=== PATIENT | female | born 1965 | race Caucasian/White ===

== ENCOUNTER 2016-08-28 09:59 | Day surgery (SDC) | payer OTHER ==
[2016-08-26 10:28] VITALS: BMI 22.0
[~2016-08-28] VITALS: Ht 172.7 cm; Wt 67.3 kg
[~2016-08-28 09:59] MED LIST: ATEN50TA8 PO; CIPROFLOXACIN 400MG / 200ML D5W IV SCH; INSDGI SC; LACTATED RINGER'S 1000ML 1,000 ML IV SCH; LACTATED RINGER'S 1000ML 500 ML IV ONE; METF1000 PO; MULT-506 PO; PANT40TA PO; SERT50TA PO; SIMV40TA2 PO; SUCR1TAB29 PO; VNTHFA/IN INH
[2016-08-28] MEDS ORDERED: LACTATED RINGER'S 1000ML 1,000 ML IV ONE (10:02)
[2016-08-28] MEDS ORDERED: LARYING-O-JET KIT (LTA) EXT ONE ×2 (10:50)
[2016-08-28] MEDS ORDERED: PROPOFOL IV EMULSION 10 MG/ML 20 ML VIAL IV ONE (10:50)
[2016-08-28] MEDS ORDERED: ROCURONIUM BROMIDE 10 MG/ML 5 ML VIAL ONE (10:50)
[2016-08-28] MEDS ORDERED: FENTANYL CITRATE INJ 50 MCG/1 ML 2 ML VIAL ONE ×2 (10:50→12:30)
[2016-08-28] MEDS ORDERED: SUCCINYLCHOLINE CHLORIDE 20 MG/ML 10 ML VIAL IV ONE (10:50)
[2016-08-28] MEDS ORDERED: LIDOCAINE HCL 2% 2 ML VIAL (20MG/ML) ONE (10:50)
[2016-08-28] MEDS ORDERED: MIDAZOLAM HCL 1 MG/ML 2ML VIAL ONE (10:50)
[2016-08-28 10:51] VITALS: BP 127/66; PULSE 69; TEMP 36.8; O2SAT 98; Ht 172.7 cm; Wt 67.3 kg
--- NOTE | 2016-08-28 11:08 | Endo History and Physical ---
History & Physical Date of Service: August 28, 2016. Chief Complaint: Abdominal pain Referring Physician: History of Present Illness Patient with a history of chronic pancreatits secondary to a history of heavy alcohol use presenting for a stent revision. She has a history of a chronic biiary stricture first treated at [facility] over 3 years ago. she is s/p placemen of a covered metal stent presents today for stent removal. Past Medical History Diabetes, Hypertension Past Surgical History Hx Cardiac Surgery: Yes (LEFT CAROTID ENDARECTOMY) Hx Internal Defibrillator: No Hx Pacemaker: No Hx Abdominal Surgery: Yes (COMMON BILE DUCT STENTS WITH REPLACEMENTS SEVERAL, bilateral tubal ligation) Hx Post-Op Nausea and Vomiting: No Hx Cancer Surgery: No Hx Thoracic Surgery: No Hx Orthopedic: No Hx Urinary Tract Surgery: No Social History Smoking Status: Current Every Day Smoker Hx Substance Use: No Hx Alcohol Use: Yes (QUIT 4.5 YEARS AGO, DAILY ALCOHOL USE IN THE PAST) Allergies Coded Allergies: BEE STING (Verified Allergy, Severe, anaphylaxis, 08/28/16) Celecoxib (Verified Allergy, Severe, anaphylaxis, 08/28/16) Ibuprofen (Verified Adverse Reaction, Unknown, DROPS BP, PASSES OUT, ) Morphine (Verified Adverse Reaction, Unknown, intensifies pain. flu like symptoms,HAD DILAUDID W/O PROB, 08/28/16) Current Medications Reported Home Medications Medications Dose Route/Sig Max Daily Dose Days Date Category Dose Instructions Ventolin Hfa (Albuterol) 200 Puffs/07996 Mcg Aers 2 Puffs INH Q4H PRN 08/26/16 Reported Carafate (Sucralfate) 1 Gm Tab 1 Gm PO QID 08/26/16 Reported Zoloft (Sertraline HCl) 50 Mg Tab 75 Mg PO HS 03/20/16 Reported Multivitamin (Multivitamins) Tab 1 Tab PO QAM 12/17/15 Reported Zocor (Simvastatin) 40 Mg Tab 40 Mg PO HS 12/17/15 Reported Protonix (Pantoprazole Sodium) 40 Mg Tab 40 Mg PO QAM 10/16/15 Reported Glucophage (Metformin Hcl) 1,000 Mg Tab 1,000 Mg PO BID 02/16/15 Reported Lantus (Insulin Glargine) Vial 12 Unit SC AMPM 02/16/15 Reported PT STOPPED HERSELF, STATES HER SUGARS HAVE BEEN GOOD AND NOT NEEDED 95-128 SUGAR RANGE RECENTLY Tenormin (Atenolol) 50 Mg Tab 50 Mg PO QAM 08/21/14 Reported Vital Signs Weight (Kilograms): 67.27 Height (Feet): 5 Height (Inches): 8 Physical Exam General Appearance: no apparent distress Respiratory/Chest: Auscultation: deminished air movement Cardiovascular: Heart Auscultation: RRR Abdomen: Inspection & Palpation: soft Assessment and Plan ERCP today for biliary stent revision. We have discussed the risks to include bleeding, infection, perforation, pain, pancreatitis and failed cannulation. Plan ERCP today
[2016-08-28 11:22] LABS: HEMATOCRIT 36.6 % (37-47); MEAN CELL VOLUME 75.9 fL (80-100); RED BLOOD COUNT 4.82 M/uL (4.2-5.4); WHITE BLOOD COUNT 9.09 K/uL (4.8-10.8)
[2016-08-28 11:25] LABS: MEAN CORPUSCULAR HGB CONC 30.3 g/dl (32-36)
[2016-08-28 11:33] LABS: PLATELET COUNT 117 K/uL (130-400)
[2016-08-28 11:34] LABS: PLT ESTIMATE DECREASED
[2016-08-28 11:39] LABS: BUN/CREATININE RATIO 15.1 (10-20); CALCIUM 9.5 mg/dl (8.5-10.1); CREATININE 0.65 mg/dl (0.60-1.20); POTASSIUM 3.8 mmol/L (3.5-5.1)
--- NOTE | 2016-08-28 12:29 | GI REPORT ---
Procedure Date: 08/28/2016 11:05 AM Procedure: ERCP Indications: Stent removal, biliary stricture from chronic pancreattiis Medicines: General Anesthesia Complications: No immediate complications. Estimated blood loss: Minimal. Estimated Blood Loss: Estimated blood loss was minimal. Procedure: Pre-Anesthesia Assessment: - Prior to the procedure, a History and Physical was performed, and patient medications, allergies and sensitivities were reviewed. The patient's tolerance of previous anesthesia was reviewed. - The risks and benefits of the procedure and the sedation options and risks were discussed with the patient. All questions were answered and informed consent was obtained. - Patient identification and proposed procedure were verified prior to the procedure by the physician, the nurse and the resource paraprofessional. The procedure was verified in the procedure room. - Pre-procedure physical examination revealed no contraindications to sedation. - ASA Grade Assessment: III - A patient with severe systemic disease. - After reviewing the risks and benefits, the patient was deemed in satisfactory condition to undergo the procedure. - The anesthesia plan was to use general anesthesia. - Immediately prior to administration of medications, the patient was re-assessed for adequacy to receive sedatives. - The heart rate, respiratory rate, oxygen saturations, blood pressure, adequacy of pulmonary ventilation, and response to care were monitored throughout the procedure. - The physical status of the patient was re-assessed after the procedure. After obtaining informed consent, the scope was passed under direct vision. Throughout the procedure, the patient's blood pressure, pulse, and oxygen saturations were monitored continuously. The SCOPE was introduced through the mouth, and advanced to the duodenum and used to inject contrast into the bile duct. The ERCP was accomplished without difficulty. The patient tolerated the procedure well. Findings: A senior supply chain analyst film of the abdomen was obtained. One stent ending in the main bile duct was seen. The esophagus was successfully intubated under direct vision without detailed examination of the pharynx, larynx, and associated structures, and upper GI tract. The upper GI tract was grossly normal. One biliary stent originating in the biliary tree was emerging from the major papilla. The stent was visibly patent. A biliary sphincterotomy had been performed. The sphincterotomy appeared open and the surrounding mucosa was nodular appearing (inflammatory on prior biopsy). One stent was removed from the biliary tree using a rat-toothed forceps. The bile duct was deeply cannulated with the short-nosed traction sphincterotome (Omni 30) and 0.035 in Acrobat guidewire. Contrast was injected. I personally interpreted the bile duct images. Contrast extended to the hepatic ducts. The middle third of the main bile duct and upper third of the main bile duct were mildly dilated and diffusely dilated with a narrowing in the proximal duct consistent with her prior stricture. The stricture was smooth appearing and much improved comared to her prior cholangiograms. The largest diameter was 9 mm. The biliary sphincterotomy was extended with a monofilament short-tip traction sphincterotome using ERBE electrocautery. There was no post-sphincterotomy bleeding. To discover objects, the biliary tree was swept with a 15 mm balloon starting at the bifurcation. One stone was removed. An occlusion cholangiogram was done showing no retained stones, the biliary tree appeared to be draining well, therefore no new stent was placed.. The endoscope was withdrawn from the patient. Impression: - One visibly patent stent from the biliary tree was seen in the major papilla. - Prior biliary endoscopic sphincterotomy appeared open. - One stent was removed from the biliary tree. - The biliary tree was swept (1 stone removed) and sphincterotmy extended. - Her biliary stricture appeared well dilated from prior "remodeling" with a covered metal stent. Recommendation: - Avoid aspirin and nonsteroidal anti-inflammatory medicines for 1 week. - Clear liquid diet today. - Cipro (ciprofloxacin) 500 mg PO BID for 3 days. - Observe patient's clinical course following today's ERCP with therapeutic intervention. Sintia Langford D.O. Sintia Langford, 08/28/2016 12:28:31 PM This report has been signed electronically. Note Initiated On: 08/28/2016 11:05 AM I attest to the content of the Intraoperative Record and orders documented therein, exceptions below
--- NOTE | 2016-08-28 12:29 | [facility] Post Operative Brief Note ---
Immediate Operative Summary Operative Date August 28, 2016. Pre-Operative Diagnosis Chronic Biliary Stricture, Chronic pancreatitis Post-Operative Diagnosis Chronic Biliary Stricture, Chronic Pancreatitis Procedure(s) Performed Endoscopic Retrograde Cholangiopancreatogram with Stent Removal, Gall Stone Extraction Surgeon Dr. Langford Associate Engineer Surgeon(s) none Estimated Blood Loss 0 cc Findings Improved biliary stricture 1 small gallstone Specimens none per surgeon Anesthesia General Complication(s) None Disposition Recovery Room / PACU
[2016-08-28] MEDS ORDERED: ATROPINE SULFATE 0.1 MG/ML 5ML SYR IV PRN (12:30)
[2016-08-28] MEDS ORDERED: HYDROmorphone INJ 1 MG/ML SYR IV PRN (12:30)
[2016-08-28] MEDS ORDERED: ONDANSETRON INJ 2 MG/ML 2 ML VIAL IV PRN ×2 (12:30→12:45)
[2016-08-28] MEDS ORDERED: MEPERIDINE HCL 25 MG/ML CARP IV PRN (12:30)
[2016-08-28] MEDS ORDERED: EpHEDrine SULFATE INJ 50 MG/ML AMP IV PRN (12:30)
[2016-08-28] MEDS ORDERED: FENTANYL CITRATE INJ 50 MCG/1 ML 2 ML VIAL IV PRN (12:30)
[2016-08-28] MEDS ORDERED: LABETALOL HCL IV 5 MG/ML 20ML IV PRN (12:30)
--- NOTE | 2016-08-28 12:31 | Discharge Instructions ---
Endoscopy Patient Instructions Date / Procedure(s) Performed August 28, 2016. ERCP Allergy Information Coded Allergies: BEE STING (Verified Allergy, Severe, anaphylaxis, 08/28/16) Celecoxib (Verified Allergy, Severe, anaphylaxis, 08/28/16) Ibuprofen (Verified Adverse Reaction, Unknown, DROPS BP, PASSES OUT, ) Morphine (Verified Adverse Reaction, Unknown, intensifies pain. flu like symptoms,HAD DILAUDID W/O PROB, 08/28/16) Discharge Date / Findings August 28, 2016. 1 gallstone removed Biliary stent removed Improved stricture of the bile duct Medication Instructions Reported Home Medications Medications Dose Route/Sig Max Daily Dose Days Date Category Dose Instructions Ventolin Hfa (Albuterol) 200 Puffs/40536 Mcg Aers 2 Puffs INH Q4H PRN 08/26/16 Reported Carafate (Sucralfate) 1 Gm Tab 1 Gm PO QID 08/26/16 Reported Zoloft (Sertraline HCl) 50 Mg Tab 75 Mg PO HS 03/20/16 Reported Multivitamin (Multivitamins) Tab 1 Tab PO QAM 12/17/15 Reported Zocor (Simvastatin) 40 Mg Tab 40 Mg PO HS 12/17/15 Reported Protonix (Pantoprazole Sodium) 40 Mg Tab 40 Mg PO QAM 10/16/15 Reported Glucophage (Metformin Hcl) 1,000 Mg Tab 1,000 Mg PO BID 02/16/15 Reported Lantus (Insulin Glargine) Vial 12 Unit SC AMPM 02/16/15 Reported PT STOPPED HERSELF, STATES HER SUGARS HAVE BEEN GOOD AND NOT NEEDED 95-128 SUGAR RANGE RECENTLY Tenormin (Atenolol) 50 Mg Tab 50 Mg PO QAM 08/21/14 Reported Provider Instructions Activity Restrictions - No exercising or heavy lifting for 24 hours. - Do not drink alcohol the day of the procedure. - Do not drive a car or operate machinery until the day after the procedure. - Do not make any important decisions or sign important papers in 24 hours after the procedure. Following Day: - Return to full activity which may include returning to work/school. Diet Clear liquid diet today Treatment For Common After Affects For mild abdominal pain, bloating, or excessive gas: - Rest - Eat lightly - Lie on right side Follow-Up Information Follow-up with Layne WELLS in 6 months Cipro 500 mg twice daily for 3 days Anesthesia Information What You Should Know You have had a procedure that required some medicine to reduce anxiety and discomfort. This treatment is called moderate sedation. After receiving the treatment, you may be sleepy, but you will be able to breathe on your own. The effects of the treatment may last for several hours. Follow these instructions along with Activity/Diet recommendations noted above: * Do NOT do anything where dizziness or clumsiness would be dangerous. * Rest quietly at home today, then you can be up and about tomorrow. * Have a responsible person stay with you the rest of today. * You may have had an I.V. today. If so, you may take the dressing off later today. Recommendations Call your doctor if: * Trouble breathing * Continuous vomiting for more than 24 hours * Temperature above 101 degrees * Severe abdominal pain or bloating * Pain not relieved by pain medicine ordered * There is increased drainage or redness from any incision * A large amount of rectal bleeding greater than 2-3 tablespoons. (If you had a polyp/s removed or have hemorrhoids, a small amount of blood - from the rectum is to be expected.) * You have any unanswered questions or concerns. IN THE EVENT OF A SERIOUS EMERGENCY, GO TO THE NEAREST EMERGENCY ROOM Your discharge instructions were prepared by provider Sintia Langford. Patient Instructions Signature Page Shara Rodriguez Patient (or Guardian) Signature/Date: I have read and understand the instructions given to me by my caregivers. Caregiver/RN/Doctor Signature/Date: The above-named patient and/or guardian has received patient instructions on this date. + Original Patient Signature Page (only) stays with chart. Please make copy for patient.
[2016-08-28 13:05] VITALS: BP 124/66; PULSE 66; TEMP 36.7; O2SAT 100
--- NOTE | 2016-08-28 13:08 | Anesthesiology Progress Note ---
Anesthesia Post Op Note Date & Time August 28, 2016 at 13:08 Vital Signs Pain Intensity: 3 Vital Signs Past 12 Hours Date Time Temp Pulse Resp B/P Pulse Ox O2 Delivery O2 Flow Rate FiO2 08/28/16 13:00 66 17 128/65 100 Nasal Cannula 2 08/28/16 12:50 63 17 132/69 100 Nasal Cannula 2 08/28/16 12:40 36.6 63 15 137/71 100 Nasal Cannula 2 08/28/16 12:30 68 16 148/71 100 Nasal Cannula 2 08/28/16 12:20 69 16 146/74 100 Nasal Cannula 2 08/28/16 12:13 36.1 75 16 140/90 100 Mask 10 08/28/16 10:51 36.8 69 20 127/66 98 Room Air Notes Mental Status: alert / awake / arousable, participated in evaluation Pt Amnestic to Procedure: Yes Nausea / Vomiting: adequately controlled Pain: adequately controlled Airway Patency, RR, SpO2: stable & adequate BP & HR: stable & adequate Hydration State: stable & adequate Anesthetic Complications: no major complications apparent
--- NOTE | 2016-08-28 13:09 | DIAGNOSTIC IMAGING REPORT ---
ERCP BILIARY DUCTAL CLINICAL HISTORY: ERCP WITH STENT REMOVAL IN OR COMPARISON STUDY: 03/21/2016 FLUOROSCOPY TIME: 1 minute 33 seconds. FINDINGS: Interval stent removal. Retrograde cannulation of the common bile duct with balloon sweeping of the common duct. IMPRESSION: ERCP as noted Electronically signed by: Kush Jung M.D. 08/28/2016 1:07 PM Dictated Date/Time: 08/28/2016 1:07 PM
[2016-08-28 13:35] VITALS: BP 122/66; PULSE 65; TEMP 36.7; O2SAT 100
[2016-08-28 14:05] VITALS: BP 127/66; PULSE 66; TEMP 36.7; O2SAT 100
== END 2016-08-28 14:05 | disposition home or self-care (01) ==
LOC: C.ACU 09:59
PROVIDERS: ATTEND Internal Medicine Gastroenterology
DX: K83.1 Obstruction of bile duct (principal); K86.1 Other chronic pancreatitis; I10 Essential (primary) hypertension; E11.9 Type 2 diabetes mellitus without complications; F17.210 Nicotine dependence, cigarettes, uncomplicated; Z79.4 Long term (current) use of insulin; Z79.899 Other long term (current) drug therapy; Z72.89 Other problems related to lifestyle; K80.50 Calculus of bile duct without cholangitis or cholecystitis without obstruction

== ENCOUNTER 2023-03-10 09:31 | Inpatient (IN) ==
[2023-03-10] MEDS ORDERED: SODIUM CHLORIDE 0.9% 1,000 ML IV ONE (09:53)
[2023-03-10] MEDS ORDERED: ONDANSETRON INJ 2 MG/ML 2 ML VIAL IV STA (09:53)
[2023-03-10] MEDS ORDERED: HYDROmorphone INJ 1 MG/ML SYRINGE IV STA (09:53)
--- NOTE | 2023-03-10 09:59 | Emergency Department Note ---
Impression & Plan Acute pancreatitis ED Provider Note Name: JOSE CHÁVEZ Age: 58 Sex: Female Arrives Via: Walk-In Informant: Patient. Patient's sister ED Provider: Bobby Miller MD Chief Complaint: Epigastric pain Impression: As per impression above Medical Decision Making: Pleasant 58-year-old female with history of alcoholism, varices, diabetes, hypertension, pancreatitis arrives for evaluation of several days worsening epigastric pain radiating to back. She does not have peritonitis on exam but is uncomfortable. Laboratory work-up consistent with acute pancreatitis. Abdominal exam is not consistent with surgical abdomen thus will defer imaging to hospitalist service. Patient was given IV pain medications, fluids, Zofran with significant improvement in her discomfort. There is no evidence of infectious etiology at this time. Patient is comfortable with plan for hospitalization. Triage/Nursing Notes reviewed by Me Differential:Pancreatitis, ACS, aortic pathology, biliary pathology, mesenteric ischemia, many other pathologies considered Vital Signs: reviewed and remarkable for no significant abnormalities Interventions: Normal saline bolus 1 L IV, Dilaudid 1 mg IV, 4 mg Zofran IV Labs:ED labs Reviewed by me and remarkable for elevated lipase EKG:As per my interpretation. Indication epigastric pain. Normal sinus rhythm at 66 bpm with a prolonged QTc of 503. There is no ectopy nor ischemia. When compared to EKG March 20, 2016 there is no significant change. Consults:Dr. Robertson of the [facility] hospitalist service Plan: Disposition:Hospitalization. Condition: Good History of Present Illness: 58-year-old female arrives for evaluation of epigastric pain. Patient notes 2 to 3 days of gradually worsening epigastric pain. Notes pain radiates to the back. Stabbing in nature. Associated with nausea. Worse with any eating or movement. Denies any abdominal distention. Denies any falls, trauma, injuries. She denies any specific chest pain, shortness of breath, fevers though has had some chills. She has not had any urinary or bowel issues. Has not noted any black or bloody stools. No swelling in legs rashes or bruising. Patient has been using Motrin and Excedrin with mild improvement. Patient does have history of pancreatitis with previous hospitalization about a decade ago. Admits to history of alcoholism though has not been drinking any alcohol recently. She also has a history of hypertension, diabetes, varices, tobacco abuse, atherosclerosis amongst others. Denies other concerning symptoms. Past Medical History:See Below Home Medications:See Below Allergies:Morphine, ibuprofen, celecoxib, bee venom Vitals:Blood Pressure: 137/93, Pulse 78, RR 16, T 36.5C, O2 99% on RA Physical Exam: GENERAL: Patient is very uncomfortable appearing and in moderate distress. Dehydrated appearing moderately cachectic appearing RESPIRATORY: No dyspnea. Clear to auscultation and equal bilaterally. CARDIOVASCULAR: Regular rate and rhythm.No murmur appreciated. GASTROINTESTINAL: Moderate epigastric tenderness palpation otherwise soft nontender abdomen without peritonitis or effusion appreciated BACK: No midline tenderness, no CVA tenderness EXTREMITIES: Normal motion all extremities, no cyanosis, no edema. NEUROLOGIC: Alert and oriented. No focal neurologic deficits appreciated SKIN: No rash, no jaundice, no diaphoresis. PSYCH: Appropriate GCS: 15 ED Course: Times/Reassessments: Patient is feeling significantly better after IV medications and fluids. She is comfortable plan for hospitalization. Bobby Miller MD Past Med/Surg History Medical History (Updated 03/10/23 @ 13:10 by Laura Hernandez PA-C) Stenosis of left subclavian artery Dyslipidemia GERD without esophagitis Chronic pancreatitis Asymptomatic stenosis of left carotid artery History of TIAs Biliary colic History of pancreatitis Portal hypertensive gastropathy DM2 (diabetes mellitus, type 2) Esophageal varices in alcoholic cirrhosis Hypertension Surgical History (Updated 03/10/23 @ 11:52 by Laura Hernandez PA-C) History of biliary stent insertion S/P carotid endarterectomy H/O esophagogastroduodenoscopy Family History (Updated 03/10/23 @ 12:09 by Laura Hernandez PA-C) Father Disorder of pancreas ?due to EtOH Social History (Updated 03/10/23 @ 12:08 by Laura Hernandez PA-C) Tobacco Type: Cigarettes and E-cigarettes / Vaping Cigarettes Per Day: ~20 cig/day; Hx Alcohol Use: Yes (last drink was 12 years ago) Feels Safe at Home: Yes Allergies Allergies Allergy/AdvReac Type Severity Reaction Status Date / Time bee venom protein (honey bee) Allergy Severe anaphylaxis Verified 03/10/23 10:39 celecoxib Allergy Severe anaphylaxis Verified 03/10/23 10:39 morphine AdvReac Unknown intensifies Verified 03/10/23 10:39 pain. flu like symptoms,HAD DILAUDID W/O PROB Home Meds Home Medications Medication Instructions Recorded Confirmed albuterol sulfate 90 mcg/actuation 2 puff inhalation Q4H PRN Wheezing 08/26/16 03/10/23 aerosol inhaler ##0 ibuprofen 200 mg tablet 400 mg PO UD PRN PAIN/FEVER #0 tabs 10/29/17 03/10/23 atenolol 25 mg tablet 25 mg PO QAM 03/10/23 03/10/23 empagliflozin 10 mg tablet 10 mg PO QAM 03/10/23 03/10/23 (Jardiance) epinephrine 0.3 mg/0.3 mL 0.3 mg IM UD PRN SEVERE REACTION 03/10/23 03/10/23 injection, auto-injector insulin glargine 100 unit/mL (3 16 unit subcut BID 03/10/23 03/10/23 mL) subcutaneous pen (Lantus Solostar U-100 Insulin) lisinopril 20 mg tablet 20 mg PO QAM 03/10/23 03/10/23 pantoprazole 20 mg tablet,delayed 20 mg PO QAM 03/10/23 03/10/23 release rosuvastatin 20 mg tablet 20 mg PO HS 03/10/23 03/10/23 Results & Data (ED) Vital Signs Vital Signs - 24 hr 03/10/23 09:35 03/10/23 10:30 Temperature 36.5 C Temperature Source Oral Pulse Rate 78 63 Respiratory Rate 16 Respiratory Effort / Characteristics Non-Labored Respiratory Depth Normal Blood Pressure 137/93 Blood Pressure Mean 107 Pulse Oximetry 99 Oxygen Delivery Method Room Air Sepsis Recent Fever Within 48 Hours No Sepsis New/Unexplained Change in Mental Status N/A Sepsis Action Taken by Nursing No Action Required Laboratory Data 03/10/23 10:00 03/10/23 10:00 Lab Results 03/10/23 Range/Units 10:00 WBC 13.69 H (4.8-10.8) K/ul RBC 5.79 H (4.20-5.40) M/uL Hgb 15.1 (12.0-16.0) g/dl Hct 47.9 H (37.0-47.0) % MCV 82.7 (80.0-100.0) fL MCH 26.1 (25.0-34.0) pg MCHC 31.5 L (32.0-36.0) g/dL RDW Std Deviation 46.6 H (36.4-46.3) fL RDW Coeff of Soraya 15.6 H (11.5-14.5) % Plt Count 164 (130-400) K/uL MPV 11.4 (9.4-12.4) fL Immature Gran % (Auto) 0.4 % Neut % (Auto) 85.5 % Lymph % (Auto) 8.8 % Delta % (Auto) 4.1 % Eos % (Auto) 0.8 % Baso % (Auto) 0.4 % Neut # (Auto) 11.71 H (1.40-6.50) K/uL Lymph # (Auto) 1.20 (1.20-3.40) K/uL Delta # (Auto) 0.56 (0.11-0.59) K/uL Eos # (Auto) 0.11 (0.00-0.50) K/uL Baso # (Auto) 0.05 (0.00-0.20) K/uL Immature Gran # (Auto) 0.06 (0.01-0.20) K/uL Sodium 136 (136-145) mmol/L Potassium 3.3 L (3.5-5.1) mmol/L Chloride 100 (98-107) mmol/L Carbon Dioxide 24 (21-32) mmol/L Anion Gap 12 H (3-11) BUN 18 (6-23) mg/dl Creatinine 1.06 (0.6-1.2) mg/dl Est Cr Clr Drug Dosing 46.4 ml/min Est GFR ( Amer) 66.6 ml/min Est GFR (Non-Af Amer) 57.4 ml/min BUN/Creatinine Ratio 17.0 (10-20) Glucose 170 H (70-99(Fasting)) mg/dl Calcium 10.6 H (8.6-10.3) mg/dl Magnesium 1.9 (1.7-2.4) mg/dl Total Bilirubin 0.8 (0.2-1.0) mg/dl Direct Bilirubin 0.3 H (0-0.2) mg/dl AST 22 (13-39) U/L ALT 22 (7-52) U/L Alkaline Phosphatase 132 H (34-104) U/L Troponin I High Sens 16.8 H (0-14) pg/ml Total Protein 9.4 H (6.0-8.3) gm/dl Albumin 5.0 (3.4-5.0) gm/dl Lipase 968 H (11-82) U/L Urine Color Yellow Urine Appearance Clear (Clear) Urine pH 5.5 (4.5-7.5) Ur Specific [place] 1.035 H (1.000-1.030) Urine Protein 2+ H (Negative) Urine Glucose (UA) 3+ H (Negative) Urine Ketones Negative (Negative) Urine Blood 2+ H (Negative) Urine Nitrite Negative (Negative) Urine Bilirubin Negative (Negative) Urine Urobilinogen Negative (Negative) Ur Leukocyte Esterase Negative (Negative) Urine WBC (Auto) 1-5 (0-5) /hpf Urine RBC (Auto) 5-10 H (0-4) /hpf U Hyaline Cast (Auto) 0 (0-5) /lpf U Epithel Cells (Auto) >30 H (0-5) /lpf Urine Bacteria (Auto) Negative (Negative) Administered Medications Lactated Ringer's (Lr) 1,000 mls @ 150 mls/hr IV .Q6H40M VIKA Stop: 04/09/23 12:44 Last Admin: 03/10/23 12:57 Dose: 150 mls/hr Documented By: ANDREEA Oxycodone HCl (Oxycodone Hcl Ir 5 Mg Tab (Immediate Release)) 5 mg PO Q8H PRN PRN Reason: Pain Stop: 03/24/23 12:56 Last Admin: 03/10/23 14:14 Dose: 5 mg Documented By: ANDREEA Discontinued Medications Hydromorphone HCl (Hydromorphone Inj 1 Mg/Ml Syringe) 1 mg IV NOW STA Stop: 03/10/23 09:54 Last Admin: 03/10/23 10:10 Dose: 1 mg Documented By: FELIZ Sodium Chloride (Nss) 1,000 mls @ 999 mls/hr IV .Q1H1M ONE Stop: 03/10/23 10:53 Last Infusion: 03/10/23 11:55 Dose: Infused Documented By: Admin: 03/10/23 10:04 Dose: 999 mls/hr Documented By: FELIZ Ondansetron HCl (Ondansetron Inj 2 Mg/Ml 2 Ml Vial) 4 mg IV NOW STA Stop: 03/10/23 09:54 Last Admin: 03/10/23 10:10 Dose: 4 mg Documented By: FELIZ Potassium Chloride (Potassium Chloride Crtab 20 Meq Tabcr) 40 meq PO NOW STA Stop: 03/10/23 12:33 Last Admin: 03/10/23 12:58 Dose: 40 meq Documented By: ANDREEA Discharge Plan Visit Data Chief Complaint: Abdominal Pain Stated Complaint: Pancreatitis ED Provider: Bobby Miller Discharge Problem: Acute pancreatitis Patient Disposition: Being Evaluated by Hospitalist Discharge Instructions Interventions: ED Discharge Assessment Last Done: 03/10/23 14:05 Discharge Problem: Acute pancreatitis Qualifiers: Pancreatitis type: other Acute pancreatitis complication: no infection or necrosis Qualified Code(s): K85.80 - Other acute pancreatitis without necrosis or infection
[2023-03-10 10:18] LABS: Basophils # (auto) 0.05 K/uL (0.00-0.20); Basophils % (auto) 0.4 %; Eosinophils # (auto) 0.11 K/uL (0.00-0.50); Eosinophils % (auto) 0.8 %; Hematocrit (blood only) 47.9 % (37.0-47.0); Hemoglobin 15.1 g/dl (12.0-16.0); Immature Granulocytes # (auto) 0.06 K/uL (0.01-0.20); Immature Granulocytes % (auto) 0.4 %; Lymphocytes % (auto) 8.8 %; Mean Corpuscular Hemoglobin 26.1 pg (25.0-34.0); Mean Corpuscular Hgb Conc 31.5 g/dL (32.0-36.0); Mean Corpuscular Volume 82.7 fL (80.0-100.0); Mean Platelet Volume 11.4 fL (9.4-12.4); Monocytes # (auto) 0.56 K/uL (0.11-0.59); Monocytes % (auto) 4.1 %; Neutrophils # (auto) 11.71 K/uL (1.40-6.50); Neutrophils % (auto) 85.5 %; Platelet Count 164 K/uL (130-400); RDW Coefficient of Variation 15.6 % (11.5-14.5); RDW Standard Deviation 46.6 fL (36.4-46.3); Red Blood Count 5.79 M/uL (4.20-5.40); White Blood Count 13.69 K/ul (4.8-10.8)
[2023-03-10 10:19] LABS: Appearance Urine Clear (Clear); Bacteria Urine Automated Negative (Negative); Bilirubin Urine Negative (Negative); Blood Urine 2+ (Negative); Cast Urine Automated 0 /lpf (0-5); Color Urine Yellow; Epithelial Cell Urine Auto >30 /lpf (0-5); Glucose Urine UA 3+ (Negative); Ketones Urine Negative (Negative); Leukocyte Esterase Urine Negative (Negative); Nitrite Urine Negative (Negative); Protein Urine 2+ (Negative); Specific Gravity Urine 1.035 (1.000-1.030); Urobilinogen Urine Negative (Negative); pH Urine 5.5 (4.5-7.5)
[2023-03-10 10:34] LABS: Calcium 10.6 mg/dl (8.6-10.3); Creatinine Clr Calc Pharmacy 46.4 ml/min; Est GFR (African American) 66.6 ml/min; Est GFR (Non-African American) 57.4 ml/min; Potassium 3.3 mmol/L (3.5-5.1)
[2023-03-10 10:38] LABS: Troponin I High Sensitivity 16.8 pg/ml (0-14)
[2023-03-10 10:52] LABS: Bilirubin Direct 0.3 mg/dl (0-0.2); Bilirubin,Total 0.8 mg/dl (0.2-1.0); Magnesium 1.9 mg/dl (1.7-2.4); Total Protein 9.4 gm/dl (6.0-8.3)
--- OUTSIDE RECORDS SUMMARY | 2023-03-10 11:43 | External Medical Summary | Summary of Care ---
Author Name Unknown Organization [facility] Address [address] [place] [address] Phone [phone] Care Team Providers Care Densitometer Reader Name Role Phone Zachary Mcfarlane DO Primary Care Provider Encounter Details Date Type Department Care Team Description 10/20/2018 Hospital Encounter Radiology Film File [address] [place] [address] Allergies Active Allergy Reactions Severity Noted Date Comments Bee Venom Anaphylaxis High 09/19/2014 Other reaction(s): Angioedema Celecoxib Anaphylaxis High 12/05/2014 Morphine Other (Please comment) 12/05/2014 Exacerbation of pain documented as of this encounter (statuses as of 02/04/2023) Medications Medication Sig Dispensed Refills Start Date End Date Status BD PEN NEEDLE FREDDIE U/F 32G X 4 MM 0 02/09/2015 Active PROAIR HFA 108 (90 BASE) MCG/ACT inhaler Inhale by mouth 2 Puffs as needed . 0 02/05/2015 Active Aspirin-Acetaminophen- Caffeine 250-250-65 MG Oral Tablet Take 2 Tablets by mouth every 8 hours as needed. 0 Active documented as of this encounter (statuses as of 02/04/2023) Active Problems Problem Noted Date Carotid occlusion, right 01/13/2023 Subclavian artery stenosis, left 023 Type 2 diabetes mellitus with hemoglobin A1c goal of less than 7.0% 12/19/2022 Gastroesophageal reflux disease 12/20/19 23 Dyslipidemia 12/19/2022 Tobacco use disorder 12/19/2022 S/P carotid endarterectomy 12/19/2022 History of TIA (transient ischemic attac k) 12/19/2022 Carotid stenosis, asymptomatic, left 04/2022 HTN, goal below 140/90 12/19/2022 Chronic pancreatitis 12/19/2022 Hepatic cirrhosis 12/19/2022 documented as of this encounter (statuses as of 02/04/2023) Immunizations Name Administration Dates Next Due Pneumococcal Polysaccharide PPV23 (Pneumovax) 09/17/2015 Seasonal Influenza, Quadriva lent, No Preserve, IM 01/10/2014,03/02/2008,03/25/2007 Seasonal Influenza, Split, I IV3, With Preserve, Inj 02/16/2016,03/02/2008,03/25/2007 documented as of this encounter Social History Tobacco Use Types Packs/Day Years Used Date Smoking Tobacco: Every Day Cigarettes 1 Smokeless Tobacco: Never Alcohol Use Standard Drinks/Week Comments No 0 (1 standard drink = 0.6 oz pur e alcohol) quit 3 years ago Sex Assigned at Date Recorded Not on file Job Start Date Occupation Industry Not on file Not on file Not on file documented as of this encounter Plan of Treatment Upcoming Encounters Date Type Specialty Care Team Description 03/20/2023 Office Visit Family Medicine Holland Dominique MD [address] [place] [address] 04/01/2023 Office Visit Pharmacy [facility] [address] [place] [address] 05/15/2023 Office Visit Gastroenterology Dede Olmedo MD [address] [place] [address] [place] [address] Scheduled Procedures Name Priority Associated Diagnoses Date/Ti me ESOPHAGOGASTRODUODENOSCOPY ( EGD), FLEXIBLE, TRANSORAL, DIAGNOSTIC Recall Esophageal varices (HCC) COLONOSCOPY FLEXIBLE PROXIMAL DIAGNOSTIC Recall Encounter for screening colonoscopy Health Maintenance Due Date Last Done Comments DISCUSS TOBACCO CESSATION (REFER TO SMARTSET #8255) 1965 Hepatitis B (1 of 3 - 3-dose series) 1965 COVID-19 Vaccine (#1) 1965 Depression Screening 1976 HIV Screening 01/04/1979 DIABETES-EYE EXAM 01/04/1982 Diabetic Foot Exam 01/04/1982 DTaP,Tdap,and Td Vaccines (1 - Tdap) 01/04/1983 Pap Smear 01/04/1985 Cervical Cancer Screening 01/04/1994 HPV/Co-Test 01/04/1994 Cologuard 01/04/2009 Fecal Occult Blood Test 01/04/2009 Sigmoidoscopy 01/04/2009 LUNG CANCER SCREENING - USE SMARTSET [id number] 01/04/2014 Zoster Vaccines (1 of 2) 01/04/2014 Pneumococcal Vaccine: Pediatrics (0 to 5 Years) and At-Risk Patients (6 to 64 Years) (2 - PCV) 09/16/2016 09/17/2015 Mammogram 10/21/2019 10/20/2018, 10/20/2018 Influenza Vaccine (FLU shot) (#1) 2022 02/16/2016, 01/10/2014, 03/02/2008, Additional history exists HbA1c 06/19/2023 12/19/2022, 04/1 10/2022, 04/29/2021, Additional history exists Albumin/Creatinine Ratio 12/20/2023 12/19/2022 GFR 01/07/2024 01/06/2023, 09/0 04/2022, 08/04/2022, Additional history exists Colonoscopy 04/10/2026 04/10/2016, 04/10/2016 Colorectal Cancer Screening 04/10/2026 Hepatitis C Screening Completed 08/31/2018 GARDASIL-HPV IMMUNIZATION SERIES Aged Out No longer eligible based on patient's age to complete this topic MENINGOCOCCAL (MENACTRA/MENVEO) Aged Out No longer eligible based on patient's age to complete this topic documented as of this encounter Medical Devices Not on filedocumented as of this encounter Procedures Procedure Name Priority Date/Time Associated Diagnosis Comments RADIOLOGY EXAM - US (IMAGES ONLY, NO REPORT) Routine 10/20/2018 12:15 PM EDT documented in this encounter Results * RADIOLOGY EXAM - US (IMAGES ONLY, NO REPORT) (10/20/2018 12:15 PM EDT) 10/20/2018 12:1 1 PM EDT Narrative Scheduling, Silent - 02/03/2023 12:06 PM EDT This is an imaging study not interpreted or resulted by a [facility] or [employer] contracted radiologist. Holland Dominique MD RAD ULTRASOUND documented in this encounter Care Teams Densitometer Reader Relationship Specialty Start Date End Date Zachary Mcfarlane, [address] [address] PCP - General Family Medicine 10/29/17 12/25/22 documented as of this encounter
--- OUTSIDE RECORDS SUMMARY | 2023-03-10 11:43 | External Medical Summary | Summary of Care ---
Author Name Unknown Organization [facility] Address [address] [place] [address] Phone [phone] Care Team Providers Care Brush Holder Inspector Name Role Phone Holland Dominique MD Primary Care Provider [phone] Reason for Visit * Reason Onset Date Comments Medication Refill 02/12/2023 Encounter Details Date Type Department Care Team (Late st Contact Info) Description 02/12/2023 Refill Nephrology, [facility] [address] [place] [address] Gio Perez MD [address] [place] [address] Allergies Active Allergy Reactions Criticality Noted Date Comments Bee Venom Anaphylaxis High 09/19/2014 Other reaction(s): Angioedema Celecoxib Anaphylaxis High 12/05/2014 Morphine Other (Please comment) 12/05/2014 Exacerbation of pain documented as of this encounter (statuses as of 02/17/2023) Medications Medication Sig Dispensed Refills Start Date End Date Status Aspirin-Acetaminop hen-Caffeine 250-250-65 MG Oral Tablet Take 2 Tablets by mouth every 8 hours as needed. 0 Active Empagliflozin 10 MG Oral Tablet (Jardiance) Take 1 Tablet by mouth in the morning. 90 Tablet 1 02/17/2023 Active Atenolol 25 MG Oral Tablet (Tenormin)Indicati ons:HTN, goal below 140/90 Take 1 Tablet by mouth in the morning. 90 Tablet 3 02/13/2023 Active Rosuvastatin Calcium 20 MG Oral Tablet (Crestor)Indicatio ns:Dyslipidemia Take 1 Tablet by mouth in the morning. 90 Tablet 3 02/13/2023 Active Pantoprazole Sodium 20 MG Oral Tablet Delayed Release (Protonix)Indicati ons:Gastroesophage al reflux disease, unspecified whether esophagitis present,H/O esophageal varices Take 1 Tablet by mouth in the morning. 90 Tablet 3 02/13/2023 Active OneTouch Ultra In Vitro Strip (Glucose Blood)Indications: Type 2 diabetes mellitus with hemoglobin A1c goal of less than 7.0% ([facility]) Use to test blood sugars twice a day 200 Strip 11 02/13/2023 Active Lantus SoloStar 100 UNIT/ML Subcutaneous Solution Pen-injectorIndica tions:Type 2 diabetes mellitus with hemoglobin A1c goal of less than 7.0% ([facility]) Inject 16 Units under the skin in the morning and 16 Units before bedtime. 15 mL 5 02/13/2023 Active EpiPen 2-Rahul 0.3 MG/0.3ML Injection Solution Auto-injectorIndic ations:Allergy to honey bee venom For a severe reaction: Inject in outer thigh following instructions on package and go to the Emergency room. 2 Each 3 02/13/2023 Active Lisinopril 20 MG Oral Tablet (Prinivil)Indicati ons:HTN, goal below 140/90 Take 1 Tablet by mouth in the morning. 30 Tablet 9 02/13/2023 Active BD Pen Needle Rose U/F 32G X 4 MM (Insulin Pen Needle)Indications :Type 2 diabetes mellitus with stage 3b chronic kidney disease, without long-term current use of insulin (HCC) Use with lantus solostar pen- injector 180 Each 0 02/12/2023 Active ProAir HFA 108 (90 Base) MCG/ACT Inhalation Aerosol SolutionIndication s:Tobacco use disorder Inhale 2 Puffs by mouth as needed for Cough. 8.5 g 0 02/12/2023 Active Empagliflozin 10 MG Oral Tablet (Jardiance) Take 1 Tablet by mouth in the morning. 90 Tablet 3 01/09/2023 Discontinue d(Refill) documented as of this encounter (statuses as of 02/17/2023) Active Problems Problem Noted Date Diagnosed Date Carotid occlusion, right 01/13/2023 Subclavian artery stenosis, left 01/13/2023 Type 2 diabetes mellitus wit h hemoglobin A1c goal of less than 7.0% 12/19/2022 Gastroesophageal reflux disease 12/19/2022 Dyslipidemia 12/19/2022 Tobacco use disorder 12/19/2022 S/P carotid endarterectomy 12/19/2022 History of TIA (transient ischemic attack) 12/19 Carotid stenosis, asymptomatic, left 12/19/2022 HTN, goal below 140/90 12/19/2022 Chronic pancreatitis 12/19/2022 Hepatic cirrhosis 12/19/2022 documented as of this encounter (statuses as of 02/17/2023) Immunizations Name Administration Dates Next Due Pneumococcal Polysaccharide PPV23 (Pneumovax) 09/17/2015 Seasonal Influenza, Quadriva lent, No Preserve, IM 01/10/2014,03/02/2008,03/25/2007 Seasonal Influenza, Split, I IV3, With Preserve, Inj 02/16/2016,03/02/2008,03/25/2007 documented as of this encounter Social History Tobacco Use Types Packs/Day Years Used Date Smoking Tobacco: Every Day Cigarettes 1 35 Smokeless Tobacco: Never Alcohol Use Standard Drinks/Week Comments No 0 (1 standard drink = 0.6 oz pur e alcohol) quit 3 years ago Sex and Gender Information Value Date Recorded Sex Assigned at Not on file Gender Identity Not on file Sexual Orientation Not on file Job Start Date Occupation Industry Not on file Not on file Not on file documented as of this encounter Miscellaneous Notes * Telephone Encounter - Gio Perez MD - 02/17/2023 2:06 PM EDTSigned Prescriptions: Disp Refills Empagliflozin 10 MG Oral Tablet (Jardiance)90 Tab*1 Sig: Take 1 Tablet by mouth in the morning. Authorizing Provider: GIO PEREZ * Telephone Encounter - Mikki Sherman LPN - 02/13/2023 8:24 AM EDTPending Prescriptions: Disp Refills Empagliflozin 10 MG Oral Tablet (Jardiance)90 Tab*1 Sig: Take 1 Tablet by mouth in the morning. * Telephone Encounter - Mikki Sherman LPN - 02/13/2023 8:21 AM EDT Prescription refill request received from pharmacy. Pending as requested. Please authorize. documented in this encounter Plan of Treatment Upcoming Encounters Date Type Department Care Team (Late st Contact Info) Description 03/20/2023 4:00 PM EST Office Visit Family Practice [facility] [address] [place] [phone] Holland Dominique MD [address] [place] [phone] 04/01/2023 2:00 PM EST Office Visit Pharmacy, [facility] [address] [place] [address] [facility] [address] [facility] [place] [address] 05/15/2023 2:00 PM EST Office Visit Hepatology, [facility] [address] [place] [address] Dede Olmedo MD [address] [place] [address] Scheduled Procedures Name Priority Associated Diagnoses Date/Ti me ESOPHAGOGASTRODUODENOSCOPY ( EGD), FLEXIBLE, TRANSORAL, DIAGNOSTIC Recall Esophageal varices (HCC) COLONOSCOPY FLEXIBLE PROXIMAL DIAGNOSTIC Recall Encounter for screening colonoscopy Health Maintenance Due Date Last Done Comments DISCUSS TOBACCO CESSATION (REFER TO SMARTSET #9057) 1965 Hepatitis B (1 of 3 - 3-dose series) 1965 COVID-19 Vaccine (#1) 1965 Depression Screening 1976 HIV Screening 01/04/1979 Diabetic Eye Exam 01/04/1982 Diabetic Foot Exam 01/04/1982 DTaP,Tdap,and Td Vaccines (1 - Tdap) 01/04/1983 Pap Smear 01/04/1985 Cervical Cancer Screening 01/04/1994 HPV/Co-Test 01/04/1994 Cologuard 01/04/2009 Fecal Occult Blood Test 01/04/2009 Sigmoidoscopy 01/04/2009 LUNG CANCER SCREENING - USE SMARTSET [id number] 01/04/2014 Zoster Vaccines (1 of 2) 01/04/2014 Pneumococcal Vaccine: Pediatrics (0 to 5 Years) and At-Risk Patients (6 to 64 Years) (2 - PCV) 09/16/2016 09/17/2015 Influenza Vaccine (FLU shot) (#1) 2022 02/16/2016, 01/10/2014, 03/02/2008, Additional history exists HbA1c 06/19/2023 12/19/2022, 07/19, 04/29/2021, Additional history exists Albumin/Creatinine Ratio 12/20/2023 12/19/2022 GFR 01/07/2024 01/06/2023, 09/0 04/2022, 08/04/2022, Additional history exists Mammogram 02/18/2024 02/17/2023, 01/18, 10/20/2018, Additional history exists Colonoscopy 04/10/2026 04/10/2016, 04/10/2016 Colorectal Cancer Screening 04/10/2026 Hepatitis C Screening Completed 08/31/2018 GARDASIL-HPV IMMUNIZATION SERIES Aged Out No longer eligible based on patient's age to complete this topic MENINGOCOCCAL (MENACTRA/MENVEO) Aged Out No longer eligible based on patient's age to complete this topic documented as of this encounter Medical Devices Not on filedocumented as of this encounter Care Teams Brush Holder Inspector Relationship Specialty Start Date End Date Holland Dominique MD [address] [place] [address] PCP - General Family Medicine 12/26/22 documented as of this encounter
--- OUTSIDE RECORDS SUMMARY | 2023-03-10 11:43 | External Medical Summary | Summary of Care ---
Author Name Unknown Organization [facility] Address [address] [place] [address] Phone [phone] Care Team Providers Care Laboratory Chemist Name Role Phone Holland oDminique MD Primary Care Provider [phone] Reason for Visit * Reason Onset Date Comments Medication Question 02/12/2023 Encounter Details Date Type Department Care Team (Late st Contact Info) Description 02/12/2023 Telephone Family Practice [facility] [address] [place] [address] Holland Dominique MD [address] [facility] [place] [phone] Medication Question (/) Allergies Active Allergy Reactions Criticality Noted Date Comments Bee Venom Anaphylaxis High 09/19/2014 Other reaction(s): Angioedema Celecoxib Anaphylaxis High 12/05/2014 Morphine Other (Please comment) 12/05/2014 Exacerbation of pain documented as of this encounter (statuses as of 02/13/2023) Medications Medication Sig Dispensed Refills Start Date End Date Status Aspirin-Acetaminophe n-Caffeine 250-250-65 MG Oral Tablet Take 2 Tablets by mouth every 8 hours as needed. 0 Active Empagliflozin 10 MG Oral Tablet (Jardiance) Take 1 Tablet by mouth in the morning. 90 Tablet 3 01/09/2023 Active BD Pen Needle Rose U/F 32G X 4 MM (Insulin Pen Needle)Indications:T ype 2 diabetes mellitus with stage 3b chronic kidney disease, without long-term current use of insulin (HCC) Use with lantus solostar pen- injector 180 Each 0 02/12/2023 Active ProAir HFA 108 (90 Base) MCG/ACT Inhalation Aerosol SolutionIndications: Tobacco use disorder Inhale 2 Puffs by mouth as needed for Cough. 8.5 g 0 02/12/2023 Active documented as of this encounter (statuses as of 02/13/2023) Active Problems Problem Noted Date Diagnosed Date [...] as of this encounter (statuses as of 02/13/2023) Immunizations Name Administration Dates Next Due Pneumococcal [...] encounter Miscellaneous Notes * Telephone Encounter - Nata Taylor LPN - 02/12/2023 4:09 PM EDT 2 puffs up to 4 times a day as needed? Need direction of how many times per day pt can use inhaler. * Telephone Encounter - Pat Galan CPhT - 02/12/2023 1:28 PM EDT Pharmacy is calling because pt's prescription for Proair was sent with unclear directions stating "needs qty per day". Please clarify the directions for this medication [facility] Thank you, Pat Galan CPhT Pack Worker Supervisor [facility] ([facility])(formerly telepharmacy) 02/12/2023,1:28 PM documented in this encounter Plan of Treatment Upcoming Encounters Date Type Department Care Team (Late st Contact Info) Description 02/17/2023 12:30 PM EDT Imaging Radiology [facility] 1st Floor, [address] [place] [address] 02/17/2023 1:00 PM EDT Imaging Radiology [address] [place] [address] 03/20/2023 4:00 PM EST Office Visit Family Practice [facility] [address] [facility] [place] [address] Holland [facility] [address] [facility] [place] [address] 04/01/2023 2:00 PM EST Office Visit [facility], [facility] [address] [facility] [address] [facility] [address] 05/15/2023 2:00 PM EST Office Visit Hepatology, [address] [place] [address] Dede Olmedo MD [address] [place] [address] Scheduled Procedures Name Priority Associated Diagnoses Date/Ti me ESOPHAGOGASTRODUODENOSCOPY ( EGD), FLEXIBLE, TRANSORAL, DIAGNOSTIC Recall Esophageal varices (HCC) COLONOSCOPY FLEXIBLE PROXIMAL DIAGNOSTIC Recall Encounter for screening colonoscopy Health Maintenance Due Date Last Done Comments DISCUSS TOBACCO CESSATION (REFER TO SMARTSET #5243) 1965 Hepatitis B (1 of 3 - 3-dose series) 1965 COVID-19 Vaccine (#1) 1965 Depression Screening 1976 HIV Screening 01/04/1979 DIABETES-EYE EXAM 01/04/1982 Diabetic Foot Exam 01/04/1982 DTaP,Tdap,and Td Vaccines (1 - Tdap) 01/04/1983 Pap Smear 01/04/1985 Cervical Cancer Screening 01/04/1994 HPV/Co-Test 01/04/1994 Cologuard 01/04/2009 Fecal Occult Blood Test 01/04/2009 Sigmoidoscopy 01/04/2009 LUNG CANCER SCREENING - USE SMARTSET [id number] 01/04/2014 Zoster Vaccines (1 of 2) 01/04/2014 Pneumococcal Vaccine: Pediatrics (0 to 5 Years) and At-Risk Patients (6 to 64 Years) (2 - PCV) 09/16/2016 09/17/2015 Influenza Vaccine (FLU shot) (#1) 2022 02/16/2016, 01/10/2014, 03/02/2008, Additional history exists HbA1c 06/19/2023 12/19/2022, 07/19, 04/29/2021, Additional history exists Albumin/Creatinine Ratio 12/20/2023 12/19/2022 GFR 01/07/2024 01/06/2023, 09/0 04/2022, 08/04/2022, Additional history exists Mammogram 01/30/2024 01/29/2023, 07/0 06/2018, 10/20/2018 Colonoscopy 04/10/2026 04/10/2016, 04/10/2016 Colorectal Cancer Screening 04/10/2026 Hepatitis C Screening Completed 08/31/2018 GARDASIL-HPV IMMUNIZATION SERIES Aged Out No longer eligible based on patient's age to complete this topic MENINGOCOCCAL (MENACTRA/MENVEO) Aged Out No longer eligible based on patient's age to complete this topic documented as of this encounter Medical Devices Not on filedocumented as of this encounter Care Teams Laboratory Chemist Relationship Specialty Start Date End Date Holland Dominique MD [address] [place] [address] PCP - General Family Medicine 12/26/22 documented as of this encounter
--- OUTSIDE RECORDS SUMMARY | 2023-03-10 11:43 | External Medical Summary | Summary of Care ---
Author Name Unknown Organization [facility] Address [address] [place] [address] Phone [phone] Care Team Providers Care Seaming Machine Operator Name Role Phone Holland Dominique MD Primary Care Provider [phone] Reason for Referral * Precert (Within 10 days (routine)) - Pending Review Specialty Diagnoses / Procedures Referred By Jessica t Referred To Contact Radiology Diagnoses Abnormal mammogram Inconclusive mammogram due to dense breasts Procedures MRI BREAST BILATERAL W WO CONTRAST Alyssa Rader CRNP [address] [place] [address] Referral ID Status Reason Start Date Expiration Date V isits Requested Visits Authorized [id number] Pending Review 03/02/[phone] Encounter Details Date Type Department Care Team (Late st Contact Info) Description 02/17/2023 Telephone Family Practice [facility] [address] [place] [address] Alyssa Raedr CRNP [address] [place] [address] Allergies Active Allergy Reactions Criticality Noted Date Comments Bee Venom Anaphylaxis High 09/19/2014 Other reaction(s): Angioedema Celecoxib Anaphylaxis High 12/05/2014 Morphine Other (Please comment) 12/05/2014 Exacerbation of pain documented as of this encounter (statuses as of 02/24/2023) Medications Medication Sig Dispensed Refills Start Date End Date Status Aspirin-Acetaminoph en-Caffeine 250-250-65 MG Oral Tablet Take 2 Tablets by mouth every 8 hours as needed. 0 Active Empagliflozin 10 MG Oral Tablet (Jardiance) Take 1 Tablet by mouth in the morning. 90 Tablet 1 02/17/2023 Active Atenolol 25 MG Oral Tablet (Tenormin)Indicatio ns:HTN, goal below 140/90 Take 1 Tablet by mouth in the morning. 90 Tablet 3 02/13/2023 Active Rosuvastatin Calcium 20 MG Oral Tablet (Crestor)Indication s:Dyslipidemia Take 1 Tablet by mouth in the morning. 90 Tablet 3 02/13/2023 Active Pantoprazole Sodium 20 MG Oral Tablet Delayed Release (Protonix)Indicatio ns:Gastroesophageal reflux disease, unspecified whether esophagitis present,H/O esophageal varices Take 1 Tablet by mouth in the morning. 90 Tablet 3 02/13/2023 Active OneTouch Ultra In Vitro Strip (Glucose Blood)Indications:T ype 2 diabetes mellitus with hemoglobin A1c goal of less than 7.0% (HCC) Use to test blood sugars twice a day 200 Strip 11 02/13/2023 Active Lantus SoloStar 100 UNIT/ML Subcutaneous Solution Pen-injectorIndicat ions:Type 2 diabetes mellitus with hemoglobin A1c goal of less than 7.0% (HCC) Inject 16 Units under the skin in the morning and 16 Units before bedtime. 15 mL 5 02/13/2023 Active EpiPen 2-Rahul 0.3 MG/0.3ML Injection Solution Auto-injectorIndica tions:Allergy to honey bee venom For a severe reaction: Inject in outer thigh following instructions on package and go to the Emergency room. 2 Each 3 02/13/2023 Active Lisinopril 20 MG Oral Tablet (Prinivil)Indicatio ns:HTN, goal below 140/90 Take 1 Tablet by mouth in the morning. 30 Tablet 9 02/13/2023 Active BD Pen Needle Rose U/F 32G X 4 MM (Insulin Pen Needle)Indications: Type 2 diabetes mellitus with stage 3b chronic kidney disease, without long-term current use of insulin (HCC) Use with lantus solostar pen- injector 180 Each 0 02/12/2023 Active ProAir HFA 108 (90 Base) MCG/ACT Inhalation Aerosol SolutionIndications :Tobacco use disorder Inhale 2 Puffs by mouth as needed for Cough. 8.5 g 0 02/12/2023 Active documented as of this encounter (statuses as of 02/24/2023) Active Problems Problem Noted Date Diagnosed Date [...] as of this encounter (statuses as of 02/24/2023) Immunizations Name Administration Dates Next Due Pneumococcal [...] encounter Miscellaneous Notes * Telephone Encounter - Judy Ramirez RDMS - 02/24/2023 7:16 AM EST Scheduling can you please assist? Thank you! * Telephone Encounter - Alyssa Rader CRNP - 02/23/2023 8:47 PM EST Diagnostic MRI breast ordered per mammo recommendation * Telephone Encounter - Jenniffer Garcia LPN - 02/17/2023 5:59 PM EDT Yes this will need ordered to my understanding. * Telephone Encounter - Alyssa Rader CRNP - 02/17/2023 3:45 PM EDT Radiologist recommended breast MRI -- do I order this or will radiology place order? documented in this encounter Plan of Treatment Upcoming Encounters Date Type Department Care Team (Late st Contact Info) Description 03/16/2023 8:00 AM EST Imaging Radiology [facility], [address] [place] [address] 03/20/2023 4:00 PM EST Office Visit Family Practice [facility] [address] [facility] [place] [address] Holland Dominique MD 132 [facility] [place] [address] 04/01/2023 2:00 PM EST Office Visit Pharmacy, [facility] [address] [facility] [place] [address] [facility] 132 [facility] [place] [address] 05/15/2023 2:00 PM EST Office Visit Hepatology, [facility] [address] [facility] [place] [address] Dede Olmedo MD [address] [place] [address] 06/08/2023 12:00 PM EST Office Visit Gastroenterology, [facility] [address] [place] [address] Sintia Langford DO [address] [place] [address] Scheduled Orders Name Type Priority Associated Diagnoses Orde r Schedule MRI BREAST BILATERAL W WO CONTRAST Medical Imaging Routine Abnormal mammogram Inconclusive mammogram due to dense breasts Expected: 03/02/2023 (Approximate), Expires: 03/25/2024 Scheduled Procedures Name Priority Associated Diagnoses Date/Ti me ESOPHAGOGASTRODUODENOSCOPY ( EGD), FLEXIBLE, TRANSORAL, DIAGNOSTIC Recall Esophageal varices (HCC) COLONOSCOPY FLEXIBLE PROXIMAL DIAGNOSTIC Recall Encounter for screening colonoscopy Health Maintenance Due Date Last Done Comments DISCUSS TOBACCO CESSATION (REFER TO SMARTSET #4813) 1965 Hepatitis B (1 of 3 - 3-dose series) 1965 COVID-19 Vaccine (#1) 1965 Depression Screening 1976 HIV Screening 01/04/1979 Diabetic Eye Exam 01/04/1982 Diabetic Foot Exam 01/04/1982 DTaP,Tdap,and Td Vaccines (1 - Tdap) 01/04/1983 Pap Smear 01/04/1985 Cervical Cancer Screening 01/04/1994 HPV/Co-Test 01/04/1994 Cologuard 01/04/2009 Fecal Occult Blood Test 01/04/2009 Sigmoidoscopy 01/04/2009 LUNG CANCER SCREENING - USE SMARTSET 32123 01/04/2014 Zoster Vaccines (1 of 2) 01/04/2014 Pneumococcal Vaccine: Pediatrics (0 to 5 Years) and At-Risk Patients (6 to 64 Years) (2 - PCV) 09/16/2016 09/17/2015 Influenza Vaccine (FLU shot) (#1) 2022 02/16/2016, 01/10/2014, 03/02/2008, Additional history exists HbA1c 06/19/2023 12/19/2022, 07/19, 04/29/2021, Additional history exists Albumin/Creatinine Ratio 12/20/2023 12/19/2022 GFR 01/07/2024 01/06/2023, 093, 08/04/2022, Additional history exists Mammogram 02/18/2024 02/17/2023, [...] Not on filedocumented as of this encounter Visit Diagnoses Diagnosis Abnormal mammogram- Primary Abnormal mammogram, unspecified Inconclusive mammogram due to dense breasts Inconclusive mammogram documented in this encounter Care Teams Seaming Machine Operator Relationship Specialty Start Date End Date Holland Dominique MD 132 [facility] [place] [address] PCP - General Family Medicine 12/26/22 documented as of this encounter
--- OUTSIDE RECORDS SUMMARY | 2023-03-10 11:43 | External Medical Summary | Summary of Care ---
Author Name Unknown Organization [facility] Address [address] [place] [address] Phone [phone] Care Team Providers Care Director Web Name Role Phone Ld Hernandez MD Primary Care Provider [phone] Reason for Visit * Reason Onset Date Comments Medication Refill 02/12/2023 Encounter Details Date Type Department Care Team (Late st Contact Info) Description 02/12/2023 Refill Family Practice [facility] [address] [facility] [place] [address] Alyssa Rader CRNP [address] [facility] [place] [address] HTN, goal below 140/90; Dyslipidemia; Gastroesophageal reflux disease, unspecified whether esophagitis present; H/O esophageal varices; Type 2 diabetes mellitus with hemoglobin A1c goal of less than 7.0% ([facility]); Allergy to honey bee venom Allergies Active Allergy Reactions Criticality Noted Date [...] the morning. 90 Tablet 3 01/09/2023 Active Atenolol 25 MG Oral Tablet (Tenormin)Indicati [...] hemoglobin A1c goal of less than 7.0% ([facility]) Use to test blood sugars twice a day 200 Strip 11 02/13/2023 Active Lantus SoloStar 100 UNIT/ML Subcutaneous Solution Pen-injectorIndica tions:Type 2 diabetes mellitus with hemoglobin A1c goal of less than 7.0% ([facility]) Inject 16 Units under the skin in [...] for Cough. 8.5 g 0 02/12/2023 Active Atenolol 25 MG Oral Tablet (Tenormin)Indicati ons:HTN, goal below 140/90 Take 1 Tablet by mouth in the morning. 90 Tablet 3 12/19/2022 3 Discontinue d(Refill) Rosuvastatin Calcium 20 MG Oral Tablet (Crestor)Indicatio ns:Dyslipidemia Take 1 Tablet by mouth in the morning. 90 Tablet 3 12/19/2022 3 Discontinue d(Refill) Pantoprazole Sodium 20 MG Oral Tablet Delayed Release (Protonix)Indicati ons:Gastroesophage al reflux disease, unspecified whether esophagitis present,H/O esophageal varices Take 1 Tablet by mouth in the morning. 90 Tablet 3 12/19/2022 3 Discontinue d(Refill) OneToClient24 Ultra In Vitro Strip (Glucose Blood)Indications: Type 2 diabetes mellitus with hemoglobin A1c goal of less than 7.0% (HCC) Use to test blood sugars twice a day 200 Strip 11 12/19/2022 3 Discontinue d(Refill) Lantus SoloStar 100 UNIT/ML Subcutaneous Solution Pen-injectorIndica tions:Type 2 diabetes mellitus with hemoglobin A1c goal of less than 7.0% (HCC) Inject 16 Units under the skin in the morning and 16 Units before bedtime. 15 mL 5 12/19/2022 3 Discontinue d(Refill) EpiPen 2-Rahul 0.3 MG/0.3ML Injection Solution Auto-injectorIndic ations:Allergy to honey bee venom For a severe reaction: Inject in outer thigh following instructions on package and go to the Emergency room. 2 Each 3 12/19/2022 3 Discontinue d(Refill) Lisinopril 20 MG Oral Tablet (Prinivil)Indicati ons:HTN, goal below 140/90 Take 1 Tablet by mouth in the morning. 30 Tablet 11 01/01/2023 3 Discontinue d(Refill) documented as of this encounter [...] encounter Miscellaneous Notes * Telephone Encounter - Santos Freeman, [facility] - 02/13/2023 7:27 AM EDTSigned Prescriptions: Disp Refills Atenolol 25 MG Oral Tablet (Tenormin) 90 Tab*3 Sig: Take 1 Tablet by mouth in the morning.Authorizing Provider: LD HERNANDEZ User: SANTOS FREEMAN Rosuvastatin Calcium 20 MG Oral Tablet (Cr*90 Tab*3 Sig: Take 1 Tablet by mouth in the morning.Authorizing Provider: LD HERNANDEZ User: SANTOS FREEMAN Pantoprazole Sodium 20 MGOral Tablet Dinah*90 Tab*3 Sig: Take 1 Tablet by mouth in the morning.Authorizing Provider: LD HERNANDEZ User: SANTOS FREEMAN OneTouch Ultra In Vitro Strip (Glucose Blo*200 St*11 Sig: Use to test blood sugars twice a dayAuthorizing Provider: LD HERNANDEZ User: SANTOS FREEMAN Lantus SoloStar 100 UNIT/ML Subcutaneous S*15 mL 5 Sig: Inject 16 Units under the skin in the morning and 16 Units before bedtime.Authorizing Provider: LD HERNANDEZ User: SANTOS FREEMAN EpiPen 2-Rahul 0.3 MG/0.3ML Injection Soluti*2 Each 3 Sig: For a severe reaction: Inject in outer thigh following instructions on package and go to the Emergency room.Authorizing Provider: LD HERNANDEZ User: SANTOS FREEMAN Lisinopril 20 MG Oral Tablet (Prinivil) 30 Tab*9 Sig: Take 1Tablet by mouth in the morning.Authorizing Provider: LD HERNANDEZ User: SANTOS FREEMAN * Telephone Encounter - Santos Freeman RPh - 02/13/2023 7:22 AM EDT Receipt never confirmed by pharmacy for all refills sent on 12/19/22. Resent/rerouted all refills tonew pharmacy. Rerouted remaining refills of lisinopril to new pharmacy as requested. Thank you, Santos Freeman, PharmD Clinical Pharmacist [facility] ([facility]) (formerly Telepharm[facility]) [phone] 02/13/2023, 7:25 AM documented in this encounter Plan of Treatment Upcoming Encounters Date Type Department Care Team (Late st Contact Info) Description 02/17/2023 12:30 PM EDT Imaging Radiology [facility] [address] [place] [address] 02/17/2023 1:00 PM EDT Imaging Radiology [address] [place] [address] 03/20/2023 4:00 PM EST Office Visit Family Practice [facility] 132 [facility] [place] [address] Ld Hernandez MD [facility] [place] [address] 04/01/2023 2:00 PM EST Office Visit Pharmacy, [address] [place] [address] [facility] [address] [place] [address] 05/15/2023 2:00 PM EST Office Visit Hepatology, [facility] 132 [place] [address] Dede Olmedo MD [address] [place] [address] Scheduled Procedures Name Priority Associated Diagnoses Date/Ti me ESOPHAGOGASTRODUODENOSCOPY ( EGD), FLEXIBLE, TRANSORAL, DIAGNOSTIC Recall Esophageal varices (HCC) COLONOSCOPY FLEXIBLE PROXIMAL DIAGNOSTIC Recall Encounter for screening colonoscopy Health Maintenance Due Date Last Done Comments DISCUSS TOBACCO CESSATION (REFER TO SMARTSET #6804) 1965 Hepatitis B (1 of 3 - 3-dose series) 1965 COVID-19 Vaccine (#1) 1965 Depression Screening 1976 HIV Screening 01/04/1979 DIABETES-EYE EXAM 01/04/1982 Diabetic Foot Exam 01/04/1982 DTaP,Tdap,and Td Vaccines (1 - Tdap) 01/04/1983 Pap Smear 01/04/1985 Cervical Cancer Screening 01/04/1994 HPV/Co-Test 01/04/1994 Cologuard 01/04/2009 Fecal Occult Blood Test 01/04/2009 Sigmoidoscopy 01/04/2009 LUNG CANCER SCREENING - USE SMARTSET 46485 01/04/2014 Zoster Vaccines (1 of 2) 01/04/2014 Pneumococcal Vaccine: Pediatrics (0 to 5 Years) and At-Risk Patients (6 to 64 Years) (2 - PCV) 09/16/2016 09/17/2015 Influenza Vaccine (FLU shot) (#1) 2022 02/16/2016, 01/10/2014, 03/02/2008, Additional history exists HbA1c 06/19/2023 12/19/2022, 07/19, 04/29/2021, Additional history exists Albumin/Creatinine Ratio 12/20/2023 12/19/2022 GFR 01/07/2024 01/06/2023, 090 04/2022, 08/04/2022, Additional history exists Mammogram 01/30/2024 01/29/2023, 070 06/2018, 10/20/2018 Colonoscopy 04/10/2026 04/10/2016, 04/10/2016 Colorectal Cancer Screening 04/10/2026 Hepatitis C Screening Completed 08/31/2018 GARDASIL-HPV IMMUNIZATION SERIES Aged Out No longer eligible based on patient's age to complete this topic MENINGOCOCCAL (MENACTRA/MENVEO) Aged Out No longer eligible based on patient's age to complete this topic documented as of this encounter Medical Devices Not on filedocumented as of this encounter Visit Diagnoses Diagnosis HTN, goal below 140/90 Unspecified essential hypertension Dyslipidemia Other and unspecified hyperlipidemia Gastroesophageal reflux disease, unspecified whether esophagitis present H/O esophageal varices Personal history of other diseases of digestive system Type 2 diabetes mellitus with hemoglobin A1c goal of less than 7.0% (HCC) Allergy to honey bee venom documented in this encounter Care Teams Director Web Relationship Specialty Start Date End Date Ld Hernandez MD [address] [place] [address] PCP - General Family Medicine 12/26/22 documented as of this encounter
--- OUTSIDE RECORDS SUMMARY | 2023-03-10 11:43 | External Medical Summary | Summary of Care ---
Author Name Unknown Organization [facility] Address [address] [place] [address] Phone [phone] Care Team Providers Care Mechanic Foreman Name Role Phone Zachary Mcfarlane DO Primary Care Provider Encounter Details Date Type Department Care Team Description 12/13/2019 Hospital Encounter Radiology [facility] [address] [place] [address] Allergies Active Allergy Reactions Severity [...] Holland Dominique MD [address] [place] [address] 04/01/2023 Office Visit Pharmacy [facility] [address] [place] [address] 05/15/2023 Office Visit Gastroenterology Dede Olmedo MD [address] [place] [address] [place] [address] Scheduled Procedures Name Priority Associated Diagnoses Date/Ti me ESOPHAGOGASTRODUODENOSCOPY ( EGD), FLEXIBLE, TRANSORAL, DIAGNOSTIC Recall Esophageal varices (HCC) COLONOSCOPY FLEXIBLE PROXIMAL DIAGNOSTIC Recall Encounter for screening colonoscopy Health Maintenance Due Date Last Done Comments DISCUSS TOBACCO CESSATION (REFER TO SMARTSET #7592) 1965 Hepatitis B (1 of 3 - 3-dose series) 1965 COVID-19 Vaccine (#1) 1964 Depression Screening 1976 HIV Screening 01/04/1979 DIABETES-EYE EXAM 01/04/1982 Diabetic Foot Exam 01/04/1982 DTaP,Tdap,and Td Vaccines (1 - Tdap) 01/04/1983 Pap Smear 01/04/1985 Cervical Cancer Screening 01/04/1994 HPV/Co-Test 01/04/1994 Cologuard 01/04/2009 Fecal Occult Blood Test 01/04/2009 Sigmoidoscopy 01/04/2009 LUNG CANCER SCREENING - USE SMARTSET 89711 01/04/2014 Zoster Vaccines (1 of 2) 01/04/2014 [...] - US (IMAGES ONLY, NO REPORT) Routine 12/13/2019 1:25 PM EDT documented in this encounter Results * RADIOLOGY EXAM - US (IMAGES ONLY, NO REPORT) (12/13/2019 1:25 PM EDT) 12/13/2019 1:23 PM EDT Narrative Scheduling, Silent - 02/03/2023 12:14 PM EDT This is an imaging study not interpreted or resulted by a [facility] or [employer] contracted radiologist. Holland Dominique MD RAD ULTRASOUND documented in this encounter Care Teams Mechanic Foreman Relationship Specialty Start Date End Date Zachary Mcfarlane, [address] [address] PCP - General Family Medicine 10/29/17 12/25/22 documented as of this encounter
--- OUTSIDE RECORDS SUMMARY | 2023-03-10 11:43 | External Medical Summary | Summary of Care ---
Author Name Unknown Organization [facility] Address [address] [place] [address] Phone [phone] Care Team Providers Care Bagel Maker Name Role Phone Holland Dominique MD Primary Care Provider [phone] Reason for Visit * Reason Onset Date Comments Medication Refill 03/02/2023 Encounter Details Date Type Department Care Team (Late st Contact Info) Description 03/02/2023 Refill Family Practice [facility] [address] [place] [address] Holland Dominique MD [address] [place] [id number] Type 2 diabetes mellitus with hemoglobin A1c goal of less than 7.0% ([facility]) Allergies Active Allergy Reactions Criticality Noted Date Comments Bee Venom Anaphylaxis High 09/19/2014 Other reaction(s): Angioedema Celecoxib Anaphylaxis High 12/05/2014 Morphine Other (Please comment) 12/05/2014 Exacerbation of pain documented as of this encounter (statuses as of 03/03/2023) Medications Medication Sig Dispensed Refills Start Date [...] hemoglobin A1c goal of less than 7.0% ([facility]) Use to test blood sugars twice a day 200 Strip 11 02/13/2023 Active Lantus SoloStar 100 UNIT/ML Subcutaneous Solution Pen-injectorIndicat ions:Type 2 diabetes mellitus with hemoglobin A1c goal of less than 7.0% ([facility]) Inject 16 Units under the skin in [...] disease, without long-term current use of insulin ([facility]) Use with lantus solostar pen- injector 180 Each 0 02/12/2023 Active ProAir HFA 108 (90 Base) MCG/ACT Inhalation Aerosol SolutionIndications :Tobacco use disorder Inhale 2 Puffs by mouth as needed for Cough. 8.5 g 0 02/12/2023 Active documented as of this encounter (statuses as of 03/03/2023) Active Problems Problem Noted Date Diagnosed Date [...] as of this encounter (statuses as of 03/03/2023) Immunizations Name Administration Dates Next Due Pneumococcal [...] Description 03/16/2023 8:00 AM EST Imaging Radiology [facility]st [facility] [address] [place] [address] 03/20/2023 4:00 PM EST Office Visit Family Practice [facility] [address] [place] [address] Holland Dominique MD [address] [place] [address] 04/01/2023 2:00 PM EST Office Visit Pharmacy, [facility] [address] [place] [address] [facility] [place] [address] 05/15/2023 2:00 PM EST Office Visit Hepatology, [facility] [address] [facility] [place] [address] Dede Olmedo MD [address] [place] [address] 06/08/2023 12:00 PM EST Office Visit Gastroenterology, [facility] [address] [place] [address] Sintia Langford DO [address] [place] [address] Scheduled Procedures Name Priority Associated Diagnoses Date/Ti me ESOPHAGOGASTRODUODENOSCOPY ( EGD), FLEXIBLE, TRANSORAL, DIAGNOSTIC Recall Esophageal varices (HCC) COLONOSCOPY FLEXIBLE PROXIMAL DIAGNOSTIC Recall Encounter for screening colonoscopy Health Maintenance Due Date Last Done Comments DISCUSS TOBACCO CESSATION (REFER TO SMARTSET #5628) 1965 Hepatitis B (1 of 3 - 3-dose series) 1965 COVID-19 Vaccine (#1) 1965 Depression Screening 1976 HIV Screening 01/04/1979 Diabetic Foot Exam 01/04/1982 DTaP,Tdap,and Td Vaccines (1 - Tdap) 01/04/1983 Pap Smear 01/04/1985 Cervical Cancer Screening 01/04/1994 HPV/Co-Test 01/04/1994 Cologuard 01/04/2009 Fecal Occult Blood Test 01/04/2009 Sigmoidoscopy 01/04/2009 LUNG CANCER SCREENING - USE SMARTSET 90532 01/04/2014 Zoster Vaccines (1 of 2) 01/04/2014 Pneumococcal Vaccine: Pediatrics (0 to 5 Years) and At-Risk Patients (6 to 64 Years) (2 - PCV) 09/16/2016 09/17/2015 Influenza Vaccine (FLU shot) (#1) 2022 02/16/2016, 01/10/2014, 03/02/2008, Additional history exists HbA1c 06/19/2023 12/19/2022, 0410/2022, 04/29/2021, Additional history exists Albumin/Creatinine Ratio 12/20/2023 12/19/2022 GFR 01/07/2024 01/06/2023, 09/0 04/2022, 08/04/2022, Additional history exists Mammogram 02/18/2024 02/17/2023, 01/18, 10/20/2018, Additional history exists Diabetic Eye Exam 02/19/2024 02/18/2023 Colonoscopy 04/10/2026 04/10/2016, 04/10/2016 Colorectal Cancer Screening 04/10/2026 Hepatitis C Screening Completed 08/31/2018 GARDASIL-HPV IMMUNIZATION SERIES Aged Out No longer eligible based on patient's age to complete this topic MENINGOCOCCAL (MENACTRA/MENVEO) Aged Out No longer eligible based on patient's age to complete this topic documented as of this encounter Medical Devices Not on filedocumented as of this encounter Visit Diagnoses Diagnosis Type 2 diabetes mellitus with hemoglobin A1c goal of less than 7.0% (HCC) documented in this encounter Care Teams Bagel Maker Relationship Specialty Start Date End Date Holland Dominique MD [address] [place] [address] PCP - General Family Medicine 12/26/22 documented as of this encounter
--- OUTSIDE RECORDS SUMMARY | 2023-03-10 11:44 | External Medical Summary | Summary of Care ---
Author Name Unknown Organization [facility] Address [address] [place] [address] Phone [phone] Care Team Providers Care Safety Tech Name Role Phone Holland Dominique MD Primary Care Provider [phone] Encounter Details Date Type Department Care Team Description 01/13/2023 Telemedicine Vascular Surg [facility] [address] [place] [address] Jama Taylor CRNP [address] [place] [address] Carotid stenosis, asymptomatic, left*; Carotid occlusion, right; Subclavian artery stenosis, left (HCC) Allergies Active Allergy Reactions Severity Noted Date Comments Bee Venom Anaphylaxis High 09/19/2014 Other reaction(s): Angioedema Celecoxib Anaphylaxis High 12/05/2014 Morphine Other (Please comment) 12/05/2014 Exacerbation of pain documented as of this encounter (statuses as of 01/13/2023) Medications Medication Sig Dispensed Refills Start Date End Date Status BD PEN NEEDLE FREDDIE U/F 32G X 4 MM 0 02/09/2015 Active PROAIR HFA 108 (90 BASE) MCG/ACT inhaler Inhale by mouth 2 Puffs as needed . 0 02/05/2015 Active Aspirin-Acetaminoph en-Caffeine 250-250-65 MG Oral Tablet Take 2 Tablets by mouth every 8 hours as needed. 0 Active Atenolol 25 MG Oral Tablet (Tenormin)Indicatio ns:HTN, goal below 140/90 Take 1 Tablet by mouth in the morning. 90 Tablet 3 12/19/2022 Active Rosuvastatin Calcium 20 MG Oral Tablet (Crestor)Indication s:Dyslipidemia Take 1 Tablet by mouth in the morning. 90 Tablet 3 12/19/2022 Active Pantoprazole Sodium 20 MG Oral Tablet Delayed Release (Protonix)Indicatio ns:Gastroesophageal reflux disease, unspecified whether esophagitis present,H/O esophageal varices Take 1 Tablet by mouth in the morning. 90 Tablet 3 12/19/2022 Active OneTouch Ultra In Vitro Strip (Glucose Blood)Indications:T ype 2 diabetes mellitus with hemoglobin A1c goal of less than 7.0% (HCC) Use to test blood sugars twice a day 200 Strip 11 12/19/2022 Active Lantus SoloStar 100 UNIT/ML Subcutaneous Solution Pen-injectorIndicat ions:Type 2 diabetes mellitus with hemoglobin A1c goal of less than 7.0% (HCC) Inject 16 Units under the skin in the morning and 16 Units before bedtime. 15 mL 5 12/19/2022 Active EpiPen 2-Rahul 0.3 MG/0.3ML Injection Solution Auto-injectorIndica tions:Allergy to honey bee venom For a severe reaction: Inject in outer thigh following instructions on package and go to the Emergency room. 2 Each 3 12/19/2022 Active Lisinopril 20 MG Oral Tablet (Prinivil)Indicatio ns:HTN, goal below 140/90 Take 1 Tablet by mouth in the morning. 30 Tablet 11 01/01/2023 Active Empagliflozin 10 MG Oral Tablet (Jardiance) Take 1 Tablet by mouth in the morning. 90 Tablet 3 01/09/2023 Active documented as of this encounter (statuses as of 01/13/2023) Active Problems Problem Noted Date Carotid occlusion, [...] as of this encounter (statuses as of 01/13/2023) Immunizations Name Administration Dates Next Due Pneumococcal [...] on file documented as of this encounter Progress Notes * STEFANIE Mendoza - 01/13/2023 12:07 PM EDT Patient location: HOME. I was in a hospital or clinic location. After connecting through phone, patient was verified with two unique identifiers. 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 Methods to assure confidentiality were taken. Patient acknowledged consent and understanding of privacy and security of the Telemedicine visit. The patient agreed to participate. After connecting to the patient via telephone, the patient was identified by name and date of . Patient was then informed that this was a telephone call only visit. The patient agreed to participate. Visit Disposition: NEW patient. [facility] She personally requested this visit be conducted by phone. Total call duration was 9 minutes. The focus of [facility] telephonic appointment was due a chief complaint of: New referred for carotid and subclavian artery disease, previously followed at [facility] Per chart review: -Prior L CEA r/t symptomatic disease (TIA, no residual) -Known R carotid stenosis (though she had been unaware of) -Known L subclavian artery stenosis (she had been unaware of) 01/12/23: Carotid Duplex at [facility]: DIMITRI occluded, LICA 127/30, L-subclavian stenosis, abnormalL vert. This is unchanged compared to 01/08/22 carotid duplex at [facility]. Patient denies any new CVA/TIA symptoms. She is R-handed. I personally reviewed diagnostic images of the 01/12/23 /vascular lab done at [facility]. My clinical assessment and determination is that: Widely patent L CEA Chronic R carotid occlusion Asymptomatic L subclavian artery stenosis (12/2021 UE doppler at [facility] reports a R brachial of 160 mmHg and a L brachial of 80 mm Hg). Plan: Advise ongoing medical management, surveillance imaging, and that BPs be obtained in R arm for accuracy. Advise daily antiplatelet therapy (reports she takes her headache-pill, which contains aspirin, on a daily basis) Advise daily 20 mg Crestor for dyslipidemia. RTC in 1 year at [facility] with Dr. Rogers and a carotid duplex. STEFANIE Mcgraw Vascular and Endovascular Surgery [facility] documented in this encounter Plan of Treatment Upcoming Encounters Date Type Specialty Care Team Description 01/29/2023 Imaging Radiology 03/20/2023 Office Visit Family Medicine Holland Dominique MD [address] [place] [address] 05/15/2023 Office Visit Gastroenterology Dede Olmedo MD [address] [place] [address] Scheduled Orders Name Type Priority Associated Diagnoses Orde r Schedule VASC DUPLEX CAROTID BILAT Medical Imaging Routine Carotid stenosis, asymptomatic, left Carotid occlusion, right Subclavian artery stenosis, left (HCC) Ordered: 01/13/2023 Scheduled Procedures Name Priority Associated Diagnoses Date/Ti me ESOPHAGOGASTRODUODENOSCOPY ( EGD), FLEXIBLE, TRANSORAL, DIAGNOSTIC Recall Esophageal varices (HCC) COLONOSCOPY FLEXIBLE PROXIMAL DIAGNOSTIC Recall Encounter for screening colonoscopy Health Maintenance Due Date Last Done Comments DISCUSS TOBACCO CESSATION (REFER TO SMARTSET #9968) 1965 Hepatitis B (1 of 3 - 3-dose series) 1965 COVID-19 Vaccine (#1) 1965 Depression Screening 1976 HIV Screening 01/04/1979 DIABETES-EYE EXAM 01/04/1982 Diabetic Foot Exam 01/04/1982 DTaP,Tdap,and Td Vaccines (1 - Tdap) 01/04/1983 Pap Smear 01/04/1985 Cervical Cancer Screening 01/04/1994 HPV/Co-Test 01/04/1994 Cologuard 01/04/2009 Fecal Occult Blood Test 01/04/2009 Sigmoidoscopy 01/04/2009 LUNG CANCER SCREENING - USE SMARTSET 74719 01/04/2014 Zoster Vaccines (1 of 2) 01/04/2014 Pneumococcal Vaccine: Pediatrics (0 to 5 Years) and At-Risk Patients (6 to 64 Years) (2 - PCV) 09/16/2016 09/17/2015 Mammogram 10/21/2019 10/20/2018, 10/20/2018 Influenza Vaccine (FLU shot) (#1) 2022 02/16/2016, 01/10/2014, 03/02/2008, Additional history exists HbA1c 06/19/2023 12/19/2022, 07/19, 04/29/2021, Additional history exists Albumin/Creatinine Ratio 12/20/2023 12/19/2022 GFR 01/07/2024 01/06/2023, 0904/2022, 08/04/2022, Additional history exists Colonoscopy 04/10/2026 04/10/2016, 04/10/2016 Colorectal Cancer Screening 04/10/2026 GARDASIL-HPV IMMUNIZATION SERIES Aged Out No longer eligible based on patient's age to complete this topic MENINGOCOCCAL (MENACTRA/MENVEO) Aged Out No longer eligible based on patient's age to complete this topic documented as of this encounter Medical Devices Not on filedocumented as of this encounter Visit Diagnoses Diagnosis Carotid stenosis, asymptomatic, left- Primary Carotid occlusion, right Occlusion and stenosis of carotid artery without mention of cerebral infarction Subclavian artery stenosis, left (HCC) Atherosclerosis of other specified arteries documented in this encounter Care Teams Safety Tech Relationship Specialty Start Date End Date Holland Dominique MD [address] [place] [address] PCP - General Family Medicine 12/26/22 documented as of this encounter
--- OUTSIDE RECORDS SUMMARY | 2023-03-10 11:44 | External Medical Summary | Summary of Care ---
Author Name Unknown Organization [facility] Address [address] [place] [address] Phone [phone] Care Team Providers Care Supervisor Die Casting Name Role Phone Zachary Mcfarlane DO Primary Care Provider Encounter Details Date Type Department Care Team Description 12/13/2019 Hospital Encounter Radiology Film File [address] [place] [address] Allergies Active Allergy Reactions Severity [...] Holland Dominique MD [address] [place] [address] 04/01/2023 Office Visit Pharmacy [facility] [address] [place] [address] 05/15/2023 Office Visit Gastroenterology Dede Olmedo MD [address] [place] [address] [place] [address] Scheduled Procedures Name Priority Associated Diagnoses Date/Ti me ESOPHAGOGASTRODUODENOSCOPY ( EGD), FLEXIBLE, TRANSORAL, DIAGNOSTIC Recall Esophageal varices (HCC) COLONOSCOPY FLEXIBLE PROXIMAL DIAGNOSTIC Recall Encounter for screening colonoscopy Health Maintenance Due Date Last Done Comments DISCUSS TOBACCO CESSATION (REFER TO SMARTSET #9039) 1965 Hepatitis B (1 of 3 - 3-dose series) 1965 COVID-19 Vaccine (#1) 1965 Depression Screening 1976 HIV Screening 01/04/1979 DIABETES-EYE EXAM 01/04/1982 Diabetic Foot Exam 01/04/1982 DTaP,Tdap,and Td Vaccines (1 - Tdap) 01/04/1983 Pap Smear 01/04/1985 Cervical Cancer Screening 01/04/1994 HPV/Co-Test 01/04/1994 Cologuard 01/04/2009 Fecal Occult Blood Test 01/04/2009 Sigmoidoscopy 01/04/2009 LUNG CANCER SCREENING - USE SMARTSET [id number] 01/04/2014 Zoster Vaccines (1 of 2) 01/04/2014 [...] Date/Time Associated Diagnosis Comments RADIOLOGY EXAM - MAMMOGRAPHY (IMAGES ONLY, NO REPORT) Routine 12/13/2019 1:20 PM EDT documented in this encounter Results * RADIOLOGY EXAM - MAMMOGRAPHY (IMAGES ONLY, NO REPORT) (12/13/2019 1:20 PM EDT) 12/13/2019 1:18 PM EDT Narrative Scheduling, Silent - 02/03/2023 12:12 PM EDT This is an imaging study not interpreted or resulted by a [email or web address] or [email or web address] contracted radiologist. Holland Dominique MD RAD MAMMOGRAPHY documented in this encounter Care Teams Supervisor Die Casting Relationship Specialty Start Date End Date Zachary Mcfarlane, [address] [address] PCP - General Family Medicine 10/29/17 12/25/22 documented as of this encounter
--- OUTSIDE RECORDS SUMMARY | 2023-03-10 11:44 | External Medical Summary | Summary of Care ---
Author Name Unknown Organization [facility] Address [address] [place] [address] Phone [phone] Care Team Providers Care Automobile Repair Service Estimator Name Role Phone Holland Dominique MD Primary Care Provider [phone] Reason for Visit * Reason Onset Date Comments Appointment 01/15/2023 Encounter Details Date Type Department Care Team Description 01/15/2023 Telephone Nephrology, [address] [address] Cecil Perez MD [address] [place] [address] Appointment Allergies Active Allergy Reactions Severity Noted Date Comments Bee Venom Anaphylaxis High 09/19/2014 Other reaction(s): Angioedema Celecoxib Anaphylaxis High 12/05/2014 Morphine Other (Please comment) 12/05/2014 Exacerbation of pain documented as of this encounter (statuses as of 01/29/2023) Medications Medication Sig Dispensed Refills Start Date [...] as of this encounter (statuses as of 01/29/2023) Active Problems Problem Noted Date Carotid occlusion, [...] as of this encounter (statuses as of 01/29/2023) Immunizations Name Administration Dates Next Due Pneumococcal [...] encounter Miscellaneous Notes * Telephone Encounter - JUANA Daniels - 01/29/2023 8:27 AM EDT 01/29 called patient, left message. Trying to get patient scheduled for a video visit with dr. Perez in June 2023. Pt is on the recall list. Letter and My G being sent out. Patient being removed from list. * Telephone Encounter - JUANA Daniels - 01/15/2023 9:52 AM EDT 01/15 called patient, left message. Trying to get patient scheduled for a video visit with dr. Perez in June 2023. Pt is on the recall list. documented in this encounter Plan of Treatment Upcoming Encounters Date Type Specialty Care Team Description 01/29/2023 Imaging Radiology 03/20/2023 Office Visit Family Medicine Holland Dominique MD [address] [place] [address] 04/01/2023 Office Visit Pharmacy Rodriguez, [facility] [address] [place] [address] 05/15/2023 Office Visit Gastroenterology Dede Olmedo MD [address] [place] [address] Scheduled Procedures Name Priority Associated Diagnoses Date/Ti me ESOPHAGOGASTRODUODENOSCOPY ( EGD), FLEXIBLE, TRANSORAL, DIAGNOSTIC Recall Esophageal varices (HCC) COLONOSCOPY FLEXIBLE PROXIMAL DIAGNOSTIC Recall Encounter for screening colonoscopy Health Maintenance Due Date Last Done Comments DISCUSS TOBACCO CESSATION (REFER TO SMARTSET #9159) 1965 Hepatitis B (1 of 3 - 3-dose series) 1964 COVID-19 Vaccine (#1) 1965 Depression Screening 1976 HIV Screening 01/04/1979 DIABETES-EYE EXAM 01/04/1982 Diabetic Foot Exam 01/04/1982 DTaP,Tdap,and Td Vaccines (1 - Tdap) 01/04/1983 Pap Smear 01/04/1985 Cervical Cancer Screening 01/04/1994 HPV/Co-Test 01/04/1994 Cologuard 01/04/2009 Fecal Occult Blood Test 01/04/2009 Sigmoidoscopy 01/04/2009 LUNG CANCER SCREENING - USE SMARTSET 19405 01/04/2014 Zoster Vaccines (1 of 2) 01/04/2014 [...] filedocumented as of this encounter Care Teams Automobile Repair Service Estimator Relationship Specialty Start Date End Date Holland Dominique MD [address] [place] [address] PCP - General Family Medicine 12/26/22 documented as of this encounter
--- OUTSIDE RECORDS SUMMARY | 2023-03-10 11:44 | External Medical Summary | Summary of Care ---
Author Name Unknown Organization [facility] Address [address] [place] [address] Phone [phone] Care Team Providers Care Operations Logistics Analyst Name Role Phone Holland Dominique MD Primary Care Provider [phone] [phone] Reason for Visit * Reason Onset Date Comments TRIAGE 12/24/2022 Encounter Details Date Type Department Care Team Description 12/24/2022 Telephone Vascular Surg [facility] [address] [place] [address] Dixon Rogers MD [address] [place] [address] TRIAGE Allergies Active Allergy Reactions Severity Noted Date [...] Puffs as needed . 0 02/05/2015 Active Aspirin-Acetamino phen-Caffeine 250-250-65 MG Oral Tablet Take 2 Tablets by mouth every 8 hours as needed. 0 Active Atenolol 25 MG Oral Tablet (Tenormin)Indicat ions:HTN, goal below 140/90 Take 1 Tablet by mouth in the morning. 90 Tablet 3 12/19/2022 Active Rosuvastatin Calcium 20 MG Oral Tablet (Crestor)Indicati ons:Dyslipidemia Take 1 Tablet by mouth in the morning. 90 Tablet 3 12/19/2022 Active Pantoprazole Sodium 20 MG Oral Tablet Delayed Release (Protonix)Indicat ions:Gastroesopha geal reflux disease, unspecified whether esophagitis present,H/O esophageal varices Take 1 Tablet by mouth in the morning. 90 Tablet 3 12/19/2022 Active OneTouch Ultra In Vitro Strip (Glucose Blood)Indications :Type 2 diabetes mellitus with hemoglobin A1c goal of less than 7.0% ([facility]) Use to test blood sugars twice a day 200 Strip 11 12/19/2022 Active Lantus SoloStar 100 UNIT/ML Subcutaneous Solution Pen-injectorIndic ations:Type 2 diabetes mellitus with hemoglobin A1c goal of less than 7.0% ([facility]) Inject 16 Units under the skin in the morning and 16 Units before bedtime. 15 mL 5 12/19/2022 Active EpiPen 2-Rahul 0.3 MG/0.3ML Injection Solution Auto-injectorIndi cations:Allergy to honey bee venom For a severe reaction: Inject in outer thigh following instructions on package and go to the Emergency room. 2 Each 3 12/19/2022 Active Lisinopril 10 MG Oral Tablet (Prinivil)Indicat ions:HTN, goal below 140/90 Take 1 Tablet by mouth in the morning. 90 Tablet 3 12/19/2022 01/02/20 23 Discontinued documented as of this encounter (statuses as of 01/13/2023) Active Problems Problem Noted Date Type 2 diabetes mellitus with hemoglobin A1c goal of less than 7.0% 12/19/2022 Gastroesophageal reflux disease 12/20/19 23 Dyslipidemia 12/19/2022 Tobacco use disorder 12/19/2022 S/P carotid endarterectomy 12/19/2022 History of TIA (transient ischemic attac k) 12/19/2022 Bilateral carotid artery stenosis 2022 HTN, goal below 140/90 12/19/2022 Chronic pancreatitis [...] encounter Miscellaneous Notes * Telephone Encounter - STEFANIE Mendoza - 01/13/2023 8:03 AM EDT Called again. STEFANIE Jenkins 01/13/2023 8:04 AM * Telephone Encounter - STEFANIE Mendoza - 01/12/2023 3:50 PM EDT 01/12/23: Carotid Duplex: DIMITRI occluded, LICA 127/30, L-subclavian stenosis, abnormal L vert. This is unchanged compared to 01/08/22 carotid duplex at [facility]. Per chart review: -Prior L CEA r/t symptomatic disease -Known R carotid stenosis -Known L subclavian artery stenosis I called and left a . Currently scheduled for [facility] Rodriguez. I could complete a telemed, should this be her request. STEFANIE Jenkins 01/12/2023 3:51 PM * Telephone Encounter - JUANA Ingram - 01/12/2023 3:41 PM EDT Pt calling in regarding her 01/21 appt. She is requesting to have a tele med visit instead of comingin person that day. Please contact pt Thank you JUANA Ingram * Telephone Encounter - JUANA Short - 12/24/2022 10:37 AM EDT Study scheduled, confirmed dtl w/ pt * Telephone Encounter - JUANA Short - 12/24/2022 9:23 AM EDT Lvm for pt * Telephone Encounter - STEFANIE Mendoza - 12/24/2022 9:09 AM EDT Associated Diagnoses S/P carotid endarterectomy [Z98.890] Bilateral carotid artery stenosis [I65.23] Previously followed by [facility] for carotid and subclavian disease Now referred to [facility]. Princess, Needs carotid duplex at [facility] prior to clinic visit. STEFANIE Jenkins 12/24/2022 9:10 AM * Telephone Encounter - JUANA Short - 12/24/2022 9:05 AM EDT 01/21 elbert new pt documented in this encounter Plan of Treatment Upcoming Encounters Date Type Specialty Care Team Description 01/21/2023 Office Visit Vascular Surgery Dixon Rogesr MD [address] [facility] [place] [address] 01/29/2023 Imaging Radiology 03/20/2023 Office Visit Family Medicine Holland Dominique MD [address] [place] [address] 05/15/2023 Office Visit [facility] [address] [facility] [address] Pending Results Name Type Priority Associated Diagnoses Date /Time VASC DUPLEX CAROTID BILAT Medical Imaging Routine S/P carotid endarterectomy Asymptomatic bilateral carotid artery stenosis Subclavian artery stenosis (HCC) 01/12/2023 3:59 PM EDT Scheduled Procedures Name Priority Associated Diagnoses Date/Ti me ESOPHAGOGASTRODUODENOSCOPY ( EGD), FLEXIBLE, TRANSORAL, DIAGNOSTIC Recall Esophageal varices (HCC) COLONOSCOPY FLEXIBLE PROXIMAL DIAGNOSTIC Recall Encounter for screening colonoscopy Health Maintenance Due Date Last Done Comments DISCUSS TOBACCO CESSATION (REFER TO SMARTSET #1282) 1965 Hepatitis B (1 of 3 - 3-dose series) 1965 COVID-19 Vaccine (#1) 1965 Depression Screening 1976 HIV Screening 01/04/1979 DIABETES-EYE EXAM 01/04/1982 Diabetic Foot Exam 01/04/1982 DTaP,Tdap,and Td Vaccines (1 - Tdap) 01/04/1983 Pap Smear 01/04/1985 Cervical Cancer Screening 01/04/1994 HPV/Co-Test 01/04/1994 Cologuard 01/04/2009 Fecal Occult Blood Test 01/04/2009 Sigmoidoscopy 01/04/2009 LUNG CANCER SCREENING - USE SMARTSET 24489 01/04/2014 Zoster Vaccines (1 of 2) 01/04/2014 [...] as of this encounter Visit Diagnoses Diagnosis Asymptomatic bilateral carotid artery stenosis- Primary Occlusion and stenosis of multiple and bilateral precerebral arteries without mention of cerebral infarction S/P carotid endarterectomy Other postprocedural status Subclavian artery stenosis (HCC) Stricture of artery documented in this encounter Care Teams Operations Logistics Analyst Relationship Specialty Start Date End Date Holland Dominique MD [address] [place] [address] PCP - General Family Medicine 12/26/22 documented as of this encounter
--- OUTSIDE RECORDS SUMMARY | 2023-03-10 11:44 | External Medical Summary | Summary of Care ---
Author Name Unknown Organization [facility] Address [address] [place] [address] Phone [phone] Care Team Providers Care Life Sciences Teacher Name Role Phone Holland Dominique MD Primary Care Provider [phone] Reason for Visit * Reason Onset Date Comments TRIAGE 12/24/2022 Encounter Details Date Type Department Care Team Description 12/24/2022 Telephone Vascular Surg [facility] [address] [place] [address] Dixon Rogers MD [address] [place] [address] TRIAGE Allergies Active Allergy Reactions [...] hemoglobin A1c goal of less than 7.0% ([facility]) Use to test blood sugars twice a day 200 Strip 11 12/19/2022 Active Lantus SoloStar 100 UNIT/ML Subcutaneous Solution Pen-injectorIndic ations:Type 2 diabetes mellitus with hemoglobin A1c goal of less than 7.0% ([facility]) Inject 16 Units under the [...] unchanged compared to 01/08/22 carotid duplex at [facility]. Per chart review: -Prior L CEA r/t symptomatic disease -Known R carotid stenosis -Known L subclavian artery stenosis I called and left a . Currently scheduled for [facility]. I could complete a telemed, should this be her request. STEFANIE Jenkins 01/12/2023 3:51 PM * Telephone Encounter - JUANA Inrgam - 01/12/2023 3:41 PM EDT Pt calling [...] Lvm for pt * Telephone Encounter - SETFANIE Mendoza - 12/24/2022 9:09 AM EDT Associated Diagnoses S/P carotid endarterectomy [Z98.890] Bilateral carotid artery stenosis [I65.23] Previously followed by [facility] for carotid and subclavian disease Now referred to [facility] [place]. Princess, Needs carotid duplex at [facility] prior to clinic visit. STEFANIE Jenkins 12/24/2022 9:10 AM * Telephone Encounter - JUANA Short - 12/24/2022 9:05 AM EDT 01/21 elbert new pt documented in this encounter Plan of Treatment Upcoming Encounters Date Type Specialty Care Team Description 01/13/2023 Telemedicine Vascular Surgery Jama Taylor CRNP [address] [facility] [address] 01/29/2023 Imaging Radiology 03/20/2023 Office Visit Family Medicine Holland Dominique MD [address] [place] [address] 05/15/2023 Office Visit [facility] [address] [facility] [place] [address] Pending Results Name Type Priority [...] Comments DISCUSS TOBACCO CESSATION (REFER TO SMARTSET #3594) 1965 Hepatitis B (1 of 3 - 3-dose series) 1965 COVID-19 Vaccine (#1) 1965 Depression Screening 1976 HIV Screening 01/04/1979 DIABETES-EYE EXAM 01/04/1982 Diabetic Foot Exam 01/04/1982 DTaP,Tdap,and Td Vaccines (1 - Tdap) 01/04/1983 Pap Smear 01/04/1985 Cervical Cancer Screening 01/04/1994 HPV/Co-Test 01/04/1994 Cologuard 01/04/2009 Fecal Occult Blood Test 01/04/2009 Sigmoidoscopy 01/04/2009 LUNG CANCER SCREENING - USE SMARTSET 36685 01/04/2014 Zoster Vaccines (1 of 2) 01/04/2014 [...] artery documented in this encounter Care Teams Life Sciences Teacher Relationship Specialty Start Date End Date Holland Dominique MD [address] [place] [address] PCP - General Family Medicine 12/26/22 documented as of this encounter
--- OUTSIDE RECORDS SUMMARY | 2023-03-10 11:44 | External Medical Summary | Summary of Care ---
Author Name Unknown Organization [facility] Address [address] [place] [address] Phone [phone] Care Team Providers Care Adobe Layer Name Role Phone Holland Dominique MD Primary Care Provider [phone] Reason for Visit * Reason Onset Date Comments TRIAGE 12/24/2022 Encounter Details Date Type Department Care Team Description 12/24/2022 Telephone Vascular Surg [facility] [address] [place] [address] Dixon Rogers MD [address] [place] [address] TRIAGE Allergies Active Allergy Reactions Severity Noted Date Comments Bee Venom Anaphylaxis High 09/19/2014 Other reaction(s): Angioedema Celecoxib Anaphylaxis High 12/05/2014 Morphine Other (Please comment) 12/05/2014 Exacerbation of pain documented as of this encounter (statuses as of 01/12/2023) Medications Medication Sig Dispensed Refills Start Date [...] hemoglobin A1c goal of less than 7.0% ([facility]) Use to test blood sugars twice a day 200 Strip 11 12/19/2022 Active Lantus SoloStar 100 UNIT/ML Subcutaneous Solution Pen-injectorIndic ations:Type 2 diabetes mellitus with hemoglobin A1c goal of less than 7.0% ([facility]) Inject 16 Units under the [...] as of this encounter (statuses as of 01/12/2023) Active Problems Problem Noted Date Type 2 [...] as of this encounter (statuses as of 01/12/2023) Immunizations Name Administration Dates Next Due Pneumococcal [...] unchanged compared to 01/08/22 carotid duplex at [facility]. Per chart review: -Prior L CEA [...] carotid artery stenosis [I65.23] Previously followed by [facility] for carotid and subclavian disease Now referred to [facility]. Princess, Needs carotid duplex at [facility] prior to clinic visit. STEFANIE Jenkins 12/24/2022 9:10 AM * Telephone Encounter - JUANA Short - 12/24/2022 9:05 AM EDT 01/21 elbert new pt documented in this encounter Plan of Treatment Upcoming Encounters Date Type Specialty Care Team Description 01/21/2023 Office Visit Vascular Surgery Dixon Rogers MD [address] [facility] [place] [id number] 01/29/2023 Imaging Radiology 03/20/2023 Office Visit Family Medicine Holland Dominique MD [address] [facility] [place] [address] 05/15/2023 Office [facility] [address] [facility] [address] Pending Results Name Type Priority Associated Diagnoses Date /Time VASC DUPLEX CAROTID BILAT Medical Imaging Routine S/P carotid endarterectomy Asymptomatic bilateral carotid artery stenosis Subclavian artery stenosis (HCC) 01/12/2023 3:12 PM EDT Scheduled Procedures Name Priority Associated Diagnoses Date/Ti oh ESOPHAGOGASTRODUODENOSCOPY ( EGD), FLEXIBLE, TRANSORAL, DIAGNOSTIC Recall Esophageal varices (HCC) COLONOSCOPY FLEXIBLE PROXIMAL DIAGNOSTIC Recall Encounter for screening colonoscopy Health Maintenance Due Date Last Done Comments DISCUSS TOBACCO CESSATION (REFER TO SMARTSET #2879) 1965 Hepatitis B (1 of 3 - 3-dose series) 1965 COVID-19 Vaccine (#1) 1965 Depression Screening 1976 HIV Screening 01/04/1979 DIABETES-EYE EXAM 01/04/1982 Diabetic Foot Exam 01/04/1982 DTaP,Tdap,and Td Vaccines (1 - Tdap) 01/04/1983 Pap Smear 01/04/1985 Cervical Cancer Screening 01/04/1994 HPV/Co-Test 01/04/1994 Cologuard 01/04/2009 Fecal Occult Blood Test 01/04/2009 Sigmoidoscopy 01/04/2009 LUNG CANCER SCREENING - USE SMARTSET [id number] 01/04/2014 Zoster Vaccines (1 of 2) 01/04/2014 [...] artery documented in this encounter Care Teams Adobe Layer Relationship Specialty Start Date End Date Holland Dominique MD [address] [place] [address] PCP - General Family Medicine 12/26/22 documented as of this encounter
--- OUTSIDE RECORDS SUMMARY | 2023-03-10 11:44 | External Medical Summary | Summary of Care ---
Author Name Unknown Organization [facility] Address [address] [place] [address] Phone [phone] Care Team Providers Care Ferryboat Captain Name Role Phone Holland Dominique MD Primary Care Provider [phone] Reason for Visit * Reason Comments Outpatient Testing Encounter Details Date Type Department Care Team Description 01/06/2023 [facility] [id number] [facility] [address] [facility] [address] Chronic pancreatitis, unspecified pancreatitis type (HCC); Cirrhosis of liver without ascites, unspecified hepatic cirrhosis type (HCC) Allergies Active Allergy Reactions Severity Noted Date Comments Bee Venom Anaphylaxis High 09/19/2014 Other reaction(s): Angioedema Celecoxib Anaphylaxis High 12/05/2014 Morphine Other (Please comment) 12/05/2014 Exacerbation of pain documented as of this encounter (statuses as of 01/06/2023) Medications Medication Sig Dispensed Refills Start Date [...] the morning. 30 Tablet 11 01/01/2023 Active documented as of this encounter (statuses as of 01/06/2023) Active Problems Problem Noted Date Type 2 [...] as of this encounter (statuses as of 01/06/2023) Immunizations Name Administration Dates Next Due Pneumococcal [...] Encounters Date Type Specialty Care Team Description 01/09/2023 Telemedicine Nephrology Cecil Perez MD [address] [place] [address] 01/12/2023 Imaging Radiology 01/21/2023 Office Visit Vascular Surgery Dixon Rogers MD [address] [place] [address] 01/29/2023 Imaging Radiology 03/20/2023 Office Visit Family Medicine Holland Dominique MD [address] [facility] [place] [address] 05/15/2023 Office Visit Gastroenterology Dede Olmedo MD [address] [facility] [place] [address] Pending Results Name Type Priority Associated Diagnoses Date /Time LIPASE Lab Routine Chronic pancreatitis, unspecified pancreatitis type (HCC) 01/06/2023 2:38 PM EDT COMPREHENSIVE METABOLIC PANEL Lab Routine Chronic pancreatitis, unspecified pancreatitis type (HCC) Cirrhosis of liver without ascites, unspecified hepatic cirrhosis type (HCC) 01/06/2023 2:38 PM EDT Scheduled Procedures Name Priority Associated Diagnoses Date/Ti me ESOPHAGOGASTRODUODENOSCOPY ( EGD), FLEXIBLE, TRANSORAL, DIAGNOSTIC Recall Esophageal varices (HCC) COLONOSCOPY FLEXIBLE PROXIMAL DIAGNOSTIC Recall Encounter for screening colonoscopy Health Maintenance Due Date Last Done Comments DISCUSS TOBACCO CESSATION (REFER TO SMARTSET #1477) 1965 Hepatitis B (1 of 3 - 3-dose series) 1965 COVID-19 Vaccine (#1) 1965 Depression Screening 1976 HIV Screening 01/04/1979 DIABETES-EYE EXAM 01/04/1982 Diabetic Foot Exam 01/04/1982 DTaP,Tdap,and Td Vaccines (1 - Tdap) 01/04/1983 Pap Smear 01/04/1985 Cervical Cancer Screening 01/04/1994 HPV/Co-Test 01/04/1994 Cologuard 01/04/2009 Fecal Occult Blood Test 01/04/2009 Sigmoidoscopy 01/04/2009 LUNG CANCER SCREENING - USE SMARTSET [id number] 01/04/2014 Zoster Vaccines (1 of 2) 01/04/2014 Pneumococcal Vaccine: Pediatrics (0 to 5 Years) and At-Risk Patients (6 to 64 Years) (2 - PCV) 09/16/2016 09/17/2015 Mammogram 10/21/2019 10/20/2018, 10/20/2018 Influenza Vaccine (FLU shot) (#1) 2022 02/16/2016, 01/10/2014, 03/02/2008, Additional history exists HbA1c 06/19/2023 12/19/2022, 07/19, 04/29/2021, Additional history exists Albumin/Creatinine Ratio 12/20/2023 12/19/2022 GFR 12/20/2023 12/19/2022, 07/19, 08/04/2022, Additional history exists Colonoscopy 04/10/2026 04/10/2016, 04/10/2016 Colorectal Cancer Screening 04/10/2026 GARDASIL-HPV IMMUNIZATION SERIES Aged Out No longer eligible based on patient's age to complete this topic MENINGOCOCCAL (MENACTRA/MENVEO) Aged Out No longer eligible based on patient's age to complete this topic documented as of this encounter Medical Devices Not on filedocumented as of this encounter Visit Diagnoses Diagnosis Chronic pancreatitis, unspecified pancreatitis type (HCC) Cirrhosis of liver without ascites, unspecified hepatic cirrhosis type (HCC) documented in this encounter Care Teams Ferryboat Captain Relationship Specialty Start Date End Date Holland Dominique MD [address] [place] [address] PCP - General Family Medicine 12/26/22 documented as of this encounter
--- OUTSIDE RECORDS SUMMARY | 2023-03-10 11:44 | External Medical Summary | Summary of Care ---
Author Name Unknown Organization [facility] Address [address] [place] [address] Phone [phone] Care Team Providers Care Wastewater Manager Name Role Phone Holland Dominique MD Primary Care Provider [phone] Reason for Referral * Evaluate & Treat - Unlimited Visits (Within 10 days (routine)) - Pending Review Specialty Diagnoses / Procedures Referred By Contac t Referred To Contact Pharmacist / Pharmacy Diagnoses Diabetic nephropathy associated with type 2 diabetes mellitus (HCC) Cecil Perez MD [address] [place] [address] Referral ID Status Reason Start Date Expiration Date Visits Requested Visits Authorized [id number] Pending Review Specialty Services Required 01/09/2023 99 99 Question Answer Referral Priority Within 10 days (routine) Department: Specialist Specialty: Nephro Reason for Referral: Other - DM, needs short insulin Comments Pharmacist Medication Therapy Management: Minimum frequency patient should be seen in person for medication management: as appropriate per clinical condition and patient status By my signature, I understand that my patient Shara Rodriguez will have her medication therapy managed by the [facility] ([facility]) per established policies, procedures, and protocols. I also certify that this referral may serve as an initiation of service for the management of drug therapy in the above noted patient. [facility] providers will be responsible for scheduling patient visits, obtaining appropriate laboratory studies, and adjusting medication management therapy per patient's need, in addition to those roles spelled out in the clinic policy, procedures, and drug management protocols. I understand that the service provided by the [facility] Clinic is voluntary and have informed patient that they can refuse the service at their discretion. I am aware that the [facility] Clinic will provide me with a copy of the patient encounter via my [employer]. I authorize the [facility] Clinic to carry out these activities on my behalf. I consider this program to be a necessary part of the patient's medical care. Cecil Perez MD Reason for Visit * Evaluate & Treat - Unlimited Visits (Within 10 days (routine)) - Pending Review Specialty Diagnoses / Procedures Referred By Jessica pink Referred To Contact Nephrology Diagnoses Type 2 diabetes mellitus with stage 3b chronic kidney disease, without long-term current use of insulin (HCC) Alyssa Rader CRNP [address] [place] [address] Referral ID Status Reason Start Date Expiration Date Visits Requested Visits Authorized [id number] Pending Review Specialty Services Required 12/25/[phone] Encounter Details Date Type Department Care Team Description 01/09/2023 Telemedicine Nephrology, [address] [address] Cecil Perez MD [address] [place] [address] Diabetic nephropathy associated with type 2 diabetes mellitus (HCC)*; Nephrocalcinosis; Renal osteodystrophy; HTN, goal below 140/90 Allergies Active Allergy Reactions Severity Noted Date Comments Bee Venom Anaphylaxis High 09/19/2014 Other reaction(s): Angioedema Celecoxib Anaphylaxis High 12/05/2014 Morphine Other (Please comment) 12/05/2014 Exacerbation of pain documented as of this encounter (statuses as of 01/09/2023) Medications Medication Sig Dispensed Refills Start Date [...] hemoglobin A1c goal of less than 7.0% ([facility]) Use to test blood sugars twice a day 200 Strip 11 12/19/2022 Active Lantus SoloStar 100 UNIT/ML Subcutaneous Solution Pen-injectorIndicat ions:Type 2 diabetes mellitus with hemoglobin A1c goal of less than 7.0% ([facility]) Inject 16 Units under the skin in [...] as of this encounter (statuses as of 01/09/2023) Active Problems Problem Noted Date Type 2 [...] as of this encounter (statuses as of 01/09/2023) Immunizations Name Administration Dates Next Due Pneumococcal [...] as of this encounter Progress Notes * Cecil Perez MD - 01/09/2023 2:26 PM EDT Nephrology Telemedicine Note 01/09/2023, 2:26 PM After connecting through [employer], patient was identified by name and date of . Patient was then informed that this was a Telemedicine visit and that the exam was being conducted confidentially, over secure lines, that my office door was closed, and there was no one else in the room. Patient acknowledged consent and understanding of privacy and security of the Telemedicine visit, and gave us permission to proceed. I informed the patient that I have reviewed their record in [facility] and presented the opportunity for them to ask any questions regarding the visit today. The patient agreed to participate. HPI: Shara Rodriguez is a 58 year old female seen in follow-up. PMH of type 2 DM for 11yrs poorly controlled with A1c range between 8 and 10 on lantus 16 units bid. She was on metformin but stopped a month ago due to GI side effects. She has nephropathy. Not seen by opthal. She has ETOH liver cirrhosis butquit 11yrs, ETOH pancreatitis Eleven years ago, carotid stenosis s/p carotid endarterectomy 5yrs ago. She smokes a PPD since age 24. Recent labs show cr 1.2 down from 1.4 3 weeks earlier. She uses Ibuprofen prn for stomach pain. She take MVT. Renal U/S on 01/01/2023 showed RIGHT KIDNEY: 10.5 cm x 3.9 cm x 5.1 cm. Normal size. 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 No hydronephrosis, discrete calculi, or mass. LEFT KIDNEY: 9.1 cm x 4.6 cm x 4.5 cm. Normal size. 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 No hydronephrosis or discrete calculi. Simple cyst measuring 1.0 x 0.7 x 0.6 cm. She apparently had low blood pressure on 12/30/2022 add lisinopril was reduced 10 mg daily. On follow-up visit her blood pressure was high and it was again increased to 20 mg daily. She is unable to get blood pressure using her wrist cuff due to vascular insufficiency. No history of kidney stones. Review of Systems: General ROS: negative for - chills or fever Psychological ROS: negative for - mood swings ENT ROS: negative for - nasal congestion or nasal discharge Endocrine ROS: DM Respiratory ROS: no cough, shortness of breath, or wheezing Cardiovascular ROS: no chest pain or dyspnea on exertion Gastrointestinal ROS: no abdominal pain, change in bowel habits, or black or bloody stools Genito-Urinary ROS: no dysuria, trouble voiding, or hematuria Musculoskeletal ROS: negative for - muscle pain Neurological ROS: no TIA or stroke symptoms Dermatological ROS: negative for rash Past Medical History: Diagnosis Date Diabetes (HCC) Past Surgical History: Procedure Laterality Date COLONOSCOPY, DIAGNOSTIC (RECTUM) 04/10/2016 normal, repeat 10 yrs/COLONOSCOPY FLEXIBLE PROXIMAL DIAGNOSTIC performed by Toshia Burrell DO at ENDOSCOPY [facility] EGD, FLEXIBLE, DIAGNOSTIC 08/22/2014 varices, portal gastropathy, biliary stent placed/[facility] EGD, FLEXIBLE, DIAGNOSTIC 12/08/2014 eso varices, portal hypertensive gastropathy/[facility] EGD, FLEXIBLE, DIAGNOSTIC 01/03/2015 eso varices, portal hypertensive gastropathy, repeat 2 mo/[facility] EGD, FLEXIBLE, DIAGNOSTIC 10/25/2015 eso varices, portal hypertensive gastropathy, repat 1 mo/[facility] EGD, FLEXIBLE, DIAGNOSTIC 12/18/2015 eso varices, portal hypertensive gastropathy, repeat 6 mo/[facility] EGD, FLEXIBLE, DIAGNOSTIC 02/15/2016 eso varices, portal hypertensive gastropathy, biliary stents/[facility] EGD, FLEXIBLE, DIAGNOSTIC 08/19/2016 eso varices, portal hypertensive gastropathy, biliary stent, repeat 1 yr/ESOPHAGOGASTRODUODENOSCOPY(EGD), FLEXIBLE, TRANSORAL, DIAGNOSTIC performed by Sintia Langford DO at ENDOSCOPY [facility] EGD, FLEXIBLE, DIAGNOSTIC 11/10/2017 eso varices, retained food in stomach, repeat/ESOPHAGOGASTRODUODENOSCOPY (EGD), FLEXIBLE, TRANSORAL, DIAGNOSTIC performed by Sintia Langford DO at [facility] EGD, FLEXIBLE, DIAGNOSTIC 12/28/2017 portal hypertensive gastropathy, esophageal varices, mild gastritis, repeat 1 yr/ESOPHAGOGASTRODUODENOSCOPY (EGD), FLEXIBLE, TRANSORAL, DIAGNOSTIC performed by Sintia Langford DO at [facility] EGD, FLEXIBLE, DIAGNOSTIC 01/22/2022 esophageal varices, repeat 1 yr / ESOPHAGOGASTRODUODENOSCOPY (EGD), FLEXIBLE, TRANSORAL, DIAGNOSTICperformed by Sintia Langford DO at [facility] EGD, W/ENDOSCOPIC US 11/10/2017 ESOPHAGOGASTRODUODENOSCOPY (EGD), FLEXIBLE, TRANSORAL, ENDOSCOPIC ULTRASOUND performed by Sintia Langford DO at [facility] EGD, W/ENDOSCOPIC US 12/28/2017 GB sludge/ESOPHAGOGASTRODUODENOSCOPY (EGD), FLEXIBLE, TRANSORAL, ENDOSCOPIC ULTRASOUND performed bySintia Langford DO at [facility] ERCP 10/25/2015 biliary stricture, stent removed, 2 stents placed, repeat 3 mo/[facility] ERCP 03/21/2016 reactive cells on bx, stents removed, new stents placed, repeat 6 mo/[facility] ERCP 08/28/2016 biliary stricture, stent removed/[facility] ERCP, DIAGNOSTIC, SPECIMEN COLLECTION 12/08/2014 biliary stricture, stent removed, new stent placed, repeat 8-12 wks/[facility] ERCP, DIAGNOSTIC, SPECIMEN COLLECTION 02/16/2015 biliary stricture, metal stent placed, inflammation on bx, repeat 4 mo/[facility] Review of patient's allergies indicates: Allergen Reactions Bee Venom Anaphylaxis Other reaction(s): Angioedema Celebrex [Celecoxib] Anaphylaxis Morphine Other (Please comment) Exacerbation of pain Current Outpatient Medications Medication Sig Dispense Refill Empagliflozin 10 MG Oral Tablet (Jardiance) Take 1 Tablet by mouth in the morning. 90 Tablet 3 BD PEN NEEDLE FREDDIE U/F 32G X 4 MM 0 PROAIR HFA 108 (90 BASE) MCG/ACT inhaler Inhale by mouth 2 Puffs as needed . 0 Wmegpkv-Uecynaumgerda-Tlqcbznj 250-250-65 MG Oral Tablet Take 2 Tablets by mouth every 8 hours as needed. Atenolol 25 MG Oral Tablet (Tenormin) Take 1 Tablet by mouth in the morning. 90 Tablet 3 Rosuvastatin Calcium 20 MG Oral Tablet (Crestor) Take 1 Tablet by mouth in the morning. 90 Tablet 3 Pantoprazole Sodium 20 MG Oral Tablet Delayed Release (Protonix) Take 1 Tablet by mouth in the morning. 90 Tablet 3 OneTouch Ultra In Vitro Strip (Glucose Blood) Use to test blood sugars twice a day 200 Strip 11 Lantus SoloStar 100 UNIT/ML Subcutaneous Solution Pen-injector Inject 16 Units under the skin in the morning and 16 Units before bedtime. 15 mL 5 EpiPen 2-Rahul 0.3 MG/0.3ML Injection Solution Auto-injector For a severe reaction: Inject in outer thigh following instructions on package and go to the Emergency room. 2 Each 3 Lisinopril 20 MG Oral Tablet (Prinivil) Take 1 Tablet by mouth in the morning. 30 Tablet 11 No current facility-administered medications for this visit. No family history on file. Social History Socioeconomic History Marital status: Spouse name: Not on file Number of children: Not on file Years of education: Not on file Highest education level: Not on file Occupational History Not on file Tobacco Use Smoking status: Every Day Packs/day: 1.00 Years: 35.00 Pack years: 35.00 Types: Cigarettes Smokeless tobacco: Never Vaping Use Vaping Use: Never used Substance and Sexual Activity Alcohol use: No Comment: quit 3 years ago Drug use: No Sexual activity: Not on file Other Topics Concern Service Not Asked Blood Transfusions Yes Caffeine Concern Not Asked Occupational Exposure Not Asked Hobby Hazards Not Asked Sleep Concern Not Asked Stress Concern Not Asked Weight Concern Not Asked Special Diet Not Asked Back Care Not Asked Exercise Not Asked Bike Helmet Not Asked Seat Belt Not Asked Self-Exams Not Asked Social History Narrative Not on file Social Determinants of Health Financial Resource Strain: Not on file Food Insecurity: Not on file Transportation Needs: Not on file Physical Activity: Not on file Stress: Not on file Social Connections: Not on file Intimate Partner Violence: Not on file Housing Stability: Not on file OBJECTIVE: Vital signs given by patient from home records: BP 160/90 mmHg, Physical exam through videocamera; General: Pleasant, no distress; Eyes: moist anicteric mucosae, anicteric sclerae. neck without visible adenopathy; face symmetrical ; chest expansion symmetrical, Respiratory: breathing unlabored; MSK: back symmetrical, Abdomen No obvious distension. Legs without obvious joint deformities, no edema. Skin clear and no obvious rashes noted. Neurologically AAOx3, speech fluent. Psychiatric - mood pleasant. Labs and data reviewed and significant for: Recent Labs Units 01/06/23 1438 12/19/22 1446 05/01/21 1151 SODIUM - [facility] mmol/L 142 135 140 POTASSIUM - [facility] mmol/L 4.9 3.5 4.6 CHLORIDE - [facility] mmol/L 104 98 103 CO2 - [facility] mmol/L 26 22 25 BUN - [facility] mg/dL 14 16 7 CREATININE - [facility] mg/dL 1.2* 1.4* 0.7 Recent Labs Units 12/19/22 1446 05/01/21 1151 WBC AUTO - [facility] K/uL 16.59* 6.40 HGB - [facility] g/dL 11.3* 12.1 PLATELET AUTO - [facility] K/uL 137* 131* Recent Labs Units 01/06/23 1438 12/19/22 1446 05/01/21 1151 CALCIUM - [facility] mg/dL 9.6 9.1 10.1 Recent Labs Units 12/19/22 1446 08/04/22 0000 04/29/21 1628 HEMOGLOBIN A1C - [facility] % 8.8* -- -- HEMOGLOBIN, [id number] % -- 10.3* 9.5* No results for input(s): MICROALBUMIN, PROCRRATIO in the last 57423 hours. ASSESSMENT/PLAN: Diagnoses and all orders for this visit: Diabetic nephropathy associated with type 2 diabetes mellitus (HCC) Patient with diabetic nephropathy due to poorly controlled diabetes. Recent A1c of 8.8. She has hadA1c range between 8 and 10. She now has albuminuria of 538 mg. She is on lisinopril 20 mg. I was bloody to increase it to 40 mg but patient said she had an episode of hypotension few weeks ago. Discussed importance of optimal glycemic control with target A1c of 7. Will refer her to [facility]TM clinic. She needs short-acting insulin. I am also starting Jardiance 10 mg daily. Side effects were discussed Including increased risk of UTIs. She needs to increase water intake aiming for at least 64 oz of water daily. Discussed need to completely avoid NSAIDs. 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 I have told her to stop calcium and vitamin-D supplements including multivitamins. Will check PTH and vitamin-D levels. She has no history of kidney stones. Renal osteodystrophy - 25-HYDROXY VITAMIN D - PTH Will check PTH and vitamin-D levels as above. HTN, goal below 140/90 - DURABLE MEDICAL EQUIPMENT Blood pressure is high recently but patient also reported episode of hypotension. I am ordering herblood pressure machine. She will monitor blood pressure twice daily for 2 weeks and send me a list of blood pressure readings. If systolic is above 130, I will increase lisinopril to 40 mg daily. Tobacco use - Empagliflozin 10 MG Oral Tablet (Jardiance); Take 1 Tablet by mouth in the morning. Discussed extensively need to quit smoking. Patient has extensive vascular disease due to smoking. I advised her to do a gradual taper reducing by 2 cigarettes every couple of weeks. Once patient reaches 10 cigarettes, she will request for nicotine replacement either patches, gum or Chantix. Cecil Perez MD Nephrology, [address] [address] This note was generated with the help of voice recognition software. Please excuse for errors. documented in this encounter Plan of Treatment Upcoming Encounters Date Type Specialty Care Team Description 01/12/2023 Imaging Radiology 01/21/2023 Office Visit Vascular Surgery Dixon Rogers MD [address] [place] [address] 01/29/2023 Imaging Radiology 03/20/2023 Office Visit Family Medicine Holland Dominique MD [address] [place] [address] 05/15/2023 Office Visit Gastroenterology Dede Olmedo MD [address] [place] [address] Scheduled Orders Name Type Priority Associated Diagnoses Orde r Schedule 25-HYDROXY VITAMIN D Lab Routine Renal osteodystrophy Ordered: 01/09/2023 PTH Lab Routine Renal osteodystrophy Ordered: 01/09/2023 Scheduled Procedures Name Priority Associated Diagnoses Date/Ti me ESOPHAGOGASTRODUODENOSCOPY ( EGD), FLEXIBLE, TRANSORAL, DIAGNOSTIC Recall Esophageal varices (HCC) COLONOSCOPY FLEXIBLE PROXIMAL DIAGNOSTIC Recall Encounter for screening colonoscopy Scheduled Referrals Name Type Priority Associated Diagnoses Orde r Schedule PHARMACIST MEDS THERAPY MGMT REFERRAL OP Referral Within 10 days (routine) Diabetic nephropathy associated with type 2 diabetes mellitus (HCC) Ordered: 01/09/2023 Health Maintenance Due Date Last Done Comments DISCUSS TOBACCO CESSATION (REFER TO SMARTSET #4888) 1965 Hepatitis B (1 of 3 - 3-dose series) 1965 COVID-19 Vaccine (#1) 1965 Depression Screening 1976 HIV Screening 01/04/1979 DIABETES-EYE EXAM 01/04/1982 Diabetic Foot Exam 01/04/1982 DTaP,Tdap,and Td Vaccines (1 - Tdap) 01/04/1983 Pap Smear 01/04/1985 Cervical Cancer Screening 01/04/1994 HPV/Co-Test 01/04/1994 Cologuard 01/04/2009 Fecal Occult Blood Test 01/04/2009 Sigmoidoscopy 01/04/2009 LUNG CANCER SCREENING - USE SMARTSET 32919 01/04/2014 Zoster Vaccines (1 of 2) 01/04/2014 Pneumococcal Vaccine: Pediatrics (0 to 5 Years) and At-Risk Patients (6 to 64 Years) (2 - PCV) 09/16/2016 09/17/2015 Mammogram 10/21/2019 10/20/2018, 10/20/2018 Influenza Vaccine (FLU shot) (#1) 2022 02/16/2016, 01/10/2014, 03/02/2008, Additional history exists HbA1c 06/19/2023 12/19/2022, 07/19, 04/29/2021, Additional history exists Albumin/Creatinine Ratio 12/20/2023 12/19/2022 GFR 01/07/2024 01/06/2023, 04/2022, 08/04/2022, Additional history exists Colonoscopy 04/10/2026 04/10/2016, 04/10/2016 Colorectal Cancer Screening 04/10/2026 GARDASIL-HPV IMMUNIZATION SERIES Aged Out No longer eligible based on patient's age to complete this topic MENINGOCOCCAL (MENACTRA/MENVEO) Aged Out No longer eligible based on patient's age to complete this topic documented as of this encounter Medical Devices Not on filedocumented as of this encounter Visit Diagnoses Diagnosis Diabetic nephropathy associated with type 2 diabetes mellitus (HCC)- Primary Nephrocalcinosis Other disorder of calcium metabolism Renal osteodystrophy HTN, goal below 140/90 Unspecified essential hypertension documented in this encounter Care Teams Wastewater Manager Relationship Specialty Start Date End Date Holland Dominique MD [address] [place] [address] PCP - General Family Medicine 12/26/22 documented as of this encounter
--- OUTSIDE RECORDS SUMMARY | 2023-03-10 11:44 | External Medical Summary | Summary of Care ---
Author Name Unknown Organization [facility] Address [address] [place] [address] Phone [phone] Care Team Providers Care Gift Manager Name Role Phone Holland Dominique MD Primary Care Provider [phone] Reason for Referral * Evaluate & Treat - Unlimited Visits (Within 10 days (routine)) - Pending Review Specialty Diagnoses / Procedures Referred By Jessica pink Referred To Contact Gastroenterology Diagnoses Chronic pancreatitis, unspecified pancreatitis type (HCC) Cirrhosis of liver without ascites, unspecified hepatic cirrhosis type (HCC) Alyssa Rader CRNP [address] [place] [address] Referral ID Status Reason Start Date Expiration Date Visits Requested Visits Authorized [id number] Pending Review Specialty Services Required 12/25/2022 999 999 Question Answer Referral Priority Within 10 days (routine) For what condition is the patient being referred? All Gastro Conditions * Evaluate & Treat - Unlimited Visits (Within 10 days (routine)) - Pending Review Specialty Diagnoses / Procedures Referred By Contever pink Referred To Contact Nephrology Diagnoses Type 2 diabetes mellitus with stage 3b chronic kidney disease, without long-term current use of insulin (HCC) Alyssa Rader CRNP [address] [place] [address] Referral ID Status Reason Start Date Expiration Date Visits Requested Visits Authorized [id number] Pending Review Specialty Services Required 12/25/2022 999 999 Question Answer Referral Priority Within 10 days (routine) What condition is this patient being seen for? Chronic kidney disease Reason for Visit * Reason Onset Date Comments Test Results 12/25/2022 Encounter Details Date Type Department Care Team Description 12/25/[address] [facility] [address] [place] [address] Alyssa Rader CRNP [address] [place] [address] Test Results Allergies Active Allergy Reactions Severity Noted Date [...] hemoglobin A1c goal of less than 7.0% ([facility]) Use to test blood sugars twice a [...] encounter Miscellaneous Notes * Telephone Encounter - Rafy Long - 01/06/2023 8:47 AM EDT Pt returned call to nurse call center and informed of message, per 01/01/23 tele encounter. Pt scheduled appointments via portal. * Telephone Encounter - Bobby Dodge RN - 2023 8:09 AM EDT Called, left message for patient to return call to nurse call center. Please see Alyssa's previous message and also phone encounter from 01/01/2023 re: blood pressurecheck and inform patient of information in both messages. * Telephone Encounter - Alcira Dhillon LPN - 12/29/2022 4:13 PM EDT Called pt, let message for a return call * Telephone Encounter - Jenniffer Garcia LPN - 12/26/2022 3:16 PM EDT Tried calling pt-- line busy * Telephone Encounter - Jenniffer Garcia LPN - 12/25/2022 3:10 PM EDT Called pt-- No answer, LM to return call to clinic to explain message below and send to scheduling to get appts set up. * Telephone Encounter - STEFANIE Stinson - 12/25/2022 2:48 PM EDT Labs show poor renal function -- referral for nephrology and renal US order placed Labs also show ongoing uncontrolled DM and elevated liver and pancreatic enzymes so she needs to schedule GI follow up -- she is patient of Dr Langford but I did place new referral Her white count is elevated suggesting infection somewhere If her abdominal pain is worse it is possibly from pancreatitis and she should go to ER If symptoms are about her usual level then I instead want her to get another set of liver/pancreas labs in 1 week (order placed) to see if they are stable How has her blood pressure been since reducing her medications? documented in this encounter Plan of Treatment Upcoming Encounters Date Type Specialty Care Team Description 01/09/2023 Telemedicine Nephrology Cecil Perez MD [address] [place] [address] 01/12/2023 Imaging Radiology 01/21/2023 Office Visit Vascular Surgery Dixon Rogers MD [address] [place] [address] 01/29/2023 Imaging Radiology 03/20/2023 Office Visit Family Medicine Holland Dominique MD [address] [place] [address] 05/15/2023 Office Visit Gastroenterology Dede Olmedo MD [address] [facility] [place] [address] Scheduled Orders Name Type Priority Associated Diagnoses Orde r Schedule LIPASE Lab Routine Chronic pancreatitis, unspecified pancreatitis type (HCC) Expected: 12/25/2022 (Approximate), Expires: 12/25/2023 COMPREHENSIVE METABOLIC PANEL Lab Routine Chronic pancreatitis, unspecified pancreatitis type (HCC) Cirrhosis of liver without ascites, unspecified hepatic cirrhosis type (HCC) Expected: 12/25/2022 (Approximate), Expires: 12/25/2023 Scheduled Procedures Name Priority Associated Diagnoses Date/Ti me ESOPHAGOGASTRODUODENOSCOPY ( EGD), FLEXIBLE, TRANSORAL, DIAGNOSTIC Recall Esophageal varices (HCC) COLONOSCOPY FLEXIBLE PROXIMAL DIAGNOSTIC Recall Encounter for screening colonoscopy Scheduled Referrals Name Type Priority Associated Diagnoses Orde r Schedule NEPHROLOGY REFERRAL OP Referral Within 10 days (routine) Type 2 diabetes mellitus with stage 3b chronic kidney disease, without long-term current use of insulin (HCC) Ordered: 12/25/2022 GASTROENTEROLOGY REFERRAL OP Referral Within 10 days (routine) Chronic pancreatitis, unspecified pancreatitis type (HCC) Cirrhosis of liver without ascites, unspecified hepatic cirrhosis type (HCC) Ordered: 12/25/2022 Health Maintenance Due Date Last Done Comments DISCUSS TOBACCO CESSATION (REFER TO SMARTSET #3291) 1965 Hepatitis B (1 of 3 - 3-dose series) 1965 COVID-19 Vaccine (#1) 1965 Depression Screening 1976 HIV Screening 01/04/1979 DIABETES-EYE EXAM 01/04/1982 Diabetic Foot Exam 01/04/1982 DTaP,Tdap,and Td Vaccines (1 - Tdap) 01/04/1983 Pap Smear 01/04/1985 Cervical Cancer Screening 01/04/1994 HPV/Co-Test 01/04/1994 Cologuard 01/04/2009 Fecal Occult Blood Test 01/04/2009 Sigmoidoscopy 01/04/2009 LUNG CANCER SCREENING - USE SMARTSET 18073 01/04/2014 Zoster Vaccines (1 of 2) 01/04/2014 [...] Not on filedocumented as of this encounter Results * US RENAL (01/01/2023 3:23 PM EDT) Anatomical Region Laterality Modality Abdomen, Body Ultrasound 01/01/2023 3:41 PM EDT Impressions 01/01/2023 3:46 PM EDT IMPRESSION 1. Bilateral medullary nephrocalcinosis. 2. Small amount of ascites. I have personally reviewed this examination and agree with the resident/fellow physician's interpretation. Narrative 01/01/2023 3:46 PM EDT EXAM US RENAL-01/01/2023 3:23 pm HISTORY proteinuria TECHNIQUE Real time sonographic imaging. COMPARISON Abdominal ultrasound 05/13/2021. FINDINGS RIGHT KIDNEY: 10.5 cm x 3.9 cm x 5.1 cm. Normal size. 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 No hydronephrosis, discrete calculi, or mass. LEFT KIDNEY: 9.1 cm x 4.6 cm x 4.5 cm. Normal size. 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 No hydronephrosis or discrete calculi. Simple cyst measuring 1.0 x 0.7 x 0.6 cm. BLADDER: Partially filled. AORTA: Visualized portions normal in caliber. OTHER: Small amount ascites. Procedure Note Bhavik Dennis MD - 01/01/2023 EXAM US RENAL-01/01/2023 3:23 pm HISTORY proteinuria TECHNIQUE Real time sonographic imaging. COMPARISON Abdominal ultrasound 05/13/2021. FINDINGS RIGHT KIDNEY: 10.5 cm x 3.9 cm x 5.1 cm. Normal size. There are findingsof medullary nephrocalcinosis. No hydronephrosis, discrete calculi, ormass. LEFT KIDNEY: 9.1 cm x 4.6 cm x 4.5 cm. Normal size. There are findings ofmedullary nephrocalcinosis. No hydronephrosis or discrete calculi.Simple cyst measuring 1.0 x 0.7 x 0.6 cm. BLADDER: Partially filled. AORTA: Visualized portions normal in caliber. OTHER: Small amount ascites. IMPRESSION IMPRESSION 1. Bilateral medullary nephrocalcinosis. 2. Small amount of ascites. I have personally reviewed this examination and agree with the resident/fellow physician's interpretation. Alyssa WATTS RAD ULTRASOUND documented in this encounter Visit Diagnoses Diagnosis Type 2 diabetes mellitus with stage 3b chronic kidney disease, without long-term current use of insulin (HCC)- Primary Chronic pancreatitis, unspecified pancreatitis type (HCC) Cirrhosis of liver without ascites, unspecified hepatic cirrhosis type (HCC) Proteinuria, unspecified type Type 2 diabetes mellitus with stage 3b chronic kidney disease, without long-term current use of insulin (HCC) Proteinuria, unspecified type documented in this encounter Care Teams Gift Manager Relationship Specialty Start Date End Date Holland Dominique MD [address] [place] [address] PCP - General Family Medicine 12/26/22 documented as of this encounter
--- OUTSIDE RECORDS SUMMARY | 2023-03-10 11:44 | External Medical Summary | Summary of Care ---
Author Name Unknown Organization [facility] Address [address] [place] [address] Phone [phone] Care Team Providers Care Field Services Analyst Name Role Phone Zachary Mcfarlane DO Primary Care Provider Encounter Details Date Type Department Care Team Description 09/20/2020 Hospital Encounter Radiology Film File [address] [place] [address] Allergies Active Allergy Reactions Severity [...] Holland Dominique MD [address] [place] [address] 04/01/2023 Office Visit Pharmacy [facility] [address] [place] [address] 05/15/2023 Office Visit Gastroenterology Dede Olmedo MD [facility] [place] [address] Scheduled Procedures Name Priority Associated Diagnoses Date/Ti me ESOPHAGOGASTRODUODENOSCOPY ( EGD), FLEXIBLE, TRANSORAL, DIAGNOSTIC Recall Esophageal varices (HCC) COLONOSCOPY FLEXIBLE PROXIMAL DIAGNOSTIC Recall Encounter for screening colonoscopy Health Maintenance Due Date Last Done Comments DISCUSS TOBACCO CESSATION (REFER TO SMARTSET #1787) 1965 Hepatitis B (1 of 3 - 3-dose series) 1964 COVID-19 Vaccine (#1) 1964 Depression Screening 1976 HIV Screening 01/04/1979 DIABETES-EYE EXAM 01/04/1982 Diabetic Foot Exam 01/04/1982 DTaP,Tdap,and Td Vaccines (1 - Tdap) 01/04/1983 Pap Smear 01/04/1985 Cervical Cancer Screening 01/04/1994 HPV/Co-Test 01/04/1994 Cologuard 01/04/2009 Fecal Occult Blood Test 01/04/2009 Sigmoidoscopy 01/04/2009 LUNG CANCER SCREENING - USE SMARTSET [id number] 01/04/2014 Zoster Vaccines (1 of 2) 01/04/2014 [...] - US (IMAGES ONLY, NO REPORT) Routine 09/20/2020 6:20 PM EDT documented in this encounter Results * RADIOLOGY EXAM - US (IMAGES ONLY, NO REPORT) (09/20/2020 6:20 PM EDT) 09/20/2020 6:17 PM EDT Narrative Scheduling, Silent - 02/03/2023 12:15 PM EDT This is an imaging study not interpreted or resulted by a [employer] or [employer] contracted radiologist. Holland Dominique MD RAD ULTRASOUND documented in this encounter Care Teams Field Services Analyst Relationship Specialty Start Date End Date Zachary Mcfarlane, [address] [address] PCP - General Family Medicine 10/29/17 12/25/22 documented as of this encounter
--- OUTSIDE RECORDS SUMMARY | 2023-03-10 11:44 | External Medical Summary | Summary of Care ---
Author Name Unknown Organization [facility] Address [address] [place] [address] Phone [phone] Care Team Providers Care Patient Care Director Name Role Phone Zachary Mcfarlane DO Primary Care Provider Encounter Details Date Type Department Care Team Description 10/20/2018 Hospital Encounter Radiology Film File [address] [place] [address] Allergies Active Allergy Reactions Severity [...] Holland Dominique MD [address] [place] [address] 04/01/2023 Office Visit Pharmacy [facility] [address] [place] [address] 05/15/2023 Office Visit Gastroenterology Dede Olmedo MD [address] [place] [address] [place] [address] Scheduled Procedures Name Priority Associated Diagnoses Date/Ti me ESOPHAGOGASTRODUODENOSCOPY ( EGD), FLEXIBLE, TRANSORAL, DIAGNOSTIC Recall Esophageal varices (HCC) COLONOSCOPY FLEXIBLE PROXIMAL DIAGNOSTIC Recall Encounter for screening colonoscopy Health Maintenance Due Date Last Done Comments DISCUSS TOBACCO CESSATION (REFER TO SMARTSET #8984) 1965 Hepatitis B (1 of 3 - 3-dose series) 1964 COVID-19 Vaccine (#1) 1964 Depression Screening 1976 HIV Screening 01/04/1979 DIABETES-EYE EXAM 01/04/1982 Diabetic Foot Exam 01/04/1982 DTaP,Tdap,and Td Vaccines (1 - Tdap) 01/04/1983 Pap Smear 01/04/1985 Cervical Cancer Screening 01/04/1994 HPV/Co-Test 01/04/1994 Cologuard 01/04/2009 Fecal Occult Blood Test 01/04/2009 Sigmoidoscopy 01/04/2009 LUNG CANCER SCREENING - USE SMARTSET [id number] 01/04/2014 Zoster Vaccines (1 of 2) 01/04/2014 [...] - MAMMOGRAPHY (IMAGES ONLY, NO REPORT) Routine 10/20/2018 12:25 PM EDT documented in this encounter Results * RADIOLOGY EXAM - MAMMOGRAPHY (IMAGES ONLY, NO REPORT) (10/20/2018 12:25 PM EDT) 10/20/2018 12:2 1 PM EDT Narrative Scheduling, Silent - 02/03/2023 12:11 PM EDT This is an imaging study not interpreted or resulted by a [facility] or [employer] contracted radiologist. Holland Dominique MD RAD MAMMOGRAPHY documented in this encounter Care Teams Patient Care Director Relationship Specialty Start Date End Date Zachary Mcfarlane, [address] [address] PCP - General Family Medicine 10/29/17 12/25/22 documented as of this encounter
--- OUTSIDE RECORDS SUMMARY | 2023-03-10 11:44 | External Medical Summary ---
Author Name Unknown Address Unknown Organization K01:[facility] - [address] [place] [address] Laboratory Report Ordering Provider Test Date Status NAUN SANCHEZ 01/06/2023 14:38:26 Final Observation Date Value Abnormality Reference (Units ) Status Lipase 01/06/2023 14:38:26 51 13-60 (U/L ) Final Performing Location [facility] - [address] [facility] [address]
--- OUTSIDE RECORDS SUMMARY | 2023-03-10 11:44 | External Medical Summary ---
Author Name Unknown Address Unknown Organization K0G:[facility] - [address] [place] [address] Laboratory Report Ordering Provider Test Date Status NAUN SANCHEZ 01/06/2023 14:38:26 Final Observation Date Value Abnormality Reference (Units ) Status BUN 01/06/2023 14:38:26 14 6-20 (mg/dL) Final Creatinine 01/06/2023 14:38:26 1.2 Above high normal 0.5-1.0 (mg/dL) Final Glomerular filtration rate/1.73 sq M.predicted [Volume Rate/Area] in Serum, Plasma or Blood by Creatinine-based formula (CKD-EPI) 01/06/2023 14:38:26 54 Below low normal >=60 (mL/min) Final eGFR is calculated based on the CKD-EPI 2020 equation SODIUM 01/06/2023 14:38:26 142 135-146 (m mol/L) Final Potassium 01/06/2023 14:38:26 4.9 3.5-5.1 (m mol/L) Final Cl 01/06/2023 14:38:26 104 98-107 (mm ol/L) Final CO2 01/06/2023 14:38:26 26 22-32 (mmo l/L) Final Anion gap 01/06/2023 14:38:26 12 7-15 (mmol /L) Final Glucose 01/06/2023 14:38:26 170 Above high normal 70 -120 (mg/dL) Final Albumin 01/06/2023 14:38:26 3.9 3.8-5.0 (g /dL) Final AST (Aspartate aminotransferase) 01/06/2023 14:38:26 21 10-35 (U/L) Fin al Alk Phos 01/06/2023 14:38:26 167 Above high normal 35 -130 (U/L) Final Bilirubin, Total 01/06/2023 14:38:26 0.6 <=1 .2 (mg/dL) Final Calcium 01/06/2023 14:38:26 9.6 8.4-10.2 ( mg/dL) Final Protein 01/06/2023 14:38:26 6.7 6.0-8.3 (g /dL) Final ALT (Alanine aminotransferase) 01/06/2023 14:38:26 19 10-35 (U/L) Luiz molina Performing Location [facility] - [address] [facility] [address]
--- OUTSIDE RECORDS SUMMARY | 2023-03-10 11:44 | External Medical Summary | Summary of Care ---
Author Name Unknown Organization [facility] Address [address] [place] [address] Phone [phone] Care Team Providers Care Engraving Operator Name Role Phone Holland Dominique MD Primary Care Provider [phone] Reason for Visit * Reason Comments Dosage Adjustment In Person (Anticoag Cl inic) Diabetes Education * Evaluate & Treat - Unlimited Visits (Within 10 days (routine)) - Pending Review Specialty Diagnoses / Procedures Referred By Jessica pink Referred To Contact Pharmacist / Pharmacy Diagnoses Diabetic nephropathy associated with type 2 diabetes mellitus (HCC) Cecil Perez MD [address] [place], [place] [address] [id number] Referral ID Status Reason Start Date Expiration Date Visits Requested Visits Authorized [id number] Pending Review Specialty Services Required 01/09/2023 99 99 Encounter Details Date Type Department Care Team Description 01/19/2023 Office Visit Pharmacy, [facility] [address] [facility] [place] [address] [facility] [address] [place] [address] Type 2 diabetes mellitus with hemoglobin A1c goal of less than 7.0% ([facility])* Allergies Active Allergy Reactions Severity Noted Date Comments Bee Venom Anaphylaxis High 09/19/2014 Other reaction(s): Angioedema Celecoxib Anaphylaxis High 12/05/2014 Morphine Other (Please comment) 12/05/2014 Exacerbation of pain documented as of this encounter (statuses as of 01/19/2023) Medications Medication Sig Dispensed Refills Start Date [...] the morning. 90 Tablet 3 12/19/2022 Active [employer] Ultra In Vitro Strip (Glucose Blood)Indications:T ype [...] as of this encounter (statuses as of 01/19/2023) Active Problems Problem Noted Date Carotid occlusion, right 01/13/2023 Subclavian artery stenosis, left 023 Type 2 diabetes mellitus with hemoglobin A1c goal of less than 7.0% 12/19/2022 Gastroesophageal reflux disease 12/20/19 Dyslipidemia 12/19/2022 Tobacco use disorder 12/19/2022 S/P carotid endarterectomy 12/19/2022 History of TIA (transient ischemic attac k) 12/19/2022 Carotid stenosis, asymptomatic, left 04/2022 HTN, goal below 140/90 12/19/2022 Chronic pancreatitis 12/19/2022 Hepatic cirrhosis 12/19/2022 documented as of this encounter (statuses as of 01/19/2023) Immunizations Name Administration Dates Next Due Pneumococcal [...] as of this encounter Progress Notes * Yoko Donis, [facility] - 01/19/2023 11:26 AM EDT Medication Therapy Disease Management Clinic - Diabetes Management Progress Note Shara Rodriguez, identified by name and date of , is a 58 year old female being seen for diabetesmanagement/education. Patient presents for initial diabetic visit. Past Medical History: Diagnosis Date Diabetes ([facility]) Diagnosis: Type 2 Age of diabetes diagnosis: Since 2012 Family history of diabetes: paternal and maternal grandfather Microvascular complications: neuropathy and nephropathy Macrovascular complications: hypertension dyslipidemia cerebrovascular disease History of Treatment Barriers: Lifestyle: None Therapy considerations: Renal Functions and GI upset Medication: None: Patient Preference DIABETES: Current diabetic medications: Jardiance 10 mg daily Lantus 16 units BID Medication Injection Site: Abdomen Lifestyle: Diet: unchanged Glucose Review/SMBG: Readings per patient memory/recall: Patient is currently testing 2 times a day Hypoglycemia: Does your blood sugar go below 70 mg/dL? No Hyperglycemia symptoms present: none Recent Labs Units 12/19/22 1446 08/04/22 0000 04/29/21 1628 HEMOGLOBIN A1C - [facility] % 8.8* -- -- HEMOGLOBIN, [id number] LAB % -- 10.3* 9.5* Recent Labs Units 01/06/23 1438 12/19/22 1446 05/01/21 1151 ESTIMATED GLOMERULAR FILTRATION RATE - [facility] mL/min 54* 46* >90 CREATININE - [facility] mg/dL 1.2* 1.4* 0.7 HYPERTENSION: Patient on ACEi/ARB: yes BP Readings from Last 3 Encounters: 01/01/23 166/92 12/19/22 88/60 01/22/22 99/84 Blood pressure at goal: yes HYPERLIPIDEMIA: Patient is taking moderate or high intensity statin: yes HEALTH MAINTENANCE REVIEW: Health Maintenance Due Topic Date Due Hepatitis B (1 of 3 - 3-dose series) Never done DISCUSS TOBACCO CESSATION (REFER TO SMARTSET #9361) Never done COVID-19 Vaccine (1) Never done Depression Screening Never done HIV Screening Never done DIABETES-EYE EXAM Never done Diabetic Foot Exam Never done DTaP,Tdap,and Td Vaccines (1 - Tdap) Never done Cervical Cancer Screening Never done LUNG CANCER SCREENING - USE SMARTSET [id number] Never done Zoster Vaccines (1 of 2) Never done Pneumococcal Vaccine: Pediatrics (0 to 5 Years) and At-Risk Patients (6 to 64 Years) (2 - PCV) 09/16/2016 Mammogram 10/21/2019 Influenza Vaccine (FLU shot) (1) 12/19/2022 ASSESSMENT & PLAN: BG Readings - Blood sugars uncontrolled. Patient notes BG values in AM around 100 or lower and around 200 in evening. Medications - Reviewed current regimen, patient is adherent to regimen. Patient started jardiance about a week ago, recommending continuing and then evaluation after several months of treatment. Diet, Exercise, Lifestyle - No significant lifestyle changes since last visit. Discussed with patient. Patient is agreeable to SMBG 2 time(s) daily. Patient aware to contact clinic if any hypoglycemia before next visit. MEDICATION CHANGES: no change Diabetic Medications: Jardiance 10 mg daily Lantus 16 units BID HEALTH MAINTENANCE INTERVENTIONS: Labs: Up to Date Immunizations: declines flu and pneumonia Foot Exam: declines Eye Exam: declines Annual Wellness Visit: N/A FOLLOW UP: Return to clinic in 8 weeks 04/01/2023 Yoko Donis RPh Clinical Pharmacist - [employer] Medication Therapy Management Clinic 01/19/2023, 11:26 AM documented in this encounter Plan of Treatment Upcoming Encounters Date Type Specialty Care Team Description 01/29/2023 Imaging Radiology 03/20/2023 Office Visit Family Medicine Holland Dominique MD [address] [place] [address] 04/01/2023 Office Visit Pharmacy [facility] [address] [place] [address] 05/15/2023 Office Visit Gastroenterology Dede Olmedo MD [address] [place] [id number] Scheduled Procedures Name Priority Associated Diagnoses Date/Ti [...] 01/04/2009 LUNG CANCER SCREENING - USE SMARTSET 72196 01/04/2014 Zoster Vaccines (1 of 2) 01/04/2014 [...] hemoglobin A1c goal of less than 7.0% (HCC)- Primary documented in this encounter Care Teams Engraving Operator Relationship Specialty Start Date End Date Holland Dominique MD [address] [place] [address] PCP - General Family Medicine 12/26/22 documented as of this encounter
--- OUTSIDE RECORDS SUMMARY | 2023-03-10 11:44 | External Medical Summary | Summary of Care ---
Author Name Unknown Organization [facility] Address [address] [place] [address] Phone [phone] Care Team Providers Care Petroleum Refining Firer Name Role Phone Holland Dominique MD Primary Care Provider [phone] Reason for Visit * Reason Onset Date Comments Appointment 01/15/2023 Encounter Details Date Type Department Care Team Description 01/15/2023 Telephone Nephrology, [address] [address] Cecil Perez MD [address] [place] [address] Appointment Allergies Active Allergy Reactions Severity Noted Date Comments Bee Venom Anaphylaxis High 09/19/2014 Other reaction(s): Angioedema Celecoxib Anaphylaxis High 12/05/2014 Morphine Other (Please comment) 12/05/2014 Exacerbation of pain documented as of this encounter (statuses as of 01/15/2023) Medications Medication Sig Dispensed Refills Start Date [...] as of this encounter (statuses as of 01/15/2023) Active Problems Problem Noted Date Carotid occlusion, [...] as of this encounter (statuses as of 01/15/2023) Immunizations Name Administration Dates Next Due Pneumococcal [...] Comments DISCUSS TOBACCO CESSATION (REFER TO SMARTSET #5631) 1965 Hepatitis B (1 of 3 - 3-dose series) 1965 COVID-19 Vaccine (#1) 1965 Depression Screening 1976 HIV Screening 01/04/1979 DIABETES-EYE EXAM 01/04/1982 Diabetic Foot Exam 01/04/1982 DTaP,Tdap,and Td Vaccines (1 - Tdap) 01/04/1983 Pap Smear 01/04/1985 Cervical Cancer Screening 01/04/1994 HPV/Co-Test 01/04/1994 Cologuard 01/04/2009 Fecal Occult Blood Test 01/04/2009 Sigmoidoscopy 01/04/2009 LUNG CANCER SCREENING - USE SMARTSET 56186 01/04/2014 Zoster Vaccines (1 of 2) 01/04/2014 [...] filedocumented as of this encounter Care Teams Petroleum Refining Firer Relationship Specialty Start Date End Date Holland Dominique MD [address] [place] [address] PCP - General Family Medicine 12/26/22 documented as of this encounter
--- OUTSIDE RECORDS SUMMARY | 2023-03-10 11:44 | External Medical Summary | Summary of Care ---
Author Name Unknown Organization [facility] Address [address] [place] [address] Phone [phone] Care Team Providers Care Armature Coil Winder Name Role Phone Holland Dominique MD Primary Care Provider [phone] Reason for Visit * Reason Onset Date Comments TRIAGE 12/24/2022 Encounter Details Date Type Department Care Team Description 12/24/2022 Telephone Vascular Surg [facility] [address] [place] [address] Dixon Rogers MD [address] [place] [address] TRIAGE Allergies Active Allergy Reactions [...] goal of less than 7.0% ([facility]) Use to test blood sugars twice a day 200 Strip 11 12/19/2022 Active Lantus SoloStar 100 UNIT/ML Subcutaneous Solution Pen-injectorIndic ations:Type 2 diabetes mellitus with hemoglobin A1c goal of less than 7.0% ([facility]) Inject 16 Units under the skin [...] Miscellaneous Notes * Telephone Encounter - JUANA Ingram - 01/12/2023 3:41 PM EDT Pt calling in regarding her 01/21 appt. She is requesting to have a tele med visit instead of comingin person that day. Please contact pt Thank you JUANA Ingram * Telephone Encounter - JUANA hSort - 12/24/2022 10:37 AM EDT Study scheduled, confirmed dtl w/ pt * Telephone Encounter - JUANA Short - 12/24/2022 9:23 AM EDT Lvm for pt * Telephone Encounter - STEFANIE Mendoza - 12/24/2022 9:09 AM EDT Associated Diagnoses S/P carotid endarterectomy [Z98.890] Bilateral carotid artery stenosis [I65.23] Previously followed by [facility] for carotid and subclavian disease [place] [facility] Needs carotid duplex at [facility] prior to clinic visit. STEFANIE Jenkins 12/24/2022 9:10 AM * Telephone Encounter - JUANA Short - 12/24/2022 9:05 AM EDT 01/21 elbert new pt documented in this encounter Plan of Treatment Upcoming Encounters Date Type Specialty Care Team Description 01/21/2023 Office Visit Vascular Surgery Dixon Rogers MD [address] [place] [address] 01/29/2023 Imaging Radiology 03/20/2023 Office Visit Family Medicine Holland Dominique MD [address] [facility] [place] [address] 05/15/2023 Office Visit Gastroenterology Dede Olmedo MD [address] [facility] [place] [address] Pending Results Name Type Priority Associated [...] Comments DISCUSS TOBACCO CESSATION (REFER TO SMARTSET #3490) 1965 Hepatitis B (1 of 3 - 3-dose series) 1965 COVID-19 Vaccine (#1) 1965 Depression Screening 1976 HIV Screening 01/04/1979 DIABETES-EYE EXAM 01/04/1982 Diabetic Foot Exam 01/04/1982 DTaP,Tdap,and Td Vaccines (1 - Tdap) 01/04/1983 Pap Smear 01/04/1985 Cervical Cancer Screening 01/04/1994 HPV/Co-Test 01/04/1994 Cologuard 01/04/2009 Fecal Occult Blood Test 01/04/2009 Sigmoidoscopy 01/04/2009 LUNG CANCER SCREENING - USE SMARTSET 50572 01/04/2014 Zoster Vaccines (1 of 2) 01/04/2014 [...] artery documented in this encounter Care Teams Armature Coil Winder Relationship Specialty Start Date End Date Holland Dominique MD [address] [place] [address] PCP - General Family Medicine 12/26/22 documented as of this encounter
--- OUTSIDE RECORDS SUMMARY | 2023-03-10 11:45 | External Medical Summary | Summary of Care ---
Author Name Unknown Organization [facility] Address [address] [place] [address] Phone [phone] Care Team Providers Care Edging Machine Operator Name Role Phone Holland Dominique MD Primary Care Provider [phone] Reason for Visit * Reason Onset Date Comments Blood Pressure Check 01/01/2023 Encounter Details Date Type Department Care Team Description 01/01/2023 Telephone Family Practice [facility] [address] [facility] [place] [address] Alyssa Rader CRNP [address] [place] [address] Blood Pressure Check Allergies Active Allergy Reactions Severity Noted Date Comments Bee Venom Anaphylaxis High 09/19/2014 Other reaction(s): Angioedema Celecoxib Anaphylaxis High 12/05/2014 Morphine Other (Please comment) 12/05/2014 Exacerbation of pain documented as of this encounter (statuses as of 2023) Medications Medication Sig Dispensed Refills Start Date [...] 12/19/2022 Active Lisinopril 20 MG Oral Tablet (Prinivil)Indicat ions:HTN, goal below 140/90 Take 1 Tablet by mouth in the morning. 30 Tablet 11 01/01/2023 Active Lisinopril 10 MG Oral Tablet (Prinivil)Indicat ions:HTN, goal below 140/90 Take 1 Tablet by mouth in the morning. 90 Tablet 3 12/19/2022 01/02/20 23 Discontinued documented as of this encounter (statuses as of 2023) Active Problems Problem Noted Date Type 2 [...] as of this encounter (statuses as of 2023) Immunizations Name Administration Dates Next Due Pneumococcal [...] Miscellaneous Notes * Telephone Encounter - Judy Stockton LPN - 2023 11:39 AM EDT Patient returned call. Informed of message. Verbalized understanding. * Telephone Encounter - Bobby Dodge RN - 2023 8:08 AM EDT Called, left message for patient to return call to nurse call center. Also sent MyG message for patient to call nurse call center. Please see Alyssa's previous message and also phone encounter from 12/25/2022 re: test results and inform patient of information in both messages. * Telephone Encounter - STEFANIE Stinson - 01/01/2023 4:02 PM EDT Please have her increase her lisinopril to 20mg. She can take 2 of her 10mg tablets if that is whatshe has at home now. She should keep her follow up with nephrology in a week as they will likely increase her medicationfurther or add another. Please get her labs done the day before her visit if possible. * Telephone Encounter - Bobby Dodge RN - 01/01/2023 3:57 PM EDT Shara Rodriguez presented for blood pressure check per provider orders. The blood pressure was obtained using the right arm in the sitting position using a adult cuff. The results were charted in Vital Signs. BP Readings from Last 3 Encounters: 01/01/23 166/92 12/19/22 88/60 01/22/22 99/84 BP 174/90 (BP Site: Right Arm, BP Position: Sitting, BP Cuff Size: Regular) | Pulse 60 Dynamap - BP 181/81 (BP Site: Right Arm, BP Position: Sitting, BP Cuff Size: Regular) | Pulse 61 Recheck after 15 minutes: BP 166/92 (BP Site: Right Arm, BP Position: Sitting, BP Cuff Size: Regular) | Pulse 60 Patient denies headache, pressure in head, dizziness, lightheadedness, chest discomfort, focal neurological symptoms, change in vision, nose bleeds. Did patient take medications today? Yes Patient informed ok to go and we will notify STEFANIE Stinson and will call her with any further instructions. Patient verbalized understanding and was agreeable. Patient instructed to go to the ER if she develops any of the above symptoms in the meantime. She verbalized understanding. Pharmacy confirmed. Please advise. documented in this encounter Plan of Treatment Upcoming Encounters Date Type Specialty Care Team Description 01/09/2023 Telemedicine Nephrology Cecil Perez MD [address] [facility] [place], [place] [id number] 01/12/2023 Imaging Radiology 01/21/2023 Office Visit [facility]ascular Surgery [facility] [address] [facility] [address] 01/29/2023 Imaging Radiology 03/20/2023 Office Visit Family Medicine Holland Dominique MD [address] [facility] [place] [address] 05/15/2023 Office Visit Gastroenterology Dede Olmedo MD [address] [place] [address] Scheduled Procedures Name Priority Associated Diagnoses Date/Ti me ESOPHAGOGASTRODUODENOSCOPY ( EGD), FLEXIBLE, TRANSORAL, DIAGNOSTIC Recall Esophageal varices (HCC) COLONOSCOPY FLEXIBLE PROXIMAL DIAGNOSTIC Recall Encounter for screening colonoscopy Health Maintenance Due Date Last Done Comments DISCUSS TOBACCO CESSATION (REFER TO SMARTSET #1422) 1965 Hepatitis B (1 of 3 - 3-dose series) 1964 COVID-19 Vaccine (#1) 1964 Depression Screening 1976 HIV Screening 01/04/1979 DIABETES-EYE EXAM 01/04/1982 Diabetic Foot Exam 01/04/1982 DTaP,Tdap,and Td Vaccines (1 - Tdap) 01/04/1983 Pap Smear 01/04/1985 Cervical Cancer Screening 01/04/1994 HPV/Co-Test 01/04/1994 Cologuard 01/04/2009 Fecal Occult Blood Test 01/04/2009 Sigmoidoscopy 01/04/2009 LUNG CANCER SCREENING - USE SMARTSET 66051 01/04/2014 Zoster Vaccines (1 of 2) 01/04/2014 [...] encounter Visit Diagnoses Diagnosis HTN, goal below 140/90- Primary Unspecified essential hypertension documented in this encounter Care Teams Edging Machine Operator Relationship Specialty Start Date End Date Holland Dominique MD [address] [place] [address] PCP - General Family Medicine 12/26/22 documented as of this encounter"
--- OUTSIDE RECORDS SUMMARY | 2023-03-10 11:45 | External Medical Summary | Summary of Care ---
Author Name Unknown Organization [facility] Address [address] [place] [address] Phone [phone] Care Team Providers Care Food Safety Manager Name Role Phone Holland Dominique MD Primary Care Provider [phone] Reason for Referral * Evaluate & Treat - Unlimited Visits (Within 10 days (routine)) - Pending Review Specialty Diagnoses / Procedures Referred By Jessica pink Referred To Contact Gastroenterology Diagnoses Chronic pancreatitis, unspecified pancreatitis type (HCC) Cirrhosis of liver without ascites, unspecified hepatic cirrhosis type (HCC) Alyssa Rader CRNP [address] [place] [address] Referral ID Status Reason Start Date Expiration Date Visits Requested Visits Authorized [id number] Pending Review Specialty Services Required 12/25/2022 999 [...] of insulin (HCC) Alyssa Rader CRNP [address] [place] [address] Referral ID Status Reason Start Date Expiration Date Visits Requested Visits Authorized [id number] Pending Review Specialty Services Required 12/25/2022 999 999 Question Answer Referral Priority Within 10 days (routine) What condition is this patient being seen for? Chronic kidney disease Reason for Visit * Reason Onset Date Comments Test Results 12/25/2022 Encounter Details Date Type Department Care Team Description 12/25/2022 Telephone Family Practice [facility] [address] [place] [address] Alyssa Rader CRNP [address] [place] [address] Test Results Allergies Active Allergy Reactions Severity [...] goal of less than 7.0% ([facility]) Use to test blood sugars twice a [...] encounter Miscellaneous Notes * Telephone Encounter - Bobby Dodge RN [...] 01/09/2023 Telemedicine Nephrology Cecil Perez MD [address] [facility] [place] [id number] 01/12/2023 Imaging Radiology 01/21/2023 Office Visit Vascular Surgery Dixon Rogers MD [address] [place] [address] 01/29/2023 Imaging Radiology 03/20/2023 Office Visit Family Medicine Holland Dominique MD [address] [facility] [place] [address] 05/15/2023 Office Visit Gastroenterology Dede Olmedo MD [address] [facility] [place] [address] Scheduled Orders Name Type Priority Associated [...] Comments DISCUSS TOBACCO CESSATION (REFER TO SMARTSET #5080) 1965 Hepatitis B (1 of 3 - 3-dose series) 1964 COVID-19 Vaccine (#1) 1965 Depression Screening 1976 HIV Screening 01/04/1979 DIABETES-EYE EXAM 01/04/1982 Diabetic Foot Exam 01/04/1982 DTaP,Tdap,and Td Vaccines (1 - Tdap) 01/04/1983 Pap Smear 01/04/1985 Cervical Cancer Screening 01/04/1994 HPV/Co-Test 01/04/1994 Cologuard 01/04/2009 Fecal Occult Blood Test 01/04/2009 Sigmoidoscopy 01/04/2009 LUNG CANCER SCREENING - USE SMARTSET 60992 01/04/2014 Zoster Vaccines (1 of 2) 01/04/2014 [...] type documented in this encounter Care Teams Food Safety Manager Relationship Specialty Start Date End Date Holland Dominique MD [address] [place] [address] PCP - General Family Medicine 12/26/22 documented as of this encounter
--- OUTSIDE RECORDS SUMMARY | 2023-03-10 11:45 | External Medical Summary | Summary of Care ---
Author Name Unknown Organization [facility] Address [address] [place] [address] Phone [phone] Care Team Providers Care Spray Gunner Name Role Phone Zachary Mcfarlane DO Primary Care Provider [phone] Reason for Referral * Evaluate & Treat - Unlimited Visits (Within 10 days (routine)) - Pending Review Specialty Diagnoses / Procedures Referred By Jessica pink Referred To Contact Gastroenterology Diagnoses Chronic pancreatitis, unspecified pancreatitis type (HCC) Cirrhosis of liver without ascites, unspecified hepatic cirrhosis type (HCC) Alyssa Rader CRNP [address] [place] [address] Referral ID Status Reason Start Date Expiration Date Visits Requested Visits Authorized [id number] Pending Review Specialty Services Required 12/25/2022 999 999 Question Answer Referral Priority Within 10 days (routine) For what condition is the patient being referred? All Gastro Conditions * Evaluate & Treat - Unlimited Visits (Within 10 days (routine)) - Pending Review Specialty Diagnoses / Procedures Referred By Contever t Referred To Contact Nephrology Diagnoses Type 2 diabetes mellitus with stage 3b chronic kidney disease, without long-term current use of insulin (HCC) Alyssa Rader CRNP [address] [place] [address] Referral ID Status Reason Start Date Expiration Date Visits Requested Visits Authorized [id number] Pending Review Specialty Services Required 12/25/2022 999 999 Question Answer Referral Priority Within 10 days (routine) What condition is this patient being seen for? Chronic kidney disease Encounter Details Date Type Department Care Team Description 12/25/2022 Telephone Family [facility] [address] [place] [address] Alyssa Rader CRNP [address] [place] [address] Allergies Active Allergy Reactions Severity Noted Date Comments Bee Venom Anaphylaxis High 09/19/2014 Other reaction(s): Angioedema Celecoxib Anaphylaxis High 12/05/2014 Morphine Other (Please comment) 12/05/2014 Exacerbation of pain documented as of this encounter (statuses as of 12/26/2022) Medications Medication Sig Dispensed Refills Start Date [...] the morning. 90 Tablet 3 12/19/2022 Active Lisinopril 10 MG Oral Tablet (Prinivil)Indicatio ns:HTN, goal below [...] Emergency room. 2 Each 3 12/19/2022 Active documented as of this encounter (statuses as of 12/26/2022) Active Problems Problem Noted Date Type 2 [...] as of this encounter (statuses as of 12/26/2022) Immunizations Name Administration Dates Next Due Pneumococcal [...] encounter Miscellaneous Notes * Telephone Encounter - Jenniffer Garcia LPN [...] Encounters Date Type Specialty Care Team Description 01/01/2023 Imaging Radiology 01/02/2023 Nurse Only Nurse Sukumar Acosta [address] [place] [address] 01/12/2023 Imaging Radiology 01/21/2023 Office Visit [facility] [address] [facility] [address] 01/29/2023 Imaging Radiology 03/20/2023 Office Visit Family Medicine Holland Dominique MD [address] [place] [address] Scheduled Orders Name Type Priority Associated Diagnoses Orde r Schedule LIPASE Lab Routine Chronic pancreatitis, unspecified pancreatitis type (HCC) Expected: 12/25/2022 (Approximate), Expires: 12/25/2023 RENAL Medical Imaging Routine Type 2 diabetes mellitus with stage 3b chronic kidney disease, without long-term current use of insulin (HCC) Proteinuria, unspecified type Expected: 12/25/2022, Expires: 01/25/2024 COMPREHENSIVE METABOLIC PANEL Lab Routine Chronic pancreatitis, [...] Comments DISCUSS TOBACCO CESSATION (REFER TO SMARTSET #6299) 1965 Hepatitis B (1 of 3 - 3-dose series) 1965 COVID-19 Vaccine (#1) 1965 Depression Screening 1976 HIV Screening 01/04/1979 DIABETES-EYE EXAM 01/04/1982 Diabetic Foot Exam 01/04/1982 DTaP,Tdap,and Td Vaccines (1 - Tdap) 01/04/1983 Pap Smear 01/04/1985 Cervical Cancer Screening 01/04/1994 HPV/Co-Test 01/04/1994 Cologuard 01/04/2009 Fecal Occult Blood Test 01/04/2009 Sigmoidoscopy 01/04/2009 LUNG CANCER SCREENING - USE SMARTSET [id number] 01/04/2014 Zoster Vaccines (1 of 2) 01/04/2014 [...] hepatic cirrhosis type (HCC) Proteinuria, unspecified type documented in this encounter Care Teams Spray Gunner Relationship Specialty Start Date End Date Zachary Mcfarlane, [address] [address] PCP - General Family Medicine 10/29/17 documented as of this encounter
--- OUTSIDE RECORDS SUMMARY | 2023-03-10 11:45 | External Medical Summary | Summary of Care ---
Author Name Unknown Organization [facility] Address [address] [place] [address] Phone [phone] Care Team Providers Care Octave Board Racker Name Role Phone Holland Dominique MD Primary Care Provider [phone] Reason for Visit * Reason Onset Date Comments Blood Pressure Check Blood Pressure Check 01/01/2023 Encounter Details Date Type Department Care Team Description 01/01/2023 Nurse Only Ancillary [facility] [address] [place] [address] [facility] Nurse [facility] [address] [place] [address] Blood Pressure Check; Blood Pressure Check Allergies Active Allergy Reactions Severity Noted Date Comments Bee Venom Anaphylaxis High 09/19/2014 Other reaction(s): Angioedema Celecoxib Anaphylaxis High 12/05/2014 Morphine Other (Please comment) 12/05/2014 Exacerbation of pain documented as of this encounter (statuses as of 01/01/2023) Medications Medication Sig Dispensed Refills Start Date [...] hemoglobin A1c goal of less than 7.0% ([facility]) Use to test blood sugars twice a day 200 Strip 11 12/19/2022 Active Lantus SoloStar 100 UNIT/ML Subcutaneous Solution Pen-injectorIndicat ions:Type 2 diabetes mellitus with hemoglobin A1c goal of less than 7.0% ([facility]) Inject 16 Units under the [...] as of this encounter (statuses as of 01/01/2023) Active Problems Problem Noted Date Type 2 [...] as of this encounter (statuses as of 01/01/2023) Immunizations Name Administration Dates Next Due Pneumococcal [...] on file documented as of this encounter Last Filed Vital Signs Vital Sign Reading Time Taken Comments Blood Pressure 166/92 01/01/2023 3:49 PM EDT Pulse 60 01/01/2023 3:49 PM EDT Temperature - - Respiratory Rate - - Oxygen Saturation - - Inhaled Oxygen Concentration - - Weight - - Height - - Body Mass Index - - documented in this encounter Progress Notes * Bobby Dodge RN - 01/01/2023 3:51 PM EDT Shara Rodriguez presented for blood [...] symptoms in the meantime. She verbalized understanding. documented in this encounter Plan of Treatment Upcoming Encounters Date Type Specialty Care Team Description 01/09/2023 Telemedicine Nephrology Cecil Perez MD [address] [place] [address] 01/12/2023 Imaging Radiology 01/21/2023 Office Visit Vascular Surgery Dixon Rogers MD [address] [place] [address] 01/29/2023 Imaging Radiology 03/20/2023 Office Visit Family Medicine Holland Dominique MD [address] [facility] [place] [address] 05/15/2023 Office Visit Gastroenterology Dede Olmedo MD [address] [facility] [address] [place] [address] Scheduled Procedures Name Priority Associated Diagnoses Date/Ti me ESOPHAGOGASTRODUODENOSCOPY ( EGD), FLEXIBLE, TRANSORAL, DIAGNOSTIC Recall Esophageal varices (HCC) COLONOSCOPY FLEXIBLE PROXIMAL DIAGNOSTIC Recall Encounter for screening colonoscopy Health Maintenance Due Date Last Done Comments DISCUSS TOBACCO CESSATION (REFER TO SMARTSET #8924) 1965 Hepatitis B (1 of 3 - 3-dose series) 1965 COVID-19 Vaccine (#1) 1965 Depression Screening 1976 HIV Screening 01/04/1979 DIABETES-EYE EXAM 01/04/1982 Diabetic Foot Exam 01/04/1982 DTaP,Tdap,and Td Vaccines (1 - Tdap) 01/04/1983 Pap Smear 01/04/1985 Cervical Cancer Screening 01/04/1994 HPV/Co-Test 01/04/1994 Cologuard 01/04/2009 Fecal Occult Blood Test 01/04/2009 Sigmoidoscopy 01/04/2009 LUNG CANCER SCREENING - USE SMARTSET [id number] 01/04/2014 Zoster Vaccines (1 of 2) 01/04/2014 [...] Procedure Name Priority Date/Time Associated Diagnosis Comments BLOOD PRESSURE Routine 01/01/2023 3:56 PM EDT HTN, goal below 140/90 documented in this encounter Results * BLOOD PRESSURE (01/01/2023 3:56 PM EDT) Narrative Bobby Dodge RN - 01/01/2023 3:56 PM EDT BP 174/90 (BP Site: Right Arm, BP Position: Sitting, BP Cuff Size: Regular) | Pulse 60 Dynamap - BP 181/81 (BP Site: Right Arm, BP Position: Sitting, BP Cuff Size: Regular) | Pulse 61 Recheck after 15 minutes: BP 166/92 (BP Site: Right Arm, BP Position: Sitting, BP Cuff Size: Regular) | Pulse 60 Alyssa [facility] documented in this encounter Visit Diagnoses Diagnosis HTN, goal below 140/90- Primary Unspecified essential hypertension documented in this encounter Care Teams Octave Board Racker Relationship Specialty Start Date End Date Holland Dominique MD [address] [facility] [place] [address] PCP - General Family Medicine 12/26/22 documented as of this encounter"
--- OUTSIDE RECORDS SUMMARY | 2023-03-10 11:45 | External Medical Summary | Summary of Care ---
Author Name Unknown Organization [facility] Address [address] [place] [address] Phone [phone] Care Team Providers Care Operations Management Professionals Name Role Phone [place] Dominique MD Primary Care Provider [phone] Reason for Referral * Evaluate & Treat - Unlimited Visits (Within 10 days (routine)) - Pending Review Specialty Diagnoses / Procedures Referred By Jessica pink Referred To Contact Gastroenterology Diagnoses Chronic pancreatitis, unspecified pancreatitis type (HCC) Cirrhosis of liver without ascites, unspecified hepatic cirrhosis type (HCC) Alyssa Rader CRNP [address] [place] [address] Referral ID Status Reason Start Date Expiration Date Visits Requested Visits Authorized [id number] Pending Review Specialty Services Required 12/25/2022 999 [...] of insulin (HCC) Alyssa Rader CRNP [address] [place] [address] Referral ID Status Reason Start Date Expiration Date Visits Requested Visits Authorized [id number] Pending Review Specialty Services Required 12/25/2022 999 999 Question Answer Referral Priority Within 10 days (routine) What condition is this patient being seen for? Chronic kidney disease Encounter Details Date Type Department Care Team Description 12/25/2022 Telephone Family Practice [facility] [address] [place] [address] Alyssa Rader CRNP [address] [place] [address] Allergies Active Allergy Reactions Severity Noted Date Comments Bee Venom Anaphylaxis High 09/19/2014 Other reaction(s): Angioedema Celecoxib Anaphylaxis High 12/05/2014 Morphine Other (Please comment) 12/05/2014 Exacerbation of pain documented as of this encounter (statuses as of 12/29/2022) Medications Medication Sig Dispensed Refills Start Date [...] as of this encounter (statuses as of 12/29/2022) Active Problems Problem Noted Date Type 2 [...] as of this encounter (statuses as of 12/29/2022) Immunizations Name Administration Dates Next Due Pneumococcal [...] encounter Miscellaneous Notes * Telephone Encounter - Alcira Dhillon LPN [...] 01/02/2023 Nurse Only Nurse Sukumar Acosta [address] [place] [address] 01/12/2023 Imaging Radiology 01/21/2023 Office Visit [facility] [address] [facility] [address] 01/29/2023 Imaging Radiology 03/20/2023 Office Visit Family Medicine [place] Dominique MD [address] [place] [address] 05/15/2023 Office Visit Gastroenterology Dede Olmedo MD [address] [place] [address] Scheduled Orders Name Type Priority Associated Diagnoses Orde r Schedule LIPASE Lab Routine Chronic pancreatitis, unspecified pancreatitis type (HCC) Expected: 12/25/2022 (Approximate), Expires: 12/25/2023 US RENAL Medical Imaging Routine Type 2 diabetes [...] Comments DISCUSS TOBACCO CESSATION (REFER TO SMARTSET #0596) 1965 Hepatitis B (1 of 3 - 3-dose series) 1965 COVID-19 Vaccine (#1) 1965 Depression Screening 1976 HIV Screening 01/04/1979 DIABETES-EYE EXAM 01/04/1982 Diabetic Foot Exam 01/04/1982 DTaP,Tdap,and Td Vaccines (1 - Tdap) 01/04/1983 Pap Smear 01/04/1985 Cervical Cancer Screening 01/04/1994 HPV/Co-Test 01/04/1994 Cologuard 01/04/2009 Fecal Occult Blood Test 01/04/2009 Sigmoidoscopy 01/04/2009 LUNG CANCER SCREENING - USE SMARTSET [id number] 01/04/2014 Zoster Vaccines (1 of 2) 01/04/2014 [...] type documented in this encounter Care Teams Operations Management Professionals Relationship Specialty Start Date End Date oHlland Dominique MD [address] [place] [address] PCP - General Family Medicine 12/26/22 documented as of this encounter
--- OUTSIDE RECORDS SUMMARY | 2023-03-10 11:45 | External Medical Summary | Summary of Care ---
Author Name Unknown Organization [facility] Address [address] [place] [address] Phone [phone] Care Team Providers Care Special Education Kindergarten Teacher Name Role Phone Zachary Mcfarlane DO Primary Care Provider [phone] Reason for Visit * Reason Onset Date Comments Appointment 12/26/2022 Encounter Details Date Type Department Care Team Description 12/26/2022 Telephone Nephrology, [address] [address] Abby Snyder MD [address] [place] [address] Appointment Allergies Active Allergy Reactions Severity [...] A1c goal of less than 7.0% ([facility]) Use to test blood sugars twice a [...] * Telephone Encounter - JUANA Daniels - 12/26/2022 12:37 PM EDT 12/26 called patient, left message. Trying to get patient scheduled for their new nephrology referral. Referral is under active request. documented in this encounter Plan of Treatment Upcoming Encounters Date Type Specialty Care Team Description 01/01/2023 Imaging Radiology 01/02/2023 Nurse Only Ancillary Michael, Nurse Sukumar Chavez [address] [place] [address] 01/12/2023 Imaging Radiology 01/21/2023 Office Visit Vascular Surgery Dixon Rogers MD [address] [place] [address] 01/29/2023 Imaging Radiology 03/20/2023 Office Visit Family Medicine Holland Dominique MD [address] [place] [address] Scheduled Procedures Name Priority Associated Diagnoses Date/Ti [...] 01/04/2009 LUNG CANCER SCREENING - USE SMARTSET [id number] 01/04/2014 Zoster Vaccines (1 of 2) 01/04/2014 [...] filedocumented as of this encounter Care Teams Special Education Kindergarten Teacher Relationship Specialty Start Date End Date Zachary Mcfarlane, DO [address] [place] [address] PCP - General Family Medicine 10/29/17 documented as of this encounter
--- OUTSIDE RECORDS SUMMARY | 2023-03-10 11:46 | External Medical Summary | Summary of Care ---
Author Name Unknown Organization [facility] Address [address] [place] [address] Phone [phone] Care Team Providers Care Sealer Sander Name Role Phone Zachary Mcfarlane DO Primary Care Provider [phone] Reason for Referral * Evaluate & Treat - Unlimited Visits (Within 10 days (routine)) - Pending Review Specialty Diagnoses / Procedures Referred By Jessica pink Referred To Contact Gastroenterology Diagnoses Chronic pancreatitis, unspecified pancreatitis type (HCC) Cirrhosis of liver without ascites, unspecified hepatic cirrhosis type (HCC) Alyssa Rader CRNP [address] [place] [address] Referral ID Status Reason Start Date Expiration Date Visits Requested Visits Authorized [id number] Pending Review Specialty Services Required 12/25/2022 999 [...] (HCC) Alyssa Rader CRNP [address] [place] [address] Referral ID Status Reason Start Date Expiration Date Visits Requested Visits Authorized [id number] Pending Review Specialty Services Required 12/25/2022 999 999 Question Answer Referral Priority Within 10 days (routine) What condition is this patient being seen for? Chronic kidney disease Encounter Details Date Type Department Care Team Description 12/25/2022 Telephone Family [facility] [address] [place] [address] Alyssa Rader CRNP [address] [place] [address] Allergies Active Allergy Reactions Severity Noted Date Comments Bee Venom Anaphylaxis High 09/19/2014 Other reaction(s): Angioedema Celecoxib Anaphylaxis High 12/05/2014 Morphine Other (Please comment) 12/05/2014 Exacerbation of pain documented as of this encounter (statuses as of 12/25/2022) Medications Medication Sig Dispensed Refills Start Date [...] as of this encounter (statuses as of 12/25/2022) Active Problems Problem Noted Date Type 2 [...] as of this encounter (statuses as of 12/25/2022) Immunizations Name Administration Dates Next Due Pneumococcal [...] Encounters Date Type Specialty Care Team Description 01/02/2023 Nurse Only Nurse Sukumar Acosta [address] [place] [address] 01/12/2023 Imaging Radiology 01/21/2023 Office Visit Vascular Surgery Dixon Rogers MD [address] [place] [address] 01/29/2023 Imaging Radiology 03/20/2023 Office Visit Family Medicine Holland Dominique MD [address] [place] [address] Scheduled Orders Name Type Priority Associated Diagnoses [...] Comments DISCUSS TOBACCO CESSATION (REFER TO SMARTSET #8023) 1965 Hepatitis B (1 of 3 - 3-dose series) 1964 COVID-19 Vaccine (#1) 1964 Depression Screening 1976 HIV Screening 01/04/1979 DIABETES-EYE EXAM 01/04/1982 Diabetic Foot Exam 01/04/1982 DTaP,Tdap,and Td Vaccines (1 - Tdap) 01/04/1983 Pap Smear 01/04/1985 Cervical Cancer Screening 01/04/1994 HPV/Co-Test 01/04/1994 Cologuard 01/04/2009 Fecal Occult Blood Test 01/04/2009 Sigmoidoscopy 01/04/2009 LUNG CANCER SCREENING - USE SMARTSET 59683 01/04/2014 Zoster Vaccines (1 of 2) 01/04/2014 [...] type documented in this encounter Care Teams Sealer Sander Relationship Specialty Start Date End Date Zachary Mcfarlane, [address] [address] PCP - General Family Medicine 10/29/17 documented as of this encounter
--- OUTSIDE RECORDS SUMMARY | 2023-03-10 11:46 | External Medical Summary | Summary of Care ---
Author Name Unknown Organization [facility] Address [address] [place] [address] Phone [phone] Care Team Providers Care Election Watcher Name Role Phone Zachary Mcfarlane DO Primary Care Provider [phone] Reason for Visit * Reason Onset Date Comments TRIAGE 12/24/2022 Encounter Details Date Type Department Care Team Description 12/24/2022 Telephone Vascular Surg [facility] [address] [place], [place] [id number] Dixon Rogers MD [address] [place] [address] TRIAGE Allergies Active Allergy Reactions Severity Noted Date Comments Bee Venom Anaphylaxis High 09/19/2014 Other reaction(s): Angioedema Celecoxib Anaphylaxis High 12/05/2014 Morphine Other (Please comment) 12/05/2014 Exacerbation of pain documented as of this encounter (statuses as of 12/24/2022) Medications Medication Sig Dispensed Refills Start Date [...] as of this encounter (statuses as of 12/24/2022) Active Problems Problem Noted Date Type 2 [...] as of this encounter (statuses as of 12/24/2022) Immunizations Name Administration Dates Next Due Pneumococcal [...] Miscellaneous Notes * Telephone Encounter - JUANA Short - 12/24/2022 10:37 AM EDT Study scheduled, confirmed dtl w/ pt * Telephone Encounter - JUANA Short - 12/24/2022 9:23 AM EDT Lvm for pt * Telephone Encounter - STEFANIE Mendoza - 12/24/2022 9:09 AM EDT Associated Diagnoses S/P carotid endarterectomy [Z98.890] Bilateral carotid artery stenosis [I65.23] Previously followed by [facility] for carotid and subclavian disease Now referred to [facility]. Princess, Needs carotid duplex at [facility] prior to clinic visit. STEFANIE Jenkins 12/24/2022 9:10 AM * Telephone Encounter - JUANA Short - 12/24/2022 9:05 AM EDT 01/21 elbert new pt documented in this encounter Plan of Treatment Upcoming Encounters Date Type Specialty Care Team Description 01/02/2023 Nurse Only Nurse Karla [facility] [address] [place] [address] 01/12/2023 Imaging Radiology 01/21/2023 Office Visit Vascular Surgery Dixon Rogers MD [address] [place] [address] 01/29/2023 Imaging Radiology 03/20/2023 Office Visit Family Medicine Holland Dominique MD [address] [place] [address] Scheduled Orders Name Type Priority Associated Diagnoses Orde r Schedule VASC DUPLEX CAROTID BILAT Medical Imaging Routine S/P carotid endarterectomy Asymptomatic bilateral carotid artery stenosis Subclavian artery stenosis (HCC) Ordered: 12/24/2022 Scheduled Procedures Name Priority Associated Diagnoses Date/Ti me ESOPHAGOGASTRODUODENOSCOPY ( EGD), FLEXIBLE, TRANSORAL, DIAGNOSTIC Recall Esophageal varices (HCC) COLONOSCOPY FLEXIBLE PROXIMAL DIAGNOSTIC Recall Encounter for screening colonoscopy Health Maintenance Due Date Last Done Comments DISCUSS TOBACCO CESSATION (REFER TO SMARTSET #6148) 1965 Hepatitis B (1 of 3 - 3-dose series) 1964 COVID-19 Vaccine (#1) 1965 Depression Screening, Annual for Pts 12 and Over 1976 HIV Screening 01/04/1979 DIABETES-EYE EXAM 01/04/1982 Diabetic Foot Exam 01/04/1982 DTaP,Tdap,and Td Vaccines (1 - Tdap) 01/04/1983 Pap Smear 01/04/1985 Cervical Cancer Screening 01/04/1994 HPV/Co-Test 01/04/1994 Cologuard 01/04/2009 Fecal Occult Blood Test 01/04/2009 Sigmoidoscopy 01/04/2009 LUNG CANCER SCREENING - USE SMARTSET 83996 01/04/2014 Zoster Vaccines (1 of 2) 01/04/2014 [...] artery documented in this encounter Care Teams Election Watcher Relationship Specialty Start Date End Date Zachary cMfarlane, [address] [address] PCP - General Family Medicine 10/29/17 documented as of this encounter
--- OUTSIDE RECORDS SUMMARY | 2023-03-10 11:46 | External Medical Summary ---
Author Name Unknown Address Unknown Organization [id number]:[facility] [place] [address] [place] [address] Laboratory Report Ordering Provider Test Date Status NAUN SANCHEZ 12/19/2022 14:46:09 Final Observation Date Value Abnormality Reference (Units ) Status TSH 12/19/2022 14:46:09 0.79 0.27-4.20 (uIU/mL) Final Performing Location LABORATORY C - [address] [place] [address]
--- OUTSIDE RECORDS SUMMARY | 2023-03-10 11:46 | External Medical Summary ---
Author Name Unknown Address Unknown Organization [id number]:[facility] [place] [facility] [address] [place] [address] Laboratory Report Ordering Provider Test Date Status NAUN SANCHEZ 12/19/2022 14:46:09 Final Observation Date Value Abnormality Reference (Units ) Status Lipase 12/19/2022 14:46:09 199 Above high normal 13 -60 (U/L) Final Performing Location LAB[facility] - [address] [place] [address]
--- OUTSIDE RECORDS SUMMARY | 2023-03-10 11:46 | External Medical Summary ---
Author Name Unknown Address Unknown Organization [id number]:[facility] [place] [address] [facility] [place] [address] Laboratory Report Ordering Provider Test Date Status NAUN SANCHEZ 12/19/2022 14:46:09 Final Observation Date Value Abnormality Reference (Units ) Status SYNC LEUKOCYTES IN BLOOD BY AUTOMATED COUNT 12/19/2022 14:46:09 16.59 Above high normal 4.00-10.80 (K/uL) Final Segs 12/19/2022 14:46:09 86.3 Above high normal 40.0-75.0 (%) Final Lymphs % 12/19/2022 14:46:09 5.6 Below low normal 18.0-42.0 (%) Final Monos 12/19/2022 14:46:09 5.5 1.0-11.0 (%) Final Eosinophils 12/19/2022 14:46:09 0.7 0.0-6.0 (%) Final Basos 12/19/2022 14:46:09 0.2 0.0-2.0 (%) Final Immature Granulocyte, Percent 12/19/2022 14:46:09 1.7 0.0-2.0 (%) Final Absolute Segs 12/19/2022 14:46:09 14.30 Above high normal 1.80-7.70 (K/uL) Final Lymphs, absolute 12/19/2022 14:46:09 0.93 Below low normal 1.00-4.80 (K/ul) Final Monos, Abs 12/19/2022 14:46:09 0.92 0.00-1.10 (K/uL) Final Eos, Abs 12/19/2022 14:46:09 0.12 0.00-0.70 (K/uL) Final Basos, Abs 12/19/2022 14:46:09 0.04 0.00-0.20 (K/uL) Final Immature Granulocytes, Number 12/19/2022 14:46:09 0.28 Above high normal 0.00-0.20 (K/uL) Final Performing Location [facility] [place] - [facility] [address] [facility] [address]
--- OUTSIDE RECORDS SUMMARY | 2023-03-10 11:46 | External Medical Summary | Summary of Care ---
Author Name Unknown Organization [facility] Address [address] [place] [address] Phone [phone] Care Team Providers Care Gwot Ia/Ilo Intelligence Support Name Role Phone Zachary Mcfarlane DO Primary Care Provider [phone] Reason for Visit * Reason Comments Outpatient Testing Encounter Details Date Type Department Care Team Description 12/19/2022 Laboratory Laboratory, [facility] [address] [facility] [place] [address] [facility] [address] [facility] [place] [address] Hypotension, unspecified hypotension type; Fatigue, unspecified type; Type 2 diabetes mellitus with hemoglobin A1c goal of less than 7.0% (HCC); Dyslipidemia; Hepatic cirrhosis, unspecified hepatic cirrhosis type, unspecified whether ascites present (HCC); Chronic pancreatitis, unspecified pancreatitis type (HCC) Allergies Active Allergy Reactions Severity Noted Date Comments Bee Venom Anaphylaxis High 09/19/2014 Other reaction(s): Angioedema Celecoxib Anaphylaxis High 12/05/2014 Morphine Other (Please comment) 12/05/2014 Exacerbation of pain documented as of this encounter (statuses as of 12/19/2022) Medications Medication Sig Dispensed Refills Start Date [...] as of this encounter (statuses as of 12/19/2022) Active Problems Problem Noted Date Type 2 [...] as of this encounter (statuses as of 12/19/2022) Immunizations Name Administration Dates Next Due Pneumococcal [...] Specialty Care Team Description 01/02/2023 Nurse Only Ancillary Nurse Sukumar Rodriguez [address] [place] [address] 01/29/2023 Imaging Radiology 03/20/2023 Office Visit Family Medicine [place] Dominique MD [address] [place] [address] Pending Results Name Type Priority Associated Diagnoses Date /Time CBC WITH WBC DIFFERENTIAL Lab Routine Hypotension, unspecified hypotension type Fatigue, unspecified type 12/19/2022 2:46 PM EDT HEMOGLOBIN A1C Lab Routine Type 2 diabetes mellitus with hemoglobin A1c goal of less than 7.0% (HCC) 12/19/2022 2:46 PM EDT LIPID PANEL WITH DIRECT LDL IF TG IS HIGH Lab Routine Dyslipidemia 12/19/2022 2:46 PM EDT TSH WITH FREE T4 IF INDICATED Lab Routine Fatigue, unspecified type 12/19/2022 2:46 PM EDT COMPREHENSIVE METABOLIC PANEL Lab Routine Hepatic cirrhosis, unspecified hepatic cirrhosis type, unspecified whether ascites present (HCC) Fatigue, unspecified type 12/19/2022 2:46 PM EDT ALBUMIN / CREATININE RATIO, URINE Lab Routine Type 2 diabetes mellitus with hemoglobin A1c goal of less than 7.0% (HCC) 12/19/2022 2:46 PM EDT LIPASE Lab Routine Chronic pancreatitis, unspecified pancreatitis type (HCC) 12/19/2022 2:46 PM EDT CBC Lab Routine Hypotension, unspecified hypotension type Fatigue, unspecified type 12/19/2022 2:46 PM EDT DIFFERENTIAL, AUTOMATED Lab Routine Hypotension, unspecified hypotension type Fatigue, unspecified type 12/19/2022 2:46 PM EDT Scheduled Procedures Name Priority Associated Diagnoses Date/Ti me ESOPHAGOGASTRODUODENOSCOPY ( EGD), FLEXIBLE, TRANSORAL, DIAGNOSTIC Recall Esophageal varices (HCC) COLONOSCOPY FLEXIBLE PROXIMAL DIAGNOSTIC Recall Encounter for screening colonoscopy Health Maintenance Due Date Last Done Comments DISCUSS TOBACCO CESSATION (REFER TO SMARTSET #8906) 1965 Hepatitis B (1 of 3 - 3-dose series) 1965 COVID-19 Vaccine (#1) 1965 Depression Screening, Annual for Pts 12 and Over 1976 HIV Screening 01/04/1979 Albumin/Creatinine Ratio 01/04/1982 DIABETES-EYE EXAM 01/04/1982 DIABETES-FOOT EXAM 01/04/1982 DTaP,Tdap,and Td Vaccines (1 - Tdap) 01/04/1983 Pap Smear 01/04/1985 Cervical Cancer Screening 01/04/1994 HPV/Co-Test 01/04/1994 Cologuard 01/04/2009 Fecal Occult Blood Test 01/04/2009 Sigmoidoscopy 01/04/2009 LUNG CANCER SCREENING - USE SMARTSET 66192 01/04/2014 Zoster Vaccines (1 of 2) 01/04/2014 Pneumococcal Vaccine: Pediatrics (0 to 5 Years) and At-Risk Patients (6 to 64 Years) (2 - PCV) 09/16/2016 09/17/2015 Mammogram 10/21/2019 10/20/2018, 10/20/2018 Influenza Vaccine (FLU shot) (#1) 2022 02/16/2016, 01/10/2014, 03/02/2008, Additional history exists HbA1c 02/03/2023 08/04/2022, 04/20, 09/10/2020, Additional history exists GFR 08/05/2023 08/04/2022, 07/19, 05/01/2021, Additional history exists Colonoscopy 04/10/2026 04/10/2016, 04/10/2016 Colorectal Cancer Screening 04/10/2026 GARDASIL-HPV IMMUNIZATION SERIES Aged Out No longer eligible based on patient's age to complete this topic MENINGOCOCCAL (MENACTRA/MENVEO) Aged Out No longer eligible based on patient's age to complete this topic documented as of this encounter Medical Devices Not on filedocumented as of this encounter Visit Diagnoses Diagnosis Hypotension, unspecified hypotension type Fatigue, unspecified type Type 2 diabetes mellitus with hemoglobin A1c goal of less than 7.0% (HCC) Dyslipidemia Other and unspecified hyperlipidemia Hepatic cirrhosis, unspecified hepatic cirrhosis type, unspecified whether ascites present (HCC) Chronic pancreatitis, unspecified pancreatitis type (HCC) documented in this encounter Care Teams Gwot Ia/Ilo Intelligence Support Relationship Specialty Start Date End Date Zachary Mcfarlane, [address] [address] PCP - General Family Medicine 10/29/17 documented as of this encounter
--- OUTSIDE RECORDS SUMMARY | 2023-03-10 11:46 | External Medical Summary ---
Author Name Unknown Address Unknown Organization K01[facility] [place] [facility] [address] [place] [address] Laboratory Report Ordering Provider Test Date Status NAUN SANCHEZ 12/19/2022 14:46:09 Final Normal: <30 mg/g creatinine< br/>High: 30-300 mg/g creatinine
Very High: >300 mg/g creatinine
Nephrotic: >2200 mg/g creatinine Observation Date Value Abnormality Reference (Units ) Status Albumin, Urine 12/19/2022 14:46:09 38.20 (mg/dL) Final Creatinine, Urine 12/19/2022 14:46:09 71 (mg/dL) Final Albumin/Creatinine [Mass Ratio] in Urine 12/19/2022 14:46:09 538 Above high normal <30 (mg/g Creat) Final Performing Location [facility] [place] [facility] [address]
--- OUTSIDE RECORDS SUMMARY | 2023-03-10 11:46 | External Medical Summary | Summary of Care ---
Author Name Unknown Organization [facility] Address [address] [place] [address] Phone [phone] Care Team Providers Care Marketing Operations Intern Name Role Phone Zachary Mcfarlane DO Primary Care Provider [phone] Reason for Visit * Reason Onset Date Comments TRIAGE 12/24/2022 Encounter Details Date Type Department Care Team Description 12/24/2022 Telephone Vascular Surg [facility] [address] [place], [place] [id number] Dixon Rogers MD [address] [place] [address] TRIAGE Allergies Active Allergy Reactions [...] carotid artery stenosis [I65.23] Previously followed by [facility] for carotid and subclavian disease [place] [facility] [place] Princess Needs carotid duplex [facility] prior to clinic visit. STEFANIE Jenkins 12/24/2022 9:10 AM * Telephone Encounter - JUANA Short - 12/24/2022 9:05 AM EDT 01/21 elbert new pt documented in this encounter Plan of Treatment Upcoming Encounters Date Type Specialty Care Team Description 01/02/2023 Nurse Only Nurse [facility] [place] [facility] [place] [address] 01/21/2023 Office Visit Vascular Surgery Dixon Rogers MD [address] [facility] [place] [address] 01/29/2023 Imaging Radiology 03/20/2023 Office Visit Family Medicine [place] Dominique MD [address] [facility] [place] [address] Scheduled Orders Name Type Priority Associated Diagnoses [...] Comments DISCUSS TOBACCO CESSATION (REFER TO SMARTSET #8636) 1965 Hepatitis B (1 of 3 - [...] 01/04/2009 LUNG CANCER SCREENING - USE SMARTSET 58032 01/04/2014 Zoster Vaccines (1 of 2) 01/04/2014 [...] artery documented in this encounter Care Teams Marketing Operations Intern Relationship Specialty Start Date End Date Zachary Mcfarlane, [address] [address] PCP - General Family Medicine 10/29/17 documented as of this encounter
--- OUTSIDE RECORDS SUMMARY | 2023-03-10 11:46 | External Medical Summary | Summary of Care ---
Author Name Unknown Organization [facility] Address [address] [place] [address] Phone [phone] Care Team Providers Care Dialysis Clinical Manager Name Role Phone Zachary Mcfarlane DO Primary Care Provider [phone] Reason for Visit * Reason Onset Date Comments Order Request 12/09/2022 Encounter Details Date Type Department Care Team Description 12/09/2022 Telephone Family Practice [facility] [address] [place] [address] Alyssa Rader CRNP [address] [place] [address] Order Request Allergies Active Allergy Reactions Severity Noted Date Comments Bee Venom Anaphylaxis High 09/19/2014 Other reaction(s): Angioedema Celecoxib Anaphylaxis High 12/05/2014 Ibuprofen Seizure High 09/19/2015 Denies allergy Morphine Other (Please comment) 12/05/2014 Exacerbation of pain documented as of this encounter (statuses as of 12/11/2022) Medications Medication Sig Dispensed Refills Start Date End Date Status atenolol (TENORMIN) 50 MG TabletIndication s:in pm Take by mouth 1 Tablet daily . 0 Active MetFORMIN (GLUCOPHAGE) 1000 MG Tablet Take 750 Tablets by mouth 2 times a day. extended release 0 01/20/2015 Active BD PEN NEEDLE FREDDIE U/F 32G X 4 MM 0 02/09/2015 Active PROAIR HFA 108 (90 BASE) MCG/ACT inhaler Inhale by mouth 2 Puffs as needed . 0 02/05/2015 Active simvastatin (ZOCOR) 40 MG TabletIndication s:in pm Take by mouth 1 Tablet daily . 0 07/10/2015 Active omeprazole (PRILOSEC) 20 MG CPDRIndications: in am Take by mouth 20 mg daily . 0 Active Aspirin-Acetamin ophen-Caffeine (EXCEDRIN MIGRAINE) 250-250-65 MG per tablet Take 2 Tabs by mouth every 8 hours as needed. 0 Active sucralfate (CARAFATE) 1 GM Tablet Take 1 Tab by mouth 4 times a day. 120 Tab 3 08/31/2018 Active Additional Information Patient taking differently:1 g Oral QID(AM/NOON/PM/HS),Indications: as needed, Reported on 01/17/2022 OneTouch Ultra In Vitro Strip (Glucose Blood) Use to test blood sugars twice a day 200 Strip 0 12/11/2022 Active ONETOUCH ULTRA BLUE STRP 2 times a day. Test. 0 02/08/2015 3 Discontinued documented as of this encounter (statuses as of 12/11/2022) Active Problems No known active problems documented as of this encounter (statuses as of 12/11/2022) Social History Tobacco Use Types Packs/Day Years [...] Telephone Encounter - Jenniffer Garcia LPN - 12/11/2022 3:45 PM EDT Called pt-- no answer. Sent my g regarding med refill and message below. * Telephone Encounter - STEFANIE Stinson - 12/11/2022 12:50 PM EDT Is there a reason that her prior PCP office is not filling this? I can send a one-time rx but nothing else until I see her. * Telephone Encounter - RENAE Hunter - 12/10/2022 11:53 AM EDT Pt called to check on status of rx. Pt said her glucometer says mini but the canister for her test strips just say One Touch Ultra. Pt needs one touch ultra test strips sent to pharmacy. Pt said she tests twice a day. Pt is out of test strips. Thanks, Mildred Saha Graphics Manager [facility] 12/10/2022,11:54 AM * Telephone Encounter - Nata Taylor LPN - 12/09/2022 4:13 PM EDT I am unsure the difference between the strips on her med list and what she is asking for. "Mini strips" * Telephone Encounter - JUANA Elliott - 12/09/2022 12:31 PM EDT - [phone] An order was requested for this patient. Name of Requesting Provider: STEFANIE Stinson Order Requested: One Touch Ultra Mini Diabetic strips, needs a script sent over to the pharmacy, uses strips twice a day. Pt uses [facility] in [place]. Diagnosis/Reason for Request: Medical Supplies If order request is for Mammogram: Is the patient having any breast symptoms? N/A Is there a chance of ? N/A Has the patient had any breast problems in the past? NA Does the order need to be faxed somewhere? If so, where?: N/A Fax Number, if applicable: N/A Call Back Number: [phone] If the caller is not a current patient, please advise the patient to call their current PCP to havethe order's prior to being seen in our office. The patient was informed that our providers would not order anything (medication, labs, etc.) prior to being seen. Pt is seeing a new doctor at the [facility], appt scheduled for 12/19/2022. Pt needs a refill on their diabetic strips, and would like to know if Alyssa Rader could send a script over forthem prior to pt's appt with provider. documented in this encounter Plan of Treatment Upcoming Encounters Date Type Specialty Care Team Description 12/19/2022 Office Visit Family Medicine Alyssa Rader CRNP [address] [place] [id number] Scheduled Procedures Name Priority Associated Diagnoses Date/Ti me ESOPHAGOGASTRODUODENOSCOPY ( EGD), FLEXIBLE, TRANSORAL, DIAGNOSTIC Recall Esophageal varices (HCC) COLONOSCOPY FLEXIBLE PROXIMAL DIAGNOSTIC Recall Encounter for screening colonoscopy Health Maintenance Due Date Last Done Comments Hepatitis B (1 of 3 - 3-dose series) 1965 COVID-19 Vaccine (#1) 1965 Pneumococcal Vaccine: Pediatrics (0 to 5 Years) and At-Risk Patients (6 to 64 Years) (1 - PCV) 01/04/1970 Depression Screening, Annual for Pts 12 and Over 1976 HIV Screening 01/04/1979 DTaP,Tdap,and Td Vaccines (1 - Tdap) 01/04/1983 Pap Smear 01/04/1985 Cervical Cancer Screening 01/04/1994 HPV/Co-Test 01/04/1994 Mammogram 2004 Cologuard 01/04/2009 Fecal Occult Blood Test 01/04/2009 Sigmoidoscopy 01/04/2009 Zoster Vaccines (1 of 2) 01/04/2014 Lipid Panel 02/14/2020 02/13/2015 Influenza Vaccine (FLU shot) (#1) 2022 02/16/2016, 03/02/2008, 03/25/2007 Colonoscopy 04/10/2026 04/10/2016, 04/10/2016 Colorectal Cancer Screening 04/10/2026 GARDASIL-HPV IMMUNIZATION SERIES Aged Out No longer eligible b ased on patient's age to complete this topic MENINGOCOCCAL (MENACTRA/MENVEO) Aged Out No longer eligible b ased on patient's age to complete this topic documented as of this encounter Medical Devices Not on filedocumented as of this encounter Care Teams Dialysis Clinical Manager Relationship Specialty Start Date End Date Zachary Mcfarlane, DO [address] [place] [address] PCP - General Family Medicine 10/29/17 documented as of this encounter
--- OUTSIDE RECORDS SUMMARY | 2023-03-10 11:46 | External Medical Summary ---
Author Name Unknown Address Unknown Organization [id number]:LABORATORY [facility] [place] - [facility] [address] [place] [address] Laboratory Report Ordering Provider Test Date Status NAUN SANCHEZ 12/19/2022 14:46:09 Final Observation Date Value Abnormality Reference (Units ) Status WBC, Total 12/19/2022 14:46:09 16.59 Above high normal 4.00-10.80 (K/uL) Final RBC 12/19/2022 14:46:09 4.04 3.85-5.15 (M/uL) Final Hemoglobin 12/19/2022 14:46:09 11.3 Below low normal 12.0-15.3 (g/dL) Final HCT 12/19/2022 14:46:09 36.8 36.0-45.2 (%) Final MCV 12/19/2022 14:46:09 91.1 81.5-97.5 (fL) Final MCH 12/19/2022 14:46:09 28.0 27.0-34.0 (pg) Final MCHC 12/19/2022 14:46:09 30.7 32.0-36.0 (g/dL) Final RDW 12/19/2022 14:46:09 15.2 11.5-15.5 (%) Final Platelets 12/19/2022 14:46:09 137 Below low normal 140-400 (K/uL) Final MPV 12/19/2022 14:46:09 11.9 6.6-11.1 (fL) Final Nucleated erythrocytes/100 leukocytes [Ratio] in Blood by Automated count 12/19/2022 14:46:09 0 <=0 (/100 WBCs) Final Performing Location [facility] [place] - [facility] [place] [address]
--- OUTSIDE RECORDS SUMMARY | 2023-03-10 11:46 | External Medical Summary | Summary of Care ---
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 Princess Needs carotid duplex at [facility] prior to clinic visit. STEFANIE Jenkins 12/24/2022 9:10 AM * Telephone Encounter - JUANA Short - 12/24/2022 9:05 AM EDT 01/21 elbert new pt documented in this encounter Plan of Treatment Upcoming Encounters Date Type Specialty Care Team Description 01/02/2023 Nurse Only Nurse Karla [facility] [address] [facility] [place] [address] 01/21/2023 Office Visit Vascular Surgery Dixon Rogers MD [address] [facility] [place] [address] 01/29/2023 Imaging Radiology 03/20/2023 Office Visit Family Medicine [place] Dominique MD [address] [facility] [place] [address] Scheduled Orders Name Type Priority Associated Diagnoses [...] Comments DISCUSS TOBACCO CESSATION (REFER TO SMARTSET #[id number]) 1965 Hepatitis B (1 of 3 - [...] 01/04/2009 LUNG CANCER SCREENING - USE SMARTSET [id number] 01/04/2014 Zoster Vaccines (1 of 2) 01/04/2014 [...] artery documented in this encounter Care Teams Bulb Farmworker Relationship Specialty Start Date End Date Zachary Mcfarlane, [address] [address] PCP - General Family Medicine 10/29/17 documented as of this encounter
--- OUTSIDE RECORDS SUMMARY | 2023-03-10 11:46 | External Medical Summary | Summary of Care ---
Author Name Unknown Organization [facility] Address [address] [place] [address] Phone [phone] Care Team Providers Care Toy Stuffer Name Role Phone Zachary Mcfarlane DO Primary Care Provider [phone] Reason for Referral * Evaluate & Treat - Unlimited Visits (Within 10 days (routine)) - Pending Review Specialty Diagnoses / Procedures Referred By Contact Referred To Contact Vascular Surgery / Cardiovascular Surgery Diagnoses S/P carotid endarterectomy Bilateral carotid artery stenosis Alyssa Rader CRNP [address] [place] [address] Referral ID Status Reason Start Date Expiration Date Visits Requested Visits Authorized [id number] Pending Review Specialty Services Required 12/19/[phone] Question Answer Referral Priority Within 10 days (routine) What condition is the patient being seen for? Carotid stenosis / Bruit / TIA / CVA * Evaluate & Treat - Unlimited Visits (Within 10 days (routine)) - Pending Review Specialty Diagnoses / Procedures Referred By Contac t Referred To Contact Pharmacist / Pharmacy Diagnoses Type 2 diabetes mellitus with hemoglobin A1c goal of less than 7.0% ([facility]) Alyssa Rader CRNP [address] [place] [address] Referral ID Status Reason Start Date Expiration Date Visits Requested Visits Authorized [id number] Pending Review Specialty Services Required 12/19/2022 99 [phone] Question Answer Referral Priority Within 10 days (routine) Department: Primary Care Reason for Referral: DM Target A1c: < 7 Comments Pharmacist Medication Therapy Management: Minimum frequency patient should be seen in person for medication management: as appropriate per clinical condition and patient status By my signature, I understand that my patient Shara Rodriguez will have her medication therapy managed by the [facility] ([facility]) per established policies, procedures, and protocols. I also certify that this referral may serve as an initiation of service for the management of drug therapy in the above noted patient. [facility] providers will be responsible for scheduling patient visits, obtaining appropriate laboratory studies, and adjusting medication management therapy per patient's need, in addition to those roles spelled out in the clinic policy, procedures, and drug management protocols. I understand that the service provided by the [facility] Clinic is voluntary and have informed patient that they can refuse the service at their discretion. I am aware that the [facility] Clinic will provide me with a copy of the patient encounter via my [employer]. I authorize the [facility] to carry out these activities on my behalf. I consider this program to be a necessary part of the patient's medical care. STEFANIE Stinson Reason for Visit * Reason Comments NEW PATIENT Est care-- [facility] pt Encounter Details Date Type Department Care Team Description 12/19/2022 Office Visit Family [facility] [address] [place] [address] Alyssa Rader CRNP [address] [place] [address] Type 2 diabetes mellitus with hemoglobin A1c goal of less than 7.0% (HCC)*; Encounter for screening mammogram for malignant neoplasm of breast; Gastroesophageal reflux disease, unspecified whether esophagitis present; Dyslipidemia; Tobacco use disorder; S/P carotid endarterectomy; History of TIA (transient ischemic attack); Bilateral carotid artery stenosis; Hypotension, unspecified hypotension type; HTN, goal below 140/90; Chronic pancreatitis, unspecified pancreatitis type (HCC); Hepatic cirrhosis, unspecified hepatic cirrhosis type, unspecified whether ascites present (HCC); H/O esophageal varices; Allergy to honey bee venom; Fatigue, unspecified type Allergies Active Allergy Reactions Severity Noted Date Comments Bee Venom Anaphylaxis High 09/19/2014 Other reaction(s): Angioedema Celecoxib Anaphylaxis High 12/05/2014 Morphine Other (Please comment) 12/05/2014 Exacerbation of pain documented as of this encounter (statuses as of 12/19/2022) Medications Medication Sig Dispensed Refills Start Date End Date Status BD PEN NEEDLE FREDDIE U/F 32G X 4 MM 0 5 Active PROAIR HFA 108 (90 BASE) MCG/ACT inhaler Inhale by mouth 2 Puffs as needed . 0 5 Active Aspirin-Acetamin ophen-Caffeine 250-250-65 MG Oral Tablet Take 2 Tablets by mouth every 8 hours as needed. 0 Active Atenolol 25 MG Oral Tablet (Tenormin)Indica tions:HTN, goal below 140/90 Take 1 Tablet by mouth in the morning. 90 Tablet 3 3 Active Lisinopril 10 MG Oral Tablet (Prinivil)Indica tions:HTN, goal below 140/90 Take 1 Tablet by mouth in the morning. 90 Tablet 3 3 Active Rosuvastatin Calcium 20 MG Oral Tablet (Crestor)Indicat ions:Dyslipidemi a Take 1 Tablet by mouth in the morning. 90 Tablet 3 3 Active Pantoprazole Sodium 20 MG Oral Tablet Delayed Release (Protonix)Indica tions:Gastroesop hageal reflux disease, unspecified whether esophagitis present,H/O esophageal varices Take 1 Tablet by mouth in the morning. 90 Tablet 3 3 Active OneTouch Ultra In Vitro Strip (Glucose Blood)Indication s:Type 2 diabetes mellitus with hemoglobin A1c goal of less than 7.0% ([facility]) Use to test blood sugars twice a day 200 Strip 11 3 Active Lantus SoloStar 100 UNIT/ML Subcutaneous Solution Pen-injectorIndi cations:Type 2 diabetes mellitus with hemoglobin A1c goal of less than 7.0% (HCC) Inject 16 Units under the skin in the morning and 16 Units before bedtime. 15 mL 5 3 Active EpiPen 2-Rahul 0.3 MG/0.3ML Injection Solution Auto-injectorInd ications:Allergy to honey bee venom For a severe reaction: Inject in outer thigh following instructions on package and go to the Emergency room. 2 Each 3 3 Active atenolol (TENORMIN) 50 MG TabletIndication s:in pm Take 1 Tablet by mouth in the morning. 0 12/20/19 23 Discontinued MetFORMIN (GLUCOPHAGE) 1000 MG Tablet Take 750 Tablets by mouth in the morning and 750 Tablets before bedtime. extended release. 0 5 12/20/19 23 Discontinued simvastatin (ZOCOR) 40 MG TabletIndication s:in pm Take by mouth 1 Tablet daily . 0 6 12/20/19 23 Discontinued(Med ication List Clean Up) omeprazole (PRILOSEC) 20 MG CPDRIndications: in am Take 1 Capsule by mouth in the morning. 0 12/20/19 23 Discontinued(Med ication List Clean Up) sucralfate (CARAFATE) 1 GM Tablet Take 1 Tab by mouth 4 times a day. 120 Tab 3 9 12/20/19 23 Discontinued(Med ication List Clean Up) OneTouch Ultra In Vitro Strip (Glucose Blood) Use to test blood sugars twice a day 200 Strip 0 3 12/20/19 23 Discontinued(Ref ill) Pantoprazole Sodium 20 MG Oral Tablet Delayed Release (Protonix) Take 1 Tablet by mouth in the morning. 0 3 12/20/19 23 Discontinued(Ref ill) Rosuvastatin Calcium 20 MG Oral Tablet (Crestor) Take 1 Tablet by mouth in the morning. 0 2 12/20/19 23 Discontinued(Ref ill) Lisinopril 10 MG Oral Tablet (Prinivil) Take 2 Tablets by mouth in the morning. 0 2 12/20/19 23 Discontinued Lantus SoloStar 100 UNIT/ML Subcutaneous Solution Pen-injector Inject 12 Units under the skin in the morning and 12 Units before bedtime. 0 3 12/20/19 23 Discontinued(Ref ill) Januvia 100 MG Oral Tablet Take 1 Tablet by mouth in the morning. 0 3 12/20/19 23 Discontinued documented as of this encounter [...] Day Cigarettes 1 35 Smokeless Tobacco: Never Tobacco Cessation:Ready to Q uit: Not Asked; Counseling Given: Not Answered Alcohol Use Standard Drinks/Week Comments No 0 (1 standard drink = 0.6 oz pur e alcohol) quit 3 years ago Sex Assigned at Date Recorded Not on file Job Start Date Occupation Industry Not on file Not on file Not on file documented as of this encounter Last Filed Vital Signs Vital Sign Reading Time Taken Comments Blood Pressure 88/60 12/19/2022 1:47 PM EDT Pulse 46 12/19/2022 1:47 PM EDT Temperature 36.2 C (97.1 F) 12/19/2022 1:47 PM ED T Respiratory Rate - - Oxygen Saturation - - Inhaled Oxygen Concentration - - Weight 55.3 kg (121 lb 14.4 oz) 12/19/2022 1:47 PM EDT Height 172.7 cm (5' 8") 12/19/2022 1:47 PM EDT Body Mass Index 18.53 12/19/2022 1:47 PM EDT documented in this encounter Progress Notes * STEFANIE Stinson - 12/19/2022 2:02 PM EDT Images from the original note were not included. History of Present Illness Shara Rodriguez is a 57 year old female that presents for NEW PATIENT (Est care-- [facility] pt ) HPI Patient presents today with sister to establish care. She had been a patient of [facility] for many yearsbut seemed like they weren't taking care of her well so she's switching to us and would like Dr. Dominique to be her PCP. She has uncontrolled DM. Last A1c available in care everywhere is 10.3% (collected 07/2022) Checks glucose at home twice a day, glucose levels are between 200 and 300 after eating. Can't tolerate metformin due to GI effects so hasn't been taking it for a while now. She is taking januvia but thinks it isn't helping. Has been on januvia for a couple of years now. She is taking 12units of lantus BID. Hx of pancreatitis, cirrhosis, chronic pancreatitis causing chronic abd pain. Follows with GI. 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 She has generalized weakness and fatigue, chronic. Her blood pressure and heart rate are very low today so we are going to cut her doses of BP medications and have her follow up in 2 weeks for a recheck as I suspect this is contributing. She will also monitor at home. She denies any new dizziness or dyspnea -- complains of chronic fatigue and weakness. She has a history of a TIA and bilateral carotid artery stenosis. She had a carotid endarterectomy on the L only. She thinks her BP is low because she is "so clogged". She has a history of esophageal varices and is on protonix. She needs to schedule some GI follow up-- her last EGD was in January. She has two moles she is concerned about -- one on arm and one on her breast. They are tannish brown and waxy and raised and appear to be SK s. I took photos of them (in scans) and she will monitor them for stability. She smokes 1 pack of cigarettes per day x 35 years She has been told she has a heart murmur in the past She is requesting epi pen refill as hers is Outpatient Medications Marked as Taking for the 12/19/22 encounter (Office Visit) with STEFANIE Stinson Medication Sig Atenolol 25 MG Oral Tablet (Tenormin) Take 1 Tablet by mouth in the morning. EpiPen 2-Rahul 0.3 MG/0.3ML Injection Solution Auto-injector For a severe reaction: Inject in outer thigh following instructions on package and go to the Emergency room. Lantus SoloStar 100 UNIT/ML Subcutaneous Solution Pen-injector Inject 16 Units under the skin in the morning and 16 Units before bedtime. Lisinopril 10 MG Oral Tablet (Prinivil) Take 1 Tablet by mouth in the morning. [employer] Ultra In Vitro Strip (Glucose Blood) Use to test blood sugars twice a day Pantoprazole Sodium 20 MG Oral Tablet Delayed Release (Protonix) Take 1 Tablet by mouth in the morning. Rosuvastatin Calcium 20 MG Oral Tablet (Crestor) Take 1 Tablet by mouth in the morning. Oxokoyv-Yvjkcppbztamx-Lrbqgpth 250-250-65 MG Oral Tablet Take 2 Tablets by mouth every 8 hours as needed. BD PEN NEEDLE FREDDIE U/F 32G X 4 MM PROAIR HFA 108 (90 BASE) MCG/ACT inhaler Inhale by mouth 2 Puffs as needed . Physical Exam Vitals: 12/19/22 1347 Temp: 36.2 C (97.1 F) Pulse: 46 BP: 88/60 BMI: 18.54 Physical Exam Vitals reviewed. Constitutional: General: She is not in acute distress. Appearance: She is not ill-appearing. HENT: Head: Normocephalic and atraumatic. Mouth/Throat: Mouth: Mucous membranes are moist. Eyes: Extraocular Movements: Extraocular movements intact. Conjunctiva/sclera: Conjunctivae normal. Pupils: Pupils are equal, round, and reactive to light. Neck: Vascular: Carotid bruit (bilateral) present. Cardiovascular: Rate and Rhythm: Regular rhythm. Bradycardia present. Heart sounds: Murmur (? murmur grade II/IV most audible on R sternal border as she also has a very loud R-sided carotid bruit) heard. Pulmonary: Effort: Pulmonary effort is normal. Breath sounds: No wheezing, rhonchi or rales. Skin: General: Skin is warm and dry. Neurological: Mental Status: She is alert and oriented to person, place, and time. Psychiatric: Behavior: Behavior normal. Assessment and Plan Type 2 diabetes mellitus with hemoglobin A1c goal of less than 7.0% (HCC) Increase to 16 units lantus BID F/u with MTM Interested in CGM - PHARMACIST MEDS THERAPY MGMT REFERRAL OP - OneTouch Ultra In Vitro Strip (Glucose Blood); Use to test blood sugars twice a day - Lantus SoloStar 100 UNIT/ML Subcutaneous Solution Pen-injector; Inject 16 Units under the skin inthe morning and 16 Units before bedtime. - HEMOGLOBIN A1C; Future - ALBUMIN / CREATININE RATIO, URINE; Future Encounter for screening mammogram for malignant neoplasm of breast - MAMMOGRAM SCREENING WM BILATERAL; Future Gastroesophageal reflux disease, unspecified whether esophagitis present Schedule routine f/u with GI - Pantoprazole Sodium 20 MG Oral Tablet Delayed Release (Protonix); Take 1 Tablet by mouth in the morning. Dyslipidemia - Rosuvastatin Calcium 20 MG Oral Tablet (Crestor); Take 1 Tablet by mouth in the morning. - LIPID PANEL WITH DIRECT LDL IF TG IS HIGH; Future Tobacco use disorder Encourage cessation S/P carotid endarterectomy - VASCULAR SURGERY REFERRAL OP History of TIA (transient ischemic attack) On statin F/u with vascular Bilateral carotid artery stenosis - VASCULAR SURGERY REFERRAL OP Hypotension, unspecified hypotension type Will cut back her HTN meds and recheck in 2 weeks. She will also monitor on home BP cuff ER for low BP with worsening dizziness, syncope, chest pain, stroke like symptoms - CBC WITH WBC DIFFERENTIAL; Future HTN, goal below 140/90 As above -- will reduce dosing from 50mg atenolol to 25mg and 20mg lisinopril to 10mg and recheck 2weeks, sooner if worsening - Atenolol 25 MG Oral Tablet (Tenormin); Take 1 Tablet by mouth in the morning. - Lisinopril 10 MG Oral Tablet (Prinivil); Take 1 Tablet by mouth in the morning. Chronic pancreatitis, unspecified pancreatitis type (HCC) F/u with GI C/o chronic upper abdominal symptoms x years - LIPASE; Future Hepatic cirrhosis, unspecified hepatic cirrhosis type, unspecified whether ascites present (HCC) Following with GI - COMPREHENSIVE METABOLIC PANEL; Future H/O esophageal varices Following with GI - Pantoprazole Sodium 20 MG Oral Tablet Delayed Release (Protonix); Take 1 Tablet by mouth in the morning. Allergy to honey bee venom - EpiPen 2-Rahul 0.3 MG/0.3ML Injection Solution Auto-injector; For a severe reaction: Inject in outer thigh following instructions on package and go to the Emergency room. Fatigue, unspecified type Suspect hypotension contributing She wants to also check thyroid - CBC WITH WBC DIFFERENTIAL; Future - TSH WITH FREE T4 IF INDICATED; Future - COMPREHENSIVE METABOLIC PANEL; Future Wrap-Up Follow Up: Return in about 2 weeks (around 01/02/2023) for Labs Today. | For: Labs Today | Check-outnote: LORRI recheck BP and labs 3 mo with albaro Labs today Schedule GI follow up Schedule vascular Time: I spent a total of 40-54 minutes (exact time 55 mins) on the date of service in preparation, delivery, and documentation of the care provided to Shara Rodriguez excluding any time spent in the performance of separately billed services. documented in this encounter Nursing Notes * Jenniffer Garcia LPN - 12/19/2022 1:41 PM EDT The patient has been properly identified by confirmation of name and date of . Chief Complaint Patient presents with NEW PATIENT Est care-- [facility] pt Pt sees Dr. Langford here, GI. Pt states she has been getting extreme diarrhea, gas pain, abd pain from her metformin. She has tried the ER release. Pt interested in looking at other solutions. Pt also takes Januvia. Pt states years ago she had a clogged duct, cholesterol pt states was up to 2,000. States that after stents were places (in and out for years) she was told that her arteries were all clogged up. Pt is aware that she is a smoker and that dose not help. Pt then had a TIA, had carotid artery cleaned, and it went well. Pt has 2 concerns moles. 1 on breast and one on wrist. documented in this encounter Plan of Treatment Upcoming Encounters Date Type Specialty Care Team Description 01/02/2023 Nurse Only Nurse Sukumar Acosta [address] [place] [address] [place] [id number] 01/29/2023 Imaging Radiology 03/20/2023 Office Visit Family Medicine Holland Dominique MD [address] [place] [id number] Pending Results Name Type Priority Associated Diagnoses [...] pancreatitis type (HCC) 12/19/2022 2:46 PM EDT Scheduled Orders Name Type Priority Associated Diagnoses Orde r Schedule MAMMOGRAM SCREENING WM BILATERAL Medical Imaging Routine Encounter for screening mammogram for malignant neoplasm of breast Expected: 12/19/2022, Expires: 01/19/2024 CBC WITH WBC DIFFERENTIAL Lab Routine Hypotension, unspecified hypotension type Fatigue, unspecified type Expected: 12/19/2022 (Approximate), Expires: 12/20/2023 HEMOGLOBIN A1C Lab Routine Type 2 diabetes mellitus with hemoglobin A1c goal of less than 7.0% (HCC) Expected: 12/19/2022 (Approximate), Expires: 12/20/2023 LIPID PANEL WITH DIRECT LDL IF TG IS HIGH Lab Routine Dyslipidemia Expected: 12/19/2022, Expires: 12/20/2023 TSH WITH FREE T4 IF INDICATED Lab Routine Fatigue, unspecified type Expected: 12/19/2022 (Approximate), Expires: 12/20/2023 COMPREHENSIVE METABOLIC PANEL Lab Routine Hepatic cirrhosis, unspecified hepatic cirrhosis type, unspecified whether ascites present (HCC) Fatigue, unspecified type Expected: 12/19/2022 (Approximate), Expires: 12/19/2023 ALBUMIN / CREATININE RATIO, URINE Lab Routine Type 2 diabetes mellitus with hemoglobin A1c goal of less than 7.0% (HCC) Expected: 12/19/2022 (Approximate), Expires: 12/19/2023 LIPASE Lab Routine Chronic pancreatitis, unspecified pancreatitis type (HCC) Expected: 12/19/2022 (Approximate), Expires: 12/19/2023 Scheduled Procedures Name Priority Associated Diagnoses Date/Ti me ESOPHAGOGASTRODUODENOSCOPY ( EGD), FLEXIBLE, TRANSORAL, DIAGNOSTIC Recall Esophageal varices (HCC) COLONOSCOPY FLEXIBLE PROXIMAL DIAGNOSTIC Recall Encounter for screening colonoscopy Scheduled Referrals Name Type Priority Associated Diagnoses Orde r Schedule PHARMACIST MEDS THERAPY MGMT REFERRAL OP Referral Within 10 days (routine) Type 2 diabetes mellitus with hemoglobin A1c goal of less than 7.0% (HCC) Ordered: 12/19/2022 VASCULAR SURGERY REFERRAL OP Referral Within 10 days (routine) S/P carotid endarterectomy Bilateral carotid artery stenosis Ordered: 12/19/2022 Health Maintenance Due Date Last Done Comments DISCUSS TOBACCO CESSATION (REFER TO SMARTSET #[id number]) 1965 Hepatitis B (1 of 3 - [...] 01/04/2009 LUNG CANCER SCREENING - USE SMARTSET 59100 01/04/2014 Zoster Vaccines (1 of 2) 01/04/2014 [...] goal of less than 7.0% (HCC)- Primary Encounter for screening mammogram for malignant neoplasm of breast Other screening mammogram Gastroesophageal reflux disease, unspecified whether esophagitis present Dyslipidemia Other and unspecified hyperlipidemia Tobacco use disorder S/P carotid endarterectomy Other postprocedural status History of TIA (transient ischemic attack) Transient ischemic attack (TIA), and cerebral infarction without residual deficits Bilateral carotid artery stenosis Occlusion and stenosis of multiple and bilateral precerebral arteries without mention of cerebral infarction Hypotension, unspecified hypotension type HTN, goal below 140/90 Unspecified essential hypertension Chronic pancreatitis, unspecified pancreatitis type (HCC) Hepatic cirrhosis, unspecified hepatic cirrhosis type, unspecified whether ascites present (HCC) H/O esophageal varices Personal history of other diseases of digestive system Allergy to honey bee venom Fatigue, unspecified type documented in this encounter Care Teams Toy Stuffer Relationship Specialty Start Date End Date Zachary Mcfarlane, DO [address] [place] [id number] PCP - General Family Medicine 10/29/17 documented as of this encounter
--- NOTE | 2023-03-10 11:54 | History & Physical Report ---
Date of Service March 10, 2023 Assessment & Plan (1) Acute on chronic pancreatitis: Plan: This is a 58 y/o female with chronic pancreatitis, EtOH cirrhosis with hx of portal gastropathy and esophageal varices with bleeding, DM2, GERD, HTN, hx biliary colic, dyslipidemia, and other medical history as listed presented to the ED with worsening epigastric pain and nausea for the last two days. This feels similar to prior episodes of pancreatitis. Lipase in the ED was 968. Due to severity of symptoms and worsening at home with conservative management, pt was referred for admission. Symptoms consistent with acute exacerbation of known chronic pancreatitis. Pt also has a history of gallbladder sludge, which may be contributing to symptoms. - Admit to PCU - Bowel rest overnight, IVF at 150 cc/hr - Replete potassium orally - recheck in AM - Pain control, anti-emetics - Consult GI for additional recommendations - Consult surgery for re-evaluation due to history of gallbladder sludge, recurrent pancreatitis - Labs in AM - CBC, BMP, Mg, Phos, lipase, LFTs (2) Alcoholic cirrhosis: (3) DM2 (diabetes mellitus, type 2): Plan: Having some AM lows at home but working with outpatient providers to manage sugars - currently prescribed Lantus 16 units BID but only taking 16 units HS. Decrease Lantus to 8 units BID and monitor A1c in AM Accuchecks ACHS (or Q6 hrs while NPO) (4) Hypokalemia: (5) Hypertension: (6) Dyslipidemia: (7) GERD without esophagitis: Plan Continue other home medications as appropriate Pt seen and reviewed with collaborating physician, Dr. Robertson. Plan of care discussed and as outlined above. Code Status: Full code DVT Prophylaxis: Sean Hernandez PA-C History of Present Illness Chief Complaint: Epigastric pain Primary Care Provider: Holland Dominique MD This is a 58 y/o female with chronic pancreatitis, EtOH cirrhosis with hx of portal gastropathy and esophageal varices with bleeding, DM2, GERD, HTN, hx biliary colic, dyslipidemia, and other medical history as listed below who presents with worsening epigastric pain and nausea for the last two days. Pt reports her pancreatitis symptoms have been worse over the last 3-4 months. In November, pain was particularly bad so she limited her oral intake significantly. Lost 20 lbs that month. In December, her PCP stopped her Metformin as that also seemed to be causing abdominal pain, but it was a different pain than the pancreatitis. This pain has resolve off Metformin. She has been unable to gain back the weight she lost in November. She attempts to manage her pain at home by limiting her oral intake, which usually works. Her current episode of pain started two nights ago and has gradually worsened since then. She has associated nausea but has not vomited although thinks she may feel better if she did. She has had chills and sweats but no documented fevers. Last ate a grilled cheese sandwich yesterday morning, gummy bears last night. Using ibuprofen 400 mg couple of times per day for the pain, also uses some Excedrin which seems to help. History of chronic pancreatitis and EtOH cirrhosis - follows regularly with GI. Last EtOH drink was 12 years ago. History of esophageal variceal bleeds in 2014 and 2015 (required band ligation). Prior distal CBD stricture treated at [facility] with biliary stent. Had an ED visit in 2017 for RUQ pain/nausea - diagnosed with gallbladder sludge but did not undergo cholecystectomy due to underlying cirrhosis. Last EGD 01/22/22 - Grade II esophageal varices w/ no stigmata of recent bleeding; normal stomach and examined duodenum. Due for GI f/u - has appt with Dr. Langford next week. Allergies Allergy/AdvReac Type Severity Reaction Status Date / Time bee venom protein (honey bee) Allergy Severe anaphylaxis Verified 03/10/23 10:39 celecoxib Allergy Severe anaphylaxis Verified 03/10/23 10:39 morphine AdvReac Unknown intensifies Verified 03/10/23 10:39 pain. flu like symptoms,HAD DILAUDID W/O PROB Home Medications Medication Instructions Recorded Confirmed Type albuterol sulfate 90 mcg/actuation 2 puff inhalation Q4H PRN Wheezing 08/26/16 03/10/23 History aerosol inhaler ##0 ibuprofen 200 mg tablet 400 mg PO UD PRN PAIN/FEVER #0 tabs 10/29/17 03/10/23 History atenolol 25 mg tablet 25 mg PO QAM 03/10/23 03/10/23 History empagliflozin 10 mg tablet 10 mg PO QAM 03/10/23 03/10/23 History (Jardiance) epinephrine 0.3 mg/0.3 mL 0.3 mg IM UD PRN SEVERE REACTION 03/10/23 03/10/23 History injection, auto-injector insulin glargine 100 unit/mL (3 16 unit subcut BID 03/10/23 03/10/23 History mL) subcutaneous pen (Lantus Solostar U-100 Insulin) lisinopril 20 mg tablet 20 mg PO QAM 03/10/23 03/10/23 History pantoprazole 20 mg tablet,delayed 20 mg PO QAM 03/10/23 03/10/23 History release rosuvastatin 20 mg tablet 20 mg PO HS 03/10/23 03/10/23 History Past Med/Surg History Medical History (Updated 03/10/23 @ 13:10 by Laura Hernandez PA-C) Stenosis of left subclavian artery Dyslipidemia GERD without esophagitis Chronic pancreatitis Asymptomatic stenosis of left carotid artery History of TIAs Biliary colic History of pancreatitis Portal hypertensive gastropathy DM2 (diabetes mellitus, type 2) Esophageal varices in alcoholic cirrhosis Hypertension Surgical History (Updated 03/10/23 @ 11:52 by Laura Hernandez PA-C) History of biliary stent insertion S/P carotid endarterectomy H/O esophagogastroduodenoscopy Family History (Updated 03/10/23 @ 12:09 by Laura Hernandez PA-C) Father Disorder of pancreas ?due to EtOH Social History (Updated 03/10/23 @ 12:08 by Laura Hernandez PA-C) Tobacco Type: Cigarettes and E-cigarettes / Vaping Cigarettes Per Day: ~20 cig/day; Hx Alcohol Use: Yes (last drink was 12 years ago) Feels Safe at Home: Yes Review of Systems Constitutional: + weight loss; no fever and no chills Eyes: no diplopia Ear, Nose, Mouth, Throat: no nasal congestion, no nasal discharge, no post na niyah drip and no sore throat Respiratory: no cough and no dyspnea Cardiovascular: no chest pain, no palpitations and no syncope Gastrointestinal: no vomiting, no diarrhea/loose stools and no blood in stools Genitourinary: no dysuria and no hematuria Integumentary: no yellowing of the skin Neurologic: no syncope and no headache(s) Physical Exam Physical Exam: see physician documentation for details of the physical exam Results & Data Results & Data Vital Signs (Past 12 Hours) Vital Signs Temp Pulse Resp BP Pulse Ox O2 Del Method 03/10/23 10:30 63 03/10/23 09:35 36.5 C 78 16 137/93 99 Room Air Laboratory Results Laboratory Results - last 24 hr 03/10/23 10:00 WBC 13.69 H RBC 5.79 H Hgb 15.1 Hct 47.9 H MCV 82.7 MCH 26.1 MCHC 31.5 L RDW Std Deviation 46.6 H RDW Coeff of Soraya 15.6 H Plt Count 164 MPV 11.4 Immature Gran % (Auto) 0.4 Neut % (Auto) 85.5 Lymph % (Auto) 8.8 [place]idan % (Auto) 4.1 Eos % (Auto) 0.8 Baso % (Auto) 0.4 Neut # (Auto) 11.71 H Lymph # (Auto) 1.20 [place]idan # (Auto) 0.56 Eos # (Auto) 0.11 Baso # (Auto) 0.05 Immature Gran # (Auto) 0.06 Sodium 136 Potassium 3.3 L Chloride 100 Carbon Dioxide 24 Anion Gap 12 H BUN 18 Creatinine 1.06 Est Cr Clr Drug Dosing 46.4 Est GFR ( Amer) 66.6 Est GFR (Non-Af Amer) 57.4 BUN/Creatinine Ratio 17.0 Glucose 170 H Calcium 10.6 H Magnesium 1.9 Total Bilirubin 0.8 Direct Bilirubin 0.3 H AST 22 ALT 22 Alkaline Phosphatase 132 H Troponin I High Sens 16.8 H Total Protein 9.4 H Albumin 5.0 Lipase 968 H Urine Color Yellow Urine Appearance Clear Urine pH 5.5 Ur Specific [place] 1.035 H Urine Protein 2+ H Urine Glucose (UA) 3+ H Urine Ketones Negative Urine Blood 2+ H Urine Nitrite Negative Urine Bilirubin Negative Urine Urobilinogen Negative Ur Leukocyte Esterase Negative Urine WBC (Auto) 1-5 Urine RBC (Auto) 5-10 H U Hyaline Cast (Auto) 0 U Epithel Cells (Auto) >30 H Urine Bacteria (Auto) Negative Medications Administered Discontinued Medications Hydromorphone HCl (Hydromorphone Inj 1 Mg/Ml Syringe) 1 mg IV NOW STA Stop: 03/10/23 09:54 Last Admin: 03/10/23 10:10 Dose: 1 mg Documented By: FELIZ Sodium Chloride (Nss) 1,000 mls @ 999 mls/hr IV .Q1H1M ONE Stop: 03/10/23 10:53 Last Admin: 03/10/23 10:04 Dose: 999 mls/hr Documented By: FELIZ Ondansetron HCl (Ondansetron Inj 2 Mg/Ml 2 Ml Vial) 4 mg IV NOW STA Stop: 03/10/23 09:54 Last Admin: 03/10/23 10:10 Dose: 4 mg Documented By: FELIZ Supervising Physician Co-Signing Physician Notes I have seen and examined the patient and have discussed the case with the provider above. I agree with the assessment and plan as stated. 58 yo F with chronic alcoholic cirrhosis presents with ongoing progressive epigastric pain. She has chronic pancreatitis and has been trying to manage this at home with intermittent fasting. Her pain is not improving and she has lost 20-30 lbs in the past few months. She is on chronic ibuprofen and as needed excedrin. 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 She vapes marijuana and still smokes cigarettes. Exam reveals a thin female in NAD. She is hemodynamically stable and afebrile. CV exam reveals S1/2 heard with a regular rate and rhythm. no murmurs, gallops or rubs. Lungs are CTAB. Abdomen is soft, ND with epigastric fullness and TTP. No fluid wave. skin is warm and dry. no gross focal neuromuscular deficits. Labs/imaging/meds reviewed and as noted above. Cont treatment of acute on chronic pancreatitis with bowel rest, pain management, antiemetics as needed and IVF. GI and gen surg to consult given h/o gallbladder sludge in the past. With h/o chronic pancreatitis, along with recent weight loss, will obtain CT a/p to evaluate for possible malignancy as well as presence of cholelithiasis that may be contributing. PUD is also in the differential given her history of NSAID use. There is no evidence of decompensated cirrhosis at this time and other chronic issues appear to be stable. Smoking cessation strongly advised. DO Marcelo (2) Alcoholic cirrhosis Ascites presence: without ascites Qualified Code(s): K70.30 - Alcoholic cirrhosis of liver without ascites (3) DM2 (diabetes mellitus, type 2) Diabetes mellitus complication status: with other specified complication Diabetes mellitus ocean transportation intermediary insulin use: with ocean transportation intermediary use Qualified Code(s): E11.69 - Type 2 diabetes mellitus with other specified complication; Z79.4 - buttermaker (current) use of insulin (5) Hypertension Hypertension type: primary hypertension Qualified Code(s): I10 - Essential (primary) hypertension
[2023-03-10] MEDS ORDERED: POTASSIUM CHLORIDE CRTAB 20 MEQ TABCR PO STA (12:32)
[2023-03-10] MEDS ORDERED: PROMETHAZINE HCL 25 MG TAB PO PRN (12:57)
[2023-03-10] MEDS: LACTATED RINGER'S 1,000 ML IV SCH ×2 (12:57→20:52)
[2023-03-10] MEDS ORDERED: DEXTROSE 50% 50 ML SYRINGE IV PRN (14:04)
[2023-03-10] MEDS ORDERED: GLUCOSE 40% GEL 15 GM TUBE PO PRN (14:04)
[2023-03-10] MEDS ORDERED: ALBUTEROL HFA 8 GM INHALER INH PRN (14:04)
[2023-03-10] MEDS ORDERED: GLUCAGON FOR INJ 1 MG VIAL SQ PRN (14:04)
[2023-03-10] MEDS ORDERED: CARBOHYDRATES FOR HYPOGLYCEMIA PO PRN (14:04)
[2023-03-10] MEDS ORDERED: GLUCOSE 10 TAB/TUBE PO PRN (14:04)
[2023-03-10] MEDS: oxyCODONE HCL IR 5 MG TAB (IMMEDIATE RELEASE) PO PRN (14:14)
[2023-03-10] MEDS: INSULIN ASPART PER UNIT CHARGE SC SCH ×2 (18:11→21:38)
[2023-03-10] MEDS ORDERED: OPTIRAY 320 500ml IV ONE (18:43)
--- NOTE | 2023-03-10 19:30 | CT Scan Report ---
Exam(s): CT ABDOMEN W/WO Contrast IV Amt: 83ml EXAM: CT Abdomen Without and With Intravenous Contrast CLINICAL HISTORY: Reason for exam: ?etiology wt loss, epig pain, chronic pancreatitis. TECHNIQUE: Axial computed tomography images of the abdomen without and with intravenous contrast. CTDI is 7.35 mGy and DLP is 196.8 mGy-cm. Automated exposure control was utilized for the study. A dose lowering technique was utilized adhering to the principles of ALARA. CONTRAST: Patient received 83ml of IV contrast COMPARISON: No relevant prior studies available. FINDINGS: Lung bases: Unremarkable. No mass. No consolidation. Liver: Unremarkable. No mass. Gallbladder and bile ducts: See below. Pancreas: There is moderate diffuse fat stranding throughout the pancreas consistent with acute pancreatitis. There are also signs of chronic pancreatitis including multiple coarse calcifications and segmental dilation of the pancreatic duct in the body and tail measuring up to 5-6 mm in diameter. No pseudocyst is identified. There is atrophy out of the mid pancreatic body. There is diffuse biliary duct dilation throughout the liver and involving the common hepatic and common bile duct. The common bile duct measures up to 1.4 cm diameter in its midportion and tapers at the pancreatic head, likely secondary to the inflammation from pancreatitis. No discrete mass or choledocholithiasis is seen. Spleen: Unremarkable. No splenomegaly. Adrenals: Unremarkable. No mass. Kidneys and ureters: The left kidney is atrophic measuring 8 cm craniocaudad. There is markedly decreased enhancement of the left kidney compared to the right. There are several 2-3 mm nonobstructive calyceal calculi in the right kidney. No hydronephrosis or ureterolithiasis is seen. Stomach and bowel: Partial visualization of mild wall thickening involving the right colon but this is nonspecific but suggests some component of colitis. No obstruction. Intraperitoneal space: Unremarkable. No free air. No significant fluid collection. Bones/joints: Mild degenerative facet arthrosis in the lower lumbar spine. No acute fracture. No dislocation. Soft tissues: Unremarkable. Vasculature: The abdominal aorta is severely calcified. There is no aneurysm or dissection. There appears to be severe bilateral renal artery stenosis, worse on the left. There is also moderate stenosis of the celiac artery and severe stenosis versus occlusion or a the proximal 1.2 cm of the superior mesenteric artery. There also appears to be severe stenosis involving the origin of the inferior mesenteric artery. Lymph nodes: Unremarkable. No enlarged lymph nodes. IMPRESSION: 1. There is moderate diffuse fat stranding throughout the pancreas consistent with acute pancreatitis. There are also signs of chronic pancreatitis including multiple coarse calcifications and segmental dilation of the pancreatic duct in the body and tail measuring up to 5-6 mm in diameter. No pseudocyst is identified. There is atrophy out of the mid pancreatic body. 2. There is diffuse biliary duct dilation throughout the liver and involving the common hepatic and common bile duct. The common bile duct measures up to 1.4 cm diameter in its midportion and tapers at the pancreatic head, likely secondary to the inflammation from pancreatitis. No discrete mass or choledocholithiasis is seen. 3. The abdominal aorta is severely calcified. There is no aneurysm or dissection. There appears to be severe bilateral renal artery stenosis, worse on the left. There is also moderate stenosis of the celiac artery and severe stenosis versus occlusion or a the proximal 1.2 cm of the superior mesenteric artery. There also appears to be severe stenosis involving the origin of the inferior mesenteric artery. 4. Partial visualization of mild wall thickening involving the right colon but this is nonspecific but suggests some component of colitis. 5. The left kidney is atrophic measuring 8 cm craniocaudad. There is markedly decreased enhancement of the left kidney compared to the right. Electronically signed by: Sam Carpenter MD 03/10/23 19:29 PM
[2023-03-10] MEDS: HYDROmorphone INJ 0.5 MG/0.5 ML SYR IV PRN (20:52)
[2023-03-10] MEDS ORDERED: LANTUS PER UNIT CHARGE SQ SCH (21:00)
[2023-03-10] MEDS ORDERED: DEXTROSE 50% 50 ML SYRINGE IV ONE (21:04)
[2023-03-10] MEDS: ROSUVASTATIN CALCIUM 20 MG TAB PO SCH (21:41)
[2023-03-10] MEDS ORDERED: Nursing to Pharmacy Communication SCH (23:00)
[2023-03-11] MEDS: INSULIN ASPART PER UNIT CHARGE SC SCH ×5 (01:23→22:15)
[2023-03-11] MEDS: HYDROmorphone INJ 0.5 MG/0.5 ML SYR IV PRN ×2 (02:02→09:05)
[2023-03-11] MEDS: D5W AND LACTATED RINGERS 1,000 ML IV SCH ×3 (03:19→17:49)
[2023-03-11] MEDS: LACTATED RINGER'S 1,000 ML IV SCH (03:20)
[2023-03-11 06:23] LABS: Albumin Level 3.5 gm/dl (3.4-5.0); BUN Creatinine Ratio 14.6 (10-20); Bilirubin Direct 0.2 mg/dl (0-0.2); Bilirubin,Total 0.7 mg/dl (0.2-1.0); Chol HDL Ratio 3.1 (0-5); Creatinine Clr Calc Pharmacy 48.8 ml/min; Est GFR (Non-African American) 64.7 ml/min; Magnesium 1.4 mg/dl (1.7-2.4); Total Protein 6.4 gm/dl (6.0-8.3)
[2023-03-11 06:32] LABS: Basophils # (auto) 0.03 K/uL (0.00-0.20); Basophils % (auto) 0.2 %; Eosinophils # (auto) 0.01 K/uL (0.00-0.50); Eosinophils % (auto) 0.1 %; Hematocrit (blood only) 35.7 % (37.0-47.0); Hemoglobin 11.3 g/dl (12.0-16.0); Immature Granulocytes # (auto) 0.07 K/uL (0.01-0.20); Immature Granulocytes % (auto) 0.5 %; Lymphocytes # (auto) 0.62 K/uL (1.20-3.40); Lymphocytes % (auto) 4.4 %; Mean Corpuscular Hemoglobin 26.4 pg (25.0-34.0); Mean Corpuscular Hgb Conc 31.7 g/dL (32.0-36.0); Mean Corpuscular Volume 83.4 fL (80.0-100.0); Mean Platelet Volume 11.8 fL (9.4-12.4); Monocytes # (auto) 0.79 K/uL (0.11-0.59); Monocytes % (auto) 5.6 %; Neutrophils # (auto) 12.68 K/uL (1.40-6.50); Neutrophils % (auto) 89.2 %; Platelet Count 97 K/uL (130-400); Platelet Estimate Decreased (Normal); Polychromasia 1+; RDW Coefficient of Variation 15.9 % (11.5-14.5); Red Blood Count 4.28 M/uL (4.20-5.40)
[2023-03-11 07:28] LABS: Estimated Average Glucose 229 mg/dl; Hemoglobin A1C 9.6 % (4.5-5.6)
[2023-03-11] MEDS ORDERED: lisinopril 20 MG TAB PO SCH (09:00)
[2023-03-11] MEDS: PANTOprazole 40 MG TAB PO SCH (10:25)
--- NOTE | 2023-03-11 10:39 | Gastrointestinal Consultation ---
Date of Consultation March 11, 2023 Assessment & Plan (1) Acute on chronic pancreatitis: (2) Alcoholic cirrhosis: Pt is a 58 yo female w acute on chronic pancreatitis. Hx of ETOH cirrhosis (MELD labs needs update) w previous esophageal varices bleeding treated w banding, biliary stricture treated w metal biliary stent (removed), gallbladder sludge but cholecystectomy deferred due to underlying cirrhosis status. She has been abstinent of ETOH since 2011 but continues to use tobacco and marijuana p roducts. TG level 99. - IVF resuscitation with LR, will reduce rate once she is able to tolerate PO intake - CL diet; advance to low fat once tolerating solids - Start pancreatic enzymes; check fecal elastase before panc enzymes started - Obtain MRCP - Keep GI and Hepatology appts on 03/17 and 05/15/23 respectively - Consider EGD/EUS eval in 4-6 week's time. ? Axios stent candidate if she has g allstones/sludge - OP Vascular Surgery referral for celiac artery and superior mesentery artery stenosis vs occlusion - Continue ETOH abstinence; tobacco and marijuana cessation advised Supervising Physician Co-Signing Physician Notes Attg add: I niterviewed and examined pt, reviewed chart and labs. Pt with acute on chronic panc, admitted with complaint of severe abdominal pain x few days and increased lipase. LFT's urnemarkable but marked esther dil, increased from previous. Management of acute panc as above. MRCP; will need w/u of biliary stricture with EUS as outpt. Other recs as above. History of Present Illness Reason for Consultation: Acute on chronic pancreatitis Requesting Physician: Dr. Yanet Natarajan Attending Physician: Dr. Stewart Kraus History of Present Illness Pt is a 58 yo female w hx of ETOH cirrhosis, esophageal varices w bleeding s/p banding, DM II, GERD, HTN, biliary stricture s/p modification w metal biliary stent, dyslipidemia, chronic pancreatitis who presented yesterday w worsening epigastric abd pain and nausea x 2 days. She has chronic abd pain and loose, fatty stools. She reports worsening appetite due to the pain and lost 20lbs in november, which is somewhat improved after she was taken off Metformin. She denies fever, chills. If she eats carbs or more fatty foods, pain and diarrhea is worse. Denies any black tarry stools or rectal bleeding. She denies any new meds, herbal supplements. Does smoke tobacco and uses marijuana recreationally. Last ETOH intake was in 2011. Triglyceride level 99. She has hx of sludge but surgery deferred in the past due to underlying cirrhosis. On eval, noted to have elevated WBC of 12, Pls 90s, normal renal and liver functions. Lipase 900s, Hgb A1C 9.6%. CT pancreas w wo contrast: 1. There is moderate diffuse fat stranding throughout the pancreas consistent with acute pancreatitis. There are also signs of chronic pancreatitis including multiple coarse calcifications and segmental dilation of the pancreatic duct in the body and tail measuring up to 5-6 mm in diameter. No pseudocyst is identified. There is atrophy out of the mid pancreatic body. 2. There is diffuse biliary duct dilation throughout the liver and involving the common hepatic and common bile duct. The common bile duct measures up to 1.4 cm diameter in its midportion and tapers at the pancreatic head, likely secondary to the inflammation from pancreatitis. No discrete mass or choledocholithiasis is seen. 3. The abdominal aorta is severely calcified. There is no aneurysm or dissection. There appears to be severe bilateral renal artery stenosis, worse on the left. There is also moderate stenosis of the celiac artery and severe stenosis versus occlusion or a the proximal 1.2 cm of the superior mesenteric artery. There also appears to be severe stenosis involving the origin of the inferior mesenteric artery. 4. Partial visualization of mild wall thickening involving the right colon but this is nonspecific but suggests some component of colitis. 5. The left kidney is atrophic measuring 8 cm craniocaudad. There is markedly decreased enhancement of the left kidney compared to the right. Last EGD 01/22/22 - Grade II esophageal varices w/ no stigmata of recent bleeding; normal stomach and examined duodenum. Has GI f/u with Dr. Sintia Langford 03/17/2023, Hepatology appt with Dr. Dede Olmedo 05/15/2023 Allergies Allergy/AdvReac Type Severity Reaction Status Date / Time bee venom protein (honey bee) Allergy Severe anaphylaxis Verified 03/10/23 10:39 celecoxib Allergy Severe anaphylaxis Verified 03/10/23 10:39 morphine AdvReac Unknown intensifies Verified 03/10/23 10:39 pain. flu like symptoms,HAD DILAUDID W/O PROB Home Medications Medication Instructions Recorded Confirmed Type albuterol sulfate 90 mcg/actuation 2 puff inhalation Q4H PRN Wheezing 08/26/16 03/10/23 History aerosol inhaler ##0 ibuprofen 200 mg tablet 400 mg PO UD PRN PAIN/FEVER #0 tabs 10/29/17 03/10/23 History atenolol 25 mg tablet 25 mg PO QAM 03/10/23 03/10/23 History empagliflozin 10 mg tablet 10 mg PO QAM 03/10/23 03/10/23 History (Jardiance) epinephrine 0.3 mg/0.3 mL 0.3 mg IM UD PRN SEVERE REACTION 03/10/23 03/10/23 History injection, auto-injector insulin glargine 100 unit/mL (3 16 unit subcut BID 03/10/23 03/10/23 History mL) subcutaneous pen (Lantus Solostar U-100 Insulin) lisinopril 20 mg tablet 20 mg PO QAM 03/10/23 03/10/23 History pantoprazole 20 mg tablet,delayed 20 mg PO QAM 03/10/23 03/10/23 History release rosuvastatin 20 mg tablet 20 mg PO HS 03/10/23 03/10/23 History Patient History Medical History Stenosis of left subclavian artery Dyslipidemia GERD without esophagitis Chronic pancreatitis Asymptomatic stenosis of left carotid artery History of TIAs Biliary colic History of pancreatitis Portal hypertensive gastropathy DM2 (diabetes mellitus, type 2) Esophageal varices in alcoholic cirrhosis Hypertension Surgical History History of biliary stent insertion S/P carotid endarterectomy H/O esophagogastroduodenoscopy Family History Father Disorder of pancreas ?due to EtOH Social History Smoking Status: Current every day smoker Tobacco Type: Cigarettes Cigarettes Per Day: 20; Do You Dip or Chew Tobacco: No; Hx Alcohol Use: No Hx Substance Use: No Preferred Language: [place]an Communication Ability: Effective Shook Machine Operator Required: No Beliefs That Will Affect Care: None Current Living Situation: Spouse Current Living Situation Comment: with Other Information That Helps Us Care for You: No Feels Safe at Home: No Is there a partner from a previous relationship who is making you feel unsafe now?: No Any Concerns about Your Family Situation: No Would You Like to Speak to Someone About Your Situation: No Safety Concerns: Feels Safe At This Time Assistive Devices: None Review of Systems Review of Systems: All systems reviewed & are unremarkable except as noted in HPI & below Physical Exam Constitutional: + thin, well groomed, cooperative and co mfortable Eyes: PERRL, conjunctivae normal, anicteric sclerae ENMT: external ear and nose normal, oropharynx normal Respiratory: normal respiratory effort, lungs clear to auscultation Cardiovascular: RRR, no murmur, no edema Gastrointestinal (Abdomen): + BS, soft, TTP RUQ, epigastric area Skin: no rashes, warm and dry no jaundice Psychiatric: A+Ox3, euthymic affect Lymphatic: no lymphedema Results & Data Vital Signs (Past 12 Hours) Vital Signs Temp Pulse Pulse Resp BP BP Pulse Ox 03/11/23 10:25 82/55 L 03/11/23 09:35 99 H 03/11/23 07:46 38.3 C H 105 H 18 95/64 L 95 03/11/23 03:29 37.4 C 97 H 18 95/59 L 93 O2 Del Method 03/11/23 10:25 03/11/23 09:35 03/11/23 07:46 Room Air 03/11/23 03:29 Room Air (2) Alcoholic cirrhosis Ascites presence: without ascites Qualified Code(s): K70.30 - Alcoholic cirrhosis of liver without ascites
[2023-03-11] MEDS: ATENOLOL 25 MG TABLET PO SCH (10:54)
[2023-03-11] MEDS: PANCREAZE (LIPASE 10,500U) CAP PO SCH ×2 (12:19→17:50)
[2023-03-11] MEDS ORDERED: KETOROLAC 30 MG/ML VIAL IV PRN ×2 (13:12→20:09)
[2023-03-11] MEDS: MAGNESIUM SULFATE / D5W 1 GM/100 ML BAG IV SCH ×2 (14:02→15:46)
[2023-03-11] MEDS ORDERED: LORazepam 0.25 MG in SYRINGE 0.125 ML IV STA (15:18)
--- NOTE | 2023-03-11 18:00 | Hospitalist Progress Note ---
Date of Service March 11, 2023 Assessment & Plan (1) Acute on chronic pancreatitis: Plan: This is a 58 y/o female with chronic pancreatitis, EtOH cirrhosis with hx of portal gastropathy and esophageal varices with bleeding, DM2, GERD, HTN, hx biliary colic, dyslipidemia, and other medical history as listed presented to the ED with worsening epigastric pain and nausea for the last two days. This feels similar to prior episodes of pancreatitis. Lipase in the ED was 968. Due to severity of symptoms and worsening at home with conservative management, pt was referred for admission. Symptoms consistent with acute exacerbation of known chronic pancreatitis. Pt also has a history of gallbladder sludge, which may be contributing to symptoms. - Admit to PCU - Bowel rest overnight, IVF at 150 cc/hr - Replete potassium orally - recheck in AM - Pain control, anti-emetics - Consult GI for additional recommendations -Appreciate GI input and recommendation -Status post MRI and the reports are pending -Symptomatically better but he still has abdominal pain with white count mildly elevated at 14.20 and lipase decreased to 289 -Started on clears as per GI -Toradol for pain (2) Alcoholic cirrhosis: Plan: LFTs have been normal (3) DM2 (diabetes mellitus, type 2): Plan: Having some AM lows at home but working with outpatient providers to manage sugars - currently prescribed Lantus 16 units BID but only taking 16 units HS. Decrease Lantus to 8 units BID and monitor A1c in AM-elevated at 9.6 Accuchecks ACHS (or Q6 hrs while NPO) (4) Hypokalemia: Plan: Normalized Hypomagnesemia Supplemented and will recheck (5) Hypertension: Plan: Blood pressure remains on the lower side at 82/50 Avoiding narcotics pain medications intravenous Try to drink more fluid-continue IV fluid (6) Dyslipidemia: (7) GERD without esophagitis: Plan Continue other home medications as appropriate Pt seen and reviewed with collaborating physician, Dr. Robertson. Plan of care discussed and as outlined above. Code Status: Full code DVT Prophylaxis: Lovenox Admission and Anticipated Discharge Date Admission Date: March 10, 2023 Subjective 03/11/2023 The patient was seen and examined in telemetry unit She has been complaining of abdominal pain without nausea or vomiting She was seen by the GI and was started with clears orally She was given Toradol to control pain as Dilaudid makes her blood pressure to fall Review of Systems Review of Systems: All systems reviewed and are unremarkable except as noted below Physical Exam Physical Exam: Lying in bed without any acute distress Constitutional: + ill appearing and + thin Eyes: PERRL, conjunctivae normal, anicteric sclerae ENMT: external ear and nose normal, oropharynx normal Neck: trachea midline, no thyromegaly Respiratory: no respiratory distress Auscultation: lungs clear to auscultation bilaterally Cardiovascular: Rate/Rhythm: regular rate and regular rhythm; not tachycardic Heart Sounds: normal S1 and normal S2; no murmur Extremities: no edema Gastrointestinal (Abdomen): Inspection/Auscultation: normal bowel sounds; abdomen not distended Percussion/Palpation: + abdomen tender (Minimally tender in the epigastrium) and abdomen soft Musculoskeletal: No acute arthritis involving any of the joint Neurologic: normal touch/pain/proprioception and moves all extremities; no focal motor deficits Lymphatic: no cervical or axillary lymphadenopathy Results & Data Results & Data Vital Signs (Past 12 Hours) Vital Signs Temp Pulse Pulse Resp BP BP Pulse Ox 03/11/23 15:48 36.9 C 87 18 82/50 L 100 03/11/23 15:34 101 H 03/11/23 11:52 36.3 C L 80 18 90/54 L 96 03/11/23 10:25 82/55 L 03/11/23 09:35 99 H 03/11/23 07:46 38.3 C H 105 H 18 95/64 L 95 O2 Del Method 03/11/23 15:48 Room Air 03/11/23 15:34 03/11/23 11:52 Room Air 03/11/23 10:25 03/11/23 09:35 03/11/23 07:46 Room Air Laboratory Results Short CBC 03/11/23 Range/Units 05:35 WBC 14.20 H (4.8-10.8) K/ul Hgb 11.3 L D (12.0-16.0) g/dl Hct 35.7 L (37.0-47.0) % Plt Count 97 L (130-400) K/uL BMP 03/11/23 05:35 Sodium 136 Potassium 4.0 D Chloride 106 Carbon Dioxide 24 BUN 14 Creatinine 0.96 Glucose 84 Calcium 9.0 Liver Function 03/11/23 Range/Units 05:35 Total Bilirubin 0.7 (0.2-1.0) mg/dl Direct Bilirubin 0.2 (0-0.2) mg/dl AST 18 (13-39) U/L ALT 13 (7-52) U/L Alkaline Phosphatase 77 (34-104) U/L Albumin 3.5 (3.4-5.0) gm/dl Medications Administered Current Inpatient Medications Albuterol (Albuterol Hfa 8 Gm Inhaler) 2 puffs INH Q4H PRN PRN Reason: Wheezing Stop: 04/09/23 14:03 Lipase/Protease/Amylase (Pancreaze (Lipase 10,500u) Cap) 2 cap PO TIDM VIKA Stop: 04/10/23 11:59 Last Admin: 03/11/23 12:19 Dose: 2 cap Atenolol (Atenolol 25 Mg Tablet) 25 mg PO QAM [facility]KA Stop: 04/10/23 08:59 Last Admin: 03/11/23 10:54 Dose: Not Given Dextrose (Dextrose 50% 50 Ml Syringe) 25 - 50 ml IV UD PRN; Protocol PRN Reason: Hypoglycemia Protocol Stop: 04/09/23 14:03 Glucagon (Glucagon For Inj 1 Mg Vial) 1 mg SQ UD PRN; Protocol PRN Reason: Hypoglycemia Protocol Stop: 04/09/23 14:03 Glucose (Glucose 10 Tab/Tube) 4 - 8 tab PO UD PRN; Protocol PRN Reason: Hypoglycemia Treatment Stop: 04/09/23 14:03 Glucose (Glucose 40% Gel 15 Gm Tube) 15 - 30 gm PO UD PRN; Protocol PRN Reason: Hypoglycemia Protocol Stop: 04/09/23 14:03 Hydromorphone HCl (Hydromorphone Inj 0.5 Mg/0.5 Ml Syr) 0.5 mg IV Q4H PRN PRN Reason: Pain Stop: 03/24/23 19:14 Last Admin: 03/11/23 09:05 Dose: 0.5 mg Dextrose/Lactated Ringer's (D5w And Lactated Ringers) 1,000 mls @ 150 mls/hr IV .Q6H40M VIKA Stop: 04/10/23 02:14 Last Admin: 03/11/23 17:49 Dose: 150 mls/hr Insulin Aspart (Insulin Aspart Per Unit Charge) 0 units SC ACHS [facility] Stop: 04/10/23 16:59 Insulin Glargine (Lantus Per Unit Charge) 8 units SQ BID [facility] Stop: 04/09/23 20:59 Ketorolac Tromethamine (Ketorolac 30 Mg/Ml Vial) 30 mg IV Q6H PRN PRN Reason: Pain Stop: 03/16/23 13:11 Last Admin: 03/11/23 13:56 Dose: 30 mg Lisinopril (Lisinopril 20 Mg Tab) 20 mg PO QAM [facility] Stop: 04/10/23 08:59 Last Admin: 03/11/23 10:25 Dose: 20 mg Miscellaneous (Carbohydrates For Hypoglycemia ) 15 - 30 gm PO UD PRN PRN Reason: Hypoglycemia Protocol Stop: 04/09/23 14:03 Oxycodone HCl (Oxycodone Hcl Ir 5 Mg Tab (Immediate Release)) 5 mg PO Q8H PRN PRN Reason: Pain Stop: 03/24/23 12:56 Last Admin: 03/10/23 14:14 Dose: 5 mg Pantoprazole Sodium (Pantoprazole 40 Mg Tab) 40 mg PO QAM [facility] Stop: 04/10/23 08:59 Last Admin: 03/11/23 10:25 Dose: 40 mg Promethazine HCl (Promethazine Hcl 25 Mg Tab) 25 mg PO Q6H PRN PRN Reason: Nausea And Vomiting Stop: 04/09/23 12:56 Rosuvastatin Calcium (Rosuvastatin Calcium 20 Mg Tab) 20 mg PO HS [facility] Stop: 04/09/23 20:59 Last Admin: 03/10/23 21:41 Dose: Not Given (2) Alcoholic cirrhosis Ascites presence: without ascites Qualified Code(s): K70.30 - Alcoholic cirrhosis of liver without ascites (3) DM2 (diabetes mellitus, type 2) 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
--- NOTE | 2023-03-11 18:50 | Magnetic Resonance Report ---
MRCP CLINICAL HISTORY: Common bile duct dilatation. COMPARISON STUDY: Abdominal CT dated 03/10/2023. TECHNIQUE: Abdominal MRCP was performed utilizing various T2-weighted sequences in the axial and che nal planes. 3-D reformats were created and assessed. IV contrast was not administered for this examin ation. Diffusion-weighted imaging was performed. The examination is compromised by motion artifact. FINDINGS: The gallbladder is distended and the wall appears mildly thickened. Mild surrounding infiltration and fluid is noted. Cholecystitis is not excluded. There is significant dilatation of the common bile du ct which measures up to 14 mm in diameter. No intraluminal filling defects are seen to suggest choled ocholithiasis. There is also moderate intrahepatic biliary ductal dilatation. The common bile duct ta pers at the head of the pancreas. The main pancreatic duct is markedly dilated measuring up to 7 mm i n diameter. This also tapers at the head of the pancreas. Intraductal calculi are seen within the pro ximal pancreatic duct. There are also likely calculi within the distal pancreatic duct. The pancreas is edematous and heterogeneous with surrounding infiltration and fluid. The appearance i ndicates acute pancreatitis. No organized peripancreatic fluid collection is identified. The unenhanc ed liver, spleen, adrenal glands, and kidneys are grossly unremarkable. The abdominal aorta is normal in course and caliber noting atherosclerotic plaque irregularity. 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 The left renal vein is also markedly attenuated. There is no bowel obstruction. Ascites is seen in the upper abdomen/retroperitoneum. No pleural effusion is identified. The heart is normal in size noting a small pericardial effusion. There is a small hiatal hernia. Esophageal varices are noted. Nu merous enlarged lymph nodes are seen in the upper abdomen. IMPRESSION: 1. There is significant intra and extrahepatic biliary ductal dilatation, as well as marked dilatatio n of the pancreatic duct. Although this may be related to large calculi within the pancreatic duct, a n obstructing pancreatic mass lesion is the diagnosis of exclusion. ERCP will be required for further assessment. 2. Markedly heterogeneous pancreas with evidence of acute pancreatitis. 3. No gallstones are identified. The gallbladder is distended, and the wall appears thickened with polanco rrounding fluid. This is nonspecific and acute cholecystitis is not excluded. 4. There is no choledocholithiasis. 5. Upper abdominal ascites. 6. 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 The left renal vein is also markedly attenu ated. 7. Esophageal varices. 8. There are numerous enlarged lymph nodes in the upper abdomen. These were better seen on yesterday' s CT scan. Dictated: 03/11/2023 6:15 PM Transcribed: 03/11/2023 6:43 PM Cristino [id number] CHRISTINA_Hector [id number] Electronically signed by: Bipin Lanza M.D. 03/11/2023 6:49 PM
[2023-03-11] MEDS ORDERED: LACTATED RINGER'S 1,000 ML IV ONE (19:47)
[2023-03-11] MEDS ORDERED: HYDROmorphone INJ 0.5 MG/0.5 ML SYR IV PRN (20:09)
--- NOTE | 2023-03-11 20:10 | Communication Note ---
Date of Service: March 11, 2023
[2023-03-11] MEDS: KETOROLAC TROMETHAMINE 15 MG/ML VIAL IV PRN (20:27)
[2023-03-11] MEDS: ROSUVASTATIN CALCIUM 20 MG TAB PO SCH (20:28)
[2023-03-11] MEDS ORDERED: Nursing to Pharmacy Communication SCH (22:30)
[2023-03-12] MEDS ORDERED: INSULIN ASPART PER UNIT CHARGE SC SCH
--- NOTE | 2023-03-12 00:18 | Ultrasound Report ---
Exam(s): US GALLBLADDER EXAM: US Abdomen Limited, Gallbladder CLINICAL HISTORY: Reason for exam: abd pain. ro cholecystitis. TECHNIQUE: Real-time ultrasound of the right upper quadrant with image documentation. COMPARISON: 10/29/2017. FINDINGS: Limitations: Exam is limited to gas artifact in the bowel. Liver: The liver measures 15 cm. The main portal vein reveals hepatopedal flow. Peak systolic velocity is 15 cm/s. There is mild intrahepatic biliary distention. The common hepatic duct is distended measuring up to 12 mm near the hilum. The common bile duct is normal in size at the pancreatic head measuring 3 mm. Gallbladder: Mak sign is indeterminate due to prior medication. Gallbladder revealed sludge with no distinct stones. The gallbladder is slightly overdistended. Mild pericholecystic fluid. The gallbladder wall measures 3 mm. Common bile duct: See above. Pancreas: Partial obscuration of the tail of the pancreas otherwise normal pancreas. Right kidney: The right kidney measures 11.2 cm. Mild fullness of the right upper collecting system which may indicate mild hydronephrosis. Increased echogenicity with the renal pyramids suggestive of nephrocalcinosis. Free fluid: Small amount of ascites surrounding the liver . IMPRESSION: 1. Mild right-sided hydronephrosis. Nephrocalcinosis. 2. Slightly overdistended gallbladder with sludge. No distinct stones or signs of acute cholecystitis. 3. Distention of the common hepatic duct near the hilum and intrahepatic biliary system, etiology indeterminate. 4. Mild ascites surrounding the liver and gallbladder fossa, remainder of the right upper quadrant ultrasound unremarkable. Electronically signed by: Rhoda Diego MD 03/12/23 00:17 AM
[2023-03-12] MEDS ORDERED: Nursing to Pharmacy Communication SCH (01:00)
[2023-03-12] MEDS ORDERED: LACTATED RINGER'S 1,000 ML IV SCH (01:00)
[2023-03-12 03:53] LABS: Basophils # (auto) 0.02 K/uL (0.00-0.20); Basophils % (auto) 0.2 %; Eosinophils # (auto) 0.12 K/uL (0.00-0.50); Eosinophils % (auto) 1.1 %; Hematocrit (blood only) 27.3 % (37.0-47.0); Hemoglobin 8.8 g/dl (12.0-16.0); Immature Granulocytes # (auto) 0.05 K/uL (0.01-0.20); Immature Granulocytes % (auto) 0.5 %; Lymphocytes # (auto) 1.05 K/uL (1.20-3.40); Lymphocytes % (auto) 9.6 %; Mean Corpuscular Hemoglobin 26.7 pg (25.0-34.0); Mean Corpuscular Hgb Conc 32.2 g/dL (32.0-36.0); Mean Corpuscular Volume 82.7 fL (80.0-100.0); Mean Platelet Volume 11.9 fL (9.4-12.4); Monocytes # (auto) 0.68 K/uL (0.11-0.59); Monocytes % (auto) 6.2 %; Neutrophils # (auto) 9.04 K/uL (1.40-6.50); Neutrophils % (auto) 82.4 %; Platelet Count 71 K/uL (130-400); RDW Coefficient of Variation 15.8 % (11.5-14.5); RDW Standard Deviation 47.8 fL (36.4-46.3); White Blood Count 10.96 K/ul (4.8-10.8)
[2023-03-12 04:09] LABS: BUN Creatinine Ratio 14.4 (10-20); Calcium 8.7 mg/dl (8.6-10.3); Creatinine Clr Calc Pharmacy 52.1 ml/min; Est GFR (African American) 81.1 ml/min; Magnesium 1.8 mg/dl (1.7-2.4); Potassium 3.8 mmol/L (3.5-5.1)
--- NOTE | 2023-03-12 06:32 | Electrocardiogram Report ---
Test Reason : Blood Pressure : / mmHG Vent. Rate : 066 BPM Atrial Rate : 066 BPM P-R Int : 178 ms QRS Dur : 108 ms QT Int : 480 ms P-R-T Axes : 083 048 063 degrees QTc Int : 503 ms Normal sinus rhythm Prolonged QT Abnormal ECG When compared with ECG of 20-MAR-2016 19:05, QT has lengthened Confirmed by Deven Chandra ([id number]) on 03/12/2023 6:31:58 AM Referred By: REFERRED SELF Confirmed By:Deven Chandra
[2023-03-12] MEDS: INSULIN ASPART PER UNIT CHARGE SC SCH ×4 (08:24→20:46)
[2023-03-12] MEDS: PANTOprazole 40 MG TAB PO SCH (09:41)
[2023-03-12] MEDS: PANCREAZE (LIPASE 10,500U) CAP PO SCH ×3 (09:41→17:15)
[2023-03-12] MEDS: oxyCODONE HCL IR 5 MG TAB (IMMEDIATE RELEASE) PO PRN (09:48)
[2023-03-12] MEDS: ATENOLOL 25 MG TABLET PO SCH (10:32)
[2023-03-12] MEDS ORDERED: POLYETHYLENE (MIRALAX) 17 GM PACK PO STA (11:01)
[2023-03-12] MEDS: KETOROLAC TROMETHAMINE 15 MG/ML VIAL IV PRN ×2 (12:19→20:00)
--- NOTE | 2023-03-12 14:36 | Hospitalist Progress Note ---
Date of Service March 12, 2023 Assessment & Plan (1) Acute on chronic pancreatitis: Plan: This is a 58 y/o female with chronic pancreatitis, EtOH cirrhosis with hx of portal gastropathy and esophageal varices with bleeding, DM2, GERD, HTN, hx biliary colic, dyslipidemia, and other medical history as listed presented to the ED with worsening epigastric pain and nausea for the last two days. This feels similar to prior episodes of pancreatitis. Lipase in the ED was 968. Due to severity of symptoms and worsening at home with conservative management, pt was referred for admission. Symptoms consistent with acute exacerbation of known chronic pancreatitis. Pt also has a history of gallbladder sludge, which may be contributing to symptoms. - Admit to PCU - Bowel rest overnight, IVF at 150 cc/hr - Replete potassium orally - recheck in AM - Pain control, anti-emetics - Consult GI for additional recommendations -Appreciate GI input and recommendation -Status post MRI and the reports are pending -Symptomatically better but he still has abdominal pain with white count mildly elevated at 14.20 and lipase decreased to 289 -Started on clears as per GI -Toradol for pain -MRCP showed significant intra and extrahepatic biliary ductal dilatation, as well as marked dilatation of the pancreatic duct. Although this may be related to large calculi within the pancreatic duct and obstructing pancreatic mass lesion the diagnosis of exclusion. ERCP is recommended. Markedly heterogenous pancreas with evidence of acute pancreatitis. 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 with radio interference expert and she can wait for proposed ERCP be done in near future -Ultrasound of the gallbladder did not show any acute cholecystitis -Clinically better and will continue with current management (2) Alcoholic cirrhosis: Plan: LFTs have been normal (3) DM2 (diabetes mellitus, type 2): Plan: Having some AM lows at home but working with outpatient providers to manage sugars - currently prescribed Lantus 16 units BID but only taking 16 units HS. Decrease Lantus to 8 units BID and monitor A1c in AM-elevated at 9.6 Accuchecks ACHS (or Q6 hrs while NPO) (4) Hypokalemia: Plan: Normalized Hypomagnesemia Supplemented and will recheck (5) Hypertension: Plan: Blood pressure remains on the lower side at 82/50 Avoiding narcotics pain medications intravenous Try to drink more fluid-continue IV fluid (6) Dyslipidemia: (7) GERD without esophagitis: Plan Continue other home medications as appropriate Pt seen and reviewed with collaborating physician, Dr. Robertson. Plan of care discussed and as outlined above. Code Status: Full code DVT Prophylaxis: Lovenox Admission and Anticipated Discharge Date Admission Date: March 10, 2023 Subjective 03/11/2023 The patient was seen and examined in telemetry unit She has been complaining of abdominal pain without nausea or vomiting She was seen by the GI and was started with clears orally She was given Toradol to control pain as Dilaudid makes her blood pressure to fall 03/12/2023 The patient was seen and examined in telemetry unit She has been feeling much better and is still has abdominal discomfort and pain Has not had any bowel movement MiraLAX was given Review of Systems Review of Systems: All systems reviewed and are unremarkable except as noted below Physical Exam Physical Exam: Lying in bed without any acute distress Constitutional: + ill appearing and + thin Eyes: PERRL, conjunctivae normal, anicteric sclerae ENMT: external ear and nose normal, oropharynx normal Neck: trachea midline, no thyromegaly Respiratory: no respiratory distress Auscultation: lungs clear to auscultation bilaterally Cardiovascular: Rate/Rhythm: regular rate and regular rhythm; not tachycardic Heart Sounds: normal S1 and normal S2; no murmur Extremities: no edema Gastrointestinal (Abdomen): Inspection/Auscultation: normal bowel sounds; abdomen not distended Percussion/Palpation: + abdomen tender (Minimally tender in the epigastrium) and abdomen soft Musculoskeletal: No acute arthritis involving any of the joint Neurologic: normal touch/pain/proprioception and moves all extremities; no focal motor deficits Lymphatic: no cervical or axillary lymphadenopathy Results & Data Results & Data Vital Signs (Past 12 Hours) Vital Signs Temp Pulse Resp BP BP Pulse Ox O2 Del Method 03/12/23 11:55 36.6 C 67 18 107/69 99 Room Air 03/12/23 08:52 84 20 109/69 98 Room Air 03/12/23 08:29 36.4 C L 71 18 74/51 L Room Air 03/12/23 04:29 36.8 C 69 18 106/63 95 Room Air Laboratory Results Short CBC 03/12/23 Range/Units 03:41 WBC 10.96 H (4.8-10.8) K/ul Hgb 8.8 L (12.0-16.0) g/dl Hct 27.3 L (37.0-47.0) % Plt Count 71 L (130-400) K/uL BMP 03/12/23 03:41 Sodium 136 Potassium 3.8 Chloride 107 Carbon Dioxide 24 BUN 13 Creatinine 0.90 Glucose 116 H Calcium 8.7 Medications Administered Current Inpatient Medications Albuterol (Albuterol Hfa 8 Gm Inhaler) 2 puffs INH Q4H PRN PRN Reason: Wheezing Stop: 04/09/23 14:03 Lipase/Protease/Amylase (Pancreaze (Lipase 10,500u) Cap) 2 cap PO TIDM [facility]KA Stop: 04/10/23 11:59 Last Admin: 03/12/23 12:14 Dose: 2 cap Atenolol (Atenolol 25 Mg Tablet) 25 mg PO QAM [facility]KA Stop: 04/10/23 08:59 Last Admin: 03/12/23 10:32 Dose: 25 mg Dextrose (Dextrose 50% 50 Ml Syringe) 25 - 50 ml IV UD PRN; Protocol PRN Reason: Hypoglycemia Protocol Stop: 04/09/23 14:03 Glucagon (Glucagon For Inj 1 Mg Vial) 1 mg SQ UD PRN; Protocol PRN Reason: Hypoglycemia Protocol Stop: 04/09/23 14:03 Glucose (Glucose 10 Tab/Tube) 4 - 8 tab PO UD PRN; Protocol PRN Reason: Hypoglycemia Treatment Stop: 04/09/23 14:03 Glucose (Glucose 40% Gel 15 Gm Tube) 15 - 30 gm PO UD PRN; Protocol PRN Reason: Hypoglycemia Protocol Stop: 04/09/23 14:03 Hydromorphone HCl (Hydromorphone Inj 0.5 Mg/0.5 Ml Syr) 0.25 mg IV Q4H PRN PRN Reason: Pain Stop: 03/24/23 19:14 Last Admin: 03/12/23 01:02 Dose: 0.25 mg Insulin Aspart (Insulin Aspart Per Unit Charge) 0 units SC ACHS [facility]KA Stop: 04/11/23 07:29 Last Admin: 03/12/23 12:14 Dose: 1 units Insulin Glargine (Lantus Per Unit Charge) 8 units SQ BID [facility] Stop: 04/09/23 20:59 Ketorolac Tromethamine (Ketorolac Tromethamine 15 Mg/Ml Vial) 15 mg IV Q6H PRN PRN Reason: Pain unrelieved by Dilaudid Stop: 03/16/23 13:11 Last Admin: 03/12/23 12:19 Dose: 15 mg Lisinopril (Lisinopril 20 Mg Tab) 20 mg PO QAM [facility] Stop: 04/10/23 08:59 Last Admin: 03/11/23 10:25 Dose: 20 mg Miscellaneous (Carbohydrates For Hypoglycemia ) 15 - 30 gm PO UD PRN PRN Reason: Hypoglycemia Protocol Stop: 04/09/23 14:03 Oxycodone HCl (Oxycodone Hcl Ir 5 Mg Tab (Immediate Release)) 5 mg PO Q8H PRN PRN Reason: Pain Stop: 03/24/23 12:56 Last Admin: 03/12/23 09:48 Dose: 5 mg Pantoprazole Sodium (Pantoprazole 40 Mg Tab) 40 mg PO QAM [facility] Stop: 04/10/23 08:59 Last Admin: 03/12/23 09:41 Dose: 40 mg Promethazine HCl (Promethazine Hcl 25 Mg Tab) 25 mg PO Q6H PRN PRN Reason: Nausea And Vomiting Stop: 04/09/23 12:56 Rosuvastatin Calcium (Rosuvastatin Calcium 20 Mg Tab) 20 mg PO HS [facility] Stop: 04/09/23 20:59 Last Admin: 03/11/23 20:28 Dose: 20 mg (2) Alcoholic cirrhosis Ascites presence: without ascites Qualified Code(s): K70.30 - Alcoholic cirrhosis of liver without ascites (3) DM2 (diabetes mellitus, type 2) Diabetes mellitus correction insulin use: with correction use Diabetes mellitus complication status: with other specified complication Qualified Code(s): E11.69 - Type 2 diabetes mellitus with other specified complication; Z79.4 - [facility] (current) use of insulin (5) Hypertension Hypertension type: primary hypertension Qualified Code(s): I10 - Essential (primary) hypertension
[2023-03-12] MEDS: ROSUVASTATIN CALCIUM 20 MG TAB PO SCH (20:00)
[2023-03-13] MEDS ORDERED: SODIUM CHLORIDE 0.9% 500 ML IV SCH (00:15)
[2023-03-13] MEDS: KETOROLAC TROMETHAMINE 15 MG/ML VIAL IV PRN (01:28)
[2023-03-13 06:33] LABS: Basophils # (auto) 0.04 K/uL (0.00-0.20); Basophils % (auto) 0.6 %; Eosinophils # (auto) 0.15 K/uL (0.00-0.50); Eosinophils % (auto) 2.2 %; Hematocrit (blood only) 29.5 % (37.0-47.0); Hemoglobin 9.5 g/dl (12.0-16.0); Immature Granulocytes # (auto) 0.03 K/uL (0.01-0.20); Immature Granulocytes % (auto) 0.4 %; Lymphocytes # (auto) 0.84 K/uL (1.20-3.40); Lymphocytes % (auto) 12.6 %; Mean Corpuscular Hemoglobin 26.6 pg (25.0-34.0); Mean Corpuscular Hgb Conc 32.2 g/dL (32.0-36.0); Mean Corpuscular Volume 82.6 fL (80.0-100.0); Mean Platelet Volume 11.5 fL (9.4-12.4); Monocytes # (auto) 0.38 K/uL (0.11-0.59); Monocytes % (auto) 5.7 %; Neutrophils # (auto) 5.23 K/uL (1.40-6.50); Neutrophils % (auto) 78.5 %; Platelet Count 81 K/uL (130-400); RDW Coefficient of Variation 15.5 % (11.5-14.5); RDW Standard Deviation 46.7 fL (36.4-46.3); Red Blood Count 3.57 M/uL (4.20-5.40); White Blood Count 6.67 K/ul (4.8-10.8)
[2023-03-13 06:53] LABS: BUN Creatinine Ratio 15.4 (10-20); Calcium 8.9 mg/dl (8.6-10.3); Creatinine Clr Calc Pharmacy 58.1 ml/min; Est GFR (Non-African American) 69.1 ml/min; Potassium 3.9 mmol/L (3.5-5.1)
[2023-03-13] MEDS: INSULIN ASPART PER UNIT CHARGE SC SCH ×3 (07:37→17:01)
[2023-03-13] MEDS: ATENOLOL 25 MG TABLET PO SCH (09:12)
[2023-03-13] MEDS: PANTOprazole 40 MG TAB PO SCH (09:12)
[2023-03-13] MEDS: PANCREAZE (LIPASE 10,500U) CAP PO SCH ×3 (09:12→17:02)
--- NOTE | 2023-03-13 15:00 | Hospitalist Progress Note ---
Date of Service March 13, 2023 Assessment & Plan (1) Acute on chronic pancreatitis: Plan: This is a 58 y/o female with chronic pancreatitis, EtOH cirrhosis with hx of portal gastropathy and esophageal varices with bleeding, DM2, GERD, HTN, hx biliary colic, dyslipidemia, and other medical history as listed presented to the ED with worsening epigastric pain and nausea for the last two days. This feels similar to prior episodes of pancreatitis. Lipase in the ED was 968. Due to severity of symptoms and worsening at home with conservative management, pt was referred for admission. Symptoms consistent with acute exacerbation of known chronic pancreatitis. Pt also has a history of gallbladder sludge, which may be contributing to symptoms. - Admit to PCU - Bowel rest overnight, IVF at 150 cc/hr - Replete potassium orally - recheck in AM - Pain control, anti-emetics - Consult GI for additional recommendations -Appreciate GI input and recommendation -Status post MRI and the reports are pending -Symptomatically better but he still has abdominal pain with white count mildly elevated at 14.20 and lipase decreased to 289 -Started on clears as per GI -Toradol for pain -MRCP showed significant intra and extrahepatic biliary ductal dilatation, as well as marked dilatation of the pancreatic duct. Although this may be related to large calculi within the pancreatic duct and obstructing pancreatic mass lesion the diagnosis of exclusion. ERCP is recommended. Markedly heterogenous pancreas with evidence of acute pancreatitis. 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 with maintenance craftsman and she can wait for proposed ERCP be done in near future -Ultrasound of the gallbladder did not show any acute cholecystitis -Clinically better and will continue with current management -Remains stable without any acute abdominal pain, nausea or vomiting -Tolerating regular diet and having normal bowel movement -She has been ambulating in the room without any difficulties and wants to go home -She will be discharged home this afternoon and will have outpatient follow-up appointment with GI for possible ERCP (2) Alcoholic cirrhosis: Plan: LFTs have been normal (3) DM2 (diabetes mellitus, type 2): Plan: Having some AM lows at home but working with outpatient providers to manage sugars - currently prescribed Lantus 16 units BID but only taking 16 units HS. Decrease Lantus to 8 units BID and monitor A1c in AM-elevated at 9.6 Accuchecks ACHS (or Q6 hrs while NPO) (4) Hypokalemia: Plan: Normalized Hypomagnesemia Supplemented and will recheck (5) Hypertension: Plan: Blood pressure remains on the lower side at 82/50 Avoiding narcotics pain medications intravenous Try to drink more fluid-continue IV fluid (6) Dyslipidemia: (7) GERD without esophagitis: Plan Continue other home medications as appropriate Pt seen and reviewed with collaborating physician, Dr. Robertson. Plan of care discussed and as outlined above. Code Status: Full code DVT Prophylaxis: Lovenox Admission and Anticipated Discharge Date Admission Date: March 10, 2023 Subjective 03/11/2023 The patient was seen and examined in telemetry unit She has been complaining of abdominal pain without nausea or vomiting She was seen by the GI and was started with clears orally She was given Toradol to control pain as Dilaudid makes her blood pressure to fall 03/12/2023 The patient was seen and examined in telemetry unit She has been feeling much better and is still has abdominal discomfort and pain Has not had any bowel movement MiraLAX was given 03/13/2023 The patient was seen and examined in telemetry unit She has been feeling much better and denies any abdominal pain, nausea and or vomiting Has been tolerating diet and moving her bowel No evidence of bleeding Review of Systems Review of Systems: All systems reviewed and are unremarkable except as noted below Physical Exam Physical Exam: Lying in bed without any acute distress Constitutional: + ill appearing and + thin Eyes: PERRL, conjunctivae normal, anicteric sclerae ENMT: external ear and nose normal, oropharynx normal Neck: trachea midline, no thyromegaly Respiratory: no respiratory distress Auscultation: lungs clear to auscultation bilaterally Cardiovascular: Rate/Rhythm: regular rate and regular rhythm; not tachycardic Heart Sounds: normal S1 and normal S2; no murmur Extremities: no edema Gastrointestinal (Abdomen): Inspection/Auscultation: normal bowel sounds; abdomen not distended Percussion/Palpation: + abdomen tender (Minimally tender in the epigastrium) and abdomen soft Musculoskeletal: No acute arthritis involving any of the joint Neurologic: normal touch/pain/proprioception and moves all extremities; no focal motor deficits Lymphatic: no cervical or axillary lymphadenopathy Results & Data Results & Data Vital Signs (Past 12 Hours) Vital Signs Temp Pulse Resp BP Pulse Ox O2 Del Method 03/13/23 11:34 36.7 C 62 17 94/53 L 100 Room Air 03/13/23 07:51 36.7 C 69 18 113/58 L 98 Room Air 03/13/23 03:53 36.8 C 66 16 89/46 L 94 Room Air Laboratory Results Short CBC 03/13/23 Range/Units 05:25 WBC 6.67 (4.8-10.8) K/ul Hgb 9.5 L (12.0-16.0) g/dl Hct 29.5 L (37.0-47.0) % Plt Count 81 L (130-400) K/uL BMP 03/13/23 05:25 Sodium 137 Potassium 3.9 Chloride 108 H Carbon Dioxide 22 BUN 14 Creatinine 0.91 Glucose 96 Calcium 8.9 Medications Administered Current Inpatient Medications Albuterol (Albuterol Hfa 8 Gm Inhaler) 2 puffs INH Q4H PRN PRN Reason: Wheezing Stop: 04/09/23 14:03 Lipase/Protease/Amylase (Pancreaze (Lipase 10,500u) Cap) 2 cap PO TIDM VIKA Stop: 04/10/23 11:59 Last Admin: 03/13/23 12:33 Dose: 2 cap Atenolol (Atenolol 25 Mg Tablet) 25 mg PO QAM VIKA Stop: 04/10/23 08:59 Last Admin: 03/13/23 09:12 Dose: 25 mg Dextrose (Dextrose 50% 50 Ml Syringe) 25 - 50 ml IV UD PRN; Protocol PRN Reason: Hypoglycemia Protocol Stop: 04/09/23 14:03 Glucagon (Glucagon For Inj 1 Mg Vial) 1 mg SQ UD PRN; Protocol PRN Reason: Hypoglycemia Protocol Stop: 04/09/23 14:03 Glucose (Glucose 10 Tab/Tube) 4 - 8 tab PO UD PRN; Protocol PRN Reason: Hypoglycemia Treatment Stop: 04/09/23 14:03 Glucose (Glucose 40% Gel 15 Gm Tube) 15 - 30 gm PO UD PRN; Protocol PRN Reason: Hypoglycemia Protocol Stop: 04/09/23 14:03 Hydromorphone HCl (Hydromorphone Inj 0.5 Mg/0.5 Ml Syr) 0.25 mg IV Q4H PRN PRN Reason: Pain Stop: 03/24/23 19:14 Last Admin: 03/12/23 01:02 Dose: 0.25 mg Insulin Aspart (Insulin Aspart Per Unit Charge) 0 units SC ACHS [facility] Stop: 04/11/23 07:29 Last Admin: 03/13/23 12:06 Dose: Not Given Insulin Glargine (Lantus Per Unit Charge) 8 units SQ BID [facility] Stop: 04/09/23 20:59 Ketorolac Tromethamine (Ketorolac Tromethamine 15 Mg/Ml Vial) 15 mg IV Q6H PRN PRN Reason: Pain unrelieved by Dilaudid Stop: 03/16/23 13:11 Last Admin: 03/13/23 01:28 Dose: 15 mg Lisinopril (Lisinopril 20 Mg Tab) 20 mg PO QAM [facility] Stop: 04/10/23 08:59 Last Admin: 03/11/23 10:25 Dose: 20 mg Miscellaneous (Carbohydrates For Hypoglycemia ) 15 - 30 gm PO UD PRN PRN Reason: Hypoglycemia Protocol Stop: 04/09/23 14:03 Oxycodone HCl (Oxycodone Hcl Ir 5 Mg Tab (Immediate Release)) 5 mg PO Q8H PRN PRN Reason: Pain Stop: 03/24/23 12:56 Last Admin: 03/12/23 09:48 Dose: 5 mg Pantoprazole Sodium (Pantoprazole 40 Mg Tab) 40 mg PO QAM [facility] Stop: 04/10/23 08:59 Last Admin: 03/13/23 09:12 Dose: 40 mg Promethazine HCl (Promethazine Hcl 25 Mg Tab) 25 mg PO Q6H PRN PRN Reason: Nausea And Vomiting Stop: 04/09/23 12:56 Rosuvastatin Calcium (Rosuvastatin Calcium 20 Mg Tab) 20 mg PO HS [facility] Stop: 04/09/23 20:59 Last Admin: 03/12/23 20:00 Dose: 20 mg (2) Alcoholic cirrhosis Ascites presence: without ascites Qualified Code(s): K70.30 - Alcoholic cirrhosis of liver without ascites (3) DM2 (diabetes mellitus, type 2) Diabetes mellitus shelter insulin use: with shelter use Diabetes mellitus complication status: with other specified complication Qualified Code(s): E11.69 - Type 2 diabetes mellitus with other specified complication; 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
--- NOTE | 2023-03-13 18:44 | Discharge Summary ---
Date of Service March 13, 2023 Admission HPI Per Admitting Provider This is a 58 y/o female with chronic pancreatitis, EtOH cirrhosis with hx of portal gastropathy and esophageal varices with bleeding, DM2, GERD, HTN, hx biliary colic, dyslipidemia, and other medical history as listed below who presents with worsening epigastric pain and nausea for the last two days. Pt reports her pancreatitis symptoms have been worse over the last 3-4 months. In November, pain was particularly bad so she limited her oral intake significantly. Lost 20 lbs that month. In December, her PCP stopped her Metformin as that also seemed to be causing abdominal pain, but it was a different pain than the pancreatitis. This pain has resolve off Metformin. She has been unable to gain back the weight she lost in November. She attempts to manage her pain at home by limiting her oral intake, which usually works. Her current episode of pain started two nights ago and has gradually worsened since then. She has associated nausea but has not vomited although thinks she may feel better if she did. She has had chills and sweats but no documented fevers. Last ate a grilled cheese sandwich yesterday morning, gummy bears last night. Using ibuprofen 400 mg couple of times per day for the pain, also uses some Excedrin which seems to help. History of chronic pancreatitis and EtOH cirrhosis - follows regularly with GI. Last EtOH drink was 12 years ago. History of esophageal variceal bleeds in 2014 and 2016 (required band ligation). Prior distal CBD stricture treated at [facility] with biliary stent. Had an ED visit in 2018 for RUQ pain/nausea - diagnosed with gallbladder sludge but did not undergo cholecystectomy due to underlying cirrhosis. Last EGD 01/22/22 - Grade II esophageal varices w/ no stigmata of recent bleeding; normal stomach and examined duodenum. Due for GI f/u - has appt with Dr. Langford next week. Admission Exam Per Admitting Provider Exam reveals a thin female in NAD. She is hemodynamically stable and afebrile. CV exam reveals S1/2 heard with a regular rate and rhythm. no murmurs, gallops or rubs. Lungs are CTAB. Abdomen is soft, ND with epigastric fullness and TTP. No fluid wave. skin is warm and dry. n o gross focal neuromuscular deficits. Principal Diagnosis Acute on chronic pancreatitis Discharge Exam Lying in bed without any acute distress Constitutional + ill appearing and + thin Eyes PERRL, conjunctivae normal, anicteric sclerae ENMT external ear and nose normal, oropharynx normal Neck trachea midline, no thyromegaly Respiratory no respiratory distress Auscultation: lungs clear to auscultation bilaterally Cardiovascular Rate/Rhythm: regular rate and regular rhythm; not tachycardic Heart Sounds: normal S1 and normal S2; no murmur Extremities: no edema Gastrointestinal (Abdomen) Inspection/Auscultation: normal bowel sounds; abdomen not distended Percussion/Palpation: + abdomen tender (Minimally tender in the epigastrium) and abdomen soft Neurologic normal touch/pain/proprioception and moves all extremities; no focal motor deficits Lymphatic no cervical or axillary lymphadenopathy Discharge Data Allergies Allergy/AdvReac Type Severity Reaction Status Date / Time bee venom protein (honey bee) Allergy Severe anaphylaxis Verified 03/10/23 10:39 celecoxib Allergy Severe anaphylaxis Verified 03/10/23 10:39 morphine AdvReac Unknown intensifies Verified 03/10/23 10:39 pain. flu like symptoms,HAD DILAUDID W/O PROB Consultations 03/10/23 11:37 ED Decision to Admit Stat 03/10/23 14:04 Consult Gastroenterology Routine Ordered Studies 03/10/23 17:52 CT pancreas 3-phase wo/w con Urgent 03/11/23 13:33 MR MRCP Routine 03/11/23 20:04 US gallbladder Stat Diabetes Follow up Diabetes Follow-up Needed for HgbA1c >9% Hospital Course (1) Acute on chronic pancreatitis: This is a 58 y/o female with chronic pancreatitis, EtOH cirrhosis with hx of portal gastropathy and esophageal varices with bleeding, DM2, GERD, HTN, hx biliary colic, dyslipidemia, and other medical history as listed presented to the ED with worsening epigastric pain and nausea for the last two days. This feels similar to prior episodes of pancreatitis. Lipase in the ED was 968. Due to severity of symptoms and worsening at home with conservative management, pt was referred for admission. Symptoms consistent with acute exacerbation of known chronic pancreatitis. Pt also has a history of gallbladder sludge, which may be contributing to symptoms. - Admit to PCU - Bowel rest overnight, IVF at 150 cc/hr - Replete potassium orally - recheck in AM - Pain control, anti-emetics - Consult GI for additional recommendations -Appreciate GI input and recommendation -Status post MRI and the reports are pending -Symptomatically better but he still has abdominal pain with white count mildly elevated at 14.20 and lipase decreased to 289 -Started on clears as per GI -Toradol for pain -MRCP showed significant intra and extrahepatic biliary ductal dilatation, as well as marked dilatation of the pancreatic duct. Although this may be related to large calculi within the pancreatic duct and obstructing pancreatic mass lesion the diagnosis of exclusion. ERCP is recommended. Markedly heterogenous pancreas with evidence of acute pancreatitis. 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 with clearing supervisor and she can wait for proposed ERCP be done in near future -Ultrasound of the gallbladder did not show any acute cholecystitis -Clinically better and will continue with current management -Remains stable without any acute abdominal pain, nausea or vomiting -Tolerating regular diet and having normal bowel movement -She has been ambulating in the room without any difficulties and wants to go home -She will be discharged home this afternoon and will have outpatient follow-up appointment with GI for possible ERCP (2) Alcoholic cirrhosis: LFTs have been normal (3) DM2 (diabetes mellitus, type 2): Having some AM lows at home but working with outpatient providers to manage suga rs - currently prescribed Lantus 16 units BID but only taking 16 units HS. Decrease Lantus to 8 units BID and monitor A1c in AM-elevated at 9.6 Accuchecks ACHS (or Q6 hrs while NPO) (4) Hypokalemia: Normalized Hypomagnesemia Supplemented and will recheck (5) Hypertension: Blood pressure remains on the lower side at 82/50 Avoiding narcotics pain medications intravenous Try to drink more fluid-continue IV fluid (6) Dyslipidemia: (7) GERD without esophagitis: Plan Continue other home medications as appropriate Pt seen and reviewed with collaborating physician, Dr. Robertson. Plan of care discussed and as outlined above. Code Status: Full code DVT Prophylaxis: Lovenox Total Time Total Time Spent Total Time Spent (In Minutes): 35 minutes Discharge Plan Discharge Items Patient Disposition: Home - Self-Care Reason For Visit: ACUTE ON CHRONIC PANCREATITIS ; HYPOTENSION Discharge Diagnosis: Acute on chronic pancreatitis Condition on Discharge: Good Activity: Resume your previous activity Non-emergency contact: Primary Care Provider Call non-emergency contact if: you have any medication questions and your symptoms worsen Follow-up/Referrals: Holland Dominique MD [Primary Care Provider] - (Your doctor's office will give you call on Thursday with an appointment within 7 days.) Diet: Regular Addtl Attending Provider Instructions: Please take precautions to avoid falls Try to take small amounts of food at one time [facility] will call you with an appointment possible ERCP as soon as possible Please have follow-up appointments with your healthcare providers OP f/u with GI 03/17; OP EUS Pending Studies at Discharge: No Stand-Alone Forms: [facility] [place], Smoking Cessation Medications and DC Order Prescriptions: [place] 36,000-114,000- 180,000 unit Capsule,Delayed Release(Dr/Ec) 2 cap PO TIDM Qty: 180 0RF pantoprazole 40 mg Tablet,Delayed Release (Dr/Ec) 40 mg PO QAM Qty: 30 0RF Continued albuterol sulfate 90 mcg/actuation Hfa Aerosol Inhaler 2 puff Inhalation Q4H PRN (Reason: Wheezing) Qty: 0 ibuprofen 200 mg Tablet 400 mg PO UD PRN (Reason: PAIN/FEVER) Qty: 0 lisinopril 20 mg tablet 20 mg PO QAM atenolol 25 mg tablet 25 mg PO QAM epinephrine 0.3 mg/0.3 mL auto-injector 0.3 mg IM UD PRN (Reason: SEVERE REACTION) rosuvastatin 20 mg tablet 20 mg PO HS insulin glargine [Lantus Solostar U-100 Insulin] 100 unit/mL (3 mL) insulin pen 16 unit SUBCUT BID Jardiance 10 mg tablet 10 mg PO QAM Discontinued pantoprazole 20 mg tablet,delayed release (DR/EC) 20 mg PO QAM Discharge Orders: Discharge Order (Routine); Ordered 03/13/23 Ordered By: Yanet Lundberg/Other Patient Handouts: A1C, Managing Type 2 Diabetes, Pancreatitis Chronic Dc Admission Data Admit Date/Time: 03/10/23 12:03 Attending Provider: Yanet Natarajan Admit Provider: Rosy Robertson Primary Care Provider: Holland Dominique Other Providers: Rosy Robertson; Stewart Kraus Other Interventions: Discharge Summary Assessment (RN) Last Done: 03/13/23 18:06
== END 2023-03-13 18:26 | disposition home or self-care (01) | DRG 438 ==
LOC: ED 09:31 → EDINP 12:03 → SUATTDRO 12:03 → EDINP 14:05 → 2S 20:34

== ENCOUNTER 2023-04-02 18:49 | Inpatient (IN) ==
[2023-04-02] MEDS ORDERED: SODIUM CHLORIDE 0.9% 500 ML IV STA (19:45)
[2023-04-02 20:09] LABS: Hematocrit (blood only) 38.4 % (37.0-47.0); Hemoglobin 12.3 g/dl (12.0-16.0); Mean Corpuscular Hemoglobin 26.2 pg (25.0-34.0); Mean Corpuscular Volume 81.7 fL (80.0-100.0); Mean Platelet Volume 12.6 fL (9.4-12.4); Platelet Count 169 K/uL (130-400); RDW Coefficient of Variation 16.2 % (11.5-14.5); RDW Standard Deviation 48.6 fL (36.4-46.3); White Blood Count 9.52 K/ul (4.8-10.8)
[2023-04-02 20:27] LABS: Alanine Aminotransferase 52 U/L (7-52); Albumin Globulin Ratio 1.3 (0.9-2); Albumin Level 4.4 gm/dl (3.4-5.0); Alkaline Phosphatase 156 U/L (34-104); BUN Creatinine Ratio 17.3 (10-20); Bilirubin,Total 0.8 mg/dl (0.2-1.0); Blood Urea Nitrogen 18 mg/dl (6-23); Calcium 9.5 mg/dl (8.6-10.3); Carbon Dioxide 22 mmol/L (21-32); Chloride 105 mmol/L (98-107); Creatinine Clr Calc Pharmacy 49.4 ml/min; Est GFR (African American) 68.1 ml/min; Est GFR (Non-African American) 58.8 ml/min; Globulin 3.4 gm/dl (2.5-4.0); Glucose 147 mg/dl (70-99(Fasting)); Lipase 33 U/L (11-82); Total Protein 7.8 gm/dl (6.0-8.3); Troponin I High Sensitivity 2681.6 pg/ml (0-14)
[2023-04-02] MEDS ORDERED: ASPIRIN CHEW 324 MG PO STA (20:27)
--- NOTE | 2023-04-02 20:32 | XRay Report ---
SINGLE VIEW CHEST CLINICAL HISTORY: Atypical chest pain. FINDINGS: An AP, portable, upright chest radiograph is compared to study dated 10/29/2017. The heart i s enlarged noting atherosclerotic calcification of the thoracic aorta. The pulmonary vasculature is n oncongested. Chronic interstitial thickening is similar to previous. There is mild bibasilar scarring /atelectasis. No airspace consolidation or large pleural effusion is identified. No pneumothorax is s een. The bony thorax is grossly intact. IMPRESSION: No acute cardiopulmonary abnormality. ACT 112: Negative or not required by law. Electronically signed by: Bipin Lanza M.D. 04/02/2023 8:31 PM
--- NOTE | 2023-04-02 20:35 | Emergency Department Note ---
Impression & Plan Precordial chest pain, Elevated troponin ED Provider Note NAME: JOSE CHÁVEZ AGE: 58 SEX: F : 1965 ARRIVES VIA: Walk-In INFORMANT: [Patient][family] ED PROVIDER(S): [Bipin Mena MD] CHIEF COMPLAINT: Cardiac assessment HISTORY OF PRESENT ILLNESS: The patient is a 58-year-old female with a history of pancreatitis. She states that earlier this morning, over 12 hours ago, she was awake for 2 hours with a pounding in her chest. The pounding would come and go, the episodes would last anywhere from 5 to 10 minutes. When the chest was pounding, her heart rate was fast, she was dizzy, nauseated, sweating and had pain in the center of the chest to her shoulders and her neck. The patient has not had symptoms throughout the day today but has felt tired. She currently has no chest pain, she is not short of breath. She has no history of [place] but was concerned about a heart attack earlier this morning. She presents for evaluation. PMHx/PSHx/Social Hx: See Below PHYSICAL EXAM: GENERAL: Patient is in no acute distress. HEENT: No acute trauma, normocephalic atraumatic, mucous membranes moist, no nasal congestion. NECK: No stridor, no adenopathy, no meningismus, trachea is midline. LUNGS: Clear to auscultation bilaterally, no wheeze, no rhonchi, breath sounds equal. HEART: Regular rhythm, 1/6 systolic murmur, normal rate. ABDOMEN: Soft, nontender, no peritonitis. EXTREMITIES: No cyanosis, full range of motion of all the joints without pain or difficulty. NEUROLOGIC: Oriented x 3, no acute motor or sensory deficits, no focal weakness. SKIN: No jaundice, no diaphoresis. DIFFERENTIAL DIAGNOSIS: [place], dysrhythmia, A-fib or a flutter, electrolyte imbalance, anemia, pericarditis or myocarditis, among others. EMERGENCY DEPARTMENT PROCEDURES: MEDICAL DECISION MAKING: There is no leukocytosis or concerning anemia. There is a normal platelet count. No renal failure or significant electrolyte abnormality. No concerning liver enzyme elevation. No evidence for pancreatitis. ECG shows a sinus rhythm with some subtle ST elevation in the anterior leads which looks fairly similar to previous ECGs. Cardiac enzyme testing x 1 does show a troponin elevation. This troponin elevation could be secondary to cardiac injury or potentially dysrhythmia from earlier today. Chest x-ray does not show mediastinal widening, pneumonia or pneumothorax. On exam, the patient was without complaints, she was asymptomatic and resting comfortably. Patient was given IV metoprolol, 5 mg, she received oral aspirin and IV saline. I did reach out to cardiology, Dr. Berry felt the patient could be hospitalized with aspirin, heparin, monitoring and a cardiology consult in the morning. No reason for emergent cardiac catheterization this evening. I did speak with the patient and her family, I did speak with case management, the on-call hospitalist was consulted. Prior/Outside records/notes reviewed: ECG per my interpretation: Indication was chest pain. The ECG shows a sinus rhythm with PACs. The rate is 74. There is some subtle ST elevation in the anterior leads but this appears to be secondary to a very deep S wave. No reciprocal changes. No PVCs. The QRS is 461. Compared to an ECG from 10 March 2023, PACs are now present. The ST elevation in the anterior leads seems slightly more pronounced. Continuous Cardiac Monitoring per my interpretation: An order was placed for continuous cardiac monitoring. The monitor shows a rate of 65 with normal sinus rhythm. Imaging/x-ray results per my interpretation: Chest x-ray does not show mediastinal widening, pneumonia or pneumothorax. Chronic Medical/Social conditions affecting care: History of pancreatitis. Care/Management discussed with: Cardiology-Dr. Berry, case management and the on-call hospitalist. Level of care consideration(s): After review of the information above and other included data: --I believe the patient requires escalation of care to admission Critical Care Note: I have personally spent 54 minutes of critical care time in the direct management of this patient. This includes bedside care, interpretation of diagnostic studies, and testing, discussion with consultants, patient, and family members, and other required patient management activities. This 54 minutes is in excess of all separately billable procedures. DISPOSITION: Admission with cardiology consult. Past Med/Surg History Medical History Stenosis of left subclavian artery Dyslipidemia GERD without esophagitis Chronic pancreatitis Asymptomatic stenosis of left carotid artery History of TIAs Biliary colic History of pancreatitis Portal hypertensive gastropathy DM2 (diabetes mellitus, type 2) Esophageal varices in alcoholic cirrhosis Hypertension Surgical History History of biliary stent insertion S/P carotid endarterectomy H/O esophagogastroduodenoscopy Family History Father Disorder of pancreas ?due to EtOH Social History Smoking Status: Current every day smoker Tobacco Type: Cigarettes Cigarettes Per Day: 20; Do You Dip or Chew Tobacco: No; Hx Alcohol Use: No Hx Substance Use: No Preferred Language: Italian Communication Ability: Effective 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 flu like symptoms,HAD DILAUDID W/O PROB Home Meds Home Medications Medication Instructions Recorded Confirmed albuterol sulfate 90 mcg/actuation 2 puff inhalation Q4H PRN Wheezing 08/26/16 04/02/23 aerosol inhaler ##0 ibuprofen 200 mg tablet 400 mg PO UD PRN PAIN/FEVER #0 tabs 10/29/17 04/02/23 atenolol 25 mg tablet 25 mg PO QAM 03/10/23 04/02/23 empagliflozin 10 mg tablet 10 mg PO QAM 03/10/23 04/02/23 (Jardiance) epinephrine 0.3 mg/0.3 mL 0.3 mg IM UD PRN SEVERE REACTION 03/10/23 04/02/23 injection, auto-injector insulin glargine 100 unit/mL (3 16 unit subcut BID 03/10/23 04/02/23 mL) subcutaneous pen (Lantus Solostar U-100 Insulin) lisinopril 20 mg tablet 20 mg PO QAM 03/10/23 04/02/23 rosuvastatin 20 mg tablet 20 mg PO HS 03/10/23 04/02/23 bupropion HCl 150 mg 24 hr tablet, 150 mg PO QAM 04/02/23 04/02/23 extended release Previous Rx's Medication Instructions Recorded [id number] 2 cap PO TIDM #180 caps 03/13/23 36,000-114,000-180,000 unit capsule,delay rel (Creon) pantoprazole 40 mg tablet,delayed 40 mg PO QAM #30 tabs 03/13/23 release Results & Data (ED) Vital Signs Vital Signs - 24 hr 04/02/23 18:58 04/02/23 19:13 04/02/23 19:14 Temperature 36.8 C Temperature Source Temporal Artery Scan Pulse Rate 62 70 69 Pulse Rate from SpO2 Sensor 68 Respiratory Rate 18 15 Blood Pressure 129/81 Blood Pressure Mean 97 Pulse Oximetry 98 100 Oxygen Delivery Method Room Air Oxygen Flow Rate Sepsis Recent Fever Within 48 Hours No Sepsis New/Unexplained Change in Mental Status N/A Sepsis Action Taken by Nursing No Action Required 04/02/23 19:20 04/02/23 19:22 04/02/23 19:30 Temperature Temperature Source Pulse Rate 67 Pulse Rate from SpO2 Sensor 67 Respiratory Rate 17 Blood Pressure 146/88 H Blood Pressure Mean 105 Pulse Oximetry 100 Oxygen Delivery Method Room Air Oxygen Flow Rate 0 Sepsis Recent Fever Within 48 Hours Sepsis New/Unexplained Change in Mental Status Sepsis Action Taken by Nursing 04/02/23 19:30 04/02/23 19:40 04/02/23 19:50 Temperature Temperature Source Pulse Rate 62 67 64 Pulse Rate from SpO2 Sensor 63 67 64 Respiratory Rate 14 18 17 Blood Pressure Blood Pressure Mean Pulse Oximetry 100 100 100 Oxygen Delivery Method Oxygen Flow Rate Sepsis Recent Fever Within 48 Hours Sepsis New/Unexplained Change in Mental Status Sepsis Action Taken by Nursing 04/02/23 19:52 04/02/23 20:00 04/02/23 20:10 Temperature Temperature Source Pulse Rate 65 63 Pulse Rate from SpO2 Sensor 66 63 Respiratory Rate 18 20 Blood Pressure Blood Pressure Mean Pulse Oximetry 97 100 100 Oxygen Delivery Method Room Air Oxygen Flow Rate Sepsis Recent Fever Within 48 Hours Sepsis New/Unexplained Change in Mental Status Sepsis Action Taken by Nursing 04/02/23 20:20 04/02/23 20:30 04/02/23 20:30 Temperature Temperature Source Pulse Rate 62 65 Pulse Rate from SpO2 Sensor 62 64 Respiratory Rate 15 19 Blood Pressure 127/87 Blood Pressure Mean 100 Pulse Oximetry 100 100 Oxygen Delivery Method Oxygen Flow Rate Sepsis Recent Fever Within 48 Hours Sepsis New/Unexplained Change in Mental Status Sepsis Action Taken by Nursing 04/02/23 20:40 04/02/23 20:50 04/02/23 21:00 Temperature Temperature Source Pulse Rate 66 67 Pulse Rate from SpO2 Sensor 68 Respiratory Rate 19 16 Blood Pressure 146/91 H Blood Pressure Mean 110 Pulse Oximetry 100 Oxygen Delivery Method Oxygen Flow Rate Sepsis Recent Fever Within 48 Hours Sepsis New/Unexplained Change in Mental Status Sepsis Action Taken by Nursing 04/02/23 21:00 04/02/23 21:00 Temperature Temperature Source Pulse Rate 67 Pulse Rate from SpO2 Sensor 67 Respiratory Rate 16 Blood Pressure 146/91 H Blood Pressure Mean 110 Pulse Oximetry 100 Oxygen Delivery Method Oxygen Flow Rate Sepsis Recent Fever Within 48 Hours Sepsis New/Unexplained Change in Mental Status Sepsis Action Taken by Usp Medications Current Medication List: was personally reviewed by me Laboratory Data Attestation: I reviewed the patient's lab results. 04/02/23 17:20 04/02/23 17:20 Lab Results 04/02/23 Range/Units 17:20 WBC 9.52 (4.8-10.8) K/ul RBC 4.70 (4.20-5.40) M/uL Hgb 12.3 (12.0-16.0) g/dl Hct 38.4 (37.0-47.0) % MCV 81.7 (80.0-100.0) fL MCH 26.2 (25.0-34.0) pg MCHC 32.0 (32.0-36.0) g/dL RDW Std Deviation 48.6 H (36.4-46.3) fL RDW Coeff of Soraya 16.2 H (11.5-14.5) % Plt Count 169 (130-400) K/uL MPV 12.6 H (9.4-12.4) fL Sodium TNP Potassium TNP Chloride 105 (98-107) mmol/L Carbon Dioxide 22 (21-32) mmol/L Anion Gap TNP BUN 18 (6-23) mg/dl Creatinine 1.04 (0.6-1.2) mg/dl Est Cr Clr Drug Dosing 49.4 ml/min Est GFR ( Amer) 68.1 ml/min Est GFR (Non-Af Amer) 58.8 ml/min BUN/Creatinine Ratio 17.3 (10-20) Glucose 147 H (70-99(Fasting)) mg/dl Calcium 9.5 (8.6-10.3) mg/dl Magnesium TNP Total Bilirubin 0.8 (0.2-1.0) mg/dl AST TNP ALT 52 (7-52) U/L Alkaline Phosphatase 156 H (34-104) U/L Troponin I High Sens 2681.6 H* (0-14) pg/ml Total Protein 7.8 (6.0-8.3) gm/dl Albumin 4.4 (3.4-5.0) gm/dl Globulin 3.4 (2.5-4.0) gm/dl Albumin/Globulin Ratio 1.3 (0.9-2) Lipase 33 (11-82) U/L Administered Medications Discontinued Medications Aspirin (Aspirin Chew 324 Mg) 324 mg PO NOW STA Stop: 04/02/23 20:28 Last Admin: 04/02/23 20:59 Dose: 324 mg Documented By: KATELYNN Sodium Chloride (Nss) 500 mls @ 999 mls/hr IV .Q31M STA Stop: 04/02/23 20:15 Last Admin: 04/02/23 20:59 Dose: 999 mls/hr Documented By: KATELYNN Imaging Data Radiologist's Impression: Chest X-Ray 04/02/23 19:45 SINGLE VIEW CHEST CLINICAL HISTORY: Atypical chest pain. FINDINGS: An AP, portable, upright chest radiograph is compared to study dated 10/29/2017. The heart is enlarged noting atherosclerotic calcification of the thoracic aorta. The pulmonary vasculature is noncongested. Chronic interstitial thickening is similar to previous. There is mild bibasilar scarring/atelectasis. No airspace consolidation or large pleural effusion is identified. No pneumothorax is seen. The bony thorax is grossly intact. IMPRESSION: No acute cardiopulmonary abnormality. ACT 112: Negative or not required by law. Electronically signed by: Bipin Lanza M.D. 04/02/2023 8:31 PM Discharge Plan Visit Data Chief Complaint: Cardiac Assessment Stated Complaint: SYMPTOMS OF HEART ATTACK LAST NIGHT ED Provider: Bipin Mena Discharge Problem: Precordial chest pain, Elevated troponin Patient Disposition: Admitted As Inpatient Condition: Fair Forms Stand Alone Forms: My [facility] [place] [facility] Prescriptions Prescriptions: No Action albuterol sulfate 90 mcg/actuation Hfa Aerosol Inhaler 2 puff Inhalation Q4H PRN (Reason: Wheezing) Qty: 0 ibuprofen 200 mg Tablet 400 mg PO UD PRN (Reason: PAIN/FEVER) Qty: 0 lisinopril 20 mg tablet 20 mg PO QAM atenolol 25 mg tablet 25 mg PO QAM epinephrine 0.3 mg/0.3 mL auto-injector 0.3 mg IM UD PRN (Reason: SEVERE REACTION) rosuvastatin 20 mg tablet 20 mg PO HS insulin glargine [Lantus Solostar U-100 Insulin] 100 unit/mL (3 mL) insulin pen 16 unit SUBCUT BID Jardiance 10 mg tablet 10 mg PO QAM Creon 36,000-114,000- 180,000 unit Capsule,Delayed Release(Dr/Ec) 2 cap PO TIDM Qty: 180 0RF pantoprazole 40 mg Tablet,Delayed Release (Dr/Ec) 40 mg PO QAM Qty: 30 0RF bupropion HCl 150 mg tablet extended release 24 hr 150 mg PO QAM Referrals Referrals: Holland Dominique MD [Primary Care Provider] -
[2023-04-02] MEDS ORDERED: METOPROLOL TARTRATE 1 MG/ML VIAL IV STA (20:56)
[2023-04-02 21:44] LABS: Partial Thromboplastin Ratio 0.8; Partial Thromboplastin Time 22 Seconds (21-31)
--- NOTE | 2023-04-02 21:44 | History & Physical Report ---
Date of Service April 02, 2023 Assessment & Plan (1) Elevated troponin: (2) Precordial chest pain: (3) Esophageal varices in alcoholic cirrhosis: (4) Chronic pancreatitis: (5) DM2 (diabetes mellitus, type 2): Plan: Please refer to Dr. Dan's addendum for assessment and plan. History of Present Illness Chief Complaint: Chest pain Primary Care Provider: Holland Dominique MD 58-year-old female with PMH DM type II, alcoholic cirrhosis with grade 2 nonbleeding esophageal varices per EGD 2021, sobriety x 11 years, history of TIA, carotid stenosis s/p carotid endarterectomy, HTN, diabetic nephropathy, chronic pancreatitis, and other problems listed below who presents to the ED for evaluation of chest pain. History is obtained from the patient and review of outpatient PCP and GI records. Patient reports that last night around 2 AM, she woke up with severe chest pressure. Reports that discomfort was radiating up into both shoulders and her jaw. Reports associated diaphoresis, shortness of breath, nausea. Reports palpitations and that her heart was pounding. Symptoms lasted for about 2 to 3 hours and then self resolved. Patient reports no further symptoms since that time and states she felt in her usual state of health today. She described her symptoms to her daughter who advised her to be evaluated in the emergency department. Patient was recently admitted to [facility] 03/10 through 03/13 for pancreatitis. Patient reports marked improvement in her symptoms since starting pancreas enzymes. Denies abdominal pain, vomiting, diarrhea. No bright red bleeding per rectum or dark tarry stools. She denies any other recent illnesses, fevers, chills. No urinary symptoms. In the ED, labs show HS troponin 2600. EKG shows ST elevations in the anterior leads. ED discussed case with cardiology and given that patient is currently chest pain- free, will hold on urgent cardiac cath. Patient was given full dose aspirin, IV metoprolol 5 mg, IVF. Allergies Allergy/AdvReac Type Severity Reaction Status Date / Time bee venom protein (honey bee) Allergy Severe anaphylaxis Verified 03/10/23 10:39 celecoxib Allergy Severe anaphylaxis Verified 03/10/23 10:39 morphine AdvReac Unknown intensifies Verified 03/10/23 10:39 pain. flu like symptoms,HAD DILAUDID W/O PROB Home Medications Medication Instructions Recorded Confirmed Type albuterol sulfate 90 mcg/actuation 2 puff inhalation Q4H PRN Wheezing 08/26/16 04/02/23 History aerosol inhaler ##0 ibuprofen 200 mg tablet 400 mg PO UD PRN PAIN/FEVER #0 tabs 10/29/17 04/02/23 History atenolol 25 mg tablet 25 mg PO HS 03/10/23 04/02/23 History empagliflozin 10 mg tablet 10 mg PO QAM 03/10/23 04/02/23 History (Jardiance) epinephrine 0.3 mg/0.3 mL 0.3 mg IM UD PRN SEVERE REACTION 03/10/23 04/02/23 History injection, auto-injector insulin glargine 100 unit/mL (3 16 unit subcut BID 03/10/23 04/02/23 History mL) subcutaneous pen (Lantus Solostar U-100 Insulin) lisinopril 20 mg tablet 20 mg PO QAM 03/10/23 04/02/23 History rosuvastatin 20 mg tablet 20 mg PO HS 03/10/23 04/02/23 History thhaxk-rzudpndd-ywogrmw 2 cap PO TIDM #180 caps 03/13/23 04/02/23 Rx 36,000-114,000-180,000 unit capsule,delay rel (Creon) pantoprazole 40 mg tablet,delayed 40 mg PO QAM #30 tabs 03/13/23 04/02/23 Rx release bupropion HCl 150 mg 24 hr tablet, 150 mg PO QAM 04/02/23 04/02/23 History extended release Past Med/Surg History Medical History (Updated 04/02/23 @ 21:42 by STEFANIE Arevalo) Chronic pancreatitis Esophageal varices in alcoholic cirrhosis Alcoholic cirrhosis Stenosis of left subclavian artery Dyslipidemia GERD without esophagitis Asymptomatic stenosis of left carotid artery History of TIAs Biliary colic History of pancreatitis Portal hypertensive gastropathy DM2 (diabetes mellitus, type 2) Hypertension Surgical History History of biliary stent insertion S/P carotid endarterectomy H/O esophagogastroduodenoscopy Family History Father Disorder of pancreas ?due to EtOH Social History Smoking Status: Current every day smoker Tobacco Type: Cigarettes Cigarettes Per Day: 20; Second Hand Exposure: No; Do You Dip or Chew Tobacco: No; Tobacco Cessation Education Requested by Patient: No Hx Alcohol Use: No Hx Substance Use: No Preferred Language: Senegalese Communication Ability: Effective Stop Attacher Required: No Beliefs That Will Affect Care: None Current Living Situation: Spouse Current Living Situation Comment: with Other Information That Helps Us Care for You: No Feels Safe at Home: Yes Safety Concerns: Feels Safe At This Time Assistive Devices: None Physical Exam Constitutional: WD/WN, vitals as above Eyes: PERRL, conjunctivae normal, anicteric sclerae ENMT: external ear and nose normal, oropharynx normal Respiratory: normal respiratory effort, lungs clear to auscultation Cardiovascular: Rate/Rhythm: regular rate and regular rhythm Vessels: normal peripheral pulses Extremities: no edema Gastrointestinal (Abdomen): normal bowel sounds, soft, nontender, no he patosplenomegaly Musculoskeletal: no cyanosis or clubbing, extremities motor strength 5/5 Skin: no rashes, warm and dry Neurologic: PERRL, EOMI, accommodation nl, no face palsy, no dysarthria Psychiatric: A+Ox3, euthymic affect Results & Data Results & Data Vital Signs (Past 12 Hours) Vital Signs Temp Pulse Resp BP Pulse Ox O2 Del Method O2 Flow Rate 04/02/23 21:20 70 20 100 04/02/23 21:10 70 17 04/02/23 21:00 67 16 100 04/02/23 21:00 146/91 H 04/02/23 21:00 146/91 H 04/02/23 20:50 67 16 100 04/02/23 20:40 66 19 04/02/23 20:30 127/87 04/02/23 20:30 65 19 100 04/02/23 20:20 62 15 100 04/02/23 20:10 63 20 100 04/02/23 20:00 65 18 100 04/02/23 19:52 97 Room Air 04/02/23 19:50 64 17 100 04/02/23 19:40 67 18 100 04/02/23 19:30 62 14 100 04/02/23 19:30 146/88 H 04/02/23 19:22 Room Air 0 04/02/23 19:20 67 17 100 04/02/23 19:14 69 15 100 04/02/23 19:13 70 04/02/23 18:58 36.8 C 62 18 129/81 98 Room Air Laboratory Results Short CBC 04/02/23 Range/Units 17:20 WBC 9.52 (4.8-10.8) K/ul Hgb 12.3 (12.0-16.0) g/dl Hct 38.4 (37.0-47.0) % Plt Count 169 (130-400) K/uL BMP 04/02/23 17:20 Sodium TNP Potassium TNP Chloride 105 Carbon Dioxide 22 BUN 18 Creatinine 1.04 Glucose 147 H Calcium 9.5 Liver Function 04/02/23 Range/Units 17:20 Total Bilirubin 0.8 (0.2-1.0) mg/dl AST TNP ALT 52 (7-52) U/L Alkaline Phosphatase 156 H (34-104) U/L Albumin 4.4 (3.4-5.0) gm/dl Diagnostic Findings Chest X-Ray 04/02/23 19:45 SINGLE VIEW CHEST CLINICAL HISTORY: Atypical chest pain. FINDINGS: An AP, portable, upright chest radiograph is compared to study dated 10/29/2017. The heart is enlarged noting atherosclerotic calcification of the thoracic aorta. The pulmonary vasculature is noncongested. Chronic interstitial thickening is similar to previous. There is mild bibasilar scarring/atelectasis. No airspace consolidation or large pleural effusion is identified. No pneumothorax is seen. The bony thorax is grossly intact. IMPRESSION: No acute cardiopulmonary abnormality. ACT 112: Negative or not required by law. Electronically signed by: Bipin Lanza M.D. 04/02/2023 8:31 PM Supervising Physician Co-Signing Physician Notes IM ATTENDING : Patient seen and examined. History obtained from patient and records. Preceding documentation by STEFANIE Ibarra reviewed. FINAL ASSESSMENT AND PLAN as follows : Acute coronary syndrome Possible ST elevation noted on the septal leads Patient currently without chest pain complaints. History of PVD status post surgery, Past history TIA Hypertension, slight elevated Hyperlipidemia on statin Rx DM 2 insulin requiring, suboptimal control as of recent hemoglobin A1c of 9.23 February 2023 History of alcoholic cirrhosis, no overt decompensation, past alcohol abuse History of pancreatitis Chronic anemia (baseline hemoglobin of 11), hemoglobin better than baseline Chronic thrombocytopenia secondary to cirrhosis ongoing tobacco abuse PCU Aspirin, beta-ridge, statin Rx Cardiology consult Re: ACS (ER provider already in touch with Dr. Berry who recommends gentle anticoagulation given history of cirrhosis/esophageal varices.) TTE in a.m. N.p.o. after midnight in anticipation of ischemic workup in a.m. Basal bolus insulin adjusted for n.p.o. status, ISS BG goal 1 10-1 40 Nicotine patch as needed DVT prophylaxis. Heparin Full code Text document was generated using Asker voice recognition software. It may contain grammatical or spelling errors. Kindly contact undersigned for clarification of any documentation item in question. (5) DM2 (diabetes mellitus, type 2) Diabetes mellitus complication status: with other specified complication Diabetes mellitus terminal clerk insulin use: with terminal clerk use Qualified Code(s): E11.69 - Type 2 diabetes mellitus with other specified complication; Z79.4 - longterm (current) use of insulin
[2023-04-02 21:59] LABS: Magnesium 1.8 mg/dl (1.7-2.4); Potassium 3.3 mmol/L (3.5-5.1)
[2023-04-02 22:15] LABS: Thyroid Stimulating Hormone 1.847 uIu/ml (0.300-4.500)
[2023-04-02] MEDS ORDERED: POTASSIUM CHLORIDE CRTAB 20 MEQ TABCR PO STA (22:18)
[2023-04-02] MEDS ORDERED: oxyCODONE HCL IR 5 MG TAB (IMMEDIATE RELEASE) PO PRN (22:18)
[2023-04-02] MEDS ORDERED: PROMETHAZINE HCL 6.25 MG in SODIUM CHLORIDE 0.9% 50 ML IV PRN (22:18)
[2023-04-02] MEDS ORDERED: Heparin IV Adult Wt-Based Low-Dose *NO* INITIAL Bolus Protocol IV STA (22:55)
[2023-04-02] MEDS ORDERED: NSS + 20MEQ KCL 20 MEQ/1,000 ML BAG IV STA (23:02)
[2023-04-02] MEDS ORDERED: HEPARIN SODIUM/DEXTROSE 25,000 UNITS/500 ML BAG IV SCH (23:15)
[2023-04-02] MEDS ORDERED: GLUCAGON FOR INJ 1 MG VIAL SQ PRN (23:45)
[2023-04-02] MEDS ORDERED: GLUCOSE 10 TAB/TUBE PO PRN (23:45)
[2023-04-02] MEDS ORDERED: DEXTROSE 50% 50 ML SYRINGE IV PRN (23:45)
[2023-04-02] MEDS ORDERED: CARBOHYDRATES FOR HYPOGLYCEMIA PO PRN (23:45)
[2023-04-02] MEDS ORDERED: INSULIN ASPART PER UNIT CHARGE SC SCH (23:45)
[2023-04-02] MEDS ORDERED: GLUCOSE 40% GEL 15 GM TUBE PO PRN (23:45)
[2023-04-02] MEDS ORDERED: NITROGLYCERIN SL 0.4 MG/TAB TAB SL PRN (23:45)
[2023-04-03] MEDS: ROSUVASTATIN CALCIUM 20 MG TAB PO SCH ×2 (01:06→20:51)
[2023-04-03 06:18] LABS: Basophils # (auto) 0.06 K/uL (0.00-0.20); Basophils % (auto) 0.7 %; Eosinophils # (auto) 0.15 K/uL (0.00-0.50); Eosinophils % (auto) 1.7 %; Hematocrit (blood only) 33.9 % (37.0-47.0); Hemoglobin 10.7 g/dl (12.0-16.0); Immature Granulocytes # (auto) 0.02 K/uL (0.01-0.20); Immature Granulocytes % (auto) 0.2 %; Lymphocytes # (auto) 2.05 K/uL (1.20-3.40); Lymphocytes % (auto) 23.8 %; Mean Corpuscular Hemoglobin 25.8 pg (25.0-34.0); Mean Corpuscular Hgb Conc 31.6 g/dL (32.0-36.0); Mean Corpuscular Volume 81.9 fL (80.0-100.0); Mean Platelet Volume 12.5 fL (9.4-12.4); Monocytes # (auto) 0.53 K/uL (0.11-0.59); Monocytes % (auto) 6.2 %; Neutrophils % (auto) 67.4 %; Platelet Count 143 K/uL (130-400); RDW Coefficient of Variation 16.3 % (11.5-14.5); RDW Standard Deviation 48.5 fL (36.4-46.3); Red Blood Count 4.14 M/uL (4.20-5.40); White Blood Count 8.61 K/ul (4.8-10.8)
[2023-04-03 06:30] LABS: Calcium 8.7 mg/dl (8.6-10.3); Potassium 4.1 mmol/L (3.5-5.1)
[2023-04-03] MEDS: INSULIN ASPART PER UNIT CHARGE SC SCH ×4 (06:35→20:50)
[2023-04-03 06:36] LABS: BUN Creatinine Ratio 17.5 (10-20); Chol HDL Ratio 3.2 (0-5); Creatinine Clr Calc Pharmacy 49.6 ml/min; Est GFR (African American) 68.9 ml/min; Est GFR (Non-African American) 59.5 ml/min
[2023-04-03 07:17] LABS: Troponin I High Sensitivity 1629.9 pg/ml (0-14)
[2023-04-03 07:26] LABS: ANTI-Xa, UFH(UnfractionatedHep 0.12 IU/ml (0.3-0.7)
[2023-04-03] MEDS ORDERED: HEPARIN SOD (PORCINE) 1000 UNIT/ML IV ONE (07:40)
[2023-04-03] MEDS: PANCREAZE (LIPASE 10,500U) CAP PO SCH ×3 (08:07→17:16)
[2023-04-03] MEDS: lisinopril 20 MG TAB PO SCH (08:07)
[2023-04-03] MEDS: ASPIRIN 81 MG ECTAB PO SCH (08:07)
[2023-04-03] MEDS: buPROPion XL 150 MG TABCR PO SCH (08:07)
[2023-04-03] MEDS: PANTOprazole 40 MG TAB PO SCH (08:08)
[2023-04-03] MEDS ORDERED: LANTUS PER UNIT CHARGE SQ SCH ×2 (09:00)
--- NOTE | 2023-04-03 09:00 | Cardiology Consultation ---
Date of Consultation April 03, 2023 Assessment & Plan (1) NSTEMI (non-ST elevated myocardial infarction): -Patient with complex underlying issues of alcohol-related hepatic cirrhosis. Has been abstinent of alcohol for 12 years, admitted for pancreatitis last month. No recent bleeding complaints, abdominal pain has ceased. -Risk factors for coronary heart disease include age, hypertension, dyslipidemia, type 2 diabetes mellitus, and history of carotid occlusive disease. -Patient presented to the emergency department with low blood 12 hours after the onset and cessation of her symptoms. Initial high sensitive troponin was elevated at 2681 PG per mL and has since trended down to 1629. She is currently on a heparin infusion without complication. Echocardiogram without regional wall motion abnormalities. Presenting symptoms suggest possible tachyarrhythmia as the underlying source of her episode, however given her risk factors, underlying obstructive coronary heart disease certainly consideration. Hemoglobin is stable. Continue cautious ongoing treatment with aspirin, unfractioned heparin. Continue prior to hospital treatment with atenolol, lisinopril. and rosuvastatin. Will discuss case with interventional cardiology for invasive coronary angiography. History of Present Illness Attending Physician: Dipti Chong MD History of Present Illness Shara Rodriguez is a 58 year old female seen in cardiology consultation per the request of Dr Mena and STEFANIE Arevalo for the evaluation of chest pain and elevation in HS troponin levels. Patient notes waking at 2 am on 04/02/23 with abrupt onset of a feeling of racing heart rate and a "pounding" sensation in her chest with noted severe anterior chest pain that followed that radiated to her shoulders and her neck. Symptoms when of for about 2.5 hours and then resolved. She was able to go back to sleep and felt well throughout the day yesterday. She presented to the ED on 04/02/23 with initial vitals signed at 18:58 without symptoms, because she became concerned that she should seek evaluation for the prior symptoms and was concerns she may have another episode. Currently she is seen in room 211, admitted as a telemetry patient. She feels well with no recurrent symptoms. History: Cerebrovascular disease with stroke/TIA episode in 2014 or 2015 with patient sub sequently undergoing left carotid endarterectomy at [facility] -most recent carotid duplex 12/2022 [facility] with chronic right carotid occlusion, less than 50% left ICA stenosis, 70% left subclavian stenosis -Had seen [facility] in follow up of carotid duplex, telemed note 01/13/23 recommended repeat imaging and follow up in 1 year History otherwise notable for alcohol related hepatic cirrhosis for which she follows with [facility]. She has been abstinent of alcohol for 12 years. History of esophageal variceal bleeding in 2014 and 2015 and required band ligation of esophageal varices. Most recent EGD in January, Revealed Stable Grade II esophageal varices Without stigmata of recent bleeding Recent admission to [facility] February with pancreatitis HTN DM2 Dyslipidemia Current smoker Family History: No family history of CAD Son with history of SVT Allergies Allergy/AdvReac Type Severity Reaction Status Date / Time bee venom protein (honey bee) Allergy Severe anaphylaxis Verified 03/10/23 10:39 celecoxib Allergy Severe anaphylaxis Verified 03/10/23 10:39 morphine AdvReac Unknown intensifies Verified 03/10/23 10:39 pain. flu like symptoms,HAD DILAUDID W/O PROB Home Medications Medication Instructions Recorded Confirmed Type albuterol sulfate 90 mcg/actuation 2 puff inhalation Q4H PRN Wheezing 08/26/16 04/02/23 History aerosol inhaler ##0 ibuprofen 200 mg tablet 400 mg PO UD PRN PAIN/FEVER #0 tabs 10/29/17 04/02/23 History atenolol 25 mg tablet 25 mg PO HS 03/10/23 04/02/23 History empagliflozin 10 mg tablet 10 mg PO QAM 03/10/23 04/02/23 History (Jardiance) epinephrine 0.3 mg/0.3 mL 0.3 mg IM UD PRN SEVERE REACTION 03/10/23 04/02/23 History injection, auto-injector insulin glargine 100 unit/mL (3 16 unit subcut BID 03/10/23 04/02/23 History mL) subcutaneous pen (Lantus Solostar U-100 Insulin) lisinopril 20 mg tablet 20 mg PO QAM 03/10/23 04/02/23 History rosuvastatin 20 mg tablet 20 mg PO HS 03/10/23 04/02/23 History aajdxk-frbshgwc-nrawmgr 2 cap PO TIDM #180 caps 03/13/23 04/02/23 Rx 36,000-114,000-180,000 unit capsule,delay rel (Creon) pantoprazole 40 mg tablet,delayed 40 mg PO QAM #30 tabs 03/13/23 04/02/23 Rx release bupropion HCl 150 mg 24 hr tablet, 150 mg PO QAM 04/02/23 04/02/23 History extended release Patient History Medical History Chronic pancreatitis Esophageal varices in alcoholic cirrhosis Alcoholic cirrhosis Stenosis of left subclavian artery Dyslipidemia GERD without esophagitis Asymptomatic stenosis of left carotid artery History of TIAs Biliary colic History of pancreatitis Portal hypertensive gastropathy DM2 (diabetes mellitus, type 2) Hypertension Surgical History History of biliary stent insertion S/P carotid endarterectomy H/O esophagogastroduodenoscopy Family History Father Disorder of pancreas ?due to EtOH Social History Smoking Status: Current every day smoker Tobacco Type: Cigarettes Cigarettes Per Day: 20; Second Hand Exposure: No; Do You Dip or Chew Tobacco: No; Tobacco Cessation Education Requested by Patient: No Hx Alcohol Use: No Hx Substance Use: No Preferred Language: Hebrew Communication Ability: Effective 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: No Beliefs That Will Affect Care: None Current Living Situation: Spouse Current Living Situation Comment: with Other Information That Helps Us Care for You: No Feels Safe at Home: Yes Safety Concerns: Feels Safe At This Time Assistive Devices: None Review of Systems Review of Systems: All systems reviewed & are unremarkable except as noted in HPI & below Physical Exam Physical Exam: Temp Pulse Resp BP Pulse Ox O2 Del Method O2 Flow Rate 36.8 C 70 18 136/83 95 Room Air 0 04/03/23 07:51 04/03/23 07:51 04/03/23 07:51 04/03/23 07:51 04/03/23 07:51 04/03/23 08:43 04/02/23 19:22 Constitutional: WD/WN, vitals as above Neck: bilateral carotid bruits well healed Left carotid endarterectomy incision Respiratory: normal respiratory effort, lungs clear to auscultation Cardiovascular: Rate/Rhythm: regular rate Heart Sounds: normal S1, normal S2 and + murmur (04/25 SM) Extremities: no edema 2+ right radial pulse Gastrointestinal (Abdomen): normal bowel sounds, soft, nontender, no hepatosplenomegaly Neurologic: PERRL, EOMI, accommodation nl, no face palsy, no dysarthria Results & Data Laboratory Results Cardiac Enzymes 04/02/23 04/02/23 04/03/23 Range/Units 17:20 21:00 05:44 AST TNP 60 H Troponin I High Sens 2681.6 H* 1629.9 H* D (0-14) pg/ml Coagulation 04/02/23 Range/Units 17:20 APTT 22 (21-31) Seconds Lipids 04/03/23 Range/Units 05:44 Triglycerides 82 (0-150) mg/dl Cholesterol 113 (0-200) mg/dl HDL Cholesterol 35 mg/dl Cholesterol/HDL Ratio 3.2 (0-5) LDL cholesterol 62 mg/dl CBC 04/02/23 04/03/23 Range/Units 17:20 05:44 WBC 9.52 8.61 (4.8-10.8) K/ul RBC 4.70 4.14 L (4.20-5.40) M/uL Hgb 12.3 10.7 L (12.0-16.0) g/dl Hct 38.4 33.9 L (37.0-47.0) % Plt Count 169 143 (130-400) K/uL Neut # (Auto) 5.80 (1.40-6.50) K/uL Lymph # (Auto) 2.05 (1.20-3.40) K/uL [place] # (Auto) 0.53 (0.11-0.59) K/uL Eos # (Auto) 0.15 (0.00-0.50) K/uL Baso # (Auto) 0.06 (0.00-0.20) K/uL Comprehensive Metabolic Panel 04/02/23 04/02/23 04/03/23 Range/Units 17:20 21:00 05:44 Sodium TNP 139 138 Potassium TNP 3.3 L 4.1 D Chloride 105 111 H (98-107) mmol/L Carbon Dioxide 22 19 L (21-32) mmol/L BUN 18 18 (6-23) mg/dl Creatinine 1.04 1.03 (0.6-1.2) mg/dl Glucose 147 H 119 H (70-99(Fasting)) mg/dl Calcium 9.5 8.7 (8.6-10.3) mg/dl AST TNP 60 H ALT 52 (7-52) U/L Alkaline Phosphatase 156 H (34-104) U/L Total Protein 7.8 (6.0-8.3) gm/dl Albumin 4.4 (3.4-5.0) gm/dl Diagnostic Findings Carotid duplex performed within the [facility] 01/12/23: Right carotid artery duplex examination indicates evidence of an occlusion of the internal carotid artery. Left carotid artery duplex examination indicates evidence of less than 50% stenosis of the internal carotid artery. Retrograde flow noted in the left vertebral artery. Left subclavian artery with evidence of >70% stenosis. EKG performed on arrival 04/02/2023 at 1905 and reviewed independently: Sinus rhythm at 74 bpm with premature atrial contractions. Subtle J-point elevation limited to leads V1 and V2 which is more prominent than the previous tracing performed 03/10/2023. Occasional premature atrial contractions noted. EKG performed today 04/03/2023 at 5:35 AM: Sinus rhythm at 71 bpm, occasional PACs including atrial bigeminy, nonspecific ST changes in the inferior lateral leads, ongoing very minimal J-point elevation that does not meet the criteria for ST segment elevation myocardial infarction Echocardiogram performed today 04/03/2023 and interpret independently: There is moderate concentric left ventricular hypertrophy. The left ventricular regional wall motion abnormality is normal The left ventricular ejection fraction is normal, 55-60% Mild left atrial enlargement present Mild aortic valve sclerosis without stenosis present Mild aortic regurgitation Severe mitral annular calcification is present There is mild to moderate mitral regurgitation There is mild tricuspid regurgitation The pulmonary systolic pressure is estimated 49 mmHg (mildly elevated
[2023-04-03] MEDS ORDERED: MIDAZOLAM HCL 1 MG/ML 2ML VIAL ONE (10:39)
[2023-04-03] MEDS ORDERED: fentaNYL citrate PF 100 MCG/2 ML VIAL ONE (10:39)
[2023-04-03] MEDS ORDERED: HEPARIN (PORCINE) 1000 UNIT/ML 10 ML (CATH LAB USE ONLY) ONE (10:39)
[2023-04-03] MEDS ORDERED: niCARdipine HCL INJ 2.5 MG/ML 10 ML AMP ONE (10:39)
[2023-04-03] MEDS ORDERED: NITROGLYCERIN/D5W 100MCG/ML 20ML SYR ONE (10:41)
--- NOTE | 2023-04-03 10:59 | Pre Anesthesia Assessment ---
Date of Service April 03, 2023 Pre Sedation Assessment Vital Signs Temp Pulse Pulse Pulse Resp BP BP 04/03/23 10:45 60 18 04/03/23 08:43 04/03/23 07:51 36.8 C 70 18 04/03/23 03:15 36.8 C 59 L 18 99/64 L 04/02/23 23:45 36.7 C 66 18 134/85 04/02/23 23:45 36.7 C 66 18 134/85 04/02/23 23:00 70 14 04/02/23 22:50 70 15 04/02/23 22:40 69 13 04/02/23 22:30 142/87 H 04/02/23 22:30 69 13 04/02/23 22:20 69 15 04/02/23 22:14 70 15 04/02/23 22:14 165/98 H 04/02/23 22:10 70 13 04/02/23 22:09 69 165/101 H 04/02/23 22:00 165/101 H 04/02/23 22:00 68 19 04/02/23 21:50 65 17 04/02/23 21:40 71 20 04/02/23 21:33 82 19 04/02/23 21:20 70 20 04/02/23 21:10 70 17 04/02/23 21:00 67 16 04/02/23 21:00 146/91 H 04/02/23 21:00 146/91 H 04/02/23 20:50 67 16 04/02/23 20:40 66 19 04/02/23 20:30 127/87 04/02/23 20:30 65 19 04/02/23 20:20 62 15 04/02/23 20:10 63 20 04/02/23 20:00 65 18 04/02/23 19:52 04/02/23 19:50 64 17 04/02/23 19:40 67 18 04/02/23 19:30 62 14 04/02/23 19:30 146/88 H 04/02/23 19:22 04/02/23 19:20 67 17 04/02/23 19:14 69 15 04/02/23 19:13 70 04/02/23 18:58 36.8 C 62 18 129/81 BP Pulse Ox O2 Del Method O2 Flow Rate 04/03/23 10:45 162/98 H 97 Room Air 04/03/23 08:43 Room Air 04/03/23 07:51 136/83 95 Room Air 04/03/23 03:15 94 Room Air 04/02/23 23:45 100 Room Air 04/02/23 23:45 100 Room Air 04/02/23 23:00 100 04/02/23 22:50 100 04/02/23 22:40 99 04/02/23 22:30 04/02/23 22:30 100 04/02/23 22:20 99 04/02/23 22:14 100 04/02/23 22:14 04/02/23 22:10 100 04/02/23 22:09 04/02/23 22:00 04/02/23 22:00 100 04/02/23 21:50 100 04/02/23 21:40 04/02/23 21:33 04/02/23 21:20 100 04/02/23 21:10 04/02/23 21:00 100 04/02/23 21:00 04/02/23 21:00 04/02/23 20:50 100 04/02/23 20:40 04/02/23 20:30 04/02/23 20:30 100 04/02/23 20:20 100 04/02/23 20:10 100 04/02/23 20:00 100 04/02/23 19:52 97 Room Air 04/02/23 19:50 100 04/02/23 19:40 100 04/02/23 19:30 100 04/02/23 19:30 04/02/23 19:22 Room Air 0 04/02/23 19:20 100 04/02/23 19:14 100 04/02/23 19:13 04/02/23 18:58 98 Room Air Cardiovascular RRR, no murmur, no edema Respiratory normal respiratory effort, lungs clear to auscultation Pre-Sedation Airway Assessment Smoking Status: Current every day smoker MALLAMPATI II ASA 3 Notes The planned sedation has been discussed with the patient. Informed Consent was obtained. I have identified the patient, determined the appropriateness of sedation and have assessed the patient immediately prior to the procedure. All medicine(s) and interventions are by my order.
[2023-04-03 11:35] LABS: INR 1.1 (0.9-1.1); Prothrombin Time 11.8 Seconds (9.0-12.0)
--- NOTE | 2023-04-03 12:11 | Electrocardiogram Report ---
Test Reason : Blood Pressure : / mmHG Vent. Rate : 074 BPM Atrial Rate : 074 BPM P-R Int : 194 ms QRS Dur : 106 ms QT Int : 416 ms P-R-T Axes : 094 010 053 degrees QTc Int : 461 ms Sinus rhythm with Premature atrial complexes Otherwise normal ECG When compared with ECG of 10-MAR-2023 10:17, Premature atrial complexes are now Present Confirmed by Juan Barney ([id number]) on 04/03/2023 12:11:32 PM Referred By: REFERRED SELF Confirmed By:Juan Barney
--- NOTE | 2023-04-03 12:14 | Post Anesthesia Assessment ---
Date of Service April 03, 2023 Post Sedation Assessment Vital Signs Temp Pulse Pulse Pulse Pulse Resp BP 04/03/23 11:50 69 18 04/03/23 10:45 60 18 04/03/23 08:43 04/03/23 07:51 36.8 C 70 18 04/03/23 03:15 36.8 C 59 L 18 04/02/23 23:45 36.7 C 66 18 04/02/23 23:45 36.7 C 66 18 04/02/23 23:00 70 14 04/02/23 22:50 70 15 04/02/23 22:40 69 13 04/02/23 22:30 142/87 H 04/02/23 22:30 69 13 04/02/23 22:20 69 15 04/02/23 22:14 70 15 04/02/23 22:14 165/98 H 04/02/23 22:10 70 13 04/02/23 22:09 69 165/101 H 04/02/23 22:00 165/101 H 04/02/23 22:00 68 19 04/02/23 21:50 65 17 04/02/23 21:40 71 20 04/02/23 21:33 82 19 04/02/23 21:20 70 20 04/02/23 21:10 70 17 04/02/23 21:00 67 16 04/02/23 21:00 146/91 H 04/02/23 21:00 146/91 H 04/02/23 20:50 67 16 04/02/23 20:40 66 19 04/02/23 20:30 127/87 04/02/23 20:30 65 19 04/02/23 20:20 62 15 04/02/23 20:10 63 20 04/02/23 20:00 65 18 04/02/23 19:52 04/02/23 19:50 64 17 04/02/23 19:40 67 18 04/02/23 19:30 62 14 04/02/23 19:30 146/88 H 04/02/23 19:22 04/02/23 19:20 67 17 04/02/23 19:14 69 15 04/02/23 19:13 70 04/02/23 18:58 36.8 C 62 18 129/81 BP BP Pulse Ox O2 Del Method O2 Flow Rate 04/03/23 11:50 109/71 98 Room Air 04/03/23 10:45 162/98 H 97 Room Air 04/03/23 08:43 Room Air 04/03/23 07:51 136/83 95 Room Air 04/03/23 03:15 99/64 L 94 Room Air 04/02/23 23:45 134/85 100 Room Air 04/02/23 23:45 134/85 100 Room Air 04/02/23 23:00 100 04/02/23 22:50 100 04/02/23 22:40 99 04/02/23 22:30 04/02/23 22:30 100 04/02/23 22:20 99 04/02/23 22:14 100 04/02/23 22:14 04/02/23 22:10 100 04/02/23 22:09 04/02/23 22:00 04/02/23 22:00 100 04/02/23 21:50 100 04/02/23 21:40 04/02/23 21:33 04/02/23 21:20 100 04/02/23 21:10 04/02/23 21:00 100 04/02/23 21:00 04/02/23 21:00 04/02/23 20:50 100 04/02/23 20:40 04/02/23 20:30 04/02/23 20:30 100 04/02/23 20:20 100 04/02/23 20:10 100 04/02/23 20:00 100 04/02/23 19:52 97 Room Air 04/02/23 19:50 100 04/02/23 19:40 100 04/02/23 19:30 100 04/02/23 19:30 04/02/23 19:22 Room Air 0 04/02/23 19:20 100 04/02/23 19:14 100 04/02/23 19:13 04/02/23 18:58 98 Room Air Recovery Score Activity: Moves 4 extremities Respiration: Deep Breath/Cough Circulation: +/-20% PreAnes Value Consciousness: Fully Awake Oxygen Saturation: > 92% On Room Air Post Anesthesia Score: 10 Discharge Sedation Level of Care: Fast Track Phase II Post Sedation Plan On clinical assessment, the patient appears to have tolerated the sedation without complications. Patient is recovering as anticipated. Patient will continue to be monitored by nursing and may be discharged when sedation discharge criteria are met per below protocol. Upon Completions of procedure up to 15 minutes continue every 5 minute vital signs and the P.A.R. score; then discharge to a Phase I or Fast Track to Phase II per the following guidelines: * Discharge Patient to appropriate Phase II area if PAR is 8 or greater or return to pre- procedure baseline. The post - procedure orders will be as directed. * If PAR score is less than 8 or not return to pre-procedure baseline then patient will follow Phase I monitoring till PAR is reached for Phase II. The Phase I may be done in procedure room or may call to secure a Phase I area. * If naloxone or flumazenil are used for reversal, hold in Phase I for continued monitoring from when last reversal dose was given for a minimum of 60 minutes or longer pending the nurse and/or physician discretion of patient condition before discharge to Phase II. Please call the Sedation Physician to re-evaluate and complete post-note for discharge to Phase II area. Do NOT discharge from procedure sedation or Phase 1 until post- sedation evaluation note is complete by procedure /sedation MD Sedation Discharge Instructions to be given to the patient at discharge to home. [facility] Procedure Codes (Charges) Indication for Procedure Indication for procedure: NSTEMI Sedation/Anesthesia Procedure 1: Sedation/Anesthesia: 18458 Mod Sedation by the same physician;Init15 Min Child Age 5 & Up (Start 1117) Total Sedation Time (minutes): 23 Procedure 2: Sedation/Anesthesia: 66186 Mod Sedation by the same physician; Ea [id number] Minutes (Additional 8 min, and 1140) Total Sedation Time (minutes): 23
--- OUTSIDE RECORDS SUMMARY | 2023-04-03 12:19 | External Medical Summary | Summary of Care ---
Author Name Unknown Organization [facility] Address [address] [place] [address] Phone [phone] Care Team Providers Care Strategic Partnership Specialist Name Role Phone Holland Dominique MD Primary Care Provider [phone] Reason for Visit * Reason Comments eRx-Medication Refill Encounter Details Date Type Department Care Team (Late st Contact Info) Description 03/13/2023 Refill Family Practice [facility] [address] [place] [id number] Alyssa Rader CRNP [address] [place] [id number] Type 2 diabetes mellitus with stage 3b chronic kidney disease, without long-term current use of insulin ([facility]) Allergies Active Allergy Reactions Criticality Noted Date Comments Bee Venom Anaphylaxis High 09/19/2014 Other reaction(s): Angioedema Celecoxib Anaphylaxis High 12/05/2014 Morphine Other (Please comment) 12/05/2014 Exacerbation of pain documented as of this encounter (statuses as of 03/13/2023) Medications Medication Sig Dispensed Refills Start Date [...] hemoglobin A1c goal of less than 7.0% ([facility]) Use to test blood sugars twice a day 200 Strip 11 02/13/2023 Active Lantus SoloStar 100 UNIT/ML Subcutaneous Solution Pen-injectorIndicat ions:Type 2 diabetes mellitus with hemoglobin A1c goal of less than 7.0% ([facility]) Inject 16 Units under the [...] disease, without long-term current use of insulin ([facility]) Use with lantus solostar pen- injector 180 Each 0 02/12/2023 Active ProAir HFA 108 (90 Base) MCG/ACT Inhalation Aerosol SolutionIndications :Tobacco use disorder Inhale 2 Puffs by mouth as needed for Cough. 8.5 g 0 02/12/2023 Active Ventolin HFA 108 (90 Base) MCG/ACT Inhalation Aerosol SolutionIndications :Tobacco use disorder Inhale 2 Puffs by mouth every 4 hours as needed for Wheezing. 8.5 g 0 03/03/2023 Active documented as of this encounter (statuses as of 03/13/2023) Active Problems Problem Noted Date Diagnosed Date Alcoholic cirrhosis of liver without ascites Right carotid artery occlusion 01/13/2023 Subclavian artery stenosis, left 01/13/2023 Type 2 diabetes mellitus wit h hemoglobin A1c goal of less than 7.0% 12/19/2022 Gastroesophageal reflux disease 12/19/2022 Dyslipidemia 12/19/2022 Tobacco use disorder 12/19/2022 S/P carotid endarterectomy 12/19/2022 Overview: left History of TIA (transient ischemic attack) 12/19 HTN, goal below 130/80 12/19/2022 Chronic pancreatitis 12/19/2022 documented as of this encounter (statuses as of 03/13/2023) Resolved Problems Problem Noted Date Diagnosed Date Resolved Date Carotid stenosis, asymptomatic, left 12/19/2022 03/10/2023 Hepatic cirrhosis 12/19/2022 03/11/2023 documented as of this encounter (statuses as of 03/13/2023) Immunizations Name Administration Dates Next Due Pneumococcal [...] Miscellaneous Notes * Telephone Encounter - Santos [facility] - 03/13/2023 5:43 PM ESTRefused Prescriptions: Disp Refills BD Pen Needle Rose 2nd Gen 32G X 4 MM (Ins*100 Ea*0 Sig: USE WITH LANTUS SOLOSTAR PEN INJECTORRefused By: [facility] Refusal: Too soon documented in this encounter Plan of Treatment Upcoming Encounters Date Type Department Care Team (Late st Contact Info) Description 03/17/2023 8:40 AM EST Office Visit Gastroenterology, [facility] [address] [place] [address] Sintia Langford DO [address] [place] [address] 03/20/2023 4:00 PM EST Office Visit Family Practice [facility] [address] [place] [phone] Holland Dominique MD [address] [place] [phone] 04/01/2023 2:00 PM EST Office Visit Pharmacy, [facility] [address] [place] [phone] [facility] [address] [place] [address] 05/15/2023 2:00 PM EST Office Visit Hepatology, [facility] [address] [place] [address] Dede Olmedo MD [address] [place] [phone] Scheduled Procedures Name Priority Associated Diagnoses Date/Ti me ESOPHAGOGASTRODUODENOSCOPY ( EGD), FLEXIBLE, TRANSORAL, DIAGNOSTIC Recall Esophageal varices (HCC) COLONOSCOPY FLEXIBLE PROXIMAL DIAGNOSTIC Recall Encounter for screening colonoscopy Health Maintenance Due Date Last Done Comments DISCUSS TOBACCO CESSATION (REFER TO SMARTSET #2253) 1965 Hepatitis B (1 of 3 - 3-dose series) 1965 COVID-19 Vaccine (#1) 1965 Depression Screening 1976 HIV Screening 01/04/1979 Diabetic Foot Exam 01/04/1982 DTaP,Tdap,and Td Vaccines (1 - Tdap) 01/04/1983 Pap Smear 01/04/1985 Cervical Cancer Screening 01/04/1994 HPV/Co-Test 01/04/1994 Cologuard 01/04/2009 Fecal Occult Blood Test 01/04/2009 Sigmoidoscopy 01/04/2009 LUNG CANCER SCREENING - USE SMARTSET 10503 01/04/2014 Zoster Vaccines (1 of 2) 01/04/2014 [...] without long-term current use of insulin (HCC) documented in this encounter Care Teams Strategic Partnership Specialist Relationship Specialty Start Date End Date Holland Dominique MD [address] [place] [phone] PCP - General Family Medicine 12/26/22 documented as of this encounter
--- OUTSIDE RECORDS SUMMARY | 2023-04-03 12:19 | External Medical Summary | Summary of Care ---
Author Name Unknown Organization [facility] Address [address] [place] [address] Phone [phone] Care Team Providers Care Jacquard Loom Card Changer Name Role Phone Holland Dominique MD Primary Care Provider [phone] Reason for Visit * Reason Onset Date Comments Medication Refill 03/13/2023 Encounter Details Date Type Department Care Team (Late st Contact Info) Description 03/13/2023 Refill Family Practice [facility] [address] [place] [address] Holland Dominique MD [address] [place] [address] HTN, goal below 140/90 Allergies Active Allergy Reactions Criticality Noted Date Comments Bee Venom Anaphylaxis High 09/19/2014 Other reaction(s): Angioedema Celecoxib Anaphylaxis High 12/05/2014 Morphine Other (Please comment) 12/05/2014 Exacerbation of pain documented as of this encounter (statuses as of 03/14/2023) Medications Medication Sig Dispensed Refills Start Date [...] hemoglobin A1c goal of less than 7.0% ([facility]) Use to test blood sugars twice a day 200 Strip 11 02/13/2023 Active Lantus SoloStar 100 UNIT/ML Subcutaneous Solution Pen-injectorIndicat ions:Type 2 diabetes mellitus with hemoglobin A1c goal of less than 7.0% ([facility]) Inject 16 Units under the [...] disease, without long-term current use of insulin ([facility]) Use with lantus solostar pen- [...] as of this encounter (statuses as of 03/14/2023) Active Problems Problem Noted Date Diagnosed Date [...] as of this encounter (statuses as of 03/14/2023) Resolved Problems Problem Noted Date Diagnosed Date Resolved Date Carotid stenosis, asymptomatic, left 12/19/2022 03/10/2023 Hepatic cirrhosis 12/19/2022 03/11/2023 documented as of this encounter (statuses as of 03/14/2023) Immunizations Name Administration Dates Next Due Pneumococcal [...] encounter Miscellaneous Notes * Telephone Encounter - Aleah Nicholson, [facility] - 03/14/2023 12:16 PM EST Refused Prescriptions: Disp Refills Lisinopril 20 MG Oral Tablet (Prinivil) 30 Tab*9 Sig: Take 1 Tablet by mouth in the morning.Refused By: ALEAH NICHOLSONReason for Refusal: Too soon------- documented in this encounter Plan of Treatment Upcoming Encounters Date Type Department Care Team (Late st Contact Info) Description 03/17/2023 8:40 AM EST Office Visit Gastroenterology, [facility] [address] [place] [address] Sintia Langford DO [address] [place] [address] 03/20/2023 4:00 PM EST Office Visit Family Practice [facility] [address] [facility] [place] [address] Holland Dominique MD [address] [facility] [place] [address] 04/01/2023 2:00 PM EST Office Visit Pharmacy, [facility] [address] [facility] [place] [address] [facility] [address] [facility] [place] [address] 05/15/2023 2:00 PM EST Office Visit Hepatology, [facility] 132 [facility] [place] [address] Dede Olmedo MD [address] [place] [phone] Scheduled Procedures Name Priority Associated Diagnoses Date/Ti me ESOPHAGOGASTRODUODENOSCOPY ( EGD), FLEXIBLE, TRANSORAL, DIAGNOSTIC Recall Esophageal varices (HCC) COLONOSCOPY FLEXIBLE PROXIMAL DIAGNOSTIC Recall Encounter for screening colonoscopy Health Maintenance Due Date Last Done Comments DISCUSS TOBACCO CESSATION (REFER TO SMARTSET #4496) 1965 Hepatitis B (1 of 3 - 3-dose series) 1965 COVID-19 Vaccine (#1) 1965 Depression Screening 1976 HIV Screening 01/04/1979 Diabetic Foot Exam 01/04/1982 DTaP,Tdap,and Td Vaccines (1 - Tdap) 01/04/1983 Pap Smear 01/04/1985 Cervical Cancer Screening 01/04/1994 HPV/Co-Test 01/04/1994 Cologuard 01/04/2009 Fecal Occult Blood Test 01/04/2009 Sigmoidoscopy 01/04/2009 LUNG CANCER SCREENING - USE SMARTSET 16359 01/04/2014 Zoster Vaccines (1 of 2) 01/04/2014 [...] hypertension documented in this encounter Care Teams Jacquard Loom Card Changer Relationship Specialty Start Date End Date Holland Dominique MD [address] [place] [address] PCP - General Family Medicine 12/26/22 documented as of this encounter
--- OUTSIDE RECORDS SUMMARY | 2023-04-03 12:19 | External Medical Summary | Summary of Care ---
Author Name Unknown Organization [facility] Address [address] [place] [address] Phone [phone] Care Team Providers Care Supervisor Electric Name Role Phone Holland Dominique MD Primary Care Provider [phone] Reason for Visit * Reason Onset Date Comments Test Results Lab 03/17/2023 Encounter Details Date Type Department Care Team (Late st Contact Info) Description 03/17/2023 Telephone Gastroenterology, [facility] [address] [place] [address] Sintia Langford DO [address] [place] [address] Test Results Lab Allergies Active Allergy Reactions Criticality Noted Date Comments Bee Venom Anaphylaxis High 09/19/2014 Other reaction(s): Angioedema Celecoxib Anaphylaxis High 12/05/2014 Morphine Other (Please comment) 12/05/2014 Exacerbation of pain documented as of this encounter (statuses as of 03/18/2023) Medications Medication Sig Dispensed Refills Start Date [...] A1c goal of less than 7.0% ([facility]) Use to test blood sugars twice a day 200 Strip 11 02/13/2023 Active Lantus SoloStar 100 UNIT/ML Subcutaneous Solution Pen-injectorIndicat ions:Type 2 diabetes mellitus with hemoglobin A1c goal of less than 7.0% ([facility]) Inject 16 Units under the [...] the morning. 30 Tablet 9 02/13/2023 Active ProAir HFA 108 (90 Base) MCG/ACT Inhalation Aerosol SolutionIndications :Tobacco use disorder Inhale 2 Puffs by mouth as needed for Cough. 8.5 g 0 02/12/2023 Active Albuterol Sulfate HFA 108 (90 Base) MCG/ACT Inhalation Aerosol SolutionIndications :Tobacco use disorder INHALE TWO PUFFS BY MOUTH EVERY 4 HOURS NEEDED FOR WHEEZING 18 g 11 03/14/2023 Active BD Pen Needle Rose 2nd Gen 32G X 4 MM (Insulin Pen Needle)Indications: Type 2 diabetes mellitus with stage 3b chronic kidney disease, without long-term current use of insulin ([facility]) USE WITH LANTUS SOLOSTAR PEN INJECTOR 100 Each 3 03/16/2023 Active Creon 00853-196975 UNIT Oral Capsule Delayed Release Particles Take 2 Capsules by mouth in the morning and 2 Capsules at noon and 2 Capsules in the evening. Take with meals. 0 03/14/2023 Active Pantoprazole Sodium 40 MG Oral Tablet Delayed Release (Protonix) Take 1 Tablet by mouth in the morning. In the morning.. 0 03/14/2023 Active documented as of this encounter (statuses as of 03/18/2023) Active Problems Problem Noted Date Diagnosed Date [...] as of this encounter (statuses as of 03/18/2023) Resolved Problems Problem Noted Date Diagnosed Date Resolved Date Carotid stenosis, asymptomatic, left 12/19/2022 03/10/2023 Hepatic cirrhosis 12/19/2022 03/11/2023 documented as of this encounter (statuses as of 03/18/2023) Immunizations Name Administration Dates Next Due Pneumococcal [...] encounter Miscellaneous Notes * Telephone Encounter - Desi Denise RN - 03/17/2023 2:20 PM EST I left a message for the patient to return my call. * Telephone Encounter - Sintia Langford DO - 03/17/2023 1:45 PM EST Please let the patient know that overall her comprehensive metabolic panel was stable. I am somewhat concerned as her blood sugar was 278, I would recommend that we have her contact her primary care doctor as he will likely need to further titrate her medications for diabetes. Latest Reference Range & Units 03/17/23 09:12 Albumin 3.8 - 5.0 g/dL 4.0 AST 10 - 35 U/L 29 ALT 10 - 35 U/L 26 Alkaline Phosphatase 35 - 130 U/L 184 (H) Bilirubin, Total <=1.2 mg/dL 0.5 (H): Data is abnormally high Latest Reference Range & Units 03/17/23 09:12 WBC 4.00 - 10.80 K/uL 9.94 HGB 12.0 - 15.3 g/dL 11.4 (L) HCT 36.0 - 45.2 % 36.4 MCV 81.5 - 97.5 fL 84.5 PLT 140 - 400 K/uL 142 (L): Data is abnormally low Latest Reference Range & Units 03/17/23 09:12 Sodium 135 - 146 mmol/L 139 Potassium 3.5 - 5.1 mmol/L 4.2 Chloride 98 - 107 mmol/L 102 CO2 22 - 32 mmol/L 25 BUN 6 - 20 mg/dL 15 Creatinine 0.5 - 1.0 mg/dL 1.3 (H) Estimated Glomerular Filtration Rate >=60 mL/min 49 (L) Anion Gap 7 - 15 mmol/L 12 Glucose 70 - 120 mg/dL 278 (H) Calcium 8.4 - 10.2 mg/dL 9.6 Protein 6.0 - 8.3 g/dL 7.0 INR 0.8 - 1.2 0.9 Prothrombin Time 11.6 - 15.2 seconds 12.8 (H): Data is abnormally high (L): Data is abnormally low documented in this encounter Plan of Treatment Upcoming Encounters Date Type Department Care Team (Latest Contact Info) Description 03/20/2023 4:00 PM EST Office Visit [facility] [address] [place] [address] Holland Dominique MD [address] [address] 04/01/2023 2:00 PM EST Office Visit Pharmacy, [facility] [address] [place] [address] [facility] [address] [place] [address] 05/15/2023 2:00 PM EST Office Visit Hepatology, [facility] [address] [place] [address] Dede Olmedo MD [address] [place] [address] 06/09/2023 8:00 AM EST Hospital Encounter ENDO [facility], Endoscopy Room [facility] [address] [place] [phone] Sintia Langford, DO [address] [place] [address] 06/09/2023 8:00 AM EST - 06/09/2023 9:00 AM EST Surgery ENDO [facility], Endoscopy Room [facility] [address] [place] [phone] Sintia Langford, DO [address] [place] [address] ESOPHAGOGASTRODUODENOSCOPY (EGD), FLEXIBLE, TRANSORAL, ENDOSCOPIC ULTRASOUND Scheduled Procedures Name Priority Associated Diagnoses Date/Ti me ESOPHAGOGASTRODUODENOSCOPY ( EGD), FLEXIBLE, TRANSORAL, ENDOSCOPIC ULTRASOUND Recall Other chronic pancreatitis (HCC) 06/09/2023 8:00 AM EST ESOPHAGOGASTRODUODENOSCOPY ( EGD), FLEXIBLE, TRANSORAL, DIAGNOSTIC Recall Esophageal varices (HCC) COLONOSCOPY FLEXIBLE PROXIMA L DIAGNOSTIC Recall Encounter for screening colonoscopy Health Maintenance Due Date Last Done Comments DISCUSS TOBACCO CESSATION (REFER TO SMARTSET #9626) 1965 Hepatitis B (1 of 3 - 3-dose series) 1965 COVID-19 Vaccine (#1) 1965 Depression Screening 1976 HIV Screening 01/04/1979 Diabetic Foot Exam 01/04/1982 DTaP,Tdap,and Td Vaccines (1 - Tdap) 01/04/1983 Pap Smear 01/04/1985 Cervical Cancer Screening 01/04/1994 HPV/Co-Test 01/04/1994 Cologuard 01/04/2009 Fecal Occult Blood Test 01/04/2009 Sigmoidoscopy 01/04/2009 LUNG CANCER SCREENING - USE SMARTSET [id number] 01/04/2014 Zoster Vaccines (1 of 2) 01/04/2014 Pneumococcal Vaccine: Pediatrics (0 to 5 Years) and At-Risk Patients (6 to 64 Years) (2 - PCV) 09/16/2016 09/17/2015 Influenza Vaccine (FLU shot) (#1) 2022 02/16/2016, 01/10/2014, 03/02/2008, Additional history exists HbA1c 06/19/2023 12/19/2022, 07/19, 04/29/2021, Additional history exists Albumin/Creatinine Ratio 12/20/2023 12/19/2022 Mammogram 02/18/2024 02/17/2023, 01/18, 10/20/2018, Additional history exists Diabetic Eye Exam 02/19/2024 02/18/2023 GFR 03/17/2024 03/17/2023, 12/19, 12/19/2022, Additional history exists Colonoscopy 04/10/2026 04/10/2016, 04/10/2016 Colorectal Cancer Screening 04/10/2026 Hepatitis C Screening Completed 08/31/2018 GARDASIL-HPV IMMUNIZATION SERIES Aged Out No longer eligible based on patient's age to complete this topic MENINGOCOCCAL (MENACTRA/MENVEO) Aged Out No longer eligible based on patient's age to complete this topic documented as of this encounter Medical Devices Not on filedocumented as of this encounter Care Teams Supervisor Electric Relationship Specialty Start Date End Date Holland Dominique MD [address] [place] [address] PCP - General Family Medicine 12/26/22 documented as of this encounter
--- OUTSIDE RECORDS SUMMARY | 2023-04-03 12:19 | External Medical Summary | Summary of Care ---
Author Name Unknown Organization [facility] Address [address] [place] [address] Phone [phone] Care Team Providers Care Crisis Intervention Counselor Name Role Phone Holland Dominique MD Primary Care Provider [phone] Reason for Visit * Reason Onset Date Comments Test Results Lab 03/17/2023 Encounter Details Date Type Department Care Team (Late st Contact Info) Description 03/17/2023 Telephone Gastroenterology, [facility] [address] [place] [address] Sintia Langford DO [address] [place] [address] Test Results Lab Allergies Active Allergy Reactions [...] hemoglobin A1c goal of less than 7.0% ([facility]) Use to test blood sugars twice a day 200 Strip 11 02/13/2023 Active Lantus SoloStar 100 UNIT/ML Subcutaneous Solution Pen-injectorIndicat ions:Type 2 diabetes mellitus with hemoglobin A1c goal of less than 7.0% ([facility]) Inject 16 Units under the [...] disease, without long-term current use of insulin ([facility]) USE WITH LANTUS SOLOSTAR PEN INJECTOR 100 Each 3 03/16/2023 Active Creon 98648-656090 UNIT Oral Capsule Delayed Release Particles Take [...] Description 03/20/2023 4:00 PM EST Office Visit [facility] [address] [place] [address] Holland Dominique MD [address] [place] [address] 04/01/2023 2:00 PM EST Office Visit Pharmacy, [facility] [address] [place] [address] [facility] [address] [place] [address] 05/15/2023 2:00 PM EST Office Visit Hepatology, [facility] [address] [place] [address] Dede Olmedo MD [address] [place] [address] 06/09/2023 8:00 AM EST Hospital Encounter ENDO [facility], Endoscopy Room [facility] [address] [place] [phone] Sintia Langford, DO [address] [place] [address] 06/09/2023 8:00 AM EST - 06/09/2023 9:00 AM EST Surgery ENDO [facility], Endoscopy Room [facility] [address] [place] [phone] Sintia Langford, DO [address] [place] [address] ESOPHAGOGASTRODUODENOSCOPY (EGD), FLEXIBLE, TRANSORAL, ENDOSCOPIC ULTRASOUND Scheduled Procedures Name Priority Associated Diagnoses Date/Ti me ESOPHAGOGASTRODUODENOSCOPY ( EGD), FLEXIBLE, TRANSORAL, ENDOSCOPIC ULTRASOUND Recall Other chronic pancreatitis (HCC) 06/09/2023 8:00 AM EST ESOPHAGOGASTRODUODENOSCOPY ( EGD), FLEXIBLE, TRANSORAL, DIAGNOSTIC Recall Esophageal varices (HCC) COLONOSCOPY FLEXIBLE PROXIMA L DIAGNOSTIC Recall Encounter for screening colonoscopy Health Maintenance Due Date Last Done Comments DISCUSS TOBACCO CESSATION (REFER TO SMARTSET #7269) 1965 Hepatitis B (1 of 3 - 3-dose series) 1965 COVID-19 Vaccine (#1) 1964 Depression Screening 1976 HIV Screening 01/04/1979 Diabetic Foot Exam 01/04/1982 DTaP,Tdap,and Td Vaccines (1 - Tdap) 01/04/1983 Pap Smear 01/04/1985 Cervical Cancer Screening 01/04/1994 HPV/Co-Test 01/04/1994 Cologuard 01/04/2009 Fecal Occult Blood Test 01/04/2009 Sigmoidoscopy 01/04/2009 LUNG CANCER SCREENING - USE SMARTSET 10720 01/04/2014 Zoster Vaccines (1 of 2) 01/04/2014 [...] filedocumented as of this encounter Care Teams Crisis Intervention Counselor Relationship Specialty Start Date End Date Holland Dominique MD [address] [place] [address] PCP - General Family Medicine 12/26/22 documented as of this encounter
--- OUTSIDE RECORDS SUMMARY | 2023-04-03 12:19 | External Medical Summary | Summary of Care ---
Author Name Unknown Organization [facility] Address [address] [place] [address] Phone [phone] Care Team Providers Care Vp Cardiovascular Service Line Name Role Phone Holland Dominique MD Primary Care Provider [phone] Reason for Visit * Reason Onset Date Comments Hospital Follow-Up 03/16/2023 [facility] 03/13 Encounter Details Date Type Department Care Team (Late st Contact Info) Description 03/16/2023 Telephone Ancillary [facility] [address] [facility] [place] [address] Keena Wright, RN Hospital Follow-Up ([facility] 03/13) Allergies Active Allergy Reactions Criticality Noted Date Comments Bee Venom Anaphylaxis High 09/19/2014 Other reaction(s): Angioedema Celecoxib Anaphylaxis High 12/05/2014 Morphine Other (Please comment) 12/05/2014 Exacerbation of pain documented as of this encounter (statuses as of 03/16/2023) Medications Medication Sig Dispensed Refills Start Date [...] hemoglobin A1c goal of less than 7.0% ([facility]) Use to test blood sugars [...] MCG/ACT Inhalation Aerosol SolutionIndication s:Tobacco use disorder INHALE TWO PUFFS BY MOUTH EVERY 4 HOURS NEEDED FOR WHEEZING 18 g 11 03/14/2023 Active Creon 29315-950866 UNIT Oral Capsule Delayed Release Particles Take 2 Capsules by mouth in the morning and 2 Capsules at noon and 2 Capsules in the evening. Take with meals. 0 03/14/2023 Active Pantoprazole Sodium 40 MG Oral Tablet Delayed Release (Protonix) Take 1 Tablet by mouth in the morning. In the morning.. 0 03/14/2023 Active Pantoprazole Sodium 20 MG Oral Tablet Delayed Release (Protonix)Indicati ons:Gastroesophage al reflux disease, unspecified whether esophagitis present,H/O esophageal varices Take 1 Tablet by mouth in the morning. 90 Tablet 3 02/13/2023 Discontinue d(Medicatio n/Dose Changed) documented as of this encounter (statuses as of 03/16/2023) Active Problems Problem Noted Date Diagnosed Date [...] as of this encounter (statuses as of 03/16/2023) Resolved Problems Problem Noted Date Diagnosed Date Resolved Date Carotid stenosis, asymptomatic, left 12/19/2022 03/10/2023 Hepatic cirrhosis 12/19/2022 03/11/2023 documented as of this encounter (statuses as of 03/16/2023) Immunizations Name Administration Dates Next Due Pneumococcal [...] encounter Miscellaneous Notes * Telephone Encounter - Keena Wright RN - 03/16/2023 10:14 AM EST Transitions of Care Note Reason for Referral:Recent Admission Phone visit for follow up: [facility] Admitted to: [facility], Date: 03/10 Discharged to: home, Date: 03/13 Diagnosis driving hospitalization: acute on chronic pancreatitis Source/Contact: Patient SUBJECTIVE Consent: Verbal consent for review of hospital discharge: Yes REVIEW OF SYSTEMS Patient/Other Reports: Current patient/caregiver problems or concerns: none at this time CV: Denies problems Pulmonary: Denies problems Chills/Sweats/Fever:Denies chills/sweats Denies fever Appetite:Denies problems such as nausea, vomiting, burning, decreased appetite Current diet: as before Bowel: denies problems Bladder: denies problems Wound (If applicable): N/A Pain:Denies Sleep:Frequent awakening FUNCTIONAL STATUS: ADL'S: Needs Assistance With:N/A as pt is independent IADL'S: Needs Assistance With:N/A as pt is independent Cognitive and Mental Health: denies problems, alert and oriented x 3, and able to communicate, understand instructions, process information. MEDICATION RECONCILIATION Medications: Discharge med list reviewed with patient or caregiver New medication(s) filled since hospitalization- creon Changed medication(s) since hospitalization protonix Reports all medications taken as prescribed. Denies side effects OBJECTIVE ASSESSMENT Medication Risk Assessment: No risks identified Did patient fail outpatient treatment? No Discharge instructions available for review? Yes PLAN Symptom Monitoring Interventions:Member/caregiver education - signs and symptoms to contact PrimaryCare (DO NOT DELETE-Three johnston symptoms patient is to report to PCP) 1. Acute abdominal pain 2. N/V/D 3. fever Hoisting EngineerLumber Grader of Care interventions/Action Plan: Medication reconciliation and 5 - 7 day follow-up with PCP in place - Date: 03/20 Educated on role of MY[facility] completed with patient/caregiver. Educated patient/caregiver on patient right to have input on [facility] plan of care. Verification of Home Health/DME if indicated: NO Identified Care Gaps: Yes Care Gaps closed this call: Appointment made or confirmed, Post discharge appointment, and Transition of Care follow-up communication Re-evaluation of Plan of Care and progress towards goals achievement: Patient education this visit: Verbal, as above Plan to follow-up as previously scheduled, instructed to call Primary Care Provider with change in symptoms or as needed before next follow-up, discharge needs met, verbalizes understanding and agrees with plan. Keena M Jellison, RN documented in this encounter Plan of Treatment Upcoming Encounters Date Type Department Care Team (Late st Contact Info) Description 03/17/2023 8:40 AM EST Office Visit Gastroenterology, [facility] [address] [facility] [place] [address] Sintia Langford DO [address] [facility] [address] 03/20/2023 4:00 PM EST Office Visit Family Practice [facility] [address] [place] [address] Holland Dominique MD 132 [place] [address] 04/01/2023 2:00 PM EST Office Visit Pharmacy, [facility] [address] [place] [address] [facility] [address] [place] [address] 05/15/2023 2:00 PM EST Office Visit Hepatology, [facility] [address] [facility] [place] [address] Dede Olmedo MD [address] [place] [phone] Scheduled Procedures Name Priority Associated Diagnoses Date/Ti me ESOPHAGOGASTRODUODENOSCOPY ( EGD), FLEXIBLE, TRANSORAL, DIAGNOSTIC Recall Esophageal varices (HCC) COLONOSCOPY FLEXIBLE PROXIMAL DIAGNOSTIC Recall Encounter for screening colonoscopy Health Maintenance Due Date Last Done Comments DISCUSS TOBACCO CESSATION (REFER TO SMARTSET #7739) 1965 Hepatitis B (1 of 3 - 3-dose series) 1965 COVID-19 Vaccine (#1) 1965 Depression Screening 1976 HIV Screening 01/04/1979 Diabetic Foot Exam 01/04/1982 DTaP,Tdap,and Td Vaccines (1 - Tdap) 01/04/1983 Pap Smear 01/04/1985 Cervical Cancer Screening 01/04/1994 HPV/Co-Test 01/04/1994 Cologuard 01/04/2009 Fecal Occult Blood Test 01/04/2009 Sigmoidoscopy 01/04/2009 LUNG CANCER SCREENING - USE SMARTSET 95639 01/04/2014 Zoster Vaccines (1 of 2) 01/04/2014 [...] filedocumented as of this encounter Care Teams Vp Cardiovascular Service Line Relationship Specialty Start Date End Date Holland Dominique MD [address] [place] [address] PCP - General Family Medicine 12/26/22 documented as of this encounter
--- OUTSIDE RECORDS SUMMARY | 2023-04-03 12:19 | External Medical Summary | Summary of Care ---
Author Name Unknown Organization [facility] Address [address] [place] [address] Phone [phone] Care Team Providers Care Thread Weaver Name Role Phone Holland Dominique MD Primary Care Provider [phone] Reason for Visit * Reason Onset Date Comments Test Results Lab 03/17/2023 Encounter Details Date Type Department Care Team (Late st Contact Info) Description 03/17/2023 Telephone Gastroenterology, [facility] [address] [place] [address] Sintia Langford DO [address] [place] [address] Test Results Lab Allergies Active Allergy Reactions Criticality Noted Date Comments Bee Venom Anaphylaxis High 09/19/2014 Other reaction(s): Angioedema Celecoxib Anaphylaxis High 12/05/2014 Morphine Other (Please comment) 12/05/2014 Exacerbation of pain documented as of this encounter (statuses as of 03/17/2023) Medications Medication Sig Dispensed Refills Start Date [...] hemoglobin A1c goal of less than 7.0% ([facility]) Use to test blood sugars twice a day 200 Strip 11 02/13/2023 Active Lantus SoloStar 100 UNIT/ML Subcutaneous Solution Pen-injectorIndicat ions:Type 2 diabetes mellitus with hemoglobin A1c goal of less than 7.0% ([facility]) Inject 16 Units under the [...] disease, without long-term current use of insulin ([facility]) USE WITH LANTUS SOLOSTAR PEN INJECTOR 100 Each 3 03/16/2023 Active Creon [id number] UNIT Oral Capsule Delayed Release Particles Take 2 Capsules by mouth in the morning and 2 Capsules at noon and 2 Capsules in the evening. Take with meals. 0 03/14/2023 Active Pantoprazole Sodium 40 MG Oral Tablet Delayed Release (Protonix) Take 1 Tablet by mouth in the morning. In the morning.. 0 03/14/2023 Active documented as of this encounter (statuses as of 03/17/2023) Active Problems Problem Noted Date Diagnosed Date [...] as of this encounter (statuses as of 03/17/2023) Resolved Problems Problem Noted Date Diagnosed Date Resolved Date Carotid stenosis, asymptomatic, left 12/19/2022 03/10/2023 Hepatic cirrhosis 12/19/2022 03/11/2023 documented as of this encounter (statuses as of 03/17/2023) Immunizations Name Administration Dates Next Due Pneumococcal [...] encounter Miscellaneous Notes * Telephone Encounter - Sintia Langford DO [...] for diabetes. Latest Reference Range & Units 11/28/23 09:12 Albumin 3.8 - 5.0 g/dL 4.0 [...] 4:00 PM EST Office Visit Family Practice [facility] [address] [place] [address] Holland Dominique MD [address] [place] [address] 04/01/2023 2:00 PM EST Office Visit Pharmacy, [facility] [address] [place] [address] [phone] [place] [address] [address] [place] [address] 05/15/2023 2:00 PM EST Office Visit Hepatology, [facility] [address] [place] [address] Dede Olmedo MD [address] [place] [address] 06/09/2023 8:00 AM EST Hospital Encounter ENDO [facility], Endoscopy Room [facility] [address] [place] [phone] Sintia Langford, DO [address] [place] [address] 06/09/2023 8:00 AM EST - 06/09/2023 9:00 AM EST Surgery ENDO [facility], Endoscopy Room [facility] [address] [place] [phone] Sintia Langford, DO [address] [place] [address] ESOPHAGOGASTRODUODENOSCOPY (EGD), FLEXIBLE, TRANSORAL, ENDOSCOPIC ULTRASOUND Scheduled [...] 01/04/2009 LUNG CANCER SCREENING - USE SMARTSET 63238 01/04/2014 Zoster Vaccines (1 of 2) 01/04/2014 [...] filedocumented as of this encounter Care Teams Thread Weaver Relationship Specialty Start Date End Date Holland Dominique MD [address] [facility] [place] [address] PCP - General Family Medicine 12/26/22 documented as of this encounter
--- OUTSIDE RECORDS SUMMARY | 2023-04-03 12:19 | External Medical Summary ---
Author Name Unknown Address Unknown Organization [id number]:[facility] [place] - [address] [place] [address] Laboratory Report Ordering Provider Test Date Status DENNISEMARYSE HERMAN 03/17/2023 09:12:34 Final Deficient: <20 ng/mL
Ins ufficient: 20-29 ng/mL
Recommended/Optimum:30-50 ng/mL

Vitamin D intoxication is rare. If suspicious of Vitamin D toxicity, evaluation of serum Calcium and PTH is recommended. Observation Date Value Abnormality Reference (Units ) Status 25-OH Vitamin D total 03/17/2023 09:12:34 56 >19 (ng/mL) Final Performing Location [facility] [place] - [address] [place] [address]
--- OUTSIDE RECORDS SUMMARY | 2023-04-03 12:19 | External Medical Summary | Summary of Care ---
Author Name Unknown Organization [facility] Address [address] [place] [address] Phone [phone] Care Team Providers Care Deputy City Clerk Name Role Phone Holland Dominique MD Primary Care Provider [phone] Reason for Visit * Reason Comments eRx-Medication Refill Encounter Details Date Type Department Care Team (Late st Contact Info) Description 03/13/2023 Refill Family Practice [facility] [address] [place] [address] Alyssa Magallon CRNP [address] [place] [address] Tobacco use disorder Allergies Active Allergy Reactions Criticality Noted Date Comments Bee Venom Anaphylaxis High 09/19/2014 Other reaction(s): Angioedema Celecoxib Anaphylaxis High 12/05/2014 Morphine Other (Please comment) 12/05/2014 Exacerbation of pain documented as of this encounter (statuses as of 03/14/2023) Medications Medication Sig Dispensed Refills Start Date End Date Status Aspirin-Acetamino phen-Caffeine 250-250-65 MG Oral Tablet Take 2 Tablets by mouth every 8 hours as needed. 0 Active Empagliflozin 10 MG Oral Tablet (Jardiance) Take 1 Tablet by mouth in the morning. 90 Tablet 1 02/17/2023 Active Atenolol 25 MG Oral Tablet (Tenormin)Indicat [...] goal of less than 7.0% ([facility]) Use to test blood sugars twice a day 200 Strip 11 02/13/2023 Active Lantus SoloStar 100 UNIT/ML Subcutaneous Solution Pen-injectorIndic ations:Type 2 diabetes mellitus with hemoglobin A1c goal of less than 7.0% ([facility]) Inject 16 Units under the skin in the morning and 16 Units before bedtime. 15 mL 5 02/13/2023 Active EpiPen 2-Rahul 0.3 MG/0.3ML Injection Solution Auto-injectorIndi cations:Allergy to honey bee venom For a severe reaction: Inject in outer thigh following instructions on package and go to the Emergency room. 2 Each 3 02/13/2023 Active Lisinopril 20 MG Oral Tablet (Prinivil)Indicat ions:HTN, goal below 140/90 Take 1 Tablet by mouth in the morning. 30 Tablet 9 02/13/2023 Active BD Pen Needle Rose U/F 32G X 4 MM (Insulin Pen Needle)Indication s:Type 2 diabetes mellitus with stage 3b chronic kidney disease, without long-term current use of insulin ([facility]) Use with lantus solostar pen- injector 180 Each 0 02/12/2023 Active ProAir HFA 108 (90 Base) MCG/ACT Inhalation Aerosol SolutionIndicatio ns:Tobacco use disorder Inhale 2 Puffs by mouth as needed for Cough. 8.5 g 0 02/12/2023 Active Albuterol Sulfate HFA 108 (90 Base) MCG/ACT Inhalation Aerosol SolutionIndicatio ns:Tobacco use disorder INHALE TWO PUFFS BY MOUTH EVERY 4 HOURS NEEDED FOR WHEEZING 18 g 11 03/14/2023 Active Ventolin HFA 108 (90 Base) MCG/ACT Inhalation Aerosol SolutionIndicatio ns:Tobacco use disorder Inhale 2 Puffs by mouth every 4 hours as needed for Wheezing. 8.5 g 0 03/03/2023 03/14/20 Discontinued documented as of this encounter (statuses [...] encounter Miscellaneous Notes * Telephone Encounter - Lyudmila Hernandez [facility] - 03/14/2023 3:29 PM ESTSigned Prescriptions: Disp Refills Albuterol Sulfate HFA 108 (90 Base) MCG/AC*18 g 11 Sig: INHALE TWO PUFFS BY MOUTH EVERY 4 HOURS NEEDED FOR WHEEZINGAuthorizing Provider: Andrew MAGALLON User: LYUDMILA HERNANDEZ documented in this encounter Plan of Treatment Upcoming Encounters Date Type Department Care Team (Late st Contact Info) Description 03/17/2023 8:40 AM EST Office Visit Gastroenterology, [facility] [address] [place] [address] Sintia Langford DO [address] [place] [address] 03/20/2023 4:00 PM EST Office Visit Family Practice [facility] [address] [place] [address] Holland Dominique MD 132 [facility] [place] [address] 04/01/2023 2:00 PM EST Office Visit Pharmacy, [facility] [address] [facility] [place] [address] [facility] [address] [facility] [place] [address] 05/15/2023 2:00 PM EST Office Visit Hepatology, [facility] [address] [facility] [place] [address] Dede Olmedo MD [address] [place] [phone] Scheduled Procedures Name Priority Associated Diagnoses Date/Ti me ESOPHAGOGASTRODUODENOSCOPY ( EGD), FLEXIBLE, TRANSORAL, DIAGNOSTIC Recall Esophageal varices (HCC) COLONOSCOPY FLEXIBLE PROXIMAL DIAGNOSTIC Recall Encounter for screening colonoscopy Health Maintenance Due Date Last Done Comments DISCUSS TOBACCO CESSATION (REFER TO SMARTSET #7233) 1965 Hepatitis B (1 of 3 - 3-dose series) 1965 COVID-19 Vaccine (#1) 1965 Depression Screening 1976 HIV Screening 01/04/1979 Diabetic Foot Exam 01/04/1982 DTaP,Tdap,and Td Vaccines (1 - Tdap) 01/04/1983 Pap Smear 01/04/1985 Cervical Cancer Screening 01/04/1994 HPV/Co-Test 01/04/1994 Cologuard 01/04/2009 Fecal Occult Blood Test 01/04/2009 Sigmoidoscopy 01/04/2009 LUNG CANCER SCREENING - USE SMARTSET 83123 01/04/2014 Zoster Vaccines (1 of 2) 01/04/2014 [...] as of this encounter Visit Diagnoses Diagnosis Tobacco use disorder documented in this encounter Care Teams Deputy City Clerk Relationship Specialty Start Date End Date Holland Dominique MD [address] [place] [address] PCP - General Family Medicine 12/26/22 documented as of this encounter
--- OUTSIDE RECORDS SUMMARY | 2023-04-03 12:19 | External Medical Summary ---
Author Name Unknown Address Unknown Organization K0G:[facility] - [address] [place] [address] Laboratory Report Ordering Provider Test Date Status NAUN SANCHEZ 03/17/2023 09:12:34 Final Observation Date Value Abnormality Reference (Units ) Status WBC, Total 03/17/2023 09:12:34 9.94 4.00-10.8 0 (K/uL) Final RBC 03/17/2023 09:12:34 4.31 3.85-5.15 (M/uL) Final Hemoglobin 03/17/2023 09:12:34 11.4 Below low normal 12 .0-15.3 (g/dL) Final HCT 03/17/2023 09:12:34 36.4 36.0-45.2 (%) Final MCV 03/17/2023 09:12:34 84.5 81.5-97.5 (fL) Final MCH 03/17/2023 09:12:34 26.5 27.0-34.0 (pg) Final MCHC 03/17/2023 09:12:34 31.3 32.0-36.0 (g/dL) Final RDW 03/17/2023 09:12:34 16.1 11.5-15.5 (%) Final Platelets 03/17/2023 09:12:34 142 140-400 (K /uL) Final MPV 03/17/2023 09:12:34 11.3 6.6-11.1 ( fL) Final Performing Location [facility] [address] - [address] [place] [address]
--- OUTSIDE RECORDS SUMMARY | 2023-04-03 12:19 | External Medical Summary | Summary of Care ---
Author Name Unknown Organization [facility] Address [address] [place] [address] Phone [phone] Care Team Providers Care Transport Company Manager Name Role Phone Holland Dominique MD Primary Care Provider [phone] Reason for Visit * Reason Comments NEW PATIENT Encounter Details Date Type Department Care Team (Late st Contact Info) Description 03/20/2023 4:00 PM EST Office Visit [facility] [address] [facility] [place] [address] Holland Dominique MD [address] [facility] [place] [address] Type 2 diabetes mellitus with hemoglobin A1c goal of less than 7.0% (HCC)*; Alcohol-induced chronic pancreatitis (HCC); Dyslipidemia; Subclavian artery stenosis, left (HCC); Right carotid artery occlusion; HTN, goal below 130/80; Gastroesophageal reflux disease with esophagitis without hemorrhage; Tobacco use disorder; Alcoholic cirrhosis of liver without ascites (HCC); S/P carotid endarterectomy; History of TIA (transient ischemic attack) Allergies Active Allergy Reactions Criticality Noted Date Comments Bee Venom Anaphylaxis High 09/19/2014 Other reaction(s): Angioedema Celecoxib Anaphylaxis High 12/05/2014 Morphine Other (Please comment) 12/05/2014 Exacerbation of pain documented as of this encounter (statuses as of 03/20/2023) Medications Medication Sig Dispensed Refills Start Date [...] hemoglobin A1c goal of less than 7.0% ([facility]) Use to test blood sugars twice a day 200 Strip 11 02/13/2023 Active Lantus SoloStar 100 UNIT/ML Subcutaneous Solution Pen-injectorIndic ations:Type 2 diabetes mellitus with hemoglobin A1c goal of less than 7.0% ([facility]) Inject 16 Units under the skin in [...] Gen 32G X 4 MM (Insulin Pen Needle)Indication s:Type 2 diabetes mellitus with stage 3b chronic kidney disease, without long-term current use of insulin (HCC) USE WITH LANTUS SOLOSTAR PEN INJECTOR 100 Each 3 03/16/2023 Active Pantoprazole Sodium 40 MG Oral Tablet Delayed Release (Protonix) Take 1 Tablet by mouth in the morning. In the morning.. 0 03/14/2023 Active Creon [id number] UNIT Oral Capsule Delayed Release Particles Take 2 Capsules by mouth in the morning and 2 Capsules at noon and 2 Capsules in the evening. Take with meals. 180 Capsule 3 03/20/2023 Active buPROPion HCl ER (XL) 150 MG Oral Tablet Extended Release 24 Hour (Wellbutrin XL) Take 1 Tablet by mouth in the morning. 90 Tablet 3 03/20/2023 Active Creon 55946-362242 UNIT Oral Capsule Delayed Release Particles Take 2 Capsules by mouth in the morning and 2 Capsules at noon and 2 Capsules in the evening. Take with meals. 0 03/14/2023 3 Discontinu ed(Refill) buPROPion HCl ER (XL) 150 MG Oral Tablet Extended Release 24 Hour (Wellbutrin XL) Take 1 Tablet by mouth in the morning. 90 Tablet 3 03/20/2023 3 Discontinu ed(Refill) documented as of this encounter (statuses as of 03/20/2023) Active Problems Problem Noted Date Diagnosed Date BMI less than 19,adult 03/19/2023 Alcoholic cirrhosis of liver without ascites Right [...] as of this encounter (statuses as of 03/20/2023) Resolved Problems Problem Noted Date Diagnosed Date Resolved Date Carotid stenosis, asymptomatic, left 12/19/2022 03/10/2023 Hepatic cirrhosis 12/19/2022 03/11/2023 documented as of this encounter (statuses as of 03/20/2023) Immunizations Name Administration Dates Next Due Pneumococcal [...] Sign Reading Time Taken Comments Blood Pressure 128/80 03/20/2023 3:57 PM EST Pulse 68 03/20/2023 3:57 PM EST Temperature 36.2 C (97.2 F) 03/20/2023 3:57 PM ES T Respiratory Rate 18 03/20/2023 3:57 PM EST Oxygen Saturation - - Inhaled Oxygen Concentration - - Weight 53.1 kg (117 lb) 03/20/2023 3:57 PM EST Height 172.7 cm (5' 8") 03/20/2023 3:57 PM EST Body Mass Index 17.79 03/20/2023 3:57 PM EST documented in this encounter Progress Notes * Holland Dominique MD - 03/20/2023 10:51 PM EST SUBJECTIVE: Shara Rodriguez is a 58 year old female. Chief Complaint Patient presents with NEW PATIENT HPI: Here to establish care. Chronic issues reviewed. Requesting wellbutrin to help with smoking cessation. Has alcoholic cirrhosis and chronic pancreatitis following with GI. Patient Active Problem List Diagnosis Code Type 2 diabetes mellitus with hemoglobin A1c goal of less than 7.0% (HCC) E11.9 Gastroesophageal reflux disease K21.9 Dyslipidemia E78.5 Tobacco use disorder F17.200 S/P carotid endarterectomy Z98.890 History of TIA (transient ischemic attack) Z86.73 HTN, goal below 130/80 I10 Chronic pancreatitis (HCC) K86.1 Right carotid artery occlusion I65.21 Subclavian artery stenosis, left (HCC) I77.1 Alcoholic cirrhosis of liver without ascites (HCC) K70.30 BMI less than 19,adult Z68.1 Current Outpatient Medications Medication Sig Dispense Refill Beqdhcw-Dcpxmgtvaztha-Ueaibawx 250-250-65 MG Oral Tablet Take 2 Tablets by mouth every 8 hours as needed. Empagliflozin 10 MG Oral Tablet (Jardiance) Take 1 Tablet by mouth in the morning. 90 Tablet 1 Atenolol 25 MG Oral Tablet (Tenormin) Take 1 Tablet by mouth in the morning. 90 Tablet 3 Rosuvastatin Calcium 20 MG Oral Tablet (Crestor) Take 1 Tablet by mouth in the morning. 90 Tablet 3 Lantus SoloStar 100 UNIT/ML Subcutaneous Solution Pen-injector [...] mouth in the morning. 30 Tablet 9 ProAir HFA 108 (90 Base) MCG/ACT Inhalation Aerosol Solution Inhale 2 Puffs by mouth as needed for Cough. 8.5 g 0 Albuterol Sulfate HFA 108 (90 Base) MCG/ACT Inhalation Aerosol Solution INHALE TWO PUFFS BY MOUTH EVERY 4 HOURS NEEDED FOR WHEEZING 18 g 11 Pantoprazole Sodium 40 MG Oral Tablet Delayed Release (Protonix) Take 1 Tablet by mouth in the morning. In the morning.. Creon 40940-473623 UNIT Oral Capsule Delayed Release Particles Take 2 Capsules by mouth in the morning and 2 Capsules at noon and 2 Capsules in the evening. Take with meals. 180 Capsule 3 buPROPion HCl ER (XL) 150 MG Oral Tablet Extended Release 24 Hour (Wellbutrin XL) Take 1 Tablet by mouth in the morning. 90 Tablet 3 OneTouch Ultra In Vitro Strip (Glucose Blood) Use to test blood sugars twice a day 200 Strip 11 BD Pen Needle Rose 2nd Gen 32G X 4 MM (Insulin Pen Needle) USE WITH LANTUS SOLOSTAR PEN INJECTOR 100 Each 3 No current facility-administered medications for this visit. Allergy: Review of patient's allergies indicates: Allergen Reactions Bee Venom Anaphylaxis Other reaction(s): Angioedema Celebrex [Celecoxib] Anaphylaxis Morphine Other (Please comment) Exacerbation of pain OBJECTIVE: BP 128/80 | Pulse 68 | Temp 36.2 C (97.2 F) (Tympanic) | Resp 18 | Ht 1.727 m (5' 8") | Wt 53.1kg (117 lb) | BMI 17.79 kg/m | BSA 1.6 m General: alert, healthy, and no distress Head: Normocephalic, No masses, lesions, tenderness or abnormalities Eye Exam: PERRLA, extraocular movements intact, conjunctiva are pink and non- injected, sclera clear Oropharynx: no exudate, no erythema, lips, buccal mucosa, and tongue normal, and mucous membranes are moist Neck: supple, no adenopathy, no bruits, thyroid normal size, non-tender, without nodularity Heart: regular rate & rhythm, no murmur, and no gallops Pulses: carotid=2/4 w/o bruits Abdomen: abdomen soft, non-tender, normal bowel sounds, and no masses or organomegaly Extremities: less than 2 second capillary refill, no joint deformities, effusion, or inflammation Neuro Exam: alert & oriented x 3 with fluent speech, no focal motor/sensory deficits, gait normal, reflexes normal and symmetric Skin: skin color, texture, turgor are normal, no rashes or significant lesions ASSESSMENT AND PLAN: (E11.9) Type 2 diabetes mellitus with hemoglobin A1c goal of less than 7.0% (HCC) (primary encounter diagnosis) Plan: stable on rx (K86.0) Alcohol-induced chronic pancreatitis (HCC) Plan: abstinent x many years from etoh (E78.5) Dyslipidemia Plan: stable (I77.1) Subclavian artery stenosis, left (HCC) Plan: noted (I65.21) Right carotid artery occlusion Plan: noted (I10) HTN, goal below 130/80 Plan: stable (K21.00) Gastroesophageal reflux disease with esophagitis without hemorrhage Plan: stable (F17.200) Tobacco use disorder Plan: start wellbutrin2 (K70.30) Alcoholic cirrhosis of liver without ascites (HCC) Plan: mgmt per GI (Z98.890) S/P carotid endarterectomy Plan: stable (Z86.73) History of TIA (transient ischemic attack) Plan: continue rx Follow up as needed. No other complaints were offered at this time. Holland Dominique MD documented in this encounter Nursing Notes * Alcira Dhillon LPN - 03/20/2023 3:57 PM EST The patient has been properly identified by confirmation of name and date of . Chief Complaint Patient presents with NEW PATIENT documented in this encounter Plan of Treatment Upcoming Encounters Date Type Department Care Team (Latest Contact Info) Description 04/01/2023 2:00 PM EST Office Visit Pharmacy, [facility] [address] [facility] [place] [address] [facility] [address] [facility] [place] [address] 05/15/2023 2:00 PM EST Office Visit Hepatology, [facility] [address] [facility] [place] [address] Dede Olmedo MD [address] [place] [address] 06/09/2023 8:00 AM EST Hospital Encounter ENDO OSS, Endoscopy Room [facility] [address] [place] [phone] Sintia Langford, DO [address] [place] [address] 06/09/2023 8:00 AM EST - 06/09/2023 9:00 AM EST Surgery ENDO OSS, Endoscopy Room [facility] [address] [place] [phone] Sintia Langford, DO [address] [place] [address] ESOPHAGOGASTRODUODENOSCOPY (EGD), FLEXIBLE, TRANSORAL, ENDOSCOPIC ULTRASOUND Scheduled Procedures Name Priority Associated Diagnoses Date/Ti me ESOPHAGOGASTRODUODENOSCOPY ( EGD), FLEXIBLE, TRANSORAL, ENDOSCOPIC ULTRASOUND Recall Other chronic pancreatitis (HCC) 06/09/2023 8:00 AM EST ESOPHAGOGASTRODUODENOSCOPY ( EGD), FLEXIBLE, TRANSORAL, DIAGNOSTIC Recall Esophageal varices (HCC) COLONOSCOPY FLEXIBLE PROXIMA L DIAGNOSTIC Recall Encounter for screening colonoscopy Health Maintenance Due Date Last Done Comments DISCUSS TOBACCO CESSATION (REFER TO SMARTSET #4086) 1965 Hepatitis B (1 of 3 - 3-dose series) 1965 COVID-19 Vaccine (#1) 1965 Depression Screening 1976 HIV Screening 01/04/1979 Diabetic Foot Exam 01/04/1982 DTaP,Tdap,and Td Vaccines (1 - Tdap) 01/04/1983 Pap Smear 01/04/1985 Cervical Cancer Screening 01/04/1994 HPV/Co-Test 01/04/1994 Cologuard 01/04/2009 Fecal Occult Blood Test 01/04/2009 Sigmoidoscopy 01/04/2009 LUNG CANCER SCREENING - USE SMARTSET 90467 01/04/2014 Zoster Vaccines (1 of 2) 01/04/2014 [...] goal of less than 7.0% (HCC)- Primary Alcohol-induced chronic pancreatitis (HCC) Chronic pancreatitis Dyslipidemia Other and unspecified hyperlipidemia Subclavian artery stenosis, left (HCC) Atherosclerosis of other specified arteries Right carotid artery occlusion Occlusion and stenosis of carotid artery without mention of cerebral infarction HTN, goal below 130/80 Unspecified essential hypertension Gastroesophageal reflux disease with esophagitis without hemorrhage Tobacco use disorder Alcoholic cirrhosis of liver without ascites (HCC) Alcoholic cirrhosis of liver S/P carotid endarterectomy Other postprocedural status History of TIA (transient ischemic attack) Transient ischemic attack (TIA), and cerebral infarction without residual deficits Other chronic pancreatitis (HCC) documented in this encounter Care Teams Transport Company Manager Relationship Specialty Start Date End Date Holland Dominique MD [address] [facility] [place] [address] PCP - General Family Medicine 12/26/22 documented as of this encounter
--- OUTSIDE RECORDS SUMMARY | 2023-04-03 12:19 | External Medical Summary | Summary of Care ---
Author Name Unknown Organization [facility] Address [address] [place] [address] Phone [phone] Care Team Providers Care Online Retailer Name Role Phone Holland Dominique MD Primary Care Provider [phone] Reason for Visit * Reason Comments Outpatient Testing Encounter Details Date Type Department Care Team (Late st Contact Info) Description 03/17/2023 9:20 AM EST Laboratory Laboratory, [facility] [address] [place] [address] [facility] [address] [facility] [place] [address] Leukocytosis, unspecified type; Other chronic pancreatitis (HCC) Allergies Active Allergy Reactions Criticality Noted Date [...] hemoglobin A1c goal of less than 7.0% ([facility]) Use to test blood sugars twice a day 200 Strip 11 02/13/2023 Active Lantus SoloStar 100 UNIT/ML Subcutaneous Solution Pen-injectorIndicat ions:Type 2 diabetes mellitus with hemoglobin A1c goal of less than 7.0% ([facility]) Inject 16 Units under the skin [...] disease, without long-term current use of insulin ([facility]) USE WITH LANTUS SOLOSTAR PEN INJECTOR 100 Each 3 03/16/2023 Active Creon 71294-236069 UNIT Oral Capsule Delayed Release Particles Take [...] 4:00 PM EST Office Visit Family Practice [facility] [address] [place] [address] Holland Dominique MD [address] [place] [address] 04/01/2023 2:00 PM EST Office Visit Pharmacy, [facility] [address] [place] [address] [facility] [address] [place], [place] [address] 05/15/2023 2:00 PM EST Office Visit Hepatology, [facility] [address] [place] [address] Dede Olmedo MD [address] [place] [address] 06/09/2023 8:00 AM EST Hospital Encounter ENDO [facility], Endoscopy Room [facility] [address] [place] [phone] Sintia Langford, DO [address] [place] [address] 06/09/2023 8:00 AM EST - 06/09/2023 9:00 AM EST Surgery ENDO [facility], Endoscopy Room [facility] [address] [place] [id number] Sintia Langford, DO [address] [place] [address] ESOPHAGOGASTRODUODENOSCOPY (EGD), FLEXIBLE, TRANSORAL, ENDOSCOPIC ULTRASOUND Pending Results Name Type Priority Associated Diagnoses Date /Time CBC WITH WBC DIFFERENTIAL Lab Routine Leukocytosis, unspecified type 03/17/2023 9:12 AM EST COMPREHENSIVE METABOLIC PANEL Lab Routine Other chronic pancreatitis (HCC) 03/17/2023 9:12 AM EST PT INR Lab Routine Other chronic pancreatitis (HCC) 03/17/2023 9:12 AM EST CBC Lab Routine Leukocytosis, unspecified type 03/17/2023 9:12 AM EST DIFFERENTIAL, AUTOMATED Lab Routine Leukocytosis, unspecified type 03/17/2023 9:12 AM EST Scheduled Procedures Name Priority Associated Diagnoses Date/Ti al ESOPHAGOGASTRODUODENOSCOPY ( EGD), FLEXIBLE, TRANSORAL, ENDOSCOPIC ULTRASOUND Recall Other chronic pancreatitis (HCC) 06/09/2023 8:00 AM EST ESOPHAGOGASTRODUODENOSCOPY ( EGD), FLEXIBLE, TRANSORAL, DIAGNOSTIC Recall Esophageal varices (HCC) COLONOSCOPY FLEXIBLE PROXIMA L DIAGNOSTIC Recall Encounter for screening colonoscopy Health Maintenance Due Date Last Done Comments DISCUSS TOBACCO CESSATION (REFER TO SMARTSET #5965) 1965 Hepatitis B (1 of 3 - 3-dose series) 1965 COVID-19 Vaccine (#1) 1964 Depression Screening 1976 HIV Screening 01/04/1979 Diabetic Foot Exam 01/04/1982 DTaP,Tdap,and Td Vaccines (1 - Tdap) 01/04/1983 Pap Smear 01/04/1985 Cervical Cancer Screening 01/04/1994 HPV/Co-Test 01/04/1994 Cologuard 01/04/2009 Fecal Occult Blood Test 01/04/2009 Sigmoidoscopy 01/04/2009 LUNG CANCER SCREENING - USE SMARTSET 24555 01/04/2014 Zoster Vaccines (1 of 2) 01/04/2014 [...] as of this encounter Visit Diagnoses Diagnosis Leukocytosis, unspecified type Other chronic pancreatitis (HCC) Other chronic pancreatitis (HCC) documented in this encounter Care Teams Online Retailer Relationship Specialty Start Date End Date Holland Dominique MD [address] [facility] [place] [address] PCP - General Family Medicine 12/26/22 documented as of this encounter
--- OUTSIDE RECORDS SUMMARY | 2023-04-03 12:19 | External Medical Summary | Summary of Care ---
Author Name Unknown Organization [facility] Address [address] [facility] [address] [address] Phone [phone] Care Team Providers Care Community Leader Name Role Phone Holland Dominique MD Primary Care Provider [phone] Reason for Visit * Reason Comments Follow Up Pancreatitis; Cirrho sis Encounter Details Date Type Department Care Team (Late st Contact Info) Description 03/17/2023 8:40 AM EST Office Visit Gastroenterology, [facility] [address] [place] [address] Sintia Langford DO [address] [place] [address] Other chronic pancreatitis (HCC)* Allergies Active Allergy Reactions Criticality Noted Date [...] 7.0% (FORMERLY [facility]) Inject 16 Units under the skin in [...] without long-term current use of insulin ([facility]ER[facility]) USE WITH LANTUS SOLOSTAR PEN INJECTOR 100 Each 3 03/16/2023 Active Creon [id number] UNIT Oral Capsule Delayed Release Particles Take [...] Sign Reading Time Taken Comments Blood Pressure 150/82 03/17/2023 8:40 AM EST denies any symptoms Pulse 76 03/17/2023 8:40 AM EST Temperature 36.5 C (97.7 F) 03/17/2023 8 :40 AM EST Respiratory Rate 16 03/17/2023 8:40 AM EST Oxygen Saturation 100% 03/17/2023 8:4 0 AM EST Inhaled Oxygen Concentration - - Weight 55 kg (121 lb 3.2 oz) 03/17/2023 8:40 AM EST Height 172.7 cm (5' 8") 03/17/2023 8:40 AM EST Body Mass Index 18.43 03/17/2023 8:40 AM EST documented in this encounter Progress Notes * Sintia Langford, DO - 03/17/2023 8:50 AM EST CC: cirrhosis/chronic pancreatitis HPI: 03-17-23 The patient presents for follow-up after recent hospital admission for abdominal pain thought to berelated to chronic pancreatitis. Of note she was started on a pancreatic enzymes supplement during this hospitalization and notes she feels quite improved. She did have loose stool during the hospitalization and felt that she was having grease on top of the stool. Imaging does indicate chronic pancreatitis with intraductal calcifications. My partner had seen her during the hospitalization and recommended outpatient endoscopic ultrasound as she was due for surveillance upper endoscopy given her history of esophageal varices. 05-01-21 Patient presents for follow-up with regard to cirrhosis of the liver and chronic pancreatitis. We had last seen her a little bit over 2 years ago. The patient overall seems to be doing well and has been abstinent from alcohol for number of years. She notes that she continues to follow with primary care provider who helps manage her other medical problems including diabetes. 5-14-19 Patient with a history alcoholic related cirrhosis and chronic pancreatitis presenting for follow-up today. She notes that she has persistent abdominal discomfort which waxes and wanes throughout theday. She had symptoms which thought were related to an exacerbation of her pancreatitis several months ago but this resolved on its own with decreased food and increased liquid intake. 7-16-18 The patient was seen in the emergency room last week for right upper quadrant discomfort and nausea. She had an ultrasound which suggested sludge within the gallbladder and was referred to GI for further evaluation. The patient does have a history of cirrhosis and is typically to follow with our office every 6 months. It is been about 2 years since her last office evaluation she has right upper quadrant discomfort which is waxing and waning over the last 1 week. She denies having chills but does recall having a fever 100.7 at home. She was seen in the emergency room last week found to have a normal white blood cell count and an ultrasound which showed sludge in her gallbladder. She does have a history of chronic pancreatitis with a biliary stricture that was treated with a covered metal stent placement. She had initially been followed at [facility] who had decided not to refer her to General surgery for cholecystectomy due to her liver disease. 09-19-15 The patient follows today after a recent hospital admission for an esophageal variceal hemorrhage. She presented to the emergency department over the weekend for evaluation of hematemesis and melena.Upper endoscopy revealed varices with evidence of stigmata suggesting a varieal hemorrhage. It appears esophageal band ligation was performed. She was discharged with a plan for follow up with me in the office. Of note she had missed her last appointment and was over 20 minutes late for today 's appointment. The patient does have a history of chronic pancreatitis and cirrhosis related to alcohol use. She has been abstinent for approximately 3 years. To treat a chronic biliary stricture we had placed a covered biliary stent in January which is due to be removed. It appears that her liver enzymes were within normal limits during her recent hospitalization. 02-13-15 The patient is status post a recent upper endoscopy with esophageal band ligation. She also underwent a repeat ERCP 6 weeks ago for a biliary stent change. She is due for a follow up procedure in approximately 1 month. The patient does have a persistent biliary stricture consistent with chronic panc reatitis as diagnosed by her prior GI provider at [facility]. The patient is present symptoms include fatigue which is worse in the morning. Denies having nausea, vomiting or abdominal discomfort at this time. 15Chang Rodriguez is a 49 year old female who followup of a variceal hemorrhage in October. The patient hasa history of alcoholic liver disease resulting in cirrhosis of the liver. She has been abstinent from alcohol consumption for 3 years but has not attended a treatment program. The patient notes no nausea vomiting fevers or chills. Additional problems include a stricture of the distal common bile duct which was treated at [facility]. she has had an extensive evaluation which included an endoscopic ultrasound with fine needle aspiration without evidence of atypical cells. She was treated with repeat stent placements and previously had a covered metal stent which was changed to a plastic spent severalmonths ago. The patient is due for stent revision and would prefer to have the procedure done locally if possible Review of patient's allergies indicates: Allergen Reactions Bee Venom Anaphylaxis Other reaction(s): Angioedema Celebrex [Celecoxib] Anaphylaxis Morphine Other (Please comment) Exacerbation of pain Past Medical History: Diagnosis Date Cirrhosis (HCC) Diabetes (HCC) HTN (hypertension) Pancreatitis Current Outpatient Medications Medication Sig Dispense Refill Pxkemyo-Rxqakqmtyxgrd-Fpvdtnmf 250-250-65 MG Oral Tablet Take 2 Tablets [...] HOURS NEEDED FOR WHEEZING 18 g 11 BD Pen Needle Rose 2nd Gen 32G X 4 MM (Insulin Pen Needle) USE WITH LANTUS SOLOSTAR PEN INJECTOR 100 Each 3 Creon [id number] UNIT Oral Capsule Delayed Release Particles Take 2 Capsules by mouth in the morning and 2 Capsules at noon and 2 Capsules in the evening. Take with meals. Pantoprazole Sodium 40 MG Oral Tablet Delayed Release (Protonix) Take 1 Tablet by mouth in the morning. In the morning.. No current facility-administered medications for this visit. Past Surgical History: Procedure Laterality Date BREAST BIOPSY Left 2010 benign COLONOSCOPY, DIAGNOSTIC (RECTUM) 04/10/2016 normal, repeat 10 yrs/COLONOSCOPY FLEXIBLE PROXIMAL DIAGNOSTIC performed by Toshia Burrell DO at [facility] EGD, FLEXIBLE, DIAGNOSTIC 08/22/2014 varices, portal gastropathy, biliary stent placed/[facility] EGD, FLEXIBLE, DIAGNOSTIC 12/08/2014 eso varices, portal hypertensive gastropathy/[facility] EGD, FLEXIBLE, DIAGNOSTIC 01/03/2015 eso varices, portal hypertensive gastropathy, repeat 2 mo/[facility] EGD, FLEXIBLE, DIAGNOSTIC 10/25/2015 eso varices, portal hypertensive gastropathy, repat 1 mo/[facility] EGD, FLEXIBLE, DIAGNOSTIC 12/18/2015 eso varices, portal hypertensive gastropathy, repeat 6 mo/[facility] EGD, FLEXIBLE, DIAGNOSTIC 02/15/2016 eso varices, portal hypertensive gastropathy, biliary stents/[facility] EGD, FLEXIBLE, DIAGNOSTIC 08/19/2016 eso varices, portal hypertensive gastropathy, biliary stent, repeat 1 yr/ESOPHAGOGASTRODUODENOSCOPY(EGD), FLEXIBLE, TRANSORAL, DIAGNOSTIC performed by Sintia Langford DO at [facility] EGD, FLEXIBLE, DIAGNOSTIC 11/10/2017 eso varices, retained food in stomach, repeat/ESOPHAGOGASTRODUODENOSCOPY (EGD), FLEXIBLE, TRANSORAL, DIAGNOSTIC performed by Sintia Langford DO at [facility] EGD, FLEXIBLE, DIAGNOSTIC 12/28/2017 portal hypertensive gastropathy, esophageal varices, mild gastritis, repeat 1 yr/ESOPHAGOGASTRODUODENOSCOPY (EGD), FLEXIBLE, TRANSORAL, DIAGNOSTIC performed by Sintia Langford DO at [facility] EGD, FLEXIBLE, DIAGNOSTIC 01/22/2022 esophageal varices, repeat 1 yr / ESOPHAGOGASTRODUODENOSCOPY (EGD), FLEXIBLE, TRANSORAL, DIAGNOSTICperformed by Sintia Langford DO at [facility] EGD, W/ENDOSCOPIC US 11/10/2017 ESOPHAGOGASTRODUODENOSCOPY (EGD), FLEXIBLE, TRANSORAL, ENDOSCOPIC ULTRASOUND performed by Sintia Langford DO at [facility] EGD, W/ENDOSCOPIC US 12/28/2017 GB sludge/ESOPHAGOGASTRODUODENOSCOPY (EGD), FLEXIBLE, TRANSORAL, ENDOSCOPIC ULTRASOUND performed bySintia Langford DO at [facility] ERCP 10/25/2015 biliary stricture, stent removed, 2 stents placed, repeat 3 mo/[facility] ERCP 03/21/2016 reactive cells on bx, stents removed, new stents placed, repeat 6 mo/[facility] ERCP 08/28/2016 biliary stricture, stent removed/[facility] ERCP, DIAGNOSTIC, SPECIMEN COLLECTION 12/08/2014 biliary stricture, stent removed, new stent placed, repeat 8-12 wks/[facility] ERCP, DIAGNOSTIC, SPECIMEN COLLECTION 02/16/2015 biliary stricture, metal stent placed, inflammation on bx, repeat 4 mo/[facility] Family History Problem Relation Age of Onset Breast Cancer No significant family history Social History Tobacco Use Smoking status: Current Every Day Smoker Packs/day: 1.00 Smokeless tobacco: Never Used Substance Use Topics Alcohol use: No Comment: quit 3 years ago ROS: GEN: no weight loss HEENT: no changes in vision or hearing RESP: no cough, wheezing CARDIOVASCULAR: no exertional chest pain GI: see HPI , otherwise negative : no dysuria MUSCULOSKELETAL: no change in joint pains PSYCHIATRIC: no significant anxiety or depression HEME: history of a variceal hemorrhage s/p EGD in last week NEURO: no significant headache SKIN: no new rashes, no itching PHYSICAL EXAM: BP 150/82 Comment: denies any symptoms | Pulse 76 | Temp 36.5 C (97.7 F) | Resp 16 | Ht 1.727 m(5' 8") | Wt 55 kg (121 lb 3.2 oz) | SpO2 100% | BMI 18.43 kg/m | BSA 1.62 m GENERAL: no acute distress SKIN: no rashes HEENT: normocephalic, sclerae clear NECK: supple, no JVD LUNGS: clear to auscultation HEART: regular rate & rhythm, no murmurs ABDOMEN: No right upper quadrant not tenderness, no fluid wave NEURO: no lateralizing findings, Sensory/Motor grossly normal, no asterixis EGD 01/05 Findings: Three columns of non-bleeding grade II varices were found in the middle third of the esophagus and in the lower third of the esophagus, 30 to 38 cm from the incisors. They were 4 mm in largest diameter. No stigmata of recent bleeding were evident and no red [place] signs were present. Scarring from prior treatment was visible. Mild portal hypertensive gastropathy was found in the entire examined stomach. Biopsies were taken with a cold forceps for histology. Estimated blood loss was minimal. The examined duodenum was normal. Impression:- Non-bleeding grade II esophageal varices. - Portal hypertensive gastropathy. Biopsied. - Normal examined duodenum. MRI 02-03-18 Liver:The liver is normal in size. Cirrhotic appearance is suggested. No focal hepatic lesion is appreciated. A focus of diffusion restriction in the left hepatic lobe segment 2 is most likely a spurious finding. Gallbladder/biliary tree: The gallbladder is within normal limits. There is intrahepatic and extrahepatic biliary ductal dilatation with the common bile duct measuring up to 11 mm diameter. Distal common bile duct is diffusely narrowed at the ampulla of Vater. No filling defect other than an equivocal non dependent punctate filling defect in the common bile duct, likely minimal pneumobilia, is appreciated. Pancreas:As on prior exams, there is abnormal appearance of the pancreatic centered in the pancreatic head/neck/body which are lower in signal compared to the tail and remainder of pancreatic head/ uncinate process on T1 weighted images with mild hypoenhancement on early dynamic contrast images andmild hyperenhancement on delayed dynamic images rays in the possibility of fibrosis/chronic pancreatitis changes. There is diffuse pancreatic ductal dilatation upstream from the pancreatic head measuring up to 9 with diffuse dilatation of the side branches in the pancreatic tail as well as focal stenosis in the proximal pancreatic tail. There is mild prominence of the accessory duct without definite pancreas divisum morphology. Peripancreatic increased T2 signal mesenteric edema is present. Theappearance is similar to multiple prior CTs dating back to 11/27/2015, possibly the sequela of chronic pancreatitis. It would be difficult to completely exclude an infiltrative neoplasm. MRCP 03/10/23 The gallbladder is distended and the wall appears mildly thickened. Mild surrounding infiltration and fluid is noted. Cholecystitis is not excluded. There is significant dilatation of the common bileduct which measures up to 14 mm in diameter. No intraluminal filling defects are seen to suggest cho ledocholithiasis. There is also moderate intrahepatic biliary ductal dilatation. The common bile duct tapers at the head of the pancreas. The main pancreatic duct is markedly dilated measuring up to 7 mm in diameter. This also tapers at the head of the pancreas. Intraductal calculi are seen within the proximal pancreatic duct. There are also likely calculi within the distal pancreatic duct. The pancreas is edematous and heterogeneous with surrounding infiltration and fluid. The appearanceindicates acute pancreatitis. No organized peripancreatic fluid collection is identified. The unenhanced liver, spleen, adrenal glands, and kidneys are grossly unremarkable. The abdominal aorta is normal in course and caliber noting atherosclerotic plaque irregularity. 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 The left renal vein is also markedly attenuated. There is no bowel obstruction. Ascites is seen in the upper abdomen/retroperitoneum. No pleural effusion is identified. The heart is normal in size noting a small pericardial effusion. There is a small hiatal hernia. Esophageal varices are noted. Numerous enlarged lymph nodes are seen in the upper abdomen. IMPRESSION: 1. There is significant intra and extrahepatic biliary ductal dilatation, as well as marked dilatation of the pancreatic duct. Although this may be related to large calculi within the pancreatic duct, an obstructing pancreatic mass lesion is the diagnosis of exclusion. ERCP will be required for further assessment. 2. Markedly heterogeneous pancreas with evidence of acute pancreatitis. 3. No gallstones are identified. The gallbladder is distended, and the wall appears thickened with surrounding fluid. This is nonspecific and acute cholecystitis is not excluded. 4. There is no choledocholithiasis. 5. Upper abdominal ascites. 6. 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 The left renal vein is also markedly attenuated. 7. Esophageal varices. 8. There are numerous enlarged lymph nodes in the upper abdomen. These were better seen on yesterday's CT scan. IMPRESSION: Patient with a prior history of chronic pancreatitis and cirrhosis as result alcohol abuse. The patient seems to have been improved after her recent hospital admission when she was started on pancreatic enzymes supplement. We will plan to do endoscopic ultrasound with upper endoscopy as previously discussed during her hospitalization. I did discuss the role of continued tobacco use with the patient as I think this would help with her long-term problems. ASSESSMENT/PLAN: RUQ US (every 6 months) Upper endoscopy with Endoscopic ultrasound Continue with abstinence from alcohol consider smoking sensation Continue with use of pancreatic enzymes supplement I spent a total of 20 minutes on the date of service in review of patient's record, and previously obtained information in person and appropriate medical visit, discussion and education of plan, withpatient and/or caregiver, placing orders for tests/referral/procedures as medically necessary and documentation of pertinent clinical information in patient's medical records for their visit today. Sintia Langford, DO [facility] Gastroenterology, [facility] [address] [place] [address] [phone] This chart was completed in part utilizing [email or web address] Voice Recognition Software. Grammatical errors, random word insertions, prounoun erros, and incomplete sentences are an occasional consequence of this system due to software limitations, ambient noise, and hardware issues. Any formal questions or concerns about the content, text, or information contained within the body of this dictation should be directly addressed to the provider for clarification documented in this encounter Nursing Notes * Kym Santacruz RN - 03/17/2023 8:42 AM EST Patient identified by name and date of . Chief Complaint Patient presents with Follow Up Pancreatitis; Cirrhosis Denies any current pain , nausea or vomiting. documented in this encounter Plan of Treatment Upcoming Encounters Date Type Department Care Team (Latest Contact Info) Description 03/17/2023 9:20 AM EST Laboratory Laboratory, [facility] [address] [place] [id number] [facility] [address] [place] [address] Leukocytosis, unspecified type; Other chronic pancreatitis (HCC) 03/20/2023 4:00 PM EST Office Visit Family Practice [facility] [address] [place] [address] Holland Dominique MD [address] [facility] [place] [address] 04/01/2023 2:00 PM EST Office Visit Pharmacy, [facility] [address] [place] [address] [facility] [address] [place] [address] 05/15/2023 2:00 PM EST Office Visit Hepatology, [facility] [address] [place] [address] Dede Olmedo MD [address] [place] [address] 06/09/2023 8:00 AM EST Hospital Encounter [facility], Endoscopy Room [facility] [address] [place] [address] Sintia Langford, DO [address] [place] [address] 06/09/2023 8:00 AM EST - 06/09/2023 9:00 AM EST Surgery [facility], Endoscopy Room [facility] [address] [place] [address] Sintia Langford, DO [address] [place] [address] ESOPHAGOGASTRODUODENOSCOPY (EGD), FLEXIBLE, TRANSORAL, ENDOSCOPIC ULTRASOUND Pending Results Name Type Priority Associated Diagnoses Date /Time COMPREHENSIVE METABOLIC PANEL Lab Routine Other chronic pancreatitis (HCC) 03/17/2023 9:12 AM EST PT INR Lab Routine Other chronic pancreatitis (HCC) 03/17/2023 9:12 AM EST Scheduled Orders Name Type Priority Associated Diagnoses Orde r Schedule COMPREHENSIVE METABOLIC PANEL Lab Routine Other chronic pancreatitis (HCC) Expected: 03/17/2023, Expires: 03/17/2024 US ENDOSCOPIC Medical Imaging Routine Other chronic pancreatitis (HCC) Expected: 03/17/2023, Expires: 04/16/2024 PT INR Lab Routine Other chronic pancreatitis (HCC) Expected: 03/17/2023 (Approximate), Expires: 03/17/2024 Scheduled Procedures Name Priority Associated Diagnoses Date/Ti mo ESOPHAGOGASTRODUODENOSCOPY ( EGD), FLEXIBLE, TRANSORAL, ENDOSCOPIC ULTRASOUND Recall Other chronic pancreatitis (HCC) 06/09/2023 8:00 AM EST ESOPHAGOGASTRODUODENOSCOPY ( EGD), FLEXIBLE, TRANSORAL, DIAGNOSTIC Recall Esophageal varices (HCC) COLONOSCOPY FLEXIBLE PROXIMA L DIAGNOSTIC Recall Encounter for screening colonoscopy Health Maintenance Due Date Last Done Comments DISCUSS TOBACCO CESSATION (REFER TO SMARTSET #9321) 1965 Hepatitis B (1 of 3 - 3-dose series) 1965 COVID-19 Vaccine (#1) 1965 Depression Screening 1976 HIV Screening 01/04/1979 Diabetic Foot Exam 01/04/1982 DTaP,Tdap,and Td Vaccines (1 - Tdap) 01/04/1983 Pap Smear 01/04/1985 Cervical Cancer Screening 01/04/1994 HPV/Co-Test 01/04/1994 Cologuard 01/04/2009 Fecal Occult Blood Test 01/04/2009 Sigmoidoscopy 01/04/2009 LUNG CANCER SCREENING - USE SMARTSET 53388 01/04/2014 Zoster Vaccines (1 of 2) 01/04/2014 [...] as of this encounter Visit Diagnoses Diagnosis Other chronic pancreatitis (HCC)- Primary Leukocytosis, unspecified type Other chronic pancreatitis (HCC) Other chronic pancreatitis (HCC) documented in this encounter Care Teams Community Leader Relationship Specialty Start Date End Date Holland Dominique MD [address] [place] [address] PCP - General Family Medicine 12/26/22 documented as of this encounter
--- OUTSIDE RECORDS SUMMARY | 2023-04-03 12:19 | External Medical Summary ---
Author Name Unknown Address Unknown Organization [facility] [address] [place] [address] Laboratory Report Ordering Provider Test Date Status MANDI YAP 03/17/2023 09:12:34 Final Warfarin Therapy
INR: 2 .0-3.0 conventional anticoagulation
INR: 2.5- 3.5 high intensity anticoagulation Observation Date Value Abnormality Reference (Units ) Status PT 03/17/2023 09:12:34 12.8 11.6-15.2 (seconds) Final INR 03/17/2023 09:12:34 0.9 0.8-1.2 Final Performing Location [facility] [address] [place] [address]
--- OUTSIDE RECORDS SUMMARY | 2023-04-03 12:19 | External Medical Summary ---
Author Name Unknown Address Unknown Organization [id number]:[facility] [place] [facility] [address] [place] [address] Laboratory Report Ordering Provider Test Date Status MANDI YAP 03/17/2023 09:12:34 Final Observation Date Value Abnormality Reference (Units ) Status BUN 03/17/2023 09:12:34 15 6-20 (mg/dL) Final Creatinine 03/17/2023 09:12:34 1.3 Above high normal 0.5-1.0 (mg/dL) Final Glomerular filtration rate/1.73 sq M.predicted [Volume Rate/Area] in Serum, Plasma or Blood by Creatinine-based formula (CKD-EPI) 03/17/2023 09:12:34 49 Below low normal >=60 (mL/min) Final eGFR is calculated based on the CKD-EPI 2020 equation SODIUM 03/17/2023 09:12:34 139 135-146 (m mol/L) Final Potassium 03/17/2023 09:12:34 4.2 3.5-5.1 (m mol/L) Final Cl 03/17/2023 09:12:34 102 98-107 (mm ol/L) Final CO2 03/17/2023 09:12:34 25 22-32 (mmo l/L) Final Anion gap 03/17/2023 09:12:34 12 7-15 (mmol /L) Final Glucose 03/17/2023 09:12:34 278 Above high normal 70 -120 (mg/dL) Final Albumin 03/17/2023 09:12:34 4.0 3.8-5.0 (g /dL) Final AST (Aspartate aminotransferase) 03/17/2023 09:12:34 29 10-35 (U/L) Fin al Alk Phos 03/17/2023 09:12:34 184 Above high normal 35 -130 (U/L) Final Bilirubin, Total 03/17/2023 09:12:34 0.5 <=1 .2 (mg/dL) Final Calcium 03/17/2023 09:12:34 9.6 8.4-10.2 ( mg/dL) Final Protein 03/17/2023 09:12:34 7.0 6.0-8.3 (g /dL) Final ALT (Alanine aminotransferase) 03/17/2023 09:12:34 26 10-35 (U/L) Luiz molina Performing Location [facility] [place] [address] [place] [address]
--- OUTSIDE RECORDS SUMMARY | 2023-04-03 12:19 | External Medical Summary | Summary of Care ---
Author Name Unknown Organization [facility] Address [address] [place] [address] Phone [phone] Care Team Providers Care Leakage Tester Name Role Phone Holland Dominique MD Primary Care Provider [phone] Reason for Visit * Reason Onset Date Comments Appointment 03/11/2023 Encounter Details Date Type Department Care Team (Late st Contact Info) Description 03/11/2023 Telephone Gastroenterology, [facility] [address] [place] [address] Anna Strickland CRNP [address] [place] [address] Appointment Allergies Active Allergy Reactions Criticality Noted Date Comments Bee Venom Anaphylaxis High 09/19/2014 Other reaction(s): Angioedema Celecoxib Anaphylaxis High 12/05/2014 Morphine Other (Please comment) 12/05/2014 Exacerbation of pain documented as of this encounter (statuses as of 03/16/2023) Medications Medication Sig Dispensed Refills Start Date End Date Status Aspirin-Acetamin ophen-Caffeine 250-250-65 MG Oral Tablet Take 2 Tablets by mouth every 8 hours as needed. 0 Active Empagliflozin 10 MG Oral Tablet (Jardiance) Take 1 Tablet by mouth in the morning. 90 Tablet 1 3 Active Atenolol 25 MG Oral Tablet (Tenormin)Indica [...] Emergency room. 2 Each 3 3 Active Lisinopril 20 MG Oral Tablet (Prinivil)Indica tions:HTN, goal below 140/90 Take 1 Tablet by mouth in the morning. 30 Tablet 9 3 Active BD Pen Needle Rose U/F 32G X 4 MM (Insulin Pen Needle)Indicatio ns:Type 2 diabetes mellitus with stage 3b chronic kidney disease, without long-term current use of insulin ([facility]) Use with lantus solostar pen- injector 180 Each 0 3 Active ProAir HFA 108 (90 Base) MCG/ACT Inhalation Aerosol SolutionIndicati ons:Tobacco use disorder Inhale 2 Puffs by mouth as needed for Cough. 8.5 g 0 3 Active Pantoprazole Sodium 20 MG Oral Tablet Delayed Release (Protonix)Indica tions:Gastroesop hageal reflux disease, unspecified whether esophagitis present,H/O esophageal varices Take 1 Tablet by mouth in the morning. 90 Tablet 3 3 03/16/20 23 Discontinued(Med ication/Dose Changed) Ventolin HFA 108 (90 Base) MCG/ACT Inhalation Aerosol SolutionIndicati ons:Tobacco use disorder Inhale 2 Puffs by mouth every 4 hours as needed for Wheezing. 8.5 g 0 3 03/14/20 23 Discontinued documented as of this encounter [...] encounter Miscellaneous Notes * Telephone Encounter - Lazaro Bazan OSA - 03/16/2023 2:12 PM EST Pt has an appt tomorrow in the office and we will schedule this appt at that time * Telephone Encounter - Lazaro Bazan OSA - 03/13/2023 11:50 AM EST LMOM for pt to call back to schedule * Telephone Encounter - Anna Strickland CRNP - 03/11/2023 2:58 PM EST Pls arrange EUS in 4-6 week's time STEFANIE Arguelles documented in this encounter Plan of Treatment Upcoming Encounters Date Type Department Care Team (Late st Contact Info) Description 03/17/2023 8:40 AM EST Office Visit Gastroenterology, [facility] [address] [place] [address] Sintia Langford DO [address] [place] [address] 03/20/2023 4:00 PM EST Office Visit Family Practice [facility] [address] [place] [address] Holland Dominique MD [address] [place] [address] 04/01/2023 2:00 PM EST Office Visit Pharmacy, [facility] [address] [facility] [place] [address] [facility] [address] [facility] [place] [address] 05/15/2023 2:00 PM EST Office Visit Hepatology, [facility] [address] [place] [address] Dede Olmedo MD [address] [place] [address] Scheduled Procedures Name Priority Associated Diagnoses Date/Ti me ESOPHAGOGASTRODUODENOSCOPY ( EGD), FLEXIBLE, TRANSORAL, DIAGNOSTIC Recall Esophageal varices (HCC) COLONOSCOPY FLEXIBLE PROXIMAL DIAGNOSTIC Recall Encounter for screening colonoscopy Health Maintenance Due Date Last Done Comments DISCUSS TOBACCO CESSATION (REFER TO SMARTSET #6528) 1965 Hepatitis B (1 of 3 - 3-dose series) 1965 COVID-19 Vaccine (#1) 1965 Depression Screening 1976 HIV Screening 01/04/1979 Diabetic Foot Exam 01/04/1982 DTaP,Tdap,and Td Vaccines (1 - Tdap) 01/04/1983 Pap Smear 01/04/1985 Cervical Cancer Screening 01/04/1994 HPV/Co-Test 01/04/1994 Cologuard 01/04/2009 Fecal Occult Blood Test 01/04/2009 Sigmoidoscopy 01/04/2009 LUNG CANCER SCREENING - USE SMARTSET 04301 01/04/2014 Zoster Vaccines (1 of 2) 01/04/2014 [...] Procedure Name Priority Date/Time Associated Diagnosis Comments US ENDOSCOPIC Routine 03/11/2023 Other chronic pancreatitis (HCC) documented in this encounter Results * US ENDOSCOPIC (03/11/2023) 03/11/2023 Anna WATTS RAD ULTRASOUND documented in this encounter Visit Diagnoses Diagnosis Other chronic pancreatitis (HCC)- Primary documented in this encounter Care Teams Leakage Tester Relationship Specialty Start Date End Date Holland Dominique MD [address] [place] [address] PCP - General Family Medicine 12/26/22 documented as of this encounter
--- OUTSIDE RECORDS SUMMARY | 2023-04-03 12:19 | External Medical Summary | Summary of Care ---
Author Name Unknown Organization [facility] Address [address] [place] [address] Phone [phone] Care Team Providers Care Videogame Tester Name Role Phone Ld Hernandez MD Primary Care Provider [phone] [phone] Reason for Visit * Reason Comments eRx-Medication Refill Encounter Details Date Type Department Care Team (Late st Contact Info) Description 03/16/2023 Refill Family Practice [facility] [address] [place] [address] Alyssa Rader CRNP [address] [place] [address] Type 2 diabetes mellitus with stage 3b chronic kidney disease, without long-term current use of insulin ([facility]) Allergies Active Allergy Reactions Criticality Noted Date [...] A1c goal of less than 7.0% ([facility]) Use to test blood sugars twice a day 200 Strip 11 02/13/2023 Active Lantus SoloStar 100 UNIT/ML Subcutaneous Solution Pen-injectorIndic ations:Type 2 diabetes mellitus with hemoglobin A1c goal of less than 7.0% ([facility]) Inject 16 Units under the skin in [...] without long-term current use of insulin ([facility]) USE WITH LANTUS SOLOSTAR PEN INJECTOR 100 Each 3 03/16/2023 Active Creon 25063-191031 UNIT Oral Capsule Delayed Release Particles Take 2 Capsules by mouth in the morning and 2 Capsules at noon and 2 Capsules in the evening. Take with meals. 0 03/14/2023 Active Pantoprazole Sodium 40 MG Oral Tablet Delayed Release (Protonix) Take 1 Tablet by mouth in the morning. In the morning.. 0 03/14/2023 Active BD Pen Needle Rose U/F 32G X 4 MM (Insulin Pen Needle)Indication s:Type 2 diabetes mellitus with stage 3b chronic kidney disease, without long-term current use of insulin (HCC) Use with lantus solostar pen- injector 180 Each 0 02/12/2023 03/16/20 Discontinued documented as of this encounter (statuses [...] encounter Miscellaneous Notes * Telephone Encounter - Charlie Osorio, [facility] - 03/16/2023 4:38 PM ESTSigned Prescriptions: Disp Refills BD Pen Needle Rose 2nd Gen 32G X 4 MM (Ins*100 Ea*3 Sig: USE WITH LANTUS SOLOSTAR PEN INJECTORAuthorizing Provider: LD HERNANDEZ User: CHARLIE NUNEZ documented in this encounter Plan of Treatment Upcoming Encounters Date Type Department Care Team (Late st Contact Info) Description 03/17/2023 8:40 AM EST Office Visit Gastroenterology, [facility] [address] [facility] [place] [address] Sintia Langford DO [address] [place] [address] 03/20/2023 4:00 PM EST Office Visit Family Practice [facility] 132 [facility] [place] [address] Ld Hernandez MD [address] [place] [address] 04/01/2023 2:00 PM EST Office Visit Pharmacy, [facility] [address] [facility] [place] [address] [facility] [address] [facility] [place] [address] 05/15/2023 2:00 PM EST Office Visit Hepatology, [facility] [address] [facility] [place] [address] Dede Olmedo MD [address] [facility] [place] [id number] Scheduled Procedures Name Priority Associated Diagnoses Date/Ti me ESOPHAGOGASTRODUODENOSCOPY ( EGD), FLEXIBLE, TRANSORAL, DIAGNOSTIC Recall Esophageal varices (HCC) COLONOSCOPY FLEXIBLE PROXIMAL DIAGNOSTIC Recall Encounter for screening colonoscopy Health Maintenance Due Date Last Done Comments DISCUSS TOBACCO CESSATION (REFER TO SMARTSET #0365) 1965 Hepatitis B (1 of 3 - 3-dose series) 1964 COVID-19 Vaccine (#1) 1964 Depression Screening 1976 HIV Screening 01/04/1979 Diabetic Foot Exam 01/04/1982 DTaP,Tdap,and Td Vaccines (1 - Tdap) 01/04/1983 Pap Smear 01/04/1985 Cervical Cancer Screening 01/04/1994 HPV/Co-Test 01/04/1994 Cologuard 01/04/2009 Fecal Occult Blood Test 01/04/2009 Sigmoidoscopy 01/04/2009 LUNG CANCER SCREENING - USE SMARTSET 71246 01/04/2014 Zoster Vaccines (1 of 2) 01/04/2014 [...] (HCC) documented in this encounter Care Teams Videogame Tester Relationship Specialty Start Date End Date Ld Hernandez MD [address] [place] [address] PCP - General Family Medicine 12/26/22 documented as of this encounter
--- OUTSIDE RECORDS SUMMARY | 2023-04-03 12:19 | External Medical Summary ---
Author Name Unknown Address Unknown Organization K01:[facility] [address] [place] [address] Laboratory Report Ordering Provider Test Date Status MARYSE POWERS 03/17/2023 09:12:34 Final Observation Date Value Abnormality Reference (Units ) Status Parathyrin.intact [Mass/volume] in Serum or Plasma 03/17/2023 09:12:34 35 15-65 (pg/mL) Final Performing Location [facility] [place] [facility] [address] [place] [address]
--- OUTSIDE RECORDS SUMMARY | 2023-04-03 12:19 | External Medical Summary | Summary of Care ---
Author Name Unknown Organization [facility] Address [address] [place] [address] Phone [phone] Care Team Providers Care Aviation Medicine Specialist Name Role Phone Holland Dominique MD Primary Care Provider [phone] [phone] Reason for Visit * Reason Onset Date Comments Appointment 03/11/2023 Encounter Details Date Type Department Care Team (Late st Contact Info) Description 03/11/2023 Telephone Gastroenterology, [facility] [address] [place] [address] Anna Strickland CRNP [address] [place] [address] Appointment Allergies Active Allergy Reactions Criticality Noted [...] A1c goal of less than 7.0% ([facility]) Use to test blood sugars twice a day 200 Strip 11 02/13/2023 Active Lantus SoloStar 100 UNIT/ML Subcutaneous Solution Pen-injectorIndicat ions:Type 2 diabetes mellitus with hemoglobin A1c goal of less than 7.0% ([facility]) Inject 16 Units under the skin in the morning and 16 Units before bedtime. 15 mL 5 02/13/2023 Active EpiPen 2-Rauhl 0.3 MG/0.3ML Injection Solution Auto-injectorIndica tions:Allergy to [...] without long-term current use of insulin ([facility]) Use with lantus solostar pen- [...] 03/17/2023 8:40 AM EST Office Visit Gastroenterology, [facility] [address] [place] [address] Sintia Langford DO [address] [place] [address] 03/20/2023 4:00 PM EST Office Visit Family Practice [facility] [address] [place] [address] Holland Dominique MD [address] [place] [address] 04/01/2023 2:00 PM EST Office Visit Pharmacy, [facility] [address] [facility] [address] [facility] [address] [place] [address] 05/15/2023 2:00 PM EST Office Visit Hepatology, [facility] 132 [facility] [place] [address] Dede Olmedo MD [address] [place] [id number] Scheduled Procedures Name Priority Associated Diagnoses Date/Ti me ESOPHAGOGASTRODUODENOSCOPY ( EGD), FLEXIBLE, TRANSORAL, DIAGNOSTIC Recall Esophageal varices (HCC) COLONOSCOPY FLEXIBLE PROXIMAL DIAGNOSTIC Recall Encounter for screening colonoscopy Health Maintenance Due Date Last Done Comments DISCUSS TOBACCO CESSATION (REFER TO SMARTSET #5234) 1965 Hepatitis B (1 of 3 - 3-dose series) 1964 COVID-19 Vaccine (#1) 1964 Depression Screening 1976 HIV Screening 01/04/1979 Diabetic Foot Exam 01/04/1982 DTaP,Tdap,and Td Vaccines (1 - Tdap) 01/04/1983 Pap Smear 01/04/1985 Cervical Cancer Screening 01/04/1994 HPV/Co-Test 01/04/1994 Cologuard 01/04/2009 Fecal Occult Blood Test 01/04/2009 Sigmoidoscopy 01/04/2009 LUNG CANCER SCREENING - USE SMARTSET 15337 01/04/2014 Zoster Vaccines (1 of 2) 01/04/2014 [...] Primary documented in this encounter Care Teams Aviation Medicine Specialist Relationship Specialty Start Date End Date Holland Dominique MD [address] [place] [address] PCP - General Family Medicine 12/26/22 documented as of this encounter
--- OUTSIDE RECORDS SUMMARY | 2023-04-03 12:19 | External Medical Summary | Summary of Care ---
Author Name Unknown Organization [facility] Address [address] [place] [address] Phone [phone] Care Team Providers Care Verify Rep Name Role Phone Holland Dominique MD Primary Care Provider [phone] [phone] Reason for Visit * Reason Onset Date Comments Test Results Lab 03/17/2023 Encounter Details Date Type Department Care Team (Late st Contact Info) Description 03/17/2023 Telephone Gastroenterology, [facility] [address] [place] [address] Sintia Langford DO [address] [place] [address] Test Results Lab Allergies Active Allergy Reactions [...] goal of less than 7.0% ([facility]) Use to test blood sugars twice a day 200 Strip 11 02/13/2023 Active Lantus SoloStar 100 UNIT/ML Subcutaneous Solution Pen-injectorIndicat ions:Type 2 diabetes mellitus with hemoglobin A1c goal of less than 7.0% ([facility]) Inject 16 Units under the [...] disease, without long-term current use of insulin ([facility]) USE WITH LANTUS SOLOSTAR PEN INJECTOR 100 Each 3 03/16/2023 Active Creon 74471-613137 UNIT Oral Capsule Delayed Release Particles Take [...] Description 03/20/2023 4:00 PM EST Office Visit [facility] [address] [place] [address] Holland Dominique MD [address] [place] [address] 04/01/2023 2:00 PM EST Office Visit Pharmacy, [facility] [address] [place] [address] [facility] [address] [place] [address] 05/15/2023 2:00 PM EST Office Visit Hepatology, [facility] [address] [place] [address] Dede Olmedo MD [address] [place] [address] 06/09/2023 8:00 AM EST Hospital Encounter [facility]O [facility], Endoscopy Room [facility] [address] [place] [phone] Sintia Langford, DO [address] [facility] [place] [address] 06/09/2023 8:00 AM EST - 06/09/2023 9:00 AM EST Surgery [facility]O [facility], Endoscopy Room [facility] [address] [place] [phone] Sintia Langford, DO [address] [place] [address] ESOPHAGOGASTRODUODENOSCOPY (EGD), FLEXIBLE, TRANSORAL, ENDOSCOPIC ULTRASOUND Scheduled Procedures Name Priority Associated Diagnoses Date/Ti me ESOPHAGOGASTRODUODENOSCOPY ( EGD), FLEXIBLE, TRANSORAL, ENDOSCOPIC ULTRASOUND Recall Other chronic pancreatitis (HCC) 06/09/2023 8:00 AM EST ESOPHAGOGASTRODUODENOSCOPY ( EGD), FLEXIBLE, TRANSORAL, DIAGNOSTIC Recall Esophageal varices (HCC) COLONOSCOPY FLEXIBLE PROXIMA L DIAGNOSTIC Recall Encounter for screening colonoscopy Health Maintenance Due Date Last Done Comments DISCUSS TOBACCO CESSATION (REFER TO SMARTSET #2803) 1965 Hepatitis B (1 of 3 - 3-dose series) 1964 COVID-19 Vaccine (#1) 1964 Depression Screening 1976 HIV Screening 01/04/1979 Diabetic Foot Exam 01/04/1982 DTaP,Tdap,and Td Vaccines (1 - Tdap) 01/04/1983 Pap Smear 01/04/1985 Cervical Cancer Screening 01/04/1994 HPV/Co-Test 01/04/1994 Cologuard 01/04/2009 Fecal Occult Blood Test 01/04/2009 Sigmoidoscopy 01/04/2009 LUNG CANCER SCREENING - USE SMARTSET 30605 01/04/2014 Zoster Vaccines (1 of 2) 01/04/2014 [...] filedocumented as of this encounter Care Teams Verify Rep Relationship Specialty Start Date End Date Holland Dominique MD [address] [place] [address] PCP - General Family Medicine 12/26/22 documented as of this encounter
--- OUTSIDE RECORDS SUMMARY | 2023-04-03 12:20 | External Medical Summary | Summary of Care ---
Author Name Unknown Organization [facility] Address [address] [place] [address] Phone [phone] Care Team Providers Care Tape Recorder Mechanic Name Role Phone Holland Dominique MD Primary Care Provider [phone] Reason for Visit * Reason Onset Date Comments Appointment 03/11/2023 Encounter Details Date Type Department Care Team (Late st Contact Info) Description 03/11/2023 Telephone Gastroenterology, [facility] [address] [place] [address] Anna Strickland CRNP [address] [place] [address] Appointment Allergies Active Allergy Reactions Criticality Noted Date Comments Bee Venom Anaphylaxis High 09/19/2014 Other reaction(s): Angioedema Celecoxib Anaphylaxis High 12/05/2014 Morphine Other (Please comment) 12/05/2014 Exacerbation of pain documented as of this encounter (statuses as of 03/11/2023) Medications Medication Sig Dispensed Refills Start Date [...] goal of less than 7.0% ([facility]) Use to test blood sugars twice a day 200 Strip 11 02/13/2023 Active Lantus SoloStar 100 UNIT/ML Subcutaneous Solution Pen-injectorIndicat ions:Type 2 diabetes mellitus with hemoglobin A1c goal of less than 7.0% ([facility]) Inject 16 Units under the [...] disease, without long-term current use of insulin ([facility]) Use with lantus solostar pen- [...] as of this encounter (statuses as of 03/11/2023) Active Problems Problem Noted Date Diagnosed Date [...] as of this encounter (statuses as of 03/11/2023) Resolved Problems Problem Noted Date Diagnosed Date Resolved Date Carotid stenosis, asymptomatic, left 12/19/2022 03/10/2023 Hepatic cirrhosis 12/19/2022 03/11/2023 documented as of this encounter (statuses as of 03/11/2023) Immunizations Name Administration Dates Next Due Pneumococcal [...] encounter Miscellaneous Notes * Telephone Encounter - Anna Strickland CRNP - 03/11/2023 2:58 PM EST Pls arrange EUS in 4-6 week's time STEFANIE Arguelles documented in this encounter Plan of Treatment Upcoming Encounters Date Type Department Care Team (Late st Contact Info) Description 03/16/2023 8:00 AM EST Imaging Radiology [address], [place] [address] [facility] [place] [address] 03/17/2023 8:40 AM EST Office Visit Gastroenterology, [facility] [address] [place] [address] Sintia Langford DO 132 [facility] [place] [address] 03/20/2023 4:00 PM EST Office Visit Family Practice [facility] [address] [facility] [place] [address] Holland Dominique MD 132 [facility] [place] [address] 04/01/2023 2:00 PM EST Office Visit Pharmacy, [facility] [address] [facility] [place] [address] [facility] 132 [facility] [place] [address] 05/15/2023 2:00 PM EST Office Visit Hepatology, [facility] [address] [place] [address] Dede Olmedo MD [address] [place] [address] Scheduled Orders Name Type Priority Associated Diagnoses Orde r Schedule US ENDOSCOPIC Medical Imaging Routine Other chronic pancreatitis (HCC) Ordered: 03/11/2023 Scheduled Procedures Name Priority Associated Diagnoses Date/Ti me ESOPHAGOGASTRODUODENOSCOPY ( EGD), FLEXIBLE, TRANSORAL, DIAGNOSTIC Recall Esophageal varices (HCC) COLONOSCOPY FLEXIBLE PROXIMAL DIAGNOSTIC Recall Encounter for screening colonoscopy Health Maintenance Due Date Last Done Comments DISCUSS TOBACCO CESSATION (REFER TO SMARTSET #6718) 1965 Hepatitis B (1 of 3 - 3-dose series) 1965 COVID-19 Vaccine (#1) 1964 Depression Screening 1976 HIV Screening 01/04/1979 Diabetic Foot Exam 01/04/1982 DTaP,Tdap,and Td Vaccines (1 - Tdap) 01/04/1983 Pap Smear 01/04/1985 Cervical Cancer Screening 01/04/1994 HPV/Co-Test 01/04/1994 Cologuard 01/04/2009 Fecal Occult Blood Test 01/04/2009 Sigmoidoscopy 01/04/2009 LUNG CANCER SCREENING - USE SMARTSET 08319 01/04/2014 Zoster Vaccines (1 of 2) 01/04/2014 [...] Primary documented in this encounter Care Teams Tape Recorder Mechanic Relationship Specialty Start Date End Date Holland Dominique MD [address] [place] [address] PCP - General Family Medicine 12/26/22 documented as of this encounter
--- NOTE | 2023-04-03 12:23 | Cardiac Catheterization ---
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 Cardiac Status Clinical evaluation leading to the procedure CAD Presenation: Non STEMI Anginal Classification: CCS III Heart Failure: No Cardiogenic Shock within 24 Hours: No Cardiac Arrest within 24 Hours: No Imaging Studies Past 6 Months: No Stress Studies Past 6 Months: No Coronary Anatomy Dominant: Right Left Main (% Stenosis): Normal LAD (% Stenosis): Proximal and Mid (Up to 50%) D1 (% Stenosis): Ostial (50%) and Normal (Mild diffuse) Circumflex (% Stenosis): Mid (Mild diffuse) OM1 (% Stenosis): Proximal (Long eccentric 50 to 60%) OM2 (% Stenosis): Proximal (40 to 50%) L PL1 (% Stenosis): Normal RCA (% Stenosis): Normal R PDA (% Stenosis): Normal R PL1 (% Stenosis): Normal Diagnostic Physicians Name: Delano Beach MD, PhD Closure Device Percutaneous Entry Location: Radial Closure Device: Radial Band Recommendations: Medical Therapy and/or Counseling Cardiac Cath Procedure Full Procedure Date April 03, 2023 Pre-Procedure Diagnosis Pre-Procedure Diagnosis: Non STEMI AUC Score AUC Score: 07 Post-Procedure Diagnosis Post-Procedure Diagnosis: Moderate CAD Procedure(s) Performed Procedure(s) Performed: Coronary Angiography and Procedure (Right subclavian angiography) 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 Sedated using IV Versed and fentanyl. Soft tissues of the right wrist were anesthetized using 2 mL of 1% Xylocaine. The right radial artery was accessed using a modified Seldinger technique and a 6 [place] radial artery glide sheath was placed. We attempted to advance the 0.035 J-tip wire and [place] catheter but were unsuccessful once we were close to the right subclavian. Therefore, the wire and catheter were removed. Instead, we advanced a Gregg wire and a multipurpose to catheter after nonselective angiography was performed. This suggested subclavian stenosis. Fortunately, we were able to advance the Gregg wire and the multipurpose catheter parking the wire and catheter in the aortic root. The guidewire was then exchanged for a Amplatz stiff wire and the multipurpose catheter removed. We were then able to advance additional catheters over the Amplatz wire. We did not provide the patient with IV heparin given her unknown INR and cirrhosis but we did provide her with antispasmodics including nitroglycerin and nicardipine. Left coronary angiography was performed in orthogonal views with a 5 [place] JL 4 diagnostic catheter. Right coronary angiography was performed in orthogonal views with a 5 [place] JR4 diagnostic catheter. Finally, decision was made to evaluate the right subclavian stenosis using a 5 [place] pigtail catheter. Selective right subclavian angiography was then performed. The catheter was placed in the innominate. Pigtail catheter was removed over the J-wire. Radial artery sheath was removed. Hemostasis was obtained using the TR band. Patient remained hemodynamically stable and asymptomatic. She was returned to the recovery area. This ended the case. Coronary angiography findings: [id number]-[id number] and short vessel which bifurcates into LAD and circumflex. No disease. LAD-large caliber and transapical vessel. Proximal and mid segment have moderate calcification. Proximal segment has mild luminal irregularities, the mid segment has diffuse mild disease with less than 50% stenosis. Distal vessel with mild luminal irregularities. Has a medium caliber first diagonal with ostial 50% stenosis. After this, the vessel branches and has mild diffuse dis ease. [id number]-rpmocwt and nondominant vessel. Proximal segment is mildly to moderately calcified. It travels in the AV groove. Mild luminal irregularities in the proximal segment, mild scattered disease in the midsegment. It gives a medium to large caliber high rising OM1 which has a long eccentric stenosis of 50 to 60%. The circumflex also provides a medium caliber OM 2 which has proximal 40 to 50% stenosis. It terminates distally as a small posterolateral branch. RCA-medium to large caliber dominant vessel. Bifurcates distally into the PDA and multi branching posterolateral. There is mild luminal irregularities in the RCA and its branches. Right innominate/subclavian angiography: Large innominate artery providing the common carotid. There is mild atherosclerotic disease just before the origin of the carotid. The DEIRDRE is large caliber and widely patent. The visualized carotid is normal. The t hyrocervical trunk appears normal. The visualized vertebral artery appears normal. The right subclavian has a long stenosis of 80% and the early axillary artery is widely patent. Summary: 1. Mild to moderate nonocclusive coronary disease as described. No culprit for ACS. 2. Severe right subclavian stenosis. 3. Guideline directed medical therapy for secondary prevention of coronary and peripheral atherosclerosis. This should include low-dose aspirin, high intensity statin therapy, beta-ridge, plus or minus CATRACHITA inhibitor/ARB. Hemodynamics Rest Ao:: 187/62 mmHg Final Ao: Not performed invasively 115/74 LV: Not performed Recommendations Recommendations: Medical Therapy and/or Counseling Radiation Exposure (mGy) 511 mGy, fluoroscopy time 6.7 minutes Contrast (mls) 125 mL Anesthesia 2 mg IV Versed, 50 mcg IV fentanyl Procedural Complication(s) None Disposition Recovery Room\PACU I attest to the content of the Intraoperative Record and any orders documented therein. Any exceptions are noted below. [facility] Card Cath Procedure Codes Cardiac Catheterization Procedure 1: Cardiovascular Cath Procedures: 88235 Coronaries Therapeutic Services & Ancillary Procedure 1: Cardiovascular Tx and Anc Procedures: 68142 Supravalvular Aortography (Selective right innominate and subclavian artery angiography. [id number], [id number]) Moderate Sedation Procedure 1: Sedation/Anesthesia: 58843 Mod Sedation by the same physician;Init15 Min Child Age 5 & Up (Initial 15 min, start 1117) Procedure 2: Sedation/Anesthesia: 49499 Mod Sedation by the same physician; Ea [id number] Minutes (Additional 8 min, end 1140) PG Care Time/CCT Total # of Minutes Spent Total Time Spent with Patient: Total time spent is greater than 50% in coordination of care (as documented) at patient's floor/unit and/or counseling patient:
[2023-04-03] MEDS ORDERED: Nursing to Pharmacy Communication SCH (13:30)
--- NOTE | 2023-04-03 15:00 | Electrocardiogram Report ---
Test Reason : Blood Pressure : / mmHG Vent. Rate : 071 BPM Atrial Rate : 071 BPM P-R Int : 182 ms QRS Dur : 106 ms QT Int : 440 ms P-R-T Axes : 088 -11 050 degrees QTc Int : 478 ms Sinus rhythm with Premature atrial complexes in a pattern of bigeminy Nonspecific ST abnormality Abnormal ECG When compared with ECG of 02-APR-2023 19:05, (unconfirmed) No significant change was found Confirmed by Juan Barney ([id number]) on 04/03/2023 2:59:54 PM Referred By: REFERRED SELF Confirmed By:Juan Barney
[2023-04-03] MEDS ORDERED: ACETAMINOPHEN 500 MG TAB PO PRN (16:01)
--- NOTE | 2023-04-03 16:34 | Communication Note ---
Date of Service: April 03, 2023 Cardiac cath without culprit for angina. Has known 70% left subclavian stenosis based on past carotid duplex. Noted 80% right subclavian stenosis. Question if symptoms were related to an tachy arrhythmia event. 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 Recommend out patient Zio patch for evaluation of arrhythmia. Follow up with [facility] vascular surgery Re: subclavian disease, carotid disease.
--- NOTE | 2023-04-03 17:55 | Hospitalist Progress Note ---
Date of Service April 03, 2023 Assessment & Plan (1) NSTEMI (non-ST elevated myocardial infarction): (2) Chronic pancreatitis: (3) Esophageal varices in alcoholic cirrhosis: (4) Alcoholic cirrhosis: (5) Elevated troponin: (6) Precordial chest pain: Plan 58-year-old female with PMHx significant for DM type II, alcoholic cirrhosis with grade 2 nonbleeding esophageal varices per EGD 2021, sobriety x 11 years, history of TIA, carotid stenosis s/p carotid endarterectomy, HTN, diabetic nephropathy, chronic pancreatitis admitted with atypical chest pain/ACS- rule out. Acute coronary syndrome Atypical chest pain NSTEMI hs trop of 2861.6 to 1629.9 Echo Aspirin, beta-ridge, statin Rx, CATRACHITA, nitro prn Cardiology consult- appreciate recs Pt to have Cardiac cath today. HTN On bb, CATRACHITA Continue Hx of TIA Stable Hyperlipidemia on statin Rx, continue DM 2 insulin requiring suboptimal control as of recent hemoglobin A1c of 9.23 February 2023 Basal bolus insulin adjusted for n.p.o. status, ISS BG goal 1 10-1 40 History of alcoholic cirrhosis no overt decompensation past alcohol abuse History of pancreatitis Stable Chronic anemia (baseline hemoglobin of 11) hemoglobin better than baseline Chronic thrombocytopenia secondary to cirrhosis Stable Diet: HH/DMII DVT prophylaxis: Lovenox SQ Full code Admission and Anticipated Discharge Date Admission Date: April 02, 2023 Subjective Pt seen in the AM before her procedure. Stated that all her symptoms had resolved at that time. Denied any acute concerns. Review of Systems Review of Systems: All systems reviewed & are unremarkable except as noted in Subjective Physical Exam Physical Exam: General: Alert, oriented. No acute distress Skin: No noted rashes or bruises Psych: Appropriate mood and affect Neuro: No gross deficits HEENT: NC/AT Chest: Nontender to palpation. CV: RRR, Normal s1, s2. Resp: Breath sounds clear bilaterally, no increased effort of breathing. Abdomen: Soft, nontender, nondistended. Extremities: No edema in lower extremities bilaterally. Results & Data Results & Data Vital Signs (Past 12 Hours) Vital Signs Temp Pulse Pulse Pulse Resp BP BP 04/03/23 08:43 04/03/23 07:51 36.8 C 70 18 04/03/23 03:15 36.8 C 59 L 18 99/64 L 04/02/23 23:45 36.7 C 66 18 134/85 04/02/23 23:45 36.7 C 66 18 134/85 04/02/23 23:00 70 14 04/02/23 22:50 70 15 04/02/23 22:40 69 13 04/02/23 22:30 142/87 H 04/02/23 22:30 69 13 BP Pulse Ox O2 Del Method 04/03/23 08:43 Room Air 04/03/23 07:51 136/83 95 Room Air 04/03/23 03:15 94 Room Air 04/02/23 23:45 100 Room Air 04/02/23 23:45 100 Room Air 04/02/23 23:00 100 04/02/23 22:50 100 04/02/23 22:40 99 04/02/23 22:30 04/02/23 22:30 100 (4) Alcoholic cirrhosis Ascites presence: without ascites Qualified Code(s): K70.30 - Alcoholic cirrhosis of liver without ascites
[2023-04-03] MEDS ORDERED: ENOXAPARIN INJ 40 MG/0.4 ML SYR SQ SCH (20:00)
[2023-04-03] MEDS: HYDROmorphone INJ 0.5 MG/0.5 ML SYR IV PRN (20:55)
[2023-04-03] MEDS ORDERED: ATENOLOL 25 MG TABLET PO SCH (21:00)
[2023-04-04] MEDS: HYDROmorphone INJ 0.5 MG/0.5 ML SYR IV PRN (03:30)
[2023-04-04 07:22] LABS: Basophils # (auto) 0.06 K/uL (0.00-0.20); Basophils % (auto) 0.9 %; Eosinophils # (auto) 0.15 K/uL (0.00-0.50); Eosinophils % (auto) 2.2 %; Hematocrit (blood only) 31.6 % (37.0-47.0); Immature Granulocytes # (auto) 0.03 K/uL (0.01-0.20); Immature Granulocytes % (auto) 0.4 %; Lymphocytes # (auto) 1.34 K/uL (1.20-3.40); Lymphocytes % (auto) 19.7 %; Mean Corpuscular Hemoglobin 25.8 pg (25.0-34.0); Mean Corpuscular Hgb Conc 31.6 g/dL (32.0-36.0); Mean Corpuscular Volume 81.7 fL (80.0-100.0); Monocytes # (auto) 0.58 K/uL (0.11-0.59); Monocytes % (auto) 8.5 %; Neutrophils # (auto) 4.64 K/uL (1.40-6.50); Neutrophils % (auto) 68.3 %; Platelet Count 96 K/uL (130-400); RDW Coefficient of Variation 15.9 % (11.5-14.5); RDW Standard Deviation 47.8 fL (36.4-46.3); Red Blood Count 3.87 M/uL (4.20-5.40)
--- NOTE | 2023-04-04 07:48 | Electrocardiogram Report ---
Test Reason : Blood Pressure : / mmHG Vent. Rate : 068 BPM Atrial Rate : 068 BPM P-R Int : 196 ms QRS Dur : 112 ms QT Int : 420 ms P-R-T Axes : 083 004 053 degrees QTc Int : 446 ms Normal sinus rhythm Voltage criteria for left ventricular hypertrophy Abnormal ECG When compared with ECG of 03-APR-2023 05:35, Premature atrial complexes are no longer Present Confirmed by Juan Barney ([id number]) on 04/04/2023 7:47:42 AM Referred By: REFERRED SELF Confirmed By:Juan Barney
[2023-04-04 07:54] LABS: Albumin Globulin Ratio 1.3 (0.9-2); Albumin Level 3.2 gm/dl (3.4-5.0); BUN Creatinine Ratio 18.9 (10-20); Bilirubin,Total 0.8 mg/dl (0.2-1.0); Creatinine Clr Calc Pharmacy 43.3 ml/min; Est GFR (African American) 56.2 ml/min; Est GFR (Non-African American) 48.5 ml/min; Globulin 2.4 gm/dl (2.5-4.0); Magnesium 1.6 mg/dl (1.7-2.4); Phosphorus 3.1 mg/dl (2.5-4.9); Potassium 4.3 mmol/L (3.5-5.1); Total Protein 5.6 gm/dl (6.0-8.3)
[2023-04-04] MEDS: INSULIN ASPART PER UNIT CHARGE SC SCH ×2 (08:07→11:58)
[2023-04-04] MEDS: PANCREAZE (LIPASE 10,500U) CAP PO SCH ×2 (08:33→11:58)
[2023-04-04] MEDS: ASPIRIN 81 MG ECTAB PO SCH (08:33)
[2023-04-04] MEDS: lisinopril 20 MG TAB PO SCH (08:33)
[2023-04-04] MEDS: PANTOprazole 40 MG TAB PO SCH (08:34)
[2023-04-04] MEDS: buPROPion XL 150 MG TABCR PO SCH (08:34)
[2023-04-04] MEDS ORDERED: MAGNESIUM OXIDE 400 MG TAB PO SCH (09:15)
--- NOTE | 2023-04-04 09:59 | Cardiology Progress Note ---
"Date of Service April 04, 2023 Assessment & Plan (1) NSTEMI (non-ST elevated myocardial infarction): Plan: Type II NSTEMI Due to demand-supply mismatch of O2 likely in the setting of arrhythmia Cardiac cath without culprit for angina. Has known 70% left subclavian stenosis based on past carotid duplex. Noted 80% right subclavian stenosis. Recommend increase in home dose of Crestor from 20mg to 40mg with goal LDL < 55mg/dL 14 day ziopatch at time of discharge Follow up with cardiology as an outpatient. I provided 55 min of care and counseling to the patient in regards to her NSTEMI. Admission and Anticipated Discharge Date Admission Date: April 02, 2023 Subjective No acute events overnight Telemetry without significant arrhythmia No chest pain. No N/V/CAUSEY; afebrile. No PND or orthopnea. Review of Systems Review of Systems: A comprehensive review of systems is otherwise negative unless noted above. Physical Exam Physical Exam: AAOx3; NAD Constitutional: WD/WN, vitals as above Neck: trachea midline, no thyromegaly No JVD Respiratory: normal respiratory effort, lungs clear to auscultation Cardiovascular: RRR, no murmur, no edema Gastrointestinal (Abdomen): Inspection/Auscultation: abdomen normal to inspection Musculoskeletal: No lower extremity edema b/l. Skin: no rashes, warm and dry Results & Data Vital Signs (Past 12 Hours) Vital Signs Temp Pulse Pulse Resp BP Pulse Ox O2 Del Method 04/04/23 07:04 36.6 C 57 L 17 123/69 98 Room Air 04/04/23 03:00 36.5 C 56 L 16 132/70 97 Room Air 04/03/23 23:00 65 04/03/23 23:00 36.7 C 63 16 136/74 95 Room Air Laboratory Results Na | 138 | | 136-145 mmol/L | K | 4.3 | | 3.5-5.1 mmol/L | Cl | 109 | H | 98-107 mmol/L | CO2 | 23 | | 21-32 mmol/L | Gap | 6 | | 3-11 | BUN | 23 | | 6-23 mg/dl | Creat | 1.22 | H | 0.6-1.2 mg/dl | Creat Calc PHA | 43.3 | | ml/min | | Est. Creatinine Clearance (Mod Cockcroft-Gault) for pharmacy | dosing purposes. EGFR AA | 56.2 | | ml/min | | Units: ml/min per 1.73 meters squared | | The estimated GFR (CKD-EPI equation) has not been validated | for inpatient settings and may not be an accurate reflection | of renal function in critically ill patients or those with | rapidly changing renal function (e.g. STARLA). EGFR MAYELA | 48.5 | | ml/min | | Units: ml/min per 1.73 meters squared | | The estimated GFR (CKD-EPI equation) has not been validated | for inpatient settings and may not be an accurate reflection | of renal function in critically ill patients or those with | rapidly changing renal function (e.g. STARLA). BUN Creat Ratio | 18.9 | | 10-20 | Glu | 97 | | 70-99(Fasting) mg/dl | Ca | 9.0 | | 8.6-10.3 mg/dl | Phos | 3.1 | | 2.5-4.9 mg/dl | MG | 1.6 | L | 1.7-2.4 mg/dl | Total Bilirubin | 0.8 | | 0.2-1.0 mg/dl | AST | 40 | H | 13-39 U/L | Alt | 39 | | 7-52 U/L | TP | 5.6 | # L | 6.0-8.3 gm/dl | | Delta: 7.8 on 04/02/23-1720 Alb | 3.2 | L | 3.4-5.0 gm/dl | Globulin | 2.4 | L | 2.5-4.0 gm/dl | A/G Ratio | 1.3 | | 0.9-2 | Alk Phos | 97 | | 34-104 U/L |"
--- NOTE | 2023-04-04 12:15 | Discharge Summary ---
Discharge Summary Date of Service April 04, 2023 Notes For Next Care Provider Pt requires Zio patch placement for 14 days per Cardiology Please ensure follow up with Vascular Surgery for subclavian stenosis Medication Changes From Visit Crestor increased from 20mg to 40mg Admission HPI Per Admitting Provider 58-year-old female with PMH DM type II, alcoholic cirrhosis with grade 2 nonbleeding esophageal varices per EGD 2021, sobriety x 11 years, history of TIA, carotid stenosis s/p carotid endarterectomy, HTN, diabetic nephropathy, chronic pancreatitis, and other problems listed below who presents to the ED for evaluation of chest pain. History is obtained from the patient and review of outpatient PCP and GI records. Patient reports that last night around 2 AM, she woke up with severe chest pressure. Reports that discomfort was radiating up into both shoulders and her jaw. Reports associated diaphoresis, shortness of breath, nausea. Reports palpitations and that her heart was pounding. Symptoms lasted for about 2 to 3 hours and then self resolved. Patient reports no further symptoms since that time and states she felt in her usual state of health today. She described her symptoms to her daughter who advised her to be evaluated in the emergency department. Patient was recently admitted to [facility] 03/10 through 03/13 for pancreatitis. Patient reports marked improvement in her symptoms since starting pancreas enzymes. Denies abdominal pain, vomiting, diarrhea. No bright red bleeding per rectum or dark tarry stools. She denies any other recent illnesses, fevers, chills. No urinary symptoms. In the ED, labs show HS troponin 2600. EKG shows ST elevations in the anterior leads. ED discussed case with cardiology and given that patient is currently chest pain- free, will hold on urgent cardiac cath. Patient was given full dose aspirin, IV metoprolol 5 mg, IVF. Admission Exam Per Admitting Provider Constitutional: WD/WN, vitals as above Eyes: PERRL, conjunctivae normal, anicteric sclerae ENMT: external ear and nose normal, oropharynx normal Respiratory: normal respiratory effort, lungs clear to auscultation Cardiovascular: Rate/Rhythm: regular rate and regular rhythm Vessels: normal peripheral pulses Extremities: no edema Gastrointestinal (Abdomen): normal bowel sounds, soft, nontender, no hepatosplenomegaly Musculoskeletal: no cyanosis or clubbing, extremities motor strength 5/5 Skin: no rashes, warm and dry Neurologic: PERRL, EOMI, accommodation nl, no face palsy, no dysarthria Psychiatric: A+Ox3, euthymic affect Principal Dx & Hospital Course #1 = Principal Diagnosis (1) NSTEMI (non-ST elevated myocardial infarction): (2) Chronic pancreatitis: (3) Esophageal varices in alcoholic cirrhosis: (4) Alcoholic cirrhosis: (5) Elevated troponin: (6) Precordial chest pain: Plan 58-year-old female with PMHx significant for DM type II, alcoholic cirrhosis with grade 2 nonbleeding esophageal varices per EGD 2021, sobriety x 11 years, history of TIA, carotid stenosis s/p carotid endarterectomy, HTN, diabetic nephropathy, chronic pancreatitis admitted with atypical chest pain/ACS- rule out. Acute coronary syndrome Atypical chest pain NSTEMI Type II hs trop of 2861.6 to 1629.9 Echo without regional wall motion abnormalities Aspirin, beta-ridge, statin Rx, CATRACHITA, nitro prn Cardiology consult- appreciate recs Pt s/p cardiac cath on 04/03 Cardiology recs for discharge: "Cardiac cath without culprit for angina. Has known 70% left subclavian stenosis based on past carotid duplex. Noted 80% right subclavian stenosis. Recommend increase in home dose of Crestor from 20mg to 40mg with goal LDL < 55mg/dL 14 day zio patch at time of discharge Follow up with cardiology as an outpatient." Close Vascular Surgery followup recommended for subclavian stenosis HTN On bb, CATRACHITA Continue Hx of TIA Stable Hyperlipidemia on statin Rx, continue Crestor dose increased from 20mg to 40mg with goal LDL < 55mg/dL DM 2 insulin requiring suboptimal control as of recent hemoglobin A1c of 9.23 February 2023 Basal bolus insulin adjusted for n.p.o. status, ISS BG goal 1 10-1 40 Continue home regimen with pcp follow up History of alcoholic cirrhosis no overt decompensation past alcohol abuse History of pancreatitis Stable Chronic anemia (baseline hemoglobin of 11) hemoglobin better than baseline Chronic thrombocytopenia secondary to cirrhosis Stable Discharge Exam General: Alert, oriented. No acute distress Skin: No noted rashes or bruises Psych: Appropriate mood and affect Neuro: No gross deficits HEENT: NC/AT Chest: Nontender to palpation. CV: RRR, Normal s1, s2. Resp: Breath sounds clear bilaterally, no increased effort of breathing. Abdomen: Soft, nontender, nondistended. Extremities: No edema in lower extremities bilaterally. Updated Medication List Medication Instructions Recorded Confirmed Type albuterol sulfate 90 mcg/actuation 2 puff inhalation Q4H PRN Wheezing 08/26/16 04/02/23 History aerosol inhaler ##0 ibuprofen 200 mg tablet 400 mg PO UD PRN PAIN/FEVER #0 tabs 10/29/17 04/02/23 History atenolol 25 mg tablet 25 mg PO HS 03/10/23 04/02/23 History empagliflozin 10 mg tablet 10 mg PO QAM 03/10/23 04/02/23 History (Jardiance) epinephrine 0.3 mg/0.3 mL 0.3 mg IM UD PRN SEVERE REACTION 03/10/23 04/02/23 History injection, auto-injector insulin glargine 100 unit/mL (3 16 unit subcut BID 03/10/23 04/02/23 History mL) subcutaneous pen (Lantus Solostar U-100 Insulin) lisinopril 20 mg tablet 20 mg PO QAM 03/10/23 04/02/23 History dimncs-pjavvavh-bpwoowd 2 cap PO TIDM #180 caps 03/13/23 04/02/23 Rx 36,000-114,000-180,000 unit capsule,delay rel (Creon) pantoprazole 40 mg tablet,delayed 40 mg PO QAM #30 tabs 03/13/23 04/02/23 Rx release bupropion HCl 150 mg 24 hr tablet, 150 mg PO QAM 04/02/23 04/02/23 History extended release rosuvastatin 40 mg tablet 40 mg PO DAILY #30 tabs 04/04/23 Rx Hospital Stay Data Consultations 04/02/23 20:57 ED Decision to Admit Stat 04/02/23 23:45 Consult Cardiology Routine Procedures Performed Operation Date: 04/03/23 10:30 Actual Procedures s Cineradiography w/Routine Exam - Delano Beach MD, PhD p Cath, Coronaries ONLY (no LV) - Delano Beach MD, PhD s Angio Subclavian Unilateral - Delano Beach MD, PhD Diagnostic Imagining Performed 04/03/23 10:08 CL Cath Imgs for PACS use only Routine Chest X-Ray 04/02/23 19:45 SINGLE VIEW CHEST CLINICAL HISTORY: Atypical chest pain. FINDINGS: An AP, portable, upright chest radiograph is compared to study dated 10/29/2017. The heart is enlarged noting atherosclerotic calcification of the thoracic aorta. The pulmonary vasculature is noncongested. Chronic interstitial thickening is similar to previous. There is mild bibasilar scarring/atelectasis. No airspace consolidation or large pleural effusion is identified. No pneumothorax is seen. The bony thorax is grossly intact. IMPRESSION: No acute cardiopulmonary abnormality. ACT 112: Negative or not required by law. Electronically signed by: Bipin Lanza M.D. 04/02/2023 8:31 PM Pending Results Patient Have Any Pending Studies at Discharge: No Discharge Instructions Given to Patient (Per Discharging Provider) Ms. Rodriguez, You were admitted to the hospital and you were seen by cardiology. You had a cardiac catheterization procedure which did not show a definite cause of your symptoms. Cardiology believes that your symptoms were related to what is called a Type II non-ST elevated myocardial infarction. They recommend that you continue with your home atenolol and increase your cholesterol medication Rosuvastatin to 40mg. They also want you to have an outpatient heart monitor placed for 14 days for further evaluation. Followup with your [facility] Vascular Surgeon was also recommended for stenosis of your right and left subclavian vessels. We ask that you keep close follow up with your primary care provider, ropeman and vascular surgeon after discharge. Please do not hesitate to return to the emergency room should your symptoms worsen or return. It was a pleasure taking care of you while you were here. Total Time Total Time Spent Total Time Spent (In Minutes): > 30 minutes
== END 2023-04-04 13:09 | disposition home or self-care (01) | DRG 281 ==
LOC: ED 18:49 → 2E 22:16
PROC: CLB.CCO (2023-04-03 10:30)